=== PATIENT | female | born 1940 | race Caucasian/White ===

== ENCOUNTER 2024-08-26 18:58 | Inpatient (IN) | payer OTHER, SELFPAY ==
[2024-08-26 18:19] VITALS: BP 163/88
--- NOTE | 2024-08-26 18:44 | CONSULT.CT ---
Consultation
-
Date/Time Consultation Requested: 08/27 1843
Date/Time Consultation Performed: 08/27 1843
Performing Provider: Noemi Pena MD
Reason for Consultation: Endocarditis
Patient History
Physicians
Family Physician: Marianne Escalera
Outpatient Air Crew Officer: Juan Jose
Inpatient Air Crew Officer: GRABIEL
History of Present Illness
84-year-old female with past medical history significant for hypertension, hypothyroidism, rheumatoid arthritis on chronic methotrexate, hyperlipidemia, Sjogren's disease initially presented to [facility] after the neighbor felt that she was
more confused. Patient at that time endorsed feeling confused and having complaints of generalized weakness. Patient in the ER was found to be afebrile with a white count greater than 20,000, and elevated procalcitonin and a chest x-ray showed
left lower lobe infiltrates. She also endorsed right toe swelling and bruising. At that time blood cultures were drawn and she was treated with Rocephin and azithromycin. Blood cultures eventually grew gram-positive cocci in clusters and was
started on vancomycin. Eventually she was found to have Staph aureus bacteremia and Rocephin and azithromycin was discontinued.
On 08/24 patient received a transthoracic echocardiogram which showed a large echogenic mass on the posterior mitral valve leaflet. The lesion measured 1.6X 1.3 cm. Ejection fraction was noted to be 55% and she had mild to moderate MR with trace to
mild AR. Patient was transferred to [facility] for further management of her endocarditis and possible surgical intervention.
Past Medical History
Past Medical History: Other
hypertension, hypothyroidism, rheumatoid arthritis on chronic methotrexate, hyperlipidemia, Sjogren's disease
Dental History
unknown
Family History
Family Medical History: CAD
Social History
Alcohol: Occasional
Drug: None
Tobacco: Non-Smoker
Home Medications
�Medication �Instructions �Recorded �Confirmed �Type
Methotrexate (Anti-Rheumatic) 08/26/24 History
amlodipine 5 mg-benazepril 20 mg 1 cap PO DAILY 08/26/24 08/26/24 History
capsule
celecoxib 100 mg capsule (Celebrex) 100 mg PO DAILY 08/26/24 08/26/24 History
hydrochlorothiazide 25 mg tablet 25 mg PO DAILY 08/26/24 08/26/24 History
Review of Systems
-
History Source: Patient
General: Reports Fever, Fatigue and Sleep Disturbance
HEENT: Reports Hoarseness
Respiratory: Reports SOB and CASTILLO
Cardiac: Reports Edema
Abdomen/GI: Reports No Symptoms
: Reports No Symptoms
Musculoskeletal: Reports Myalgias and Arthralgias
Skin: Reports No Symptoms
Neurological: Reports Other (confused at times)
Vascular: Reports No Symptoms
Physical Exam
Exam
General: Poor Appetite
HEENT: Normocephalic
Respiratory: Clear and Crackles
Cardiac: S1/S2 and Murmur
GI: Other (obese)
Rectal: Deferred by Provider
Skin: Warm and Dry
Neuro: AO x 3 and Other (weak)
Extremities: Lower Level Edema
Lymph: Lymphadenopathy
Psych: Calm
Assessment / Plan
-
84-year-old female with past medical history listed above was found to have possible mitral valve endocarditis after presenting to [facility] with confusion. She was transferred to [facility] on 08/26 for continued endocarditis care
and surgical evaluation.
#MV Endocarditis
- Patient's case will be discussed with attending physician. Further details regarding surgical timing intervention will be determined after attending physicians full evaluation
- Routine preoperative cardiothoracic surgery orders will need be initiated.
- STS risk stratification score will be calculated after preoperative testing is complete
- patient will need ADITI
- Consulted cardiology and infectious disease
--- NOTE | 2024-08-26 19:09 | HPS.HSE ---
Family Physician
-
Family Physician: SHARLA GUO MD
Chief Complaint
-
confusion
History of Present Illness
84-year-old female past medical history of Sjogren's syndrome, rheumatoid arthritis, hyperlipidemia, hypothyroidism, anxiety, depression, neuropathy, skin cancer, osteopenia presenting as a transfer from [facility] for cardiothoracic surgery
evaluation.
Patient was admitted for confusion. She was found to have MSSA bacteremia secondary to mitral valve endocarditis. Was found to have 1.6 cm vegetation of her mitral valve leaflet on 08/24. She was treated with IV antibiotics narrowed to cefazolin
and had negative blood cultures on August 22. She was not having any evidence of congestive heart failure.
She had CT chest which did not show any evidence of embolic phenomenon. ADITI was being considered but she had brain imaging which showed anterior medial right cerebral hemisphere decreased attenuation concerning for septic emboli to the brain. ADITI
was canceled.
Decision was made to transfer patient to [facility] due to discovery of septic emboli to the brain and consideration of surgery for mitral valve endocarditis.
She also had a right third toe ulcer that was debrided by podiatry. No further management required.
Medical History
Past Medical History
Past Medical History: Reports Other (Sjogren's syndrome, rheumatoid arthritis, hyperlipidemia, hypothyroidism, anxiety, depression, neuropathy, skin cancer, osteopenia)
Past Surgical History: Reports None
Social History
Tobacco: Non-smoker
Alcohol: Occasional
Drug: None
Family History
Family History: Not pertinent
Allergies / Home Medications
Allergies reflects when Allergies were last updated in [facility].
Home Medications with original date entered in [facility]
Allergy/Medication List:
Home Medications
Methotrexate (Anti-Rheumatic) 20 TH 08/26/24
amlodipine 5 mg-benazepril 20 mg capsule 1 cap PO DAILY 08/26/24
celecoxib 100 mg capsule (Celebrex) 100 mg PO DAILY 08/26/24
hydrochlorothiazide 25 mg tablet 25 mg PO DAILY 08/26/24
Review of Systems
-
History Source: Patient
A 12 point ROS was completed and negative except as noted: Yes
Constitutional: Reports No Symptoms
EENT: Reports No Symptoms
Respiratory: Reports No Symptoms
Cardiac: Reports No Symptoms
Abdomen/GI: Reports No Symptoms
: Reports No Symptoms
Musculoskeletal: Reports No Symptoms
Skin: Reports No Symptoms
Neurological: Reports No Symptoms
Endocrine: Reports No Symptoms
Hematologic/Lymphatic: Reports No Symptoms
Psych: Reports No Symptoms
Physical Exam
Physical Exam
General: Well Developed, Well Nourished and No Apparent Distress
HEENT: NormoCephalic, Moist mucous membranes and Atraumatic
Respiratory: Clear
Cardiac: S1/S2 and Regular Rhythm; No Murmur or Rub
GI: Soft, Non Tender, Non Distended and Normal Bowel Sounds; No Organomegaly
Rectal: Deferred by Provider
Musculoskeletal: No Clubbing, No Cyanosis and No Edema
Skin: No Rash
Neuro: Nonfocal/grossly intact
Data Reviewed
-
Lab Data: Labs Reviewed by me
Old Records: Reviewed
Impression/Plan
-
IMPRESSION:
PLAN:
# MSSA bacteremia
# Endocarditis/mitral valve leaflet vegetation
-Echo showed 1.6 x 1.3 cm lesion on the atrial side of the posterior mitral valve leaflet
-Repeat blood cultures on 08/22 negative
-Continue cefazolin, patient would lead 6-week course from date of cultures being negative
-ID consulted
-ADITI was deferred due to septic emboli and brain
-CT chest shows no embolic phenomena
-Cardiology consult
-Cardiothoracic surgery consulted
# Likely septic emboli to brain
-1.2 cm region of decreased attenuation of the anterior medial right cerebellar hemisphere, possible recent infarction
-No neurological symptoms
-Neurology consulted
# Acute metabolic encephalopathy from bacteremia
-Resolved
-Pneumonia was considered previously but deemed to not be pneumonia by pulmonary
Right third toe ulcer
-Underwent debridement by podiatry, no further treatment necessary
Essential hypertension
-Hydrochlorothiazide, amlodipine/benazepril being held
Rheumatoid arthritis
-Continue celecoxib, Tylenol
-Continue methotrexate
Sjogren syndrome
Osteoporosis
Chronic bilateral neuropathy
-Continue pregabalin
Anxiety/depression
-Continue duloxetine
Hyperlipidemia
-Continue statin
Hypothyroidism
History of skin cancer
Full code
DVT prophylaxis�heparin
Regular diet
[2024-08-26 19:22] VITALS: BP 147/90
[2024-08-26] MEDS: TYLENOL 500 MG PO (20:42)
[2024-08-26] MEDS: COLACE 100 MG PO (20:43)
[2024-08-26] MEDS: ANCEF 10 IV (22:03)
[2024-08-26] MEDS: CYMBALTA DELAYED RELEASE 20 MG PO (22:03)
[2024-08-26 22:10] VITALS: BMI 24.4
--- NOTE | 2024-08-26 22:31 | PTCARENOTE ---
Addendum entered by Maria G Sun RN 08/26/24 22:38:
Pt on bed alarm for safety.
Original Note:
Assumed care of pt at 1900. Pt was a transfer from [place] admitted for endocarditis. Pt vitals stable, SR on monitor. Assessment and admission done. Pt oriented but forgetful. Pt with RFA IV site with good blood return from [place]. New name
band placed. [facility] name band removed. Pt instructed to ring for assistance.
[2024-08-26 23:12] VITALS: BP 149/80
[2024-08-27] VITALS (8 sets, daily range): BP systolic 144–162; BP diastolic 79–97; O2SAT 96
--- NOTE | 2024-08-27 01:19 | PTCARENOTE ---
Received patient at 2300. SR on the monitor, HR in the 60s. Oriented x3 but forgetful, bed alarm on. No complaints from pt at this time, call humphrey within reach.
[2024-08-27] MEDS: TYLENOL 500 MG PO ×2 (02:35→18:16)
[2024-08-27 03:06] LABS: % Basophils 0.4 % (0-2); % Eosinophils 4.4 % (0-6); % Immature Granulocytes 0.7 % (0-0.5); % Lymphocytes 19.3 % (20.5-51.1); % Monocytes 6.5 % (1.7-9.3); % Neutrophils 68.7 % (42.2-75.2); Absolute Eosinophils 0.4 10^3/uL (0-0.7); Absolute Immature Granulocytes 0.1 10^3/uL (0-0.05); Absolute Lymphocytes 1.6 10^3/uL (1.2-3.4); Absolute Monocytes 0.5 10^3/uL (0.1-0.6); Absolute Neutrophils 5.6 10^3/uL (1.4-6.5); Hematocrit 33.6 % (37.0-47.0); Hemoglobin 11.2 g/dL (12.0-16.0); Mean Corp Hgb Conc. 33.3 g/dL (33.0-37.0); Mean Corpuscular Hgb 29.7 pg (27.0-31.0); Mean Corpuscular Volume 89.1 fL (81.0-99.0); Mean Platelet Volume 9.5 fL (7.4-10.4); Nucleated Red Blood Cells % 0 %; Platelet Count 184 10^3/uL (130-400); Red Blood Cell Count 3.77 10^6/uL (4.20-5.40); Red Cell Dist. Width 17.6 % (11.5-14.5); White Blood Cell Count 8.1 10^3/uL (4.8-10.8)
[2024-08-27 03:22] LABS: ALT (SGPT) 12 U/L (0-35); AST (SGOT) 34 U/L (14-36); Alkaline Phosphatase 93 U/L (38-126); Blood Urea Nitrogen 23 mg/dl (7-17); Calcium 9.4 mg/dl (8.4-10.2); Carbon Dioxide 29 mmol/L (22-30); Chloride 107 mmol/L (98-107); Estimated Creatinine Clearance 58 ml/min; Glucose 107 mg/dl (70-99); Sodium 142 mmol/L (135-145); Total Bilirubin 0.8 mg/dl (0.2-1.3); Total Protein 5.6 g/dl (6.3-8.2); eGFR > 60.00
[2024-08-27] MEDS: ANCEF 10 IV ×3 (05:08→22:42)
--- NOTE | 2024-08-27 07:21 | CON.NEURO ---
Consultation
Order
Date of Consultation: 08/27/24
Requesting Provider: Cris Gupta MD
Reason for Consult: Evidence of septic emboli in the brain
Neurology Consultation Note.
HPI: This is an 84-year-old left-handed immunocompromised woman who transferred to [facility] on 08/26/2024 for management of infectious endocarditis and consideration of surgery for mitral valve MSSA endocarditis. Neurology
consultation was requested given abnormal CT head findings.
The patient reports neck discomfort and stiffness, which is a new symptom. This is associated with a recent fall. Prior to hospitalization for infectious endocarditis, the patient was independent, living alone but with family support, able to
perform activities of daily living without assistance, and did not require ambulatory aids.
The patient describes the fall as occurring when she was half-asleep and tried to get out of bed. She denies any loss of consciousness, weakness, preceding the fall.
EKG:NSR, QTc Int : 453 ms
PDMP: Pregabalin 50 Mg 90 capsules filled in on 06/17/2024, 03/31/2022 4.
Labs: Hemoglobin�11.2, glucose�107, normal sodium, creatinine.
CT head wo contrast (08/27/2024) mild age-related parenchymal atrophy. No intra- or extra-axial mass, hemorrhage, or fluid collection. No areas of abnormal mass effect or attenuation are noted. Hyperostosis frontalis interna. Mild mucosal thickening
of the left sphenoid sinus. The mastoid air cells are clear.
Based on EMR the patient had anterior medial right cerebral hemisphere decreased attenuation concerning for septic emboli to the brain.
PMH: RA,Sjogren's syndrome, DLP, hypothyroidism, polyneuropathy, osteopenia, HANH, MDD
PSH: Bilateral cataract surgery, bilateral median nerve decompression at the wrist
SH: Lives alone, independent in ADLs
FH: Not contributory to current presentation
All:NKDA
ROS: Constitutional: Negative. Negative for chills, fever and unexpected weight change.
HENT: Negative for ear pain, hearing loss, tinnitus and trouble swallowing.
Eyes: Negative. Negative for photophobia, pain and visual disturbance.
Respiratory: Negative for cough, choking and shortness of breath.
Cardiovascular: Negative for chest pain, palpitations and leg swelling.
Gastrointestinal: Negative for abdominal pain and vomiting.
Endocrine: Negative. Negative for cold intolerance.
Genitourinary: Negative for dysuria, flank pain and urgency.
Musculoskeletal: Positive for generalized arthralgias, neck stiffness, right shoulder pain
Skin: Negative for rash.
Allergic/Immunologic: Negative. Negative for immunocompromised state.
Neurological: Positive for chronic hand tremor
Psychiatric/Behavioral: Negative for behavioral problems, confusion and hallucinations.
General: Well developed. In no acute distress.
Cardio: Regular rate and rhythm without murmur. Extremities are without cyanosis or edema.
Neuro:
Mental Status: Alert, oriented to person, place, and date. Normal attention and recall. Good fund of knowledge. Follows complex requests across the midline. Comprehension, naming, and repetition intact. Immediate and delayed recall 3/3.
Cranial Nerves: Pupils are equally round and reactive to light. EOMs full. Visual upton full to confrontation. No ptosis. No nystagmus. V1-V3 intact to light touch and pinprick bilaterally, symmetric. Face symmetric. Mildly impaired hearing
AU. The palate elevated well. SCMs and traps 5/5. Tongue midline. No dysarthria. Mild dysphonia
Motor: Normal bulk and tone. No pronator or arm drift. Strength 5/5 throughout. No clonus.
Reflexes: 2+ throughout the upper extremities and knees. 2/2 in AJs. Plantar responses flexor bilaterally.
Sensory: Normal vibration at the ankles
Coordination: Mild action right more than left hand tremor. No dysmetria
Gait: deferred
Assessment and Plan:
I. History of right cerebral signal abnormality.
II. MSSA endocarditis. Patients with IE are at high risk for embolic events, including embolic stroke. �Patients with IE are at risk for bleeding complications from hemorrhagic transformation of an embolic stroke, rupture of a mycotic aneurysm, or
septic arteritis with hemorrhage from vessel wall erosions. It is a common practice to hold antiplatelet therapy during treatment of IE. However, in the absence of bleeding complications, it is reasonable to continue antiplatelet therapy in acute IE
for patients deemed to be at particularly high risk of recurrent noncardioembolic ischemic stroke because of factors such as recent TIA or high-grade stenosis of an extracranial or intracranial large artery.
III. Mild action chronic hand tremor
-Telemetry monitoring
-Please obtain neurology notes and copy of brain MRI
-Obtain brain MRI with and without hanh if not done at [facility]
-Check TFTs
-C spine MRI w/wo hanh
-DVT prophylaxis
I personally reviewed all radiology and labs along with past medical records pertinent to current medical problems. Total time spent in patient care is 60 minutes.
Thank you for allowing us to participate in the care of this patient. We will continue to follow. Please do not hesitate to contact us with any questions or concerns.
Subjective/Objective
Subjective Data
Date of Service: August 27, 2024
Objective Data
Vital Signs
Temp Pulse Resp BP Pulse Ox
37.0 C 64 18 153/87 100
08/27/24 02:25 08/27/24 03:00 08/27/24 02:25 08/27/24 02:26 08/27/24 02:25
Lab Results
08/27/24 02:31
08/27/24 02:31
Sodium 142 mmol/L (135-145) 08/27/24 02:31
Potassium 4.0 mmol/L (3.5-5.1) 08/27/24 02:31
BUN 23 mg/dl (7-17) H 08/27/24 02:31
Glucose 107 mg/dl (70-99) H 08/27/24 02:31
Calcium 9.4 mg/dl (8.4-10.2) 08/27/24 02:31
Patient Allergies
latex Allergy (Verified 08/26/24 19:47)
Unknown
Medications
-
Active Medications
Generic Name Dose Route Start Last Admin
Trade Name Freq PRN Reason Stop Dose Admin
Acetaminophen 500 mg 08/26/24 19:36 08/27/24 02:35
Acetaminophen 500 Mg Tablet PO 09/23/24 19:35 500 mg
Q6HPRN PRN Administration
mild pain/fever
Atorvastatin Calcium 20 mg 08/27/24 08:00
Atorvastatin (Lipitor) 20 Mg Tablet PO 09/24/24 07:59
DAILY EDITH
Carbamide Peroxide 5 drop 08/26/24 19:36
Carbamide Peroxide 6.5% (Otic Solution) 15 Ml Bottle BOTH EARS 09/23/24 19:35
DAILYPRN PRN
ear wac
Celecoxib 200 mg 08/27/24 08:00
Celecoxib 200 Mg Capsule PO 09/24/24 07:59
DAILY EDITH
Docusate Sodium 100 mg 08/26/24 20:00 08/26/24 20:43
Docusate Sodium 100 Mg Capsule PO 09/23/24 19:59 100 mg
BID EDITH Administration
Duloxetine HCl 20 mg 08/26/24 20:00 08/26/24 22:03
Duloxetine Delayed Release 20 Mg Capsule PO 09/23/24 19:59 20 mg
BID EDITH Administration
Folic Acid 1 mg 08/27/24 08:00
Folic Acid 1 Mg Tablet PO 09/24/24 07:59
DAILY EDITH
Cefazolin Sodium 2 grams in 10 mls @ 120 mls/hr 08/26/24 22:00 08/27/24 05:08
Ancef IV 10 mls
Q8H EDITH Administration
Multivitamins Therapeutic 1 tablet 08/27/24 08:00
Multivitamin Tablet PO 09/24/24 07:59
DAILY EDITH
Non-Form (Cevimeline 1 cap 08/26/24 22:00
30 Mg Capsule) PO 09/23/24 21:59
TID EDITH
Non-Form (Povidone- 1 applic 08/27/24 08:00
Iodine 10 % Swab) TOPICAL 09/24/24 07:59
MoTh@0800 EDITH
Ondansetron HCl 4 mg 08/26/24 19:36
Ondansetron 4 Mg Tablet PO 09/23/24 19:35
DAILYPRN PRN
nausea
Pregabalin 50 mg 08/27/24 08:00
Pregabalin 50 Mg Capsule PO 09/24/24 07:59
DAILY EDITH
Sodium Chloride 0 flush 08/26/24 20:00
Sodium Chloride 0.9% (Flush) Syringe IV 09/23/24 19:59
PER PROTOCOL EDITH
Home Medications
�Medication �Instructions �Recorded
acetaminophen 500 mg tablet 500 mg PO Q6HPRN PRN mild 08/26/24
(Tylenol Extra Strength) pain/fever
atorvastatin 20 mg tablet 20 mg PO DAILY 08/26/24
carbamide peroxide 6.5 % ear drops 5 drp EACH EAR DAILYPRN PRN ear wac 08/26/24
(Debrox)
cefazolin 1 gram solution for 2 g IV Q8H 08/26/24
injection
celecoxib 200 mg capsule (Celebrex) 200 mg PO DAILY 08/26/24
cevimeline 30 mg capsule 1 cap PO TID 08/26/24
docusate sodium 100 mg capsule 100 mg PO BID 08/26/24
duloxetine 20 mg capsule,delayed 20 mg PO BID 08/26/24
release
folic acid 1 mg tablet 1 mg PO DAILY 08/26/24
methotrexate sodium 2.5 mg tablet 20 mg PO TH 08/26/24
[id number] 8 mg-folic 400 1 tab PO DAILY 08/26/24
mcg-K 50 mcg-lutein 300 mcg tablet
(Centrum Silver Women)
ondansetron HCl 4 mg tablet 4 mg PO DAILYPRN PRN nausea 08/26/24
povidone-iodine 10 % topical swab 1 applic topical MOTH 08/26/24
pregabalin 50 mg capsule 50 mg PO DAILY 08/26/24
Vital Signs and Labs
-
Vital Signs and Labs:
Vital Signs
Temp Pulse Resp BP Pulse Ox
37.0 C 64 18 153/87 100
08/27/24 02:25 08/27/24 03:00 08/27/24 02:25 08/27/24 02:26 08/27/24 02:25
Lab Results
08/27/24 02:31
08/27/24 02:31
Sodium 142 mmol/L (135-145) 08/27/24 02:31
Potassium 4.0 mmol/L (3.5-5.1) 08/27/24 02:31
BUN 23 mg/dl (7-17) H 08/27/24 02:31
Glucose 107 mg/dl (70-99) H 08/27/24 02:31
Calcium 9.4 mg/dl (8.4-10.2) 08/27/24 02:31
Medications
-
Medications:
Generic Name Dose Route Start Last Admin
Trade Name Freq PRN Reason Stop Dose Admin
Acetaminophen 500 mg 08/26/24 19:36 08/27/24 02:35
Acetaminophen 500 Mg Tablet PO 09/23/24 19:35 500 mg
Q6HPRN PRN Administration
mild pain/fever
Atorvastatin Calcium 20 mg 08/27/24 08:00
Atorvastatin (Lipitor) 20 Mg Tablet PO 09/24/24 07:59
DAILY EDITH
Carbamide Peroxide 5 drop 08/26/24 19:36
Carbamide Peroxide 6.5% (Otic Solution) 15 Ml Bottle BOTH EARS 09/23/24 19:35
DAILYPRN PRN
ear wac
Celecoxib 200 mg 08/27/24 08:00
Celecoxib 200 Mg Capsule PO 09/24/24 07:59
DAILY EDITH
Docusate Sodium 100 mg 08/26/24 20:00 08/26/24 20:43
Docusate Sodium 100 Mg Capsule PO 09/23/24 19:59 100 mg
BID EDITH Administration
Duloxetine HCl 20 mg 08/26/24 20:00 08/26/24 22:03
Duloxetine Delayed Release 20 Mg Capsule PO 09/23/24 19:59 20 mg
BID EDITH Administration
Folic Acid 1 mg 08/27/24 08:00
Folic Acid 1 Mg Tablet PO 09/24/24 07:59
DAILY EDITH
Cefazolin Sodium 2 grams in 10 mls @ 120 mls/hr 08/26/24 22:00 08/27/24 05:08
Ancef IV 10 mls
Q8H EDITH Administration
Multivitamins Therapeutic 1 tablet 08/27/24 08:00
Multivitamin Tablet PO 09/24/24 07:59
DAILY EDITH
Non-Form (Cevimeline 1 cap 08/26/24 22:00
30 Mg Capsule) PO 09/23/24 21:59
TID EDITH
Non-Form (Povidone- 1 applic 08/27/24 08:00
Iodine 10 % Swab) TOPICAL 09/24/24 07:59
MoTh@0800 EDITH
Ondansetron HCl 4 mg 08/26/24 19:36
Ondansetron 4 Mg Tablet PO 09/23/24 19:35
DAILYPRN PRN
nausea
Pregabalin 50 mg 08/27/24 08:00
Pregabalin 50 Mg Capsule PO 09/24/24 07:59
DAILY EDITH
Sodium Chloride 0 flush 08/26/24 20:00
Sodium Chloride 0.9% (Flush) Syringe IV 09/23/24 19:59
PER PROTOCOL EDITH
Home Medications
-
Home Medications
acetaminophen 500 mg tablet (Tylenol Extra Strength) 500 mg PO Q6HPRN PRN mild pain/fever 08/26/24
atorvastatin 20 mg tablet 20 mg PO DAILY 08/26/24
carbamide peroxide 6.5 % ear drops (Debrox) 5 drp EACH EAR DAILYPRN PRN ear wac 08/26/24
cefazolin 1 gram solution for injection 2 g IV Q8H 08/26/24
celecoxib 200 mg capsule (Celebrex) 200 mg PO DAILY 08/26/24
cevimeline 30 mg capsule 1 cap PO TID 08/26/24
docusate sodium 100 mg capsule 100 mg PO BID 08/26/24
duloxetine 20 mg capsule,delayed release 20 mg PO BID 08/26/24
folic acid 1 mg tablet 1 mg PO DAILY 08/26/24
methotrexate sodium 2.5 mg tablet 20 mg PO TH 08/26/24
revycmnf-jqxy-sjxb 8 mg-folic 400 mcg-K 50 mcg-lutein 300 mcg tablet (Centrum Silver Women) 1 tab PO DAILY 08/26/24
ondansetron HCl 4 mg tablet 4 mg PO DAILYPRN PRN nausea 08/26/24
povidone-iodine 10 % topical swab 1 applic topical MOTH 08/26/24
pregabalin 50 mg capsule 50 mg PO DAILY 08/26/24
--- NOTE | 2024-08-27 07:38 | W.PN.HOSP.TC ---
Addendum entered and electronically signed by Megha Gonzalez MD 08/27/24 14:30:
I saw and evaluated the patient independently. I reviewed the resident�s note and agree with findings and plan as documented by Dr. Liu.
GENERAL: well developed, well nourished, female in no apparent distress
HEENT: NC/AT
HEART: regular rate and rhythm, +S1, +S2, JOSE DAVID
LUNGS : clear to auscultation bilaterally
ABDOM: soft, nontender, nondistended, + bowel sounds
EXT: no cyanosis, clubbing, or edema
NEUROLOGIC: grossly intact
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
emboli)-- Chest CT negative for septic emboli--apprec CT surgery/cardiology--apprec ID--w/u in process for likely valve replacement--cont ancef 2 gm IV Q8 hours IV for 6 weeks
Likely septic emboli to brain secondary to endocarditis mitral valve vegetation-- CT report from [place] shows 1.2 cm region of decreased attenuation of the anterior medial right cerebellar hemisphere, possible recent infarction. Unable to view
original images-- Neurology already consulted--head CT without acute abnormality
Acute metabolic encephalopathy from bacteremia-- Resolved-- Pneumonia was considered previously but deemed to not be pneumonia by pulmonary at [place]-- No respiratory complaints here-- chest xray without infiltrates
Right third toe ulcer s/p debridement by podiatry at [place]-- Wound care consulted--? source of bacteremia?
Essential hypertension-- Hydrochlorothiazide, amlodipine/benazepril has been held. Defer to card team-- BPs hypertensive here.
Rheumatoid arthritis-- Home regimen includes daily celecoxib (hold), weekly methotrexate, prn tylenol-- Concern for risk of immunosuppression associated with methotrexate, await ID recs.
Muscular neck pain-- Try heating pad. If not improving, can try lidocaine patch
Possible aspiration?-- Speech therapy evaluation.
Sjogren syndrome-- Continue home cevimeline (nonformulary)
Chronic bilateral neuropathy-- Continue home pregabalin
Anxiety/depression-- continue home duloxetine. Upset by new medical issues. 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
Osteoporosis-- not on medication
Hyperlipidemia-- continue home statin
Hypothyroidism-- Check TSH
History of skin cancer
DVT proph
Code status--full code
Original Note:
Today's Communication/Plan
-
Continue plan as below. Will check head ct, chest xray here. Await recommendations from consults.
Assessment / Plan
Assessment / Plan
84-year-old female with PMH Sjogren's, RA, HLD, hypoT, anxiety/depression, neuropathy who was transferred from [place] to 08/26/24 for cardiothoracic surgical evaluation of mitral valve endocarditis complicated by septic emboli to brain. She
initially presented to [place] for confusion. She was found to have MSSA bacteremia secondary to mitral valve endocarditis. Was found to have 1.6 cm vegetation of her mitral valve leaflet on 08/24. She was treated with IV antibiotics narrowed to
cefazolin. Repeat blood cultures on August 22 showed no growth to date. She was not having any evidence of congestive heart failure. ADITI was being considered but she had brain imaging which showed anterior medial right cerebral hemisphere decreased
attenuation concerning for septic emboli to the brain. She had CT chest which did not show any evidence of embolic phenomenon. Also reportedly had a concern for pneumonia. Right third toe ulcer was debrided by podiatry.
Endocarditis with mitral valve leaflet vegetation, complicated by septic emboli to brain (see below)-- TTE echo from [place] showed 1.6 x 1.3 cm lesion on the atrial side of the posterior mitral valve leaflet (ADITI deferred due to septic emboli)--
Chest CT negative for septic emboli-- CT surgery, cardiology consulted
MSSA bacteremia (cultures performed at [place])-- Treated with IV antibiotics narrowed to cefazolin at [place], plan was for eventual picc to continue IV abx for 6 weeks from negative culture. Cefazolin continued on admission, defer changes
to ID, already consulted-- Blood cultures 08/22 NGTD, final result pending. Will follow up with [facility] for final culture data.
Likely septic emboli to brain secondary to endocarditis mitral valve vegetation-- CT report from [place] shows 1.2 cm region of decreased attenuation of the anterior medial right cerebellar hemisphere, possible recent infarction. Unable to view
original images-- Neurology already consulted-- Check noncontrast head CT, discussed with Dr. Lindo
Acute metabolic encephalopathy from bacteremia-- Resolved-- Pneumonia was considered previously but deemed to not be pneumonia by pulmonary at [place]-- No respiratory complaints here. Will check chest xray.
Right third toe ulcer s/p debridement by podiatry at [place]-- Wound care consulted.
Essential hypertension-- Hydrochlorothiazide, amlodipine/benazepril has been held. Defer to card team-- BPs hypertensive here.
Rheumatoid arthritis-- Home regimen includes daily celecoxib, weekly methotrexate, prn tylenol-- Hold celecoxib to reduce risk of gastritis, will reassess prn if additional analgesia is required. Concern for risk of immunosuppression associated
with methotrexate, await ID recs.
Muscular neck pain-- Try heating pad. If not improving, can try lidocaine patch
Possible aspiration?-- Speech therapy evaluation.
Sjogren syndrome-- Continue home cevimeline (nonformulary)
Chronic bilateral neuropathy-- Continue home pregabalin
Anxiety/depression-- continue home duloxetine. Upset by new medical issues. 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
Osteoporosis-- not on medication
Hyperlipidemia-- continue home statin
Hypothyroidism-- Check tsh
History of skin cancer
Code status: full (confirmed 08/27).
She has advanced directive at home-- instructed to have family bring it in. She has 3 children.
DVT ppx: Heparin sc
Diet: Regular, follow up speech eval
Dispo planning: anticipate she will need some rehab; plan TBD pending clinical course and PT recs closer to discharge
Anticipated Discharge: > 48 hours
Subjective/Interval History
-
Date of Service: August 27, 2024
Overnight, she was transferred from [place] to . This morning, she complains of tiredness, neck pain, and feeling upset by new medical issues. Otherwise review of systems negative-- denies fevers, chills, dizziness, chest pain, palpitations,
shortness of breath, coughing or wheezing, abdominal pain, nausea, vomiting, diarrhea, constipation. She reports 1 episode of coughing while taking pills yesterday; otherwise tolerating oral diet and denies any pain/difficulty/choking with
swallowing. While hospitalized, has only been out of bed to bedside commode.
Objective Data
-
Labs:
Laboratory Results
08/27/24
02:31
WBC 8.1
Hgb 11.2 L
Hct 33.6 L
Plt Count 184
Sodium 142
Potassium 4.0
Chloride 107
Carbon Dioxide 29
BUN 23 H
Creatinine 0.7
Glucose 107 H
Calcium 9.4
Total Bilirubin 0.8
AST 34
ALT 12
Alkaline Phosphatase 93
Vital Signs:
Vital Signs
Temp Pulse Resp BP Pulse Ox
98.6 F 64 18 153/87 100
08/27/24 02:25 08/27/24 03:00 08/27/24 02:25 08/27/24 02:26 08/27/24 02:25
I&O
08/26/24 08/27/24 08/28/24
06:59 06:59 06:59
Output Total 250 / 250
Balance -250 / -250
Review of Systems
-
History Source: Patient
All other systems: Reviewed and negative
Physical Exam
-
General: No Apparent Distress, Comfortable, Conversant and Other (Nontoxic, elderly female appears stated age); Negative Fever, Chills or Sweats
HEENT: Normocephalic, Atraumatic and Other (Neck supple, active range of motion limited secondary to pain, no palpable deformity, no midline tenderness, +tenderness to palpation of paraspinal muscles bilaterally)
Respiratory: Crackles (Bilateral bases) and Non Labored Respirations; Negative Wheezes or Rhonchi
Cardiac: Regular Rhythm, S1/S2 and Other (Did not appreciate murmur)
GI: Soft, Nontender, Nondistended and Normal Bowel Sounds
Musculoskeletal: No Clubbing, No Cyanosis and No Edema
Skin: Warm, Dry and Ulcers (Right third toe--no drainage)
Neuro: Awake, Alert, AO x 3 and Nonfocal/Grossly Intact; Negative Slurred Speech or Facial Droop
Psych: Calm and Anxious
Data Reviewed
-
Diagnostic Radiology: Report Reviewed by me
CT Scan: Report Reviewed by me
Medical Tests (Nuc Med, Echo etc): Report Reviewed by me
Labs: Labs Reviewed by me and Discussed with Physician
Old Records: Reviewed
--- NOTE | 2024-08-27 08:08 | CON.CAR ---
Addendum entered and electronically signed by Herb Chapman DO 08/27/24 18:02:
I saw and examined the patient.
The Sampler Pickup's note was reviewed and I agree with the note.
Comment:
Plan:
HPI:-Patient presented to [facility] with confusion and found to have MSSA bacteremia. repeat BCx 08/22 resulted negative. By TTE at [place] 08/24 was noted to have evidence of large echogenic mass on posterior mitral valve leaflet
concerning for endocarditis. Also with suspected septic emboli to brain by imaging completed at [place]. She was transferred to [facility] 08/26/[address] surgical evaluation.
Neurologic evaluation and ID evaluation ongoing
Head CT ordered
Cont broad spectrum abx.
Possible ADITI tomorrow to eval endocarditis.
Pt would need cardiac cath to eval coronary anatomy prior to eval for MVR
Remains in sinus
Discussed with nursing and CT surgery
Original Note:
Consultation
Consultation Request
Date/Time Consultation Performed: 08/27/24
Requesting Provider: Dr. Pena
Performing Provider: Lora Casillas PA-C for Dr. Chapman
Reason for Consultation: endocarditis
Medical History
-
Chief Complaint: confusion
History of Present Illness:
Patient is an 84-year-old female with past medical history of hypertension, rheumatoid arthritis on chronic methotrexate therapy, hypothyroidism, hyperlipidemia who presented to [facility] as her neighbor was concerned that she was acting
more confused. Patient also reported weakness. She was noted to have leukocytosis, elevated Pro-Zach, and chest x-ray with concern for possible pneumonia with left lower lobe infiltrate. Blood cultures were drawn which grew MSSA. Echocardiogram
was completed 08/24/2024 which showed EF 55%, large echogenic mass on posterior mitral valve leaflet with mild to moderate MR, concern for endocarditis. She was transferred to [facility] for further evaluation and possible surgical
intervention. She had brain imaging which showed area of anterior medial right cerebral hemisphere decreased attenuation with concern for septic emboli. She denies chest discomfort, shortness of breath, palpitations. Denies history of significant
cardiac issues. She does endorse neck pain at present. While at [place] she also had debridement of a right third toe ulcer by podiatry.
PMH:
RA on chronic methotrexate
HTN
HLD
Hypothyroidism
Anxiety/depression
Past Medical History
Past Medical History: Other (in HPI)
Social History
Tobacco: Non-Smoker
Alcohol: Other (rare)
Living: Alone
Family History
Family History: Reviewed & Not Pertinent
Allergies / Home Medications
Allergy/AdvReac Type Severity Reaction Status Date / Time
latex Allergy Unknown Verified 08/26/24 19:47
�Medication �Instructions �Recorded �Confirmed �Type
acetaminophen 500 mg tablet 500 mg PO Q6HPRN PRN mild 08/26/24 08/26/24 History
(Tylenol Extra Strength) pain/fever
atorvastatin 20 mg tablet 20 mg PO DAILY 08/26/24 08/26/24 History
carbamide peroxide 6.5 % ear drops 5 drp EACH EAR DAILYPRN PRN ear wac 08/26/24 08/26/24 History
(Debrox)
cefazolin 1 gram solution for 2 g IV Q8H 08/26/24 08/26/24 History
injection
celecoxib 200 mg capsule (Celebrex) 200 mg PO DAILY 08/26/24 08/26/24 History
cevimeline 30 mg capsule 1 cap PO TID 08/26/24 08/26/24 History
docusate sodium 100 mg capsule 100 mg PO BID 08/26/24 08/26/24 History
duloxetine 20 mg capsule,delayed 20 mg PO BID 08/26/24 08/26/24 History
release
folic acid 1 mg tablet 1 mg PO DAILY 08/26/24 08/26/24 History
methotrexate sodium 2.5 mg tablet 20 mg PO TH 08/26/24 08/26/24 History
wkybxssj-wnck-pizl 8 mg-folic 400 1 tab PO DAILY 08/26/24 08/26/24 History
mcg-K 50 mcg-lutein 300 mcg tablet
(Centrum Silver Women)
ondansetron HCl 4 mg tablet 4 mg PO DAILYPRN PRN nausea 08/26/24 08/26/24 History
povidone-iodine 10 % topical swab 1 applic topical MOTH 08/26/24 08/26/24 History
pregabalin 50 mg capsule 50 mg PO DAILY 08/26/24 08/26/24 History
Review of Systems
-
History Source: Patient
All other systems: Negative unless noted
Physical Exam
Vital Signs
Temp Pulse Resp BP Pulse Ox
98.6 F 64 18 153/87 100
08/27/24 02:25 08/27/24 03:00 08/27/24 02:25 08/27/24 02:26 08/27/24 02:25
Lab Results
08/27/24 02:31
08/27/24 02:31
Physical Exam
General: No Apparent Distress and Comfortable
HEENT: Normocephalic, Anicteric and Moist Mucous Membranes
Respiratory: Clear and Non Labored Respirations
Cardiac: S1/S2, Regular Rhythm and Murmur
GI: Soft, Non Tender, Non Distended and Normal Bowel Sounds
Musculoskeletal: No Clubbing, No Cyanosis and No Edema
Skin: Warm and Dry
Neuro: Awake, Alert and Oriented (to self, place)
Impression / Plan
-
Primary Continuous Improvement Coach: Dr. Ingram of [facility]
Assessment:
Presentation to [facility] with confusion
TME
LLL infiltrate, not felt to be PNA per pulm at [facility]
MSSA bacteremia
Suspected septic emboli to brain by imaging at [facility]
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
R 3rd toe ulder s/p debridement per podiatry at [facility]
RA on chronic methotrexate
HTN
HLD
Hypothyroidism
Anxiety/depression
Anemia
Hypoalbuminemia
TTE at [facility] 08/24/24: EF 55%, large echogenic mass on posterior mitral valve leaflet 1.6 x 1.3 cm with mild to moderate MR, concern for endocarditis
Plan:
-Patient presented to [facility] with confusion and found to have MSSA bacteremia. repeat BCx 08/22 resulted negative. By TTE at [place] 08/24 was noted to have evidence of large echogenic mass on posterior mitral valve leaflet concerning
for endocarditis. Also with suspected septic emboli to brain by imaging completed at [place]. She was transferred to [facility] 08/26/[address] surgical evaluation.
-follow mental status
-Continue antibiotics per ID
-Neurology has been consulted. Head CT ordered
-For chest x-ray
-Normal sinus rhythm by EKG and review of telemetry
-Will need cardiac catheterization and ADITI once okay from neurologic standpoint
-d/w CT surgery
Data Reviewed
-
EKG: Tracing Personally Visualized and interpreted
Medical Tests (Nuc Med, Echo etc): Report Reviewed by me
Labs: Labs Reviewed by me
Old Records: Reviewed
[2024-08-27] MEDS: LIPITOR 20 MG PO (08:32)
[2024-08-27] MEDS: CELEBREX 200 MG PO (08:32)
[2024-08-27] MEDS: LYRICA 50 MG PO (08:32)
[2024-08-27] MEDS: CYMBALTA DELAYED RELEASE 20 MG PO ×2 (08:32→19:31)
[2024-08-27] MEDS: COLACE 100 MG PO ×2 (08:32→19:31)
[2024-08-27] MEDS: THERAGRAN 1 TABLET PO (08:32)
[2024-08-27] MEDS: FOLVITE 1 MG PO (08:32)
[2024-08-27] MEDS: PROTONIX 40 MG PO (10:43)
--- NOTE | 2024-08-27 11:15 | PTCARENOTE ---
Assumed care at 0700. Patient AO x3. Right upper arm discomfort, k-pad ordered for pain. Poor appetite, general fatigue. NSR HR in 60's, murmur. bed alarm is audible and patient using call humphrey for assistance
--- NOTE | 2024-08-27 12:04 | WOUNDNOTE ---
COCCYX (BLANCHABLE RED)/R BUTTOCKS
--- NOTE | 2024-08-27 12:05 | WOUNDNOTE ---
R 3RD TOE (PLANTAR TIP)
--- NOTE | 2024-08-27 12:06 | WOUNDNOTE ---
R 3RD TOE (PLANTAR TIP)
--- NOTE | 2024-08-27 12:17 | WOUNDNOTE ---
[facility] RN note: Patient transferred from [facility] for CT surgeon evaluation. Patient admitted with infectious endocarditis MSSA bacteremia.
See H&P for complete history.
PMH: Sjogren's syndrome, RA, anxiety, depression, neuropathy, skin cancer.
Wound Location and type/assessment: Patient admitted with: R 3rd toe plantar tip few very small scabbed dermal ulcers s/p callus debridement by a [place] food stand manager Dr. Girma Wheeler on 08/24/24. No erythema, no drainage. Local care on medical
chart from food stand manager is cover R 3rd toe with Band-aide. +Hammer toe. +R Pedal pulse via portable Doppler. L pedal pulse palpated. Toes warm. No LE edema. Mild yeast appearing groin rash bilateral and L breast fold. Coccyx blanchable red. R
coccyx/buttocks small scabbed abrasion/scratch hans.
Appetite: fair-poor.
Pressure redistribution devices in place: [employer] Accumax. Patient can turn self in bed.
Plan: Dressing changed on R 3rd toe for protection. Instructed patient to have someone bring in her sneakers for when she ambulates. Instructed patient to follow up with a food stand manager for foot wear evaluation and callus care.
Will confirm orders with Dr. Camila Liu and discussed with MAITE Garcia.
Care plan to be updated, will sign off, call if needed.
--- NOTE | 2024-08-27 13:21 | PTOTSP ---
[employer] Evaluations
Oral/pharyngeal swallowing suspected to be grossly WFL.
Mild-moderate dysphonia noted (hoarse vocal quality, low volume).
Quick Aphasia Battery Form 1 QAB overall score = 8.61 concerning for a mild aphasia with mild expressive language changes (i.e., minimal semantic paraphasias) and receptive language changes (i.e., break down with complex auditory comprehension.)
Communication intact at the conversation level.
Recommend:
1. Regular, Thin Liquids
2. General aspiration and reflux precautions
3. Further speech/language/cognitive evaluation as able/appropriate.
--- NOTE | 2024-08-27 13:27 | CON.ID ---
Consultation
-
Date/Time Consultation Requested: 08/26/2024 1826
Date/Time Consultation Performed: 08/27/2024 1130
Requesting Provider: JULIO CESAR Fajardo
Performing Provider: Dr. Marr
Reason for Consultation: Mitral valve endocarditis
Chief Complaint / Past History
History of Present Illness
Fanny Srivastava is an 84-year-old female being evaluated at the request of Maria G Hawley regarding mitral valve endocarditis. History is obtained from chart review, along with patient interview.
Patient was admitted to [facility] on 08/20/2024. According to reviewed records she was brought to the ER after her neighbor felt that she was confused. In the ER she also admitted to feeling confused. No focal weakness or paresthesias
were admitted to. No history of headache. She admitted to mild nausea. The patient lives alone.
Blood cultures were obtained, which ultimately revealed the presence of MSSA. Initial white count revealed a leukocytosis of 20.3, and a left lower lobe infiltrate on chest x-ray. Hospital course was significant for an echo being performed which
revealed a mitral valve vegetation. The patient has been sent on to [facility] for further evaluation of possible valve replacement.
The patient does not recall any antecedent infections, including influenza. She does not recall having prior fevers or chills.
Past History
Additional Past Medical History:
Sjogren syndrome
Rheumatoid arthritis
Dyslipidemia
Hypothyroidism
Anxiety/depression
Neuropathy
Hx of skin cancer
Osteopenia
Past Surgical History: None
Allergy History:
latex Allergy (Verified 08/26/24 19:47)
Unknown
Medications Reviewed: Yes
Current Antibiotics:
Cefazolin 2 g IV every 8 hours
Social History
Tobacco: Non-Smoker
Alcohol: Occasional
Drug: None
Living: Alone
Employment: Retired
Family History
Family History: Not Pertinent
Review of Systems
Vital Signs
Temp Pulse Resp BP Pulse Ox
98.1 F 74 18 151/85 96
08/27/24 11:56 08/27/24 13:00 08/27/24 11:56 08/27/24 11:48 08/27/24 11:56
Physical Exam
Physical Exam
Constitutional: No Acute Distress, Well Developed, Comfortable and Chronically Ill
Head: Normocephalic
Eyes: Pupils Equal, Pupils Round, No Conjunctival Hemorrhage and Sclera Anicteric
Oral: No Thrush and No Ulcers
Cardiovascular: Regular Rate and S1/S2; Negative S3/S4
Pulmonary: Clear; Negative Wheezes, Rales or Rhonchi
Gastrointestinal: Soft, Non Tender, Non Distended, Normal Bowel Sounds, No Rebound and No Guarding
Genito-Urinary: Negative López
Extremities: Negative Edema, Cyanosis, Erythema, Splinter Hemorrhage, Venous Insufficiency or Janeway Lesions
Musculoskeletal: Negative Joint Swelling
Skin: Warm and Dry; Negative Rash or Jaundice
Neurological: Awake and Alert
Psychological: Calm
.
Lab / Diagnostic Study Results
08/27/24 02:31
08/27/24 02:31
Abs Immat Gran (auto) 0.1 10^3/uL (0-0.05) H 08/27/24 02:31
Absolute Neuts (auto) 5.6 10^3/uL (1.4-6.5) 08/27/24 02:31
Absolute Lymphs (auto) 1.6 10^3/uL (1.2-3.4) 08/27/24 02:31
Absolute Monos (auto) 0.5 10^3/uL (0.1-0.6) 08/27/24 02:31
Absolute Basos (auto) 0.0 10^3/uL (0-0.2) 08/27/24 02:31
Immature Gran % 0.7 % (0-0.5) H 08/27/24 02:31
Neutrophils % 68.7 % (42.2-75.2) 08/27/24 02:31
Lymphocytes % 19.3 % (20.5-51.1) L 08/27/24 02:31
Monocytes % 6.5 % (1.7-9.3) 08/27/24 02:31
Eosinophils % 4.4 % (0-6) 08/27/24 02:31
Basophils % 0.4 % (0-2) 08/27/24 02:31
Microbiology Results
08/20/2024 Blood culture: MSSA ([facility])
08/22/2024 Blood culture: No growth ([facility])
Imaging:
08/25/2024 CT head: 1.2 cm region of decreased attenuation at the anterior medial right cerebellar hemisphere which is developed since a prior CT scan dated 08/20/2024. This was possibly a recent infarction. Also noted is mild age-related volume
loss. Please see full dictation for additional detail. (Film performed at [facility])
08/21/2024 CT chest: No evidence of pneumonia. Small bilateral pleural effusions noted. Mild subsegmental atelectasis at the posterior inferior aspect of the right and left lower lobes. Ossification of the mitral annulus, with atherosclerotic
coronary artery calcifications noted. Please see full dictation for additional detail. (Film performed at [facility])
08/20/2024 CT head: No evidence of intracranial hemorrhage, acute infarct, mass or midline shift. Chronic small vessel ischemia and volume loss noted. Please see full dictation for additional detail. (Film performed at [facility])
TTE at [facility] 08/24/24: EF 55%, large echogenic mass on posterior mitral valve leaflet 1.6 x 1.3 cm with mild to moderate MR, concern for endocarditis
Assessment / Plan
Mitral valve endocarditis
Staph aureus (MSSA bacteremia)
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
Sjogren syndrome
Rheumatoid arthritis
Dyslipidemia
Hypothyroidism
Anxiety/depression
Neuropathy
Hx of skin cancer
Osteopenia
Recommendations:
Continue with cefazolin 2 g IV every 8 hours for now.
Will recheck blood cultures here to assure clearance of bacteremia.
MRI of the brain has been ordered.
Check ESR and CRP.
Patient for eventual ADITI, cardiac cath and likely valve replacement.
Will continue to follow along with you.
Care Review
Plan reviewed with: Other Provider (Cardiology)
--- NOTE | 2024-08-27 14:53 | CM ---
Reviewed chart. Met with Mrs. Srivastava to review discharge plans. She states prior to admission she resides alone in a two story home with ine step to enter. She states she has a full flight of steps to get to bedroom/full bathroom. She states prior
to admission she was independent with ambulation and adls. She states she does not have any DME in the home. She states she has a prescription plan. She states she has a daughter in [place], one daughter in [place] and a son in [facility]. Will
need to check if she will have coverage for home Infusion. Will need to see her current functional level to see if she will have any skilled care needs. Medical work-up in progress. The discharge plan is to return home when medically stable.
--- NOTE | 2024-08-27 16:30 | PTCARENOTE ---
Patient sent to MRI on a stretcher. Telemetry removed
[2024-08-27] MEDS: NON-FORMULARY ITEM 1 CAP PO ×2 (18:10→22:42)
[2024-08-27] MEDS: DESENEX/MITRAZOL/ZEASORB 1 APPLIC TOPICAL (19:31)
[2024-08-27] MEDS: LIDOCAINE 4% PATCH 1 PATCH TOPICAL (19:31)
--- NOTE | 2024-08-27 23:25 | PTCARENOTE ---
Received patient at change of shift. SR on the monitor, HR in the 70s. Lidocaine patch applied to upper back/neck due to neck pain. Call humphrey within reach.
[2024-08-28] VITALS (19 sets, daily range): BP systolic 107–156; BP diastolic 44–121; BMI 23.8
[2024-08-28] MEDS: TYLENOL 500 MG PO ×2 (03:54→12:20)
[2024-08-28 04:40] LABS: Erythrocyte Sed Rate 48 mm/hour (0-20)
[2024-08-28 04:44] LABS: Hematocrit 33.5 % (37.0-47.0); Mean Corp Hgb Conc. 32.8 g/dL (33.0-37.0); Mean Corpuscular Hgb 29.2 pg (27.0-31.0); Mean Corpuscular Volume 88.9 fL (81.0-99.0); Mean Platelet Volume 9.2 fL (7.4-10.4); Platelet Count 169 10^3/uL (130-400); Red Blood Cell Count 3.77 10^6/uL (4.20-5.40); Red Cell Dist. Width 17.3 % (11.5-14.5); White Blood Cell Count 11.6 10^3/uL (4.8-10.8)
[2024-08-28 05:06] LABS: Blood Urea Nitrogen 21 mg/dl (7-17); Calcium 9.5 mg/dl (8.4-10.2); Carbon Dioxide 27 mmol/L (22-30); Chloride 106 mmol/L (98-107); Estimated Creatinine Clearance 68 ml/min; Glucose 106 mg/dl (70-99); Magnesium 2.2 mg/dl (1.6-2.3); Potassium 3.7 mmol/L (3.5-5.1); Sodium 141 mmol/L (135-145); eGFR > 60.00
[2024-08-28 05:38] LABS: TSH Reflex To Free T4 1.22 uIU/ml (0.47-4.68)
[2024-08-28] MEDS: ANCEF 10 IV (05:53)
[2024-08-28] MEDS: LYRICA 50 MG PO (08:08)
[2024-08-28] MEDS: NON-FORMULARY ITEM 1 CAP PO (08:08)
[2024-08-28] MEDS: CYMBALTA DELAYED RELEASE 20 MG PO ×2 (08:08→19:39)
[2024-08-28] MEDS: PROTONIX 40 MG PO (08:08)
--- NOTE | 2024-08-28 08:33 | W.PN.HOSP.TC ---
Addendum entered and electronically signed by Megha Gonzalez MD 08/28/24 14:34:
I saw and evaluated the patient independently. I reviewed the resident�s note and agree with findings and plan as documented by Dr. Liu.
GENERAL: well developed, well nourished, female in no apparent distress
HEENT: NC/AT
HEART: regular rate and rhythm, +S1, +S2, JOSE DAVID
LUNGS : clear to auscultation bilaterally
ABDOM: soft, nontender, nondistended, + bowel sounds
EXT: no cyanosis, clubbing, or edema
NEUROLOGIC: grossly intact
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
emboli)-- Chest CT negative for septic emboli--apprec CT surgery/cardiology--apprec ID--w/u in process for likely valve replacement--cont ancef 2 gm IV Q8 hours IV for 6 weeks---ADITI today
Likely septic emboli to brain secondary to endocarditis mitral valve vegetation-- CT report from [place] shows 1.2 cm region of decreased attenuation of the anterior medial right cerebellar hemisphere, possible recent infarction. Unable to view
original images-- Neurology already consulted--head CT without acute abnormality--MRI done here shows ACUTE and SUBACUTE EMBOLIC DISEASE with MULTIPLE SMALL ACUTE and SUBACUTE ISCHEMIC INFARCTS in the brain diffusely distributed throughout both the
anterior and posterior circulation
Acute metabolic encephalopathy from bacteremia-- Resolved-- Pneumonia was considered previously but deemed to not be pneumonia by pulmonary at [place]-- No respiratory complaints here-- chest xray without infiltrates
Right third toe ulcer s/p debridement by podiatry at [place]-- Wound care consulted--? source of bacteremia?
Essential hypertension-- Hydrochlorothiazide, amlodipine/benazepril has been held. Defer to card team-- BPs hypertensive here.
Rheumatoid arthritis-- Home regimen includes daily celecoxib (hold), weekly methotrexate, prn tylenol-- Concern for risk of immunosuppression associated with methotrexate, await ID recs.
Muscular neck pain-- Try heating pad. If not improving, can try lidocaine patch
Possible aspiration?-- Speech therapy evaluation.
Sjogren syndrome-- Continue home cevimeline (nonformulary)
Chronic bilateral neuropathy-- Continue home pregabalin
Anxiety/depression-- continue home duloxetine. Upset by new medical issues. Requested supervisor plastering/pastoral care visit.
Osteoporosis-- not on medication
Hyperlipidemia-- continue home statin
Hypothyroidism-- Check TSH
History of skin cancer
DVT proph
Code status--full code
Original Note:
Today's Communication/Plan
-
ADITI today, continue antibiotics
Assessment / Plan
Assessment / Plan
84-year-old female with PMH Sjogren's, RA, HLD, hypoT, anxiety/depression, neuropathy who was transferred from [place] to 08/26/24 for cardiothoracic surgical evaluation of mitral valve endocarditis complicated by septic emboli to brain. She
initially presented to [place] for confusion. She was found to have MSSA bacteremia secondary to mitral valve endocarditis. Was found to have 1.6 cm vegetation of her mitral valve leaflet on 08/24. She was treated with IV antibiotics narrowed to
cefazolin. Repeat blood cultures on August 22 showed no growth to date. She was not having any evidence of congestive heart failure. ADITI was being considered but she had brain imaging which showed anterior medial right cerebral hemisphere decreased
attenuation concerning for septic emboli to the brain. She had CT chest which did not show any evidence of embolic phenomenon. Also reportedly had a concern for pneumonia. Right third toe ulcer was debrided by podiatry.
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
septic emboli)-- Chest CT at negative for septic emboli-- Apprec CT surgery, cardiology, ID--08/22 blood cultures x2 No Growth (confirmed finalized results today); 08/27 blood cultures at pending--workup ongoing for valve replacement, will be
for ADITI today-- continue IV cefazolin per ID
Likely septic emboli to brain secondary to endocarditis mitral valve vegetation-- CT reported 1.2 cm region of decreased attenuation of the anterior medial right cerebellar hemisphere, possible recent infarction. Unable to view original images--
Apprec neurology-- head CT with no acute intracranial abnormality; brain MRI showed acute and subacute embolic disease with multiple ischemic infarcts
Acute metabolic encephalopathy from bacteremia-- Resolved-- Pneumonia was previoulsy considered, pulm at though unlikely to be source-- No respiratory complaints here, and chest xray without infiltrates
Right third toe ulcer s/p debridement by podiatry at [place]-- Apprec wound care
Essential hypertension-- Hydrochlorothiazide, amlodipine/benazepril has been held. Defer to card team-- BPs hypertensive here.
Rheumatoid arthritis-- Home regimen includes daily celecoxib, weekly methotrexate, prn tylenol-- Hold celecoxib to reduce risk of gastritis, hold methotrexate for risk of immunosuppression-- will reassess prn if additional analgesia is required
Neck pain-- chronic multilevel findings on MRI: severe DDD, severe arthrosis and anterolisteses, mild cord compression and canal stenosis-- may also have muscular component-- continue heating pad and lidocaine patch, prn tylenol
Possible aspiration?-- apprec speech therapy eval, cleared for regular texture diet
Sjogren syndrome-- Continue home cevimeline (nonformulary)
Chronic bilateral neuropathy-- Continue home pregabalin
Anxiety/depression-- continue home duloxetine. Upset by new medical issues. Apprec pastoral care
Osteoporosis-- not on medication
Hyperlipidemia-- continue home statin
?Hypothyroidism-- TSH wnl-- MRI showed 2.7 cm thyroid mass and several nodules consistent with goiter
History of skin cancer
Code status: full (confirmed 08/27).
She has advanced directive at home-- instructed to have family bring it in. She has 3 children.
DVT ppx: Heparin sc
Diet: NPO for procedure (regular texture)
Dispo planning: anticipate she will need some rehab; plan TBD pending clinical course and PT/OT recs closer to discharge
Imaging at :
Head CT 08/27/24
FINDINGS:
Mild age-related parenchymal atrophy. No intra- or extra-axial mass, hemorrhage, or fluid collection. No areas of abnormal mass effect or attenuation are noted. Hyperostosis frontalis interna. Mild mucosal thickening of the left sphenoid sinus. The
mastoid air cells are clear.
IMPRESSION:
No acute intracranial abnormality.
Chest xray 08/27/24
FINDINGS:
No focal consolidation or pneumothorax. Trace bilateral pleural effusions. The cardiomediastinal silhouette is normal. Retrocardiac lucency consistent with a moderate hiatal hernia. Chronic degenerative changes of the spine.
IMPRESSION:
Trace bilateral pleural effusions. Moderate hiatal hernia.
Cervical spine MRI 08/27/24
IMPRESSION:
1. SEVERE DISCOGENIC DEGENERATIVE DISEASE at C5/C6 and C6/C7. Moderate amount of enhancing acute endplate bone marrow edema adjacent to the C5/C6 intervertebral disc. Degenerative disease or an inflammatory arthropathy are considered most likely.
Acute infectious discitis is considered less likely given the absence of fluid signal intensity in the disc space.
2. SEVERE MULTILEVEL FACET JOINT ARTHROSIS throughout the cervical and upper thoracic spine with associated multilevel anterolistheses.
3. Mild multilevel spinal cord compression and central canal stenosis secondary to disc-osteophyte complexes and facet joint arthrosis.
4. SEVERE NEURAL FORAMINAL NARROWING at C4/C5, C5/C6, and C6/C7.
5. 2.7 cm mass in the right lobe of the thyroid gland and other smaller nodules in the thyroid isthmus and left lobe of the thyroid gland suggesting a thyroid goiter.
Brain MRI 08/27/24
IMPRESSION:
1. ACUTE and SUBACUTE EMBOLIC DISEASE with MULTIPLE SMALL ACUTE and SUBACUTE ISCHEMIC INFARCTS in the brain diffusely distributed throughout both the anterior and posterior circulation..
2. Mild white matter leukoaraiosis.
3. Mild diffuse cerebral and cerebellar volume loss.
4. Mild acute left sphenoid sinusitis.
5. Mild cervical spinal cord compression and central canal stenosis secondary to multilevel discogenic degenerative disease and facet joint arthrosis.
Anticipated Discharge: > 48 hours
Subjective/Interval History
-
Date of Service: August 28, 2024
No acute events overnight. She feels a little bit better than yesterday, not as fatigued. Review of systems negative-- denies dizziness, chest pain, shortness of breath, abdominal pain, nausea, vomiting, diarrhea, constipation. Last BM yesterday.
Tolerating oral diet, OOB to BR.
Objective Data
-
Labs:
Laboratory Results
08/28/24
04:22
WBC 11.6 H
Hgb 11.0 L
Hct 33.5 L
Plt Count 169
Sodium 141
Potassium 3.7
Chloride 106
Carbon Dioxide 27
BUN 21 H
Creatinine 0.6
Glucose 106 H
Calcium 9.5
Discussed with nursing scanning supervisor at [place] [phone] -- 08/22/24 blood cultures x2 showed NO GROWTH (results finalized this morning)
08/27/2024 blood cultures x 2 pending
Vital Signs:
Vital Signs
Temp Pulse Resp BP Pulse Ox
98.7 F 67 18 156/96 98
08/28/24 07:03 08/28/24 04:45 08/28/24 07:03 08/28/24 03:52 08/28/24 07:03
I&O
08/27/24 08/28/24 08/29/24
06:59 06:59 06:59
Intake Total 160 / 160
Output Total 250 / 250
Balance -250 / -250 160 / 160
Review of Systems
-
History Source: Patient
All other systems: Reviewed and negative
Physical Exam
-
General: No Apparent Distress, Comfortable, Conversant and Other (Nontoxic, elderly female appears stated age); Negative Fever, Chills or Sweats
HEENT: Normocephalic, Atraumatic and Other (Neck supple, active range of motion limited secondary to pain, no palpable deformity, no midline tenderness, +tenderness to palpation of paraspinal muscles bilaterally)
Respiratory: Crackles (Bilateral bases) and Non Labored Respirations; Negative Wheezes or Rhonchi
Cardiac: Regular Rhythm, S1/S2 and Other (Did not appreciate murmur)
GI: Soft, Nontender, Nondistended and Normal Bowel Sounds
Musculoskeletal: No Clubbing, No Cyanosis and No Edema
Skin: Warm, Dry and Ulcers (R 3rd toe)
Neuro: Awake, Alert, AO x 3 and Nonfocal/Grossly Intact; Negative Slurred Speech or Facial Droop
Psych: Calm
Data Reviewed
-
Diagnostic Radiology: Image personally visualized and interpreted and Report Reviewed by me
CT Scan: Image personally visualized and interpreted and Report Reviewed by me
MRI: Image personally visualized and interpreted and Report Reviewed by me
Medical Tests (Nuc Med, Echo etc): Report Reviewed by me
Labs: Labs Reviewed by me and Discussed with Physician
Old Records: Reviewed
--- NOTE | 2024-08-28 08:43 | W.PN.CARDCBS ---
Addendum entered and electronically signed by Klever Delgado MD 08/28/24 15:57:
I saw and examined the patient.
The Fish Net Maker's note was reviewed and I agree with the note.
Comment:
GEN: No distress, awake, Ox3
HEENT: supple, anicteric, mmm
LUNGS: CTA, no wheezes/rales
CV: Reg, S1/S2, 1/6 syst LSB, no gallop
ABD: soft, BS+, NT/ND
EXT: No edema
NEURO: Gross non-focal
SKIN: No rash
Plan:
Continue IV antibiotics per ID. Will review ADITI with CT surgery.
Tentative plan is for mitral valve surgery mid next week on Saturday.
Mitral regurgitation was only in the mild to moderate range per preliminary report.
Cont ASA/Atorvastatin.
Original Note:
Today's Communication / Plan
-
ADITI today
abx per ID
Impression / Plan
-
Primary Stacker: Dr. Ingram of [facility]
Assessment:
Presentation to [facility] with confusion
TME
LLL infiltrate, not felt to be PNA per pulm at [facility]
MSSA bacteremia
Suspected septic emboli to brain by imaging at [facility]
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
R 3rd toe ulder s/p debridement per podiatry at [facility]
RA on chronic methotrexate
HTN
HLD
Hypothyroidism
Anxiety/depression
Anemia
Hypoalbuminemia
Moderate hiatal hernia
DDD of neck
Thyroid goiter
TTE at [facility] 08/24/24: EF 55%, large echogenic mass on posterior mitral valve leaflet 1.6 x 1.3 cm with mild to moderate MR, concern for endocarditis
Plan:
-Patient presented to [facility] with confusion and found to have MSSA bacteremia. repeat BCx 3/22 resulted negative. By TTE at [place] 08/24 was noted to have evidence of large echogenic mass on posterior mitral valve leaflet concerning
for endocarditis. Also with suspected septic emboli to brain by imaging completed at [place]. She was transferred to [facility] 08/26/[address] surgical evaluation.
-head CT without acute abnormalities. Brain MRI with acute and subacute embolic disease with multiple small acute and subacute ischemic infarcts noted, suspected septic emboli. neuro following
-NPO for ADITI today. again reviewed procedure with patient and she is agreeable to proceed
-pending results of ADITI, would tentatively plan for cardiac cath on Wednesday 08/30
-CT surgical eval ongoing
-continue abx per ID. repeat BCx pending
-CXR with moderate hiatal hernia
-remains in SR with occ PVCs on review of tele
-no CP, SOB
Progress Note - Stacker
Subjective
Date of Service: August 28, 2024
Denies chest pain, shortness of breath. For ADITI today
Objective
Labs:
08/28/24 04:22
08/28/24 04:22
Labs
Hgb 11.0 g/dL (12.0-16.0) L 08/28/24 04:22
Hct 33.5 % (37.0-47.0) L 08/28/24 04:22
Plt Count 169 10^3/uL (130-400) 08/28/24 04:22
Sodium 141 mmol/L (135-145) 08/28/24 04:22
Potassium 3.7 mmol/L (3.5-5.1) 08/28/24 04:22
BUN 21 mg/dl (7-17) H 08/28/24 04:22
Creatinine 0.6 mg/dL (0.6-1.0) 08/28/24 04:22
Glucose 106 mg/dl (70-99) H 08/28/24 04:22
Vital Signs and I&O:
Vital Signs
Temp Pulse Resp BP Pulse Ox
98.7 F 67 18 156/96 98
08/28/24 07:03 08/28/24 04:45 08/28/24 07:03 08/28/24 03:52 08/28/24 07:03
Vital Signs
Temp Pulse Resp BP Pulse Ox
98.7 F 67 18 156/96 98
08/28/24 07:03 08/28/24 04:45 08/28/24 07:03 08/28/24 03:52 08/28/24 07:03
Intake & Output
08/26/24 08/27/24 08/28/24 08/29/24
07:59 07:59 07:59 07:59
Intake Total 160 / 160
Output Total 250 / 250
Balance -250 / -250 160 / 160
Physical Exam
Physical Exam
GEN: No distress, awake, alert, oriented x3. sitting in chair
HEENT: supple, anicteric, mmm, eomi
LUNGS: CTA B/L, no wheezes/rales
CV: Reg, S1/S2, no murmur
ABD: soft, BS+, NT/ND
EXT: No cyanosis, clubbing, edema
NEURO: Gross non-focal
SKIN: Warm, pink, dry. No rash
[2024-08-28] MEDS: DESENEX/MITRAZOL/ZEASORB TOPICAL (10:04)
[2024-08-28] MEDS: LOW STRENGTH ASPIRIN 81 MG PO (10:08)
--- NOTE | 2024-08-28 10:26 | PTCARENOTE ---
Discussed ADITI w/ pt. PT verbalized understanding. PT to laborer cutting tool at 1010.
[2024-08-28] MEDS: NAFCIL 108 MG IV ×3 (12:14→20:38)
--- NOTE | 2024-08-28 12:43 | PTCARENOTE ---
Patient received from the greens laborer in a wheelchair, assisted to bed. AOx3, soft spoken. NSR occasional PVC's BP 137/70. POX 98% on room air. Tylenol given for 7 out 10 neck pain. Pre-hospital IV removed, leaking, placed #22 right hand. IV
antibiotics infusing, call humphrey in reach
--- NOTE | 2024-08-28 13:49 | W.PN.ID1 ---
Date of Service
Date of Service: August 28, 2024
Today's Communication
Replace cefazolin with nafcillin.
Assessment / Plan
Mitral valve endocarditis with embolic CVA
Staph aureus (MSSA bacteremia)
Sjogren syndrome
Rheumatoid arthritis
Dyslipidemia
Hypothyroidism
Anxiety/depression
Neuropathy
Hx of skin cancer
Osteopenia
Recommendations:
Replace cefazolin with nafcillin 2g IV q4h which penetrates the DRIVER SERVICE TECHNICIAN.
Follow renal function closely while on nafcillin.
Follow repeat blood cultures here to assure clearance of bacteremia.
ESR and CRP elevated
Patient for eventual ADITI, cardiac cath and likely valve replacement.
Will continue to follow along with you.
Chief Complaint
-: Bacteremia
Subjective / Review of Systems
Has neck pain
Vital Signs / Physical Exam
Vital Signs
Vital Signs
Temp Pulse Resp BP Pulse Ox
97.6 F 76 16 124/44 98
08/28/24 12:45 08/28/24 10:30 08/28/24 12:45 08/28/24 07:05 08/28/24 12:45
Physical Exam
Constitutional: Non-toxic
Eyes: No Conjunctival Hemorrhage and Sclera Anicteric
Cardiovascular: Regular Rate and S1/S2
Pulmonary: Clear
Gastrointestinal: Soft, Non Tender, Non Distended and Normal Bowel Sounds
Extremities: Negative Edema
Neurological: AO x 3; Negative Meningeal Signs
Objective Data
Lab Data
Lab Results
08/28/24 04:22
08/28/24 04:22
ESR 48 mm/hour (0-20) H 08/28/24 04:22
Estimated Creat Clear 68 ml/min 08/28/24 04:22
Total Bilirubin 0.8 mg/dl (0.2-1.3) 08/27/24 02:31
AST 34 U/L (14-36) 08/27/24 02:31
ALT 12 U/L (0-35) 08/27/24 02:31
Alkaline Phosphatase 93 U/L (38-126) 08/27/24 02:31
C-Reactive Protein 45.50 mg/L (0.0-10.00) H 08/28/24 04:22
Most recent labs reviewed.
Micro Results:
08/27/24 13:48 Blood Culture - Pending
Blood/Venous
08/27/24 13:48 Blood Culture - Pending
Blood/Venous
08/20/2024 Blood culture: MSSA ([facility])
08/22/2024 Blood culture: No growth ([facility])
Imaging:
08/27/24 MRI brain: ACUTE and SUBACUTE EMBOLIC DISEASE with MULTIPLE SMALL ACUTE and SUBACUTE ISCHEMIC INFARCTS in the brain diffusely distributed throughout both the anterior and posterior circulation..
08/25/2024 CT head: 1.2 cm region of decreased attenuation at the anterior medial right cerebellar hemisphere which is developed since a prior CT scan dated 08/20/2024. This was possibly a recent infarction. Also noted is mild age-related volume
loss. Please see full dictation for additional detail. (Film performed at [facility])
08/21/2024 CT chest: No evidence of pneumonia. Small bilateral pleural effusions noted. Mild subsegmental atelectasis at the posterior inferior aspect of the right and left lower lobes. Ossification of the mitral annulus, with atherosclerotic
coronary artery calcifications noted. Please see full dictation for additional detail. (Film performed at [facility])
08/20/2024 CT head: No evidence of intracranial hemorrhage, acute infarct, mass or midline shift. Chronic small vessel ischemia and volume loss noted. Please see full dictation for additional detail. (Film performed at [facility])
TTE at [facility] 08/24/24: EF 55%, large echogenic mass on posterior mitral valve leaflet 1.6 x 1.3 cm with mild to moderate MR, concern for endocarditis
[2024-08-28 13:51] LABS: Urine Albumin 1+ (Neg - Trace); Urine Bilirubin Negative (Negative); Urine Character Clear (Clear); Urine Color Yellow; Urine Glucose Negative (Negative); Urine Ketone Negative (Negative); Urine Leukocyte 1+ (Negative); Urine Nitrite Negative (Negative); Urine Occult Blood 1+ (Negative); Urine Urobilinogen Negative (Neg - 1+); Urine pH 6.5 (5.0-9.0)
[2024-08-28] MEDS: FOLVITE 1 MG PO (14:07)
[2024-08-28] MEDS: LIPITOR 20 MG PO (14:07)
[2024-08-28] MEDS: THERAGRAN 1 TABLET PO (14:08)
[2024-08-28] MEDS: COLACE 100 MG PO ×2 (14:08→20:38)
[2024-08-28 14:14] LABS: Urine Amorphous Seen
[2024-08-28 14:17] LABS: Urine Hyaline Cast 0-2 /LPF (0-2)
--- NOTE | 2024-08-28 14:35 | PTCARENOTE ---
Patient eating lunch, belching wasn't able to swallow, spitting out chewed up food and complaints of something feeling stuck in her throat. Pills given with that same response (pills given one at a time) and spitting water up afterwards. Speech
notified and she will evaluate at bedside today
--- NOTE | 2024-08-28 15:43 | PTOTSP ---
Dysphagia Therapy
Patient with regurgitation of solids/liquids concerning for an esophageal dysphagia though cannot completely rule out pharyngeal dysphagia at the bedside. Consider temporary NPO and non-oral means of nutrition/hydration as patient unable to
tolerate even liquids without regurgitation this afternoon.
Recommendation:
1. Consider NPO with temporary non-oral means of medications
2. Ice chips for comfort
3. Oral care 3x daily
4. Dysphagia f/u at the acute care level and video swallow if/when appropriate
5. Consider GI consult to r/o esophageal dysphagia
6. Speech/language/cognitive f/u at the acute care level
--- NOTE | 2024-08-28 16:02 | CM ---
spoke to pt in room, she is awaiting a cardiac cath saturday and then will be sched for AVR. she understands she will need iv antibx at home and she may need to go to rehab after AVR.
[2024-08-28] MEDS: NON-FORMULARY ITEM PO (17:25)
[2024-08-28] MEDS: LIDOCAINE 4% PATCH 1 PATCH TOPICAL (19:38)
[2024-08-28] MEDS: KCL 20 MEQ PO (20:00)
[2024-08-28] MEDS: DESENEX/MITRAZOL/ZEASORB 1 APPLIC TOPICAL (20:38)
[2024-08-28] MEDS: ULTRAM 50 MG PO (20:38)
--- NOTE | 2024-08-28 23:13 | PTCARENOTE ---
Pt rec'd at change of shift awake,alert assist of 1 to bathroom with walker. gait slow but steady. Pt with c/o significant neck pain despite heating pad. medicated with Ultram with pt noted to be resting most of evening shift following pain med. K
replaced po. Pt was able to swallow medication with out choking. Sinus on telemetry with episodes of ST with pac's 80-120
[2024-08-29] VITALS (7 sets, daily range): BP systolic 98–156; BP diastolic 77–98; PULSE 90
[2024-08-29] MEDS: NON-FORMULARY ITEM 1 CAP PO ×3 (00:22→16:03)
[2024-08-29] MEDS: NAFCIL 108 MG IV ×7 (00:23→23:29)
[2024-08-29] MEDS: ULTRAM 50 MG PO ×2 (03:36→10:48)
[2024-08-29 03:48] LABS: Hematocrit 34.7 % (37.0-47.0); Mean Corp Hgb Conc. 31.7 g/dL (33.0-37.0); Mean Corpuscular Hgb 29.1 pg (27.0-31.0); Mean Corpuscular Volume 91.8 fL (81.0-99.0); Mean Platelet Volume 9.9 fL (7.4-10.4); Platelet Count 195 10^3/uL (130-400); Red Blood Cell Count 3.78 10^6/uL (4.20-5.40); Red Cell Dist. Width 17.6 % (11.5-14.5); White Blood Cell Count 12.3 10^3/uL (4.8-10.8)
[2024-08-29 04:02] LABS: PT 14.5 Sec (11.4-14.6)
[2024-08-29 04:03] LABS: APTT 27.6 Sec (23.4-35.0)
[2024-08-29 04:12] LABS: ALT (SGPT) 10 U/L (0-35); AST (SGOT) 26 U/L (14-36); Albumin 3.1 g/dl (3.5-5.0); Alkaline Phosphatase 111 U/L (38-126); Blood Urea Nitrogen 19 mg/dl (7-17); Calcium 9.7 mg/dl (8.4-10.2); Carbon Dioxide 28 mmol/L (22-30); Chloride 109 mmol/L (98-107); Direct Bilirubin 0.4 mg/dl (0.0-0.4); Estimated Creatinine Clearance 51 ml/min; Glucose 119 mg/dl (70-99); Magnesium 2.3 mg/dl (1.6-2.3); Sodium 144 mmol/L (135-145); Total Protein 5.8 g/dl (6.3-8.2); eGFR > 60.00
--- NOTE | 2024-08-29 08:10 | W.PN.CARDCBS ---
Addendum entered and electronically signed by Herb Chapman DO 08/29/24 10:20:
I saw and examined the patient.
The Conference Interpreter's note was reviewed and I agree with the note.
Comment:
Plan:
Cont IV Abx as per ID for MSSA bacteremia and MV endocarditis
ADITI reviewed with pt
CT surgery following
Cath saturday and would attempt to expedite surgery given suspected septic emboli to brain at [facility]
CT surgery evaluating.
Original Note:
Today's Communication / Plan
-
continue abx
cath Thursday 08/31
based on ADITI, would attempt to expedite surgery as CT surgery schedule allows
Impression / Plan
-
Primary Special Education Preschool Teacher: Dr. Ingram of [facility]
Assessment:
Presentation to [facility] with confusion
TME
LLL infiltrate, not felt to be PNA per pulm at [facility]
MSSA bacteremia
Suspected septic emboli to brain by imaging at [facility]
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
R 3rd toe ulder s/p debridement per podiatry at [facility]
RA on chronic methotrexate
HTN
HLD
Hypothyroidism
Anxiety/depression
Anemia
Hypoalbuminemia
Moderate hiatal hernia
DDD of neck
Thyroid goiter
TTE at [facility] 08/24/24: EF 55%, large echogenic mass on posterior mitral valve leaflet 1.6 x 1.3 cm with mild to moderate MR, concern for endocarditis
Plan:
-Patient presented to [facility] with confusion and found to have MSSA bacteremia. repeat BCx 08/22 resulted negative. By TTE at [place] 08/24 was noted to have evidence of large echogenic mass on posterior mitral valve leaflet concerning
for endocarditis. Also with suspected septic emboli to brain by imaging completed at [place]. She was transferred to [facility] 08/26/[address] surgical evaluation.
-head CT without acute abnormalities. Brain MRI with acute and subacute embolic disease with multiple small acute and subacute ischemic infarcts noted, suspected septic emboli. neuro following
-s/p ADITI 08/28 with preserved EF, large partially mobile vegetation measuring 2.0 cm in length on primarily the posterior leaflet of mitral valve, also with smaller, highly mobile echodense structure/vegetation on posterior leaflet of mitral valve
that transverses the mitral valve with each cardiac cycle with high risk of embolization, mild to moderate MR
-plan for cardiac cath on Thursday 08/31
-CT surgery following. based on ADITI, would attempt to expedite surgery as CT surgery schedule allows
-continue abx per ID. repeat BCx without growth thus far
-remains in SR with occ PVCs on review of tele
-no CP, SOB
-d/w CT surgery TEST ADMINISTRATOR
Progress Note - Special Education Preschool Teacher
Subjective
Date of Service: August 29, 2024
Denies CP, SOB
Objective
Labs:
08/29/24 03:25
08/29/24 03:24
Labs
Hgb 11.0 g/dL (12.0-16.0) L 08/29/24 03:25
Hct 34.7 % (37.0-47.0) L 08/29/24 03:25
Plt Count 195 10^3/uL (130-400) 08/29/24 03:25
PT 14.5 Sec (11.4-14.6) 08/29/24 03:24
INR 1.10 08/29/24 03:24
APTT 27.6 Sec (23.4-35.0) 08/29/24 03:24
Sodium 144 mmol/L (135-145) 08/29/24 03:24
Potassium 4.0 mmol/L (3.5-5.1) 08/29/24 03:24
BUN 19 mg/dl (7-17) H 08/29/24 03:24
Creatinine 0.8 mg/dL (0.6-1.0) 08/29/24 03:24
Glucose 119 mg/dl (70-99) H 08/29/24 03:24
Vital Signs and I&O:
Vital Signs
Temp Pulse Resp BP Pulse Ox
97.8 F 78 20 156/88 96
08/29/24 03:12 08/29/24 06:45 08/29/24 03:12 08/29/24 03:17 08/29/24 03:12
Vital Signs
Temp Pulse Resp BP Pulse Ox
97.8 F 78 20 156/88 96
08/29/24 03:12 08/29/24 06:45 08/29/24 03:12 08/29/24 03:17 08/29/24 03:12
Intake & Output
08/27/24 08/28/24 08/29/24 08/30/24
07:59 07:59 07:59 07:59
Intake Total 260 / 260 980 / 980
Output Total 250 / 250 1300 / 1300
Balance -250 / -250 260 / 260 -320 / -320
Physical Exam
Physical Exam
GEN: No distress, awake, alert, oriented x3.
HEENT: supple, anicteric, mmm, eomi
LUNGS: CTA B/L, no wheezes/rales
CV: Reg, S1/S2, no murmur
ABD: soft, BS+, NT/ND
EXT: No cyanosis, clubbing, edema
NEURO: Gross non-focal
SKIN: Warm, pink, dry. No rash
--- NOTE | 2024-08-29 08:54 | W.PN.HOSP.TC ---
Addendum entered and electronically signed by Megha Gonzalez MD 08/29/24 12:57:
I saw and evaluated the patient independently. I reviewed the resident�s note and agree with findings and plan as documented by Dr. Liu.
GENERAL: well developed, well nourished, female in no apparent distress
HEENT: NC/AT
HEART: regular rate and rhythm, +S1, +S2, JOSE DAVID
LUNGS : clear to auscultation bilaterally
ABDOM: soft, nontender, nondistended, + bowel sounds
EXT: no cyanosis, clubbing, or edema
NEUROLOGIC: grossly intact
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
emboli)-- Chest CT negative for septic emboli--apprec CT surgery/cardiology--apprec ID--w/u in process for likely valve replacement--cont ancef 2 gm IV Q8 hours IV for 6 weeks---s/p ADITI here shows 2 vegetations, 1 with high potential for
embolization--CT surg expediting workup, CT chest today, cardiac cath Saturday--valve surgery Saturday
Likely septic emboli to brain secondary to endocarditis mitral valve vegetation-- CT report from [place] shows 1.2 cm region of decreased attenuation of the anterior medial right cerebellar hemisphere, possible recent infarction. Unable to view
original images---head CT without acute abnormality--MRI done here shows ACUTE and SUBACUTE EMBOLIC DISEASE with MULTIPLE SMALL ACUTE and SUBACUTE ISCHEMIC INFARCTS in the brain diffusely distributed throughout both the anterior and posterior
circulation--apprec neuro
Acute metabolic encephalopathy from bacteremia-- Resolved-- Pneumonia was considered previously but deemed to not be pneumonia by pulmonary at [place]-- No respiratory complaints here-- chest xray without infiltrates
Right third toe ulcer s/p debridement by podiatry at [place]-- Wound care consulted--? source of bacteremia?
Essential hypertension-- Hydrochlorothiazide, amlodipine/benazepril has been held. Defer to card team-- BPs hypertensive here.
Rheumatoid arthritis-- Home regimen includes daily celecoxib (hold), weekly methotrexate, prn tylenol-- Concern for risk of immunosuppression associated with methotrexate, await ID recs.
Muscular neck pain-- Try heating pad. If not improving, can try lidocaine patch
Possible aspiration?-- apprec Speech therapy--significant meds only, otherwise NPO--may need GI eval....
Sjogren syndrome-- Continue home cevimeline (nonformulary)
Chronic bilateral neuropathy-- Continue home pregabalin
Anxiety/depression-- continue home duloxetine
Osteoporosis-- not on medication
Hyperlipidemia-- continue home statin
Hypothyroidism-- TSH WNL
History of skin cancer
DVT proph
Code status--full code
Original Note:
Today's Communication/Plan
-
Cardiac cath Saturday. Continue antibiotics per ID. NPO due to dysphagia, will need VFSS eventually (after cath)
Assessment / Plan
Assessment / Plan
84-year-old female with PMH Sjogren's, RA, HLD, hypoT, anxiety/depression, neuropathy who was transferred from [place] to 08/26/24 for cardiothoracic surgical evaluation of mitral valve endocarditis complicated by septic emboli to brain. She
initially presented to [place] for confusion. She was found to have MSSA bacteremia secondary to mitral valve endocarditis. Was found to have 1.6 cm vegetation on the atrial side of the posterior mitral valve leaflet by TTE on 08/24. She was
treated with IV antibiotics narrowed to cefazolin. Repeat blood cultures x2 on August 22 showed no growth (final result). She was not having any evidence of congestive heart failure. ADITI was being considered but she had brain imaging which showed
1.2cm anterior medial right cerebral hemisphere decreased attenuation concerning for septic emboli to the brain. She had CT chest which did not show any evidence of embolic phenomenon. Also reportedly had a concern for pneumonia. Right third toe
ulcer was debrided by podiatry.
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
final results pending--ADITI 08/28 showed preserved EF; vegetations of posterior mitral valve leaflet (2.0cm partially mobile; 1.0cm highly mobile vegetation that traverses MV with each beat, high risk of embolization) and mild-mod MR-- preop eval for
MVR ongoing, expedited out of concern for septic emboli to brain-- will be for cardiac cath, anticipate Saturday--continue IV nafcillin per ID, monitor renal func and LFTs
Likely septic emboli to brain secondary to endocarditis mitral valve vegetation-- [facility] neurology--08/[address] with no acute intracranial abnormality; brain MRI showed acute and subacute embolic disease with multiple ischemic infarcts; antibiotics
changed from cefazolin to nafcillin for manager games penetration
Acute metabolic encephalopathy from bacteremia-- Resolved
Right third toe ulcer s/p debridement by podiatry at [place]-- Apprec wound care
Essential hypertension-- Hydrochlorothiazide, amlodipine/benazepril has been held. Defer to card team-- BPs hypertensive here.
Rheumatoid arthritis-- Home regimen includes daily celecoxib, weekly methotrexate, prn tylenol-- Hold celecoxib to reduce risk of gastritis, hold methotrexate for risk of immunosuppression-- will reassess prn if additional analgesia is required
Neck pain-- chronic multilevel findings on MRI: severe DDD, severe arthrosis and anterolistheses, mild cord compression and canal stenosis-- may also have muscular component-- continue heating pad and lidocaine patch, prn analgesia (tylenol if
tolerating po, IV if npo)
Dysphagia/regurgitation-- [facility] speech therapy eval--NPO except critical meds with sips of water and ice chips--IV hydration-- VFSS eventually (after heart cath)
Sjogren syndrome-- Continue home cevimeline (nonformulary)
Chronic bilateral neuropathy-- Continue home pregabalin
Anxiety/depression-- continue home duloxetine. Upset by new medical issues. Apprec pastoral care
Osteoporosis-- not on medication
Hyperlipidemia-- continue home statin
?Hypothyroidism-- TSH wnl-- MRI showed 2.7 cm thyroid mass and several nodules consistent with goiter
History of skin cancer
Code status: full (confirmed 08/27).
She has advanced directive at home-- instructed to have family bring it in. She has 3 children.
DVT ppx: Heparin sc
Diet: NPO
Dispo planning: anticipate she will need some rehab; plan TBD pending clinical course and PT/OT recs closer to discharge
Imaging at :
Head CT 08/27/24
FINDINGS:
Mild age-related parenchymal atrophy. No intra- or extra-axial mass, hemorrhage, or fluid collection. No areas of abnormal mass effect or attenuation are noted. Hyperostosis frontalis interna. Mild mucosal thickening of the left sphenoid sinus. The
mastoid air cells are clear.
IMPRESSION:
No acute intracranial abnormality.
Chest xray 08/27/24
FINDINGS:
No focal consolidation or pneumothorax. Trace bilateral pleural effusions. The cardiomediastinal silhouette is normal. Retrocardiac lucency consistent with a moderate hiatal hernia. Chronic degenerative changes of the spine.
IMPRESSION:
Trace bilateral pleural effusions. Moderate hiatal hernia.
Cervical spine MRI 08/27/24
IMPRESSION:
1. SEVERE DISCOGENIC DEGENERATIVE DISEASE at C5/C6 and C6/C7. Moderate amount of enhancing acute endplate bone marrow edema adjacent to the C5/C6 intervertebral disc. Degenerative disease or an inflammatory arthropathy are considered most likely.
Acute infectious discitis is considered less likely given the absence of fluid signal intensity in the disc space.
2. SEVERE MULTILEVEL FACET JOINT ARTHROSIS throughout the cervical and upper thoracic spine with associated multilevel anterolistheses.
3. Mild multilevel spinal cord compression and central canal stenosis secondary to disc-osteophyte complexes and facet joint arthrosis.
4. SEVERE NEURAL FORAMINAL NARROWING at C4/C5, C5/C6, and C6/C7.
5. 2.7 cm mass in the right lobe of the thyroid gland and other smaller nodules in the thyroid isthmus and left lobe of the thyroid gland suggesting a thyroid goiter.
Brain MRI 08/27/24
IMPRESSION:
1. ACUTE and SUBACUTE EMBOLIC DISEASE with MULTIPLE SMALL ACUTE and SUBACUTE ISCHEMIC INFARCTS in the brain diffusely distributed throughout both the anterior and posterior circulation..
2. Mild white matter leukoaraiosis.
3. Mild diffuse cerebral and cerebellar volume loss.
4. Mild acute left sphenoid sinusitis.
5. Mild cervical spinal cord compression and central canal stenosis secondary to multilevel discogenic degenerative disease and facet joint arthrosis.
Transesophageal echo 08/28/24
CONCLUSIONS
-Left ventricular ejection fraction is 60-65%.
-Thickened mitral valve leaflets with mitral annular calcification.
-A large, partially mobile vegetation (approximately 2.0 cm in length) is noted
primarily on the posterior leaflet of the mitral valve (P2).
-There was also a smaller, highly mobile echodense structure/vegetation
(approximately 1.0 cm in length) on the posterior leaflet of the mitral valve
(P2) that traverses the mitral valve with each cardiac cycle with high risk of
emobolization.
-Mild to moderate mitral regurgitation.
Anticipated Discharge: > 48 hours
Subjective/Interval History
-
Date of Service: August 29, 2024
No acute events overnight. There was concern yesterday for regurgitation of food and oral meds, and she was made strict NPO. This AM she would like try taking medication again. She continues to report some neck pain, and says the lidocaine patch
helps. Review of systems negative-- denies dizziness, chest pain, shortness of breath, abdominal pain, nausea, vomiting, diarrhea, constipation.
Objective Data
-
Labs:
Laboratory Results
08/29/24 08/29/24
03:24 03:25
WBC 12.3 H
Hgb 11.0 L
Hct 34.7 L
Plt Count 195
PT 14.5
INR 1.10
APTT 27.6
Sodium 144
Potassium 4.0
Chloride 109 H
Carbon Dioxide 28
BUN 19 H
Creatinine 0.8
Glucose 119 H
Calcium 9.7
Total Bilirubin 1.0
AST 26
ALT 10
Alkaline Phosphatase 111
08/27/24 13:48 Blood/Venous Blood Culture - Preliminary
No Growth in 24 hours- Final report to follow
08/27/24 13:48 Blood/Venous Blood Culture - Preliminary
No Growth in 24 hours- Final report to follow
Vital Signs:
Vital Signs
Temp Pulse Resp BP Pulse Ox
97.9 F 78 20 156/88 97
08/29/24 08:24 08/29/24 06:45 08/29/24 08:24 08/29/24 03:17 08/29/24 08:24
I&O
08/28/24 08/29/24 08/30/24
06:59 06:59 06:59
Intake Total 160 / 160 1080 / 1080
Output Total 1300 / 1300
Balance 160 / 160 -220 / -220
Review of Systems
-
History Source: Patient
All other systems: Reviewed and negative
Physical Exam
-
General: No Apparent Distress, Comfortable, Conversant and Other (Nontoxic, elderly female appears stated age); Negative Fever, Chills or Sweats
HEENT: Normocephalic, Atraumatic and Other (Neck supple, active range of motion limited secondary to pain, no palpable deformity, no midline tenderness, +tenderness to palpation of paraspinal muscles bilaterally)
Respiratory: Clear to Auscultation and Non Labored Respirations; Negative Wheezes or Rhonchi
Cardiac: Regular Rhythm, S1/S2 and Other (Did not appreciate murmur)
GI: Soft, Nontender, Nondistended and Normal Bowel Sounds
Musculoskeletal: No Clubbing, No Cyanosis and No Edema
Skin: Warm, Dry and Ulcers (R 3rd toe, covered)
Neuro: Awake, Alert, Oriented and Nonfocal/Grossly Intact; Negative Slurred Speech or Facial Droop
Psych: Calm
Data Reviewed
-
Diagnostic Radiology: Image personally visualized and interpreted and Report Reviewed by me
CT Scan: Image personally visualized and interpreted and Report Reviewed by me
MRI: Image personally visualized and interpreted and Report Reviewed by me
Medical Tests (Nuc Med, Echo etc): Report Reviewed by me
Labs: Labs Reviewed by me and Discussed with Physician
Old Records: Reviewed
--- NOTE | 2024-08-29 09:24 | W.PN.UPDATE ---
Update Note
Progress Note Update
CARDIAC SURGERY ATTENDING:
84F w/ MV MSSA endocarditis. ADITI reviewed.
Expedite preoperative working.
Cath scheduled for Saturday
CT today
Continue ABX
[2024-08-29 09:48] LABS: Glycohemoglobin (HgbA1c) 5.4 % (4.0-5.6)
--- NOTE | 2024-08-29 10:48 | W.PN.NEURO.1 ---
Today's Communication / Plan
-
.
Subjective/Objective
Subjective Data
Date of Service: August 29, 2024
Neurology follow-up note.
Ms. Srivastava has had intermittent dysphagia. She has been normotensive and afebrile.
No reports of headaches, change in vision or strength.
Brain MRI without joyce (08/27/2024)�showed multiple acute to subacute bihemispheric embolic infarcts.
C spine MRI without joyce�severe DJD worse at C3/C4 with mild mass effect on spinal cord
ADITI(08/28/2024) A large, partially mobile vegetation (approximately 2.0 cm in length) is noted primarily on the posterior leaflet of the mitral valve (P2). There was also a smaller, highly mobile echodense structure/vegetation
(approximately 1.0 cm in length) on the posterior leaflet of the mitral valve (P2) that traverses the mitral valve with each cardiac cycle.
TSH-WNR
PMH: RA, Sjogren's syndrome, DLP, hypothyroidism, polyneuropathy, osteopenia, JOYCE, MDD
PSH: Bilateral cataract surgery, bilateral median nerve decompression at the wrist
SH: Lives alone, independent in ADLs
FH: Not contributory to current presentation
All:NKDA
ROS: Constitutional: Negative. Negative for chills, fever and unexpected weight change.
HENT: Negative for ear pain, hearing loss, tinnitus and trouble swallowing.
Eyes: Negative. Negative for photophobia, pain and visual disturbance.
Respiratory: Negative for cough, choking and shortness of breath.
Cardiovascular: Negative for chest pain, palpitations and leg swelling.
Gastrointestinal: Negative for abdominal pain and vomiting.
Endocrine: Negative. Negative for cold intolerance.
Genitourinary: Negative for dysuria, flank pain and urgency.
Musculoskeletal: Positive for generalized arthralgias, neck stiffness, right shoulder pain
Skin: Negative for rash.
Allergic/Immunologic: Negative. Negative for immunocompromised state.
Neurological: Positive for chronic hand tremor
Psychiatric/Behavioral: Negative for behavioral problems, confusion and hallucinations.
General: Well developed. In no acute distress.
Cardio: Regular rate and rhythm without murmur. Extremities are without cyanosis or edema.
Neuro:
Mental Status: Alert, oriented to person, place, and date. Normal attention and recall. Good fund of knowledge. Follows complex requests across the midline. Comprehension, naming, and repetition intact. Immediate and delayed recall 3/3.
Cranial Nerves: Pupils are equally round and reactive to light. EOMs full. Visual upton full to confrontation. No ptosis. No nystagmus. V1-V3 intact to light touch and pinprick bilaterally, symmetric. Face symmetric. Mildly impaired hearing
AU. The palate elevated well. SCMs and traps 5/5. Tongue midline. No dysarthria. Mild-mod dysphonia
Motor: Normal bulk and tone. No pronator or arm drift. Strength 5/5 throughout. No clonus.
Coordination: Mild action right more than left hand tremor. No dysmetria
Gait: deferred
Assessment and Plan:
I. Acute/subacute bihemispheric embolic strokes. Likely etiology�IE.
II. MSSA endocarditis.
III. Mild action chronic hand tremor
-Telemetry monitoring
-Aspiration precautions
-Continue aspirin 81 mg once a day
-Stat CT head if any change in neuroexam
-DVT prophylaxis
-Please recall neurology services any questions or concerns
I personally reviewed all radiology and labs along with past medical records pertinent to current medical problems. Total time spent in patient care is 38 minutes.
Thank you for allowing us to participate in the care of this patient. Please do not hesitate to contact us with any questions or concerns.
Objective Data
Vital Signs
Temp Pulse Resp BP Pulse Ox
36.6 C 101 20 134/77 97
08/29/24 08:24 08/29/24 09:45 08/29/24 08:24 08/29/24 07:25 08/29/24 08:24
Lab Results
08/29/24 03:25
08/29/24 03:24
PT 14.5 Sec (11.4-14.6) 08/29/24 03:24
INR 1.10 08/29/24 03:24
APTT 27.6 Sec (23.4-35.0) 08/29/24 03:24
Sodium 144 mmol/L (135-145) 08/29/24 03:24
Potassium 4.0 mmol/L (3.5-5.1) 08/29/24 03:24
BUN 19 mg/dl (7-17) H 08/29/24 03:24
Glucose 119 mg/dl (70-99) H 08/29/24 03:24
Calcium 9.7 mg/dl (8.4-10.2) 08/29/24 03:24
Patient Allergies
latex Allergy (Verified 08/26/24 19:47)
Unknown
Vital Signs and Labs
-
Vital Signs and Labs:
Vital Signs
Temp Pulse Resp BP Pulse Ox
36.6 C 101 20 134/77 97
08/29/24 08:24 08/29/24 09:45 08/29/24 08:24 08/29/24 07:25 08/29/24 08:24
Lab Results
08/29/24 03:25
08/29/24 03:24
PT 14.5 Sec (11.4-14.6) 08/29/24 03:24
INR 1.10 08/29/24 03:24
APTT 27.6 Sec (23.4-35.0) 08/29/24 03:24
Sodium 144 mmol/L (135-145) 08/29/24 03:24
Potassium 4.0 mmol/L (3.5-5.1) 08/29/24 03:24
BUN 19 mg/dl (7-17) H 08/29/24 03:24
Glucose 119 mg/dl (70-99) H 08/29/24 03:24
Calcium 9.7 mg/dl (8.4-10.2) 08/29/24 03:24
Medications
-
Medications:
Generic Name Dose Route Start Last Admin
Trade Name Freq PRN Reason Stop Dose Admin
Acetaminophen 500 mg 08/26/24 19:36 08/28/24 12:20
Acetaminophen 500 Mg Tablet PO 09/23/24 19:35 500 mg
Q6HPRN PRN Administration
mild pain/fever
Aspirin 81 mg 08/28/24 10:00 08/28/24 10:08
Aspirin 81 Mg Chewable Tablet PO 09/25/24 09:59 81 mg
DAILY EDITH Administration
Atorvastatin Calcium 20 mg 08/27/24 08:00 08/28/24 14:07
Atorvastatin (Lipitor) 20 Mg Tablet PO 09/24/24 07:59 20 mg
DAILY EDITH Administration
Carbamide Peroxide 5 drop 08/26/24 19:36
Carbamide Peroxide 6.5% (Otic Solution) 15 Ml Bottle BOTH EARS 09/23/24 19:35
DAILYPRN PRN
ear wac
Docusate Sodium 100 mg 08/26/24 20:00 08/28/24 20:38
Docusate Sodium 100 Mg Capsule PO 09/23/24 19:59 100 mg
BID EDITH Administration
Duloxetine HCl 20 mg 08/26/24 20:00 08/28/24 19:39
Duloxetine Delayed Release 20 Mg Capsule PO 09/23/24 19:59 20 mg
BID EDITH Administration
Folic Acid 1 mg 08/27/24 08:00 08/28/24 14:07
Folic Acid 1 Mg Tablet PO 09/24/24 07:59 1 mg
DAILY EDITH Administration
Nafcillin Sodium 2,000 mg/ 108 mls @ 108 mls/hr 08/28/24 12:00 08/29/24 08:06
Sodium Chloride IV 108 mls
Q4H EDITH Administration
Lidocaine 1 patch 08/28/24 20:00 08/28/24 19:38
Lidocaine 4% Topical Patch TOPICAL 09/25/24 19:59 1 patch
DAILY@2000 EDITH Administration
Protocol
Melatonin 5 mg 08/28/24 22:00
Melatonin 5 Mg Tablet PO 09/25/24 21:59
HSPRN PRN
insomnia
Miconazole Nitrate 0 applic 08/27/24 20:00 08/28/24 20:38
Miconazole Powder Bottle TOPICAL 09/24/24 19:59 1 applic
BID EDITH Administration
Multivitamins Therapeutic 1 tablet 08/27/24 08:00 08/28/24 14:08
Multivitamin Tablet PO 09/24/24 07:59 1 tablet
DAILY EDITH Administration
Cevimeline 30 Mg- 1 0 cap 08/27/24 16:00 08/29/24 09:48
Capsule 3 Times A PO 09/24/24 15:59 1 cap
Day TID EDITH Administration
Ondansetron HCl 4 mg 08/26/24 19:36
Ondansetron 4 Mg Tablet PO 09/23/24 19:35
DAILYPRN PRN
nausea
Pantoprazole Sodium 40 mg 08/27/24 10:00 08/28/24 08:08
Pantoprazole 40 Mg Delayed Release Tablet PO 09/24/24 09:59 40 mg
DAILY EDITH Administration
Patch Removal 0 patch 08/28/24 08:00 08/29/24 08:30
Remove Lidocaine Patch REMOVE 09/25/24 07:59 1 patch
DAILY@0800 EDITH Administration
Pregabalin 50 mg 08/27/24 08:00 08/28/24 08:08
Pregabalin 50 Mg Capsule PO 09/24/24 07:59 50 mg
DAILY EDITH Administration
Sodium Chloride 0 flush 08/26/24 20:00
Sodium Chloride 0.9% (Flush) Syringe IV 09/23/24 19:59
PER PROTOCOL EDITH
Tramadol HCl 50 mg 08/28/24 20:10 08/29/24 10:48
Tramadol Hcl 50 Mg Tablet PO 09/25/24 20:09 50 mg
Q6HPRN PRN Administration
moderate pain
Home Medications
-
Home Medications
acetaminophen 500 mg tablet (Tylenol Extra Strength) 500 mg PO Q6HPRN PRN mild pain/fever 08/26/24
atorvastatin 20 mg tablet 20 mg PO DAILY High Cholesterol 08/26/24
carbamide peroxide 6.5 % ear drops (Debrox) 5 drp EACH EAR DAILYPRN PRN ear wac 08/26/24
cefazolin 1 gram solution for injection 2 g IV Q8H Infection 08/26/24
celecoxib 200 mg capsule (Celebrex) 200 mg PO DAILY Pain 08/26/24
cevimeline 30 mg capsule 1 cap PO TID DRY MOUTH 08/26/24
docusate sodium 100 mg capsule 100 mg PO BID Gastrointestinal Issue 08/26/24
duloxetine 20 mg capsule,delayed release 20 mg PO BID Mental Health/Anxiety 08/26/24
folic acid 1 mg tablet 1 mg PO DAILY Supplement 08/26/24
methotrexate sodium 2.5 mg tablet 20 mg PO TH Anti-Inflammatory 08/26/24
[id number] 8 mg-folic 400 mcg-K 50 mcg-lutein 300 mcg tablet (Centrum Silver Women) 1 tab PO DAILY Supplement 08/26/24
ondansetron HCl 4 mg tablet 4 mg PO DAILYPRN PRN nausea 08/26/24
povidone-iodine 10 % topical swab 1 applic topical MOTH Infection 08/26/24
pregabalin 50 mg capsule 50 mg PO DAILY Neurological Condition 08/26/24
melatonin 10 mg tablet 10 mg PO HS PRN sleep 08/28/24
--- NOTE | 2024-08-29 10:50 | PTOTSP ---
ST Follow-Up
Pt currently presents with clinical signs of suspected pharyngeal dysphagia as evidenced by dysphonia as well as coughing and throat clearing s/p ingestion of both small and large quantities of thin liquids as well as thick consistencies.
Recommendations:
- Keep pt NPO x critical meds (especially sjorgens meds) whole with thin liquids.
- ARHP - ice chips (small cup q2 hours)
- Aspiration precautions: HOB upright as often as possible; oral care q4 hours; encourage pt to cough hard when needed.
- Video fluoroscopic swallow study (VFSS) on Saturday to gather more information regarding swallowing status - will need to coordinate/schedule around ADITI.
- DEWAXER to f/u and provide additional recommendations following results of VFSS.
--- NOTE | 2024-08-29 10:59 | W.PN.ID1 ---
Date of Service
Date of Service: August 29, 2024
Today's Communication
Continue nafcillin.
Assessment / Plan
Mitral valve endocarditis with embolic CVA
Staph aureus (MSSA bacteremia)
Sjogren syndrome
Rheumatoid arthritis
Dyslipidemia
Hypothyroidism
Anxiety/depression
Neuropathy
Hx of skin cancer
Osteopenia
Recommendations:
Continue nafcillin 2g IV q4h which penetrates the QUALITY INTERN.
Follow renal function, LFT's closely while on nafcillin.
Follow repeat blood cultures here negative to date
ESR and CRP elevated
ADITI large mobile vegetation MV - high risk embolization
For cath Saturday.
Will continue to follow along with you.
Chief Complaint
-: Bacteremia and Other (IE)
Subjective / Review of Systems
no new complaints.
Vital Signs / Physical Exam
Vital Signs
Vital Signs
Temp Pulse Resp BP Pulse Ox
97.9 F 101 20 134/77 97
08/29/24 08:24 08/29/24 09:45 08/29/24 08:24 08/29/24 07:25 08/29/24 08:24
Physical Exam
Constitutional: Non-toxic
Eyes: No Conjunctival Hemorrhage and Sclera Anicteric
Cardiovascular: Regular Rate and S1/S2
Pulmonary: Clear
Gastrointestinal: Soft, Non Tender, Non Distended and Normal Bowel Sounds
Extremities: Negative Edema
Neurological: AO x 3; Negative Meningeal Signs
Objective Data
Lab Data
Lab Results
08/29/24 03:25
08/29/24 03:24
ESR 48 mm/hour (0-20) H 08/28/24 04:22
PT 14.5 Sec (11.4-14.6) 08/29/24 03:24
INR 1.10 08/29/24 03:24
APTT 27.6 Sec (23.4-35.0) 08/29/24 03:24
Estimated Creat Clear 51 ml/min 08/29/24 03:24
Total Bilirubin 1.0 mg/dl (0.2-1.3) 08/29/24 03:24
AST 26 U/L (14-36) 08/29/24 03:24
ALT 10 U/L (0-35) 08/29/24 03:24
Alkaline Phosphatase 111 U/L (38-126) 08/29/24 03:24
C-Reactive Protein 45.50 mg/L (0.0-10.00) H 08/28/24 04:22
Most recent labs reviewed.
Micro Results:
08/27/24 13:48 Blood Culture - Preliminary
Blood/Venous No Growth in 24 hours- Final report to follow
08/27/24 13:48 Blood Culture - Preliminary
Blood/Venous No Growth in 24 hours- Final report to follow
08/20/2024 Blood culture: MSSA ([facility])
08/22/2024 Blood culture: No growth ([facility])
Imaging:
08/27/24 MRI brain: ACUTE and SUBACUTE EMBOLIC DISEASE with MULTIPLE SMALL ACUTE and SUBACUTE ISCHEMIC INFARCTS in the brain diffusely distributed throughout both the anterior and posterior circulation..
08/25/2024 CT head: 1.2 cm region of decreased attenuation at the anterior medial right cerebellar hemisphere which is developed since a prior CT scan dated 08/20/2024. This was possibly a recent infarction. Also noted is mild age-related volume
loss. Please see full dictation for additional detail. (Film performed at [facility])
08/21/2024 CT chest: No evidence of pneumonia. Small bilateral pleural effusions noted. Mild subsegmental atelectasis at the posterior inferior aspect of the right and left lower lobes. Ossification of the mitral annulus, with atherosclerotic
coronary artery calcifications noted. Please see full dictation for additional detail. (Film performed at [facility])
08/20/2024 CT head: No evidence of intracranial hemorrhage, acute infarct, mass or midline shift. Chronic small vessel ischemia and volume loss noted. Please see full dictation for additional detail. (Film performed at [facility])
TTE at [facility] 08/24/24: EF 55%, large echogenic mass on posterior mitral valve leaflet 1.6 x 1.3 cm with mild to moderate MR, concern for endocarditis
[2024-08-29 11:42] LABS: HDL Cholesterol 24 mg/dl; LDL Cholesterol, Calculated 68 mg/dl; Total Cholesterol 123 mg/dl (50-199); Triglyceride 159 mg/dl (10-149); Very Low Density Lipoprotein 31 mg/dl (0-30)
[2024-08-29] MEDS: D5/0.9% SODIUM CHLORIDE 1000 IV (13:02)
[2024-08-29] MEDS: LOW STRENGTH ASPIRIN 81 MG PO (14:05)
[2024-08-29] MEDS: PROTONIX 40 MG PO (14:05)
[2024-08-29] MEDS: COLACE PO (14:24)
[2024-08-29] MEDS: FOLVITE PO (14:25)
[2024-08-29] MEDS: THERAGRAN PO (14:25)
[2024-08-29] MEDS: LIPITOR PO (14:25)
[2024-08-29] MEDS: DESENEX/MITRAZOL/ZEASORB TOPICAL ×2 (14:25→20:00)
[2024-08-29] MEDS: LYRICA 50 MG PO (16:02)
[2024-08-29] MEDS: CYMBALTA DELAYED RELEASE PO (16:03)
[2024-08-29] MEDS: CYMBALTA DELAYED RELEASE 20 MG PO (19:38)
[2024-08-29] MEDS: LIDOCAINE 4% PATCH 1 PATCH TOPICAL (19:38)
--- NOTE | 2024-08-29 21:01 | PTCARENOTE ---
Pt rec'd oob in recliner chair with legs elevated. IVF infusing via RA. Sinus with occ pvc's noted. npo except for ice chips. No coughing noted.
Heating pad to neck and Lidoderm patch. call humphrey within reach.
[2024-08-29] MEDS: NON-FORMULARY ITEM PO (23:29)
[2024-08-29] MEDS: DILAUDID 0.25 MG IV (23:30)
[2024-08-30 03:50] VITALS: BMI 23.6
[2024-08-30 03:52] VITALS: BP 147/81
[2024-08-30] MEDS: NAFCIL 108 MG IV ×5 (03:59→20:14)
[2024-08-30 05:00] LABS: Hematocrit 32.7 % (37.0-47.0); Hemoglobin 10.4 g/dL (12.0-16.0); Mean Corp Hgb Conc. 31.8 g/dL (33.0-37.0); Mean Corpuscular Hgb 29.5 pg (27.0-31.0); Mean Corpuscular Volume 92.9 fL (81.0-99.0); Mean Platelet Volume 9.9 fL (7.4-10.4); Platelet Count 204 10^3/uL (130-400); Red Blood Cell Count 3.52 10^6/uL (4.20-5.40); Red Cell Dist. Width 17.4 % (11.5-14.5); White Blood Cell Count 10.3 10^3/uL (4.8-10.8)
[2024-08-30 05:24] LABS: Blood Urea Nitrogen 19 mg/dl (7-17); Calcium 9.5 mg/dl (8.4-10.2); Carbon Dioxide 30 mmol/L (22-30); Chloride 110 mmol/L (98-107); Estimated Creatinine Clearance 51 ml/min; Glucose 123 mg/dl (70-99); Magnesium 2.3 mg/dl (1.6-2.3); Potassium 3.2 mmol/L (3.5-5.1); Sodium 147 mmol/L (135-145); eGFR > 60.00
[2024-08-30] MEDS: KCL 40 MEQ PO (06:05)
--- NOTE | 2024-08-30 07:41 | W.PN.CARDCBS ---
Today's Communication / Plan
-
Cont IV Abx as per ID for MSSA bacteremia and MV endocarditis
Repeat BC no growth
ADITI has been reviewed with pt
Cath August 31, and would attempt to expedite surgery given suspected septic emboli to brain at [facility]
CT surgery evaluation ongoing
Impression / Plan
-
.
Primary Nozzle And Sleeve Worker: Dr. Ingram of [facility]
Assessment:
Presentation to [facility] with confusion
TME
LLL infiltrate, not felt to be PNA per pulm at [facility]
MSSA bacteremia
Suspected septic emboli to brain by imaging at [facility]
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
R 3rd toe ulder s/p debridement per podiatry at [facility]
RA on chronic methotrexate
HTN
HLD
Hypothyroidism
Anxiety/depression
Anemia
Hypoalbuminemia
Moderate hiatal hernia
DDD of neck
Thyroid goiter
TTE at [facility] 08/24/24: EF 55%, large echogenic mass on posterior mitral valve leaflet 1.6 x 1.3 cm with mild to moderate MR, concern for endocarditis
ADITI 08/28 with preserved EF, large partially mobile vegetation measuring 2.0 cm in length on primarily the posterior leaflet of mitral valve, also with smaller, highly mobile echodense structure/vegetation on posterior leaflet of mitral valve that
transverses the mitral valve with each cardiac cycle with high risk of embolization, mild to moderate MR
Plan:
Cont IV Abx as per ID for MSSA bacteremia and MV endocarditis
Repeat BC no growth
ADITI has been reviewed with pt
Cath August 31, and would attempt to expedite surgery given suspected septic emboli to brain at [facility]
CT surgery evaluation ongoing
HPI: Patient presented to [facility] with confusion and found to have MSSA bacteremia. repeat BCx 08/22 resulted negative. By TTE at [place] 08/24 was noted to have evidence of large echogenic mass on posterior mitral valve leaflet
concerning for endocarditis. Also with suspected septic emboli to brain by imaging completed at [place]. She was transferred to [facility] 08/26/[address] surgical evaluation.
-head CT without acute abnormalities. Brain MRI with acute and subacute embolic disease with multiple small acute and subacute ischemic infarcts noted, suspected septic emboli. neuro following
Progress Note - Nozzle And Sleeve Worker
Subjective
Date of Service: August 30, 2024
Pt seen and examined. No cp or dyspnea
Objective
Labs:
08/30/24 04:06
08/30/24 04:06
Labs
Hgb 10.4 g/dL (12.0-16.0) L 08/30/24 04:06
Hct 32.7 % (37.0-47.0) L 08/30/24 04:06
Plt Count 204 10^3/uL (130-400) 08/30/24 04:06
PT 14.5 Sec (11.4-14.6) 08/29/24 03:24
INR 1.10 08/29/24 03:24
APTT 27.6 Sec (23.4-35.0) 08/29/24 03:24
Sodium 147 mmol/L (135-145) H 08/30/24 04:06
Potassium 3.2 mmol/L (3.5-5.1) L 08/30/24 04:06
BUN 19 mg/dl (7-17) H 08/30/24 04:06
Creatinine 0.8 mg/dL (0.6-1.0) 08/30/24 04:06
Glucose 123 mg/dl (70-99) H 08/30/24 04:06
Vital Signs and I&O:
Vital Signs
Temp Pulse Resp BP Pulse Ox
98.0 F 124 20 137/94 97
08/30/24 03:52 08/30/24 03:45 08/30/24 03:52 08/29/24 23:04 08/30/24 03:52
Vital Signs
Temp Pulse Resp BP Pulse Ox
98.0 F 124 20 137/94 97
08/30/24 03:52 08/30/24 03:45 08/30/24 03:52 08/29/24 23:04 08/30/24 03:52
Intake & Output
08/28/24 08/29/24 08/30/24 08/31/24
06:59 06:59 06:59 06:59
Intake Total 160 / 160 1080 / 1080 2160 / 2160
Output Total 1300 / 1300
Balance 160 / 160 -220 / -220 2160 / 2160
Physical Exam
Physical Exam
General: No acute distress, AAOX3
Neck: Negative JVD
Heart: Regular, Negative S3 positive S1/S2, Negative S4, No murmur
Lungs: CTA b/l, negative wheezes/rales/rhonchi
Abd: Positive BS, NT/ND, neg rebound/rigidity/guarding
Ext: Negative cyanosis/clubbing/edema
Neuro: nonfocal
[2024-08-30 08:09] VITALS: BP 147/71
[2024-08-30] MEDS: NON-FORMULARY ITEM 1 CAP PO ×3 (08:14→22:24)
[2024-08-30] MEDS: NSS (PRESERVATIVE FREE) 10 ML IV (08:15)
[2024-08-30] MEDS: LOW STRENGTH ASPIRIN 81 MG PO (08:16)
[2024-08-30] MEDS: CYMBALTA DELAYED RELEASE 20 MG PO ×2 (08:16→20:13)
[2024-08-30] MEDS: LYRICA 50 MG PO (08:16)
--- NOTE | 2024-08-30 08:33 | W.PN.HOSP.TC ---
Addendum entered and electronically signed by Camila Liu MD, Resident 08/30/24 17:34:
Updates provided to daughters Serina and Carmen at bedside this evening. Reviewed plan for cardiac cath tomorrow, and eventual VFSS. Asked to bring copy of advance directive to hospital.
Regarding dry mouth, the past 2 days worse than her baseline dryness with Sjogrens. Possible medication side effect? Hold protonix as this was for prevention of NSAID-induced ulcers, and her celebrex was discontinued. NPO very likely contributing.
Regarding the thyroid nodules, pt and family say she has been told she had 'an enlarged thyroid' for a while. Hypothyroidism resolved, synthroid discontinued > several months ago.
Addendum entered and electronically signed by Megha Gonzalez MD 08/30/24 14:43:
I saw and evaluated the patient independently. I reviewed the resident�s note and agree with findings and plan as documented by Dr. Liu.
GENERAL: well developed, well nourished, female in no apparent distress
HEENT: NC/AT
HEART: regular rate and rhythm, +S1, +S2, no murmur heard today
LUNGS : clear to auscultation bilaterally
ABDOM: soft, nontender, nondistended, + bowel sounds
EXT: no cyanosis, clubbing, or edema
NEUROLOGIC: grossly intact
MSSA bacteremia with endocarditis with mitral valve leaflet vegetation, complicated by septic emboli to brain-- TTE echo from [place] showed 1.6 x 1.3 cm lesion on the atrial side of the posterior mitral valve leaflet (ADITI deferred due to septic
emboli)-- Chest CT negative for septic emboli--apprec CT surgery/cardiology--apprec ID--w/u in process for likely valve replacement--cont ancef 2 gm IV Q8 hours IV for 6 weeks---s/p ADITI here shows 2 vegetations, 1 with high potential for
embolization--CT surg expediting workup, cardiac cath Saturday--valve surgery Saturday
Likely septic emboli to brain secondary to endocarditis mitral valve vegetation-- CT report from [place] shows 1.2 cm region of decreased attenuation of the anterior medial right cerebellar hemisphere, possible recent infarction. Unable to view
original images---head CT without acute abnormality--MRI done here shows ACUTE and SUBACUTE EMBOLIC DISEASE with MULTIPLE SMALL ACUTE and SUBACUTE ISCHEMIC INFARCTS in the brain diffusely distributed throughout both the anterior and posterior
circulation--apprec neuro
Acute metabolic encephalopathy from bacteremia-- Resolved-- Pneumonia was considered previously but deemed to not be pneumonia by pulmonary at [place]-- No respiratory complaints here-- chest xray without infiltrates
Right third toe ulcer s/p debridement by podiatry at [place]-- Wound care consulted--? source of bacteremia?
Essential hypertension-- Hydrochlorothiazide, amlodipine/benazepril has been held--Defer to cards
Rheumatoid arthritis-- Home regimen includes daily celecoxib (hold), weekly methotrexate, prn tylenol-- Concern for risk of immunosuppression associated with methotrexate, await ID recs.
Muscular neck pain-- Try heating pad. If not improving, can try lidocaine patch
Possible aspiration?-- apprec Speech therapy--significant meds only, otherwise NPO--may need GI eval....
Sjogren syndrome-- Continue home cevimeline (nonformulary)
Chronic bilateral neuropathy-- Continue home pregabalin
Anxiety/depression-- continue home duloxetine
Osteoporosis-- not on medication
Hyperlipidemia-- continue home statin
Hypothyroidism-- TSH WNL
History of skin cancer
DVT proph
Code status--full code
Original Note:
Today's Communication/Plan
-
Cardiac cath tomorrow. Continue antibiotics per ID. NPO due to dysphagia, will need VFSS eventually (after cath)
Assessment / Plan
Assessment / Plan
84-year-old female with PMH Sjogren's, RA, HLD, hypoT, anxiety/depression, neuropathy who was transferred from [place] to 08/26/24 for cardiothoracic surgical evaluation of mitral valve endocarditis complicated by septic emboli to brain. She
initially presented to [place] for confusion. She was found to have MSSA bacteremia secondary to mitral valve endocarditis. Was found to have 1.6 cm vegetation on the atrial side of the posterior mitral valve leaflet by TTE on 08/24. She was
treated with IV antibiotics narrowed to cefazolin. Repeat blood cultures x2 on August 22 showed no growth (final result). She was not having any evidence of congestive heart failure. ADITI was being considered but she had brain imaging which showed
1.2cm anterior medial right cerebral hemisphere decreased attenuation concerning for septic emboli to the brain. She had CT chest which did not show any evidence of embolic phenomenon. Also reportedly had a concern for pneumonia. Right third toe
ulcer was debrided by podiatry.
MSSA bacteremia with endocarditis with mitral valve leaflet vegetation, complicated by septic emboli to brain (see below)-- Apprec CT surgery, cardiology, ID--08/22 [facility] blood cultures x2 No Growth (final); 08/27 blood cultures at no growth @ 48h,
final results pending--ADITI 08/28 showed preserved EF, 2cm partially mobile MV vegetation, 1cm highly mobile MV vegetation at high risk of embolizing-- preop eval for MVR ongoing, expedited out of concern for septic emboli to brain-- will be for
cardiac cath, anticipate tomorrow--continue IV nafcillin per ID, monitor renal func and LFTs
Likely septic emboli to brain secondary to endocarditis mitral valve vegetation-- Apprec neurology--08/[address] with no acute intracranial abnormality; brain MRI showed acute and subacute embolic disease with multiple ischemic infarcts; antibiotics
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
Acute metabolic encephalopathy from bacteremia-- Resolved
Right third toe ulcer s/p debridement by podiatry at [place]-- Apprec wound care
Essential hypertension-- Hydrochlorothiazide, amlodipine/benazepril has been held. Defer to card team-- BPs normal to hypertensive here.
MSK pain, RA, DDD--Home regimen includes daily celecoxib, weekly methotrexate, prn tylenol-- Hold celecoxib to reduce risk of gastritis, hold methotrexate for risk of immunosuppression-- continue heating pad, lidocaine patch, prn tylenol-- 0.25mg IV
dilaudid prn while npo-- will reassess prn if additional analgesia is required
Dysphagia/regurgitation-- apprec speech therapy eval--NPO except critical meds with sips of water and ice chips--IV hydration-- VFSS eventually (after heart cath)
Hypokalemia-- monitor, supplement prn
Sjogren syndrome-- Continue home cevimeline (nonformulary)
Chronic bilateral neuropathy-- Continue home pregabalin
Anxiety/depression-- continue home duloxetine. Upset by new medical issues. Apprec pastoral care
Osteoporosis-- not on medication
Hyperlipidemia-- continue home statin
?Hypothyroidism-- TSH wnl-- MRI showed 2.7 cm thyroid mass and several nodules consistent with goiter
History of skin cancer
Code status: full (confirmed 08/27).
She has advanced directive at home-- instructed to have family bring it in. She has 3 children.
DVT ppx: Heparin sc
Diet: NPO
Dispo planning: anticipate she will need some rehab; plan TBD pending clinical course and PT/OT recs closer to discharge
Imaging at :
Head CT 08/27/24
FINDINGS:
Mild age-related parenchymal atrophy. No intra- or extra-axial mass, hemorrhage, or fluid collection. No areas of abnormal mass effect or attenuation are noted. Hyperostosis frontalis interna. Mild mucosal thickening of the left sphenoid sinus. The
mastoid air cells are clear.
IMPRESSION:
No acute intracranial abnormality.
Chest xray 08/27/24
FINDINGS:
No focal consolidation or pneumothorax. Trace bilateral pleural effusions. The cardiomediastinal silhouette is normal. Retrocardiac lucency consistent with a moderate hiatal hernia. Chronic degenerative changes of the spine.
IMPRESSION:
Trace bilateral pleural effusions. Moderate hiatal hernia.
Cervical spine MRI 08/27/24
IMPRESSION:
1. SEVERE DISCOGENIC DEGENERATIVE DISEASE at C5/C6 and C6/C7. Moderate amount of enhancing acute endplate bone marrow edema adjacent to the C5/C6 intervertebral disc. Degenerative disease or an inflammatory arthropathy are considered most likely.
Acute infectious discitis is considered less likely given the absence of fluid signal intensity in the disc space.
2. SEVERE MULTILEVEL FACET JOINT ARTHROSIS throughout the cervical and upper thoracic spine with associated multilevel anterolistheses.
3. Mild multilevel spinal cord compression and central canal stenosis secondary to disc-osteophyte complexes and facet joint arthrosis.
4. SEVERE NEURAL FORAMINAL NARROWING at C4/C5, C5/C6, and C6/C7.
5. 2.7 cm mass in the right lobe of the thyroid gland and other smaller nodules in the thyroid isthmus and left lobe of the thyroid gland suggesting a thyroid goiter.
Brain MRI 08/27/24
IMPRESSION:
1. ACUTE and SUBACUTE EMBOLIC DISEASE with MULTIPLE SMALL ACUTE and SUBACUTE ISCHEMIC INFARCTS in the brain diffusely distributed throughout both the anterior and posterior circulation..
2. Mild white matter leukoaraiosis.
3. Mild diffuse cerebral and cerebellar volume loss.
4. Mild acute left sphenoid sinusitis.
5. Mild cervical spinal cord compression and central canal stenosis secondary to multilevel discogenic degenerative disease and facet joint arthrosis.
Transesophageal echo 08/28/24
CONCLUSIONS
-Left ventricular ejection fraction is 60-65%.
-Thickened mitral valve leaflets with mitral annular calcification.
-A large, partially mobile vegetation (approximately 2.0 cm in length) is noted
primarily on the posterior leaflet of the mitral valve (P2).
-There was also a smaller, highly mobile echodense structure/vegetation
(approximately 1.0 cm in length) on the posterior leaflet of the mitral valve
(P2) that traverses the mitral valve with each cardiac cycle with high risk of
emobolization.
-Mild to moderate mitral regurgitation.
Carotid ultrasound 08/28/24
IMPRESSION:
Foci of calcified plaque within BOTH proximal internal carotid arteries. Any stenosis is less than 50% based upon velocity criteria.
Antegrade flow within both vertebral arteries.
Orthopantogram Panelipse 08/28/24
FINDINGS: No fracture or destructive lesion involving the mandible. No plain film evidence for periapical abscess about the mandibular teeth.
IMPRESSION: Normal Panelipse radiograph
CT chest angio 08/28/24
IMPRESSION: No acute pathology of the chest identified.
Moderate atherosclerotic vascular disease. Findings about the left mitral valve likely corresponding to the known mitral valve leaflet vegetation.
Tiny left pleural effusion. Stable
Mild bibasilar atelectasis, left greater than right. New
Bilateral thyroid nodules. Dedicated thyroid ultrasound recommended if not previously evaluated.
Moderate hiatal hernia. Stable
Small simple left renal cyst. Incompletely imaged.
Anticipated Discharge: > 48 hours
Subjective/Interval History
-
Date of Service: August 30, 2024
No acute events overnight. Still NPO for concerns about regurgitation/esoph dysphagia; taking limited pills PO, complains of dry mouth. Neck pain unchanged, lidocaine patch helps; now has upper back pain too. Otherwise review of systems negative--
denies fevers/chills, dizziness, chest pain, palpitations, shortness of breath, abdominal pain, nausea, vomiting, diarrhea, constipation. OOB to BR without issue.
Objective Data
-
Labs:
Laboratory Results
08/30/24
04:06
WBC 10.3
Hgb 10.4 L
Hct 32.7 L
Plt Count 204
Sodium 147 H
Potassium 3.2 L
Chloride 110 H
Carbon Dioxide 30
BUN 19 H
Creatinine 0.8
Glucose 123 H
Calcium 9.5
08/27/24 13:48 Blood/Venous Blood Culture - Preliminary
No Growth in 48 hours- Final report to follow
08/27/24 13:48 Blood/Venous Blood Culture - Preliminary
No Growth in 48 hours- Final report to follow
Vital Signs:
Vital Signs
Temp Pulse Resp BP Pulse Ox
98.3 F 124 20 137/94 96
08/30/24 08:10 08/30/24 03:45 08/30/24 08:10 08/29/24 23:04 08/30/24 08:10
I&O
08/29/24 08/30/24 08/31/24
06:59 06:59 06:59
Intake Total 1080 / 1080 2159
Output Total 1300 / 1300
Balance -220 / -220 2159
Review of Systems
-
History Source: Patient
All other systems: Reviewed and negative
Physical Exam
-
General: No Apparent Distress, Comfortable, Conversant and Other (Nontoxic, elderly female appears stated age); Negative Fever, Chills or Sweats
HEENT: Normocephalic, Atraumatic and Other (Neck supple, active range of motion limited secondary to pain, no palpable deformity, no midline tenderness, +tenderness to palpation of paraspinal muscles bilaterally)
Respiratory: Clear to Auscultation, Rhonchi, Non Labored Respirations and Other (IS at bedside, reviewed use with patient); Negative Wheezes
Cardiac: Regular Rhythm, S1/S2 and Other (Did not appreciate murmur)
GI: Soft, Nontender, Nondistended and Normal Bowel Sounds
Musculoskeletal: No Clubbing, No Cyanosis, No Edema and Other (thoracic spine with no midline tenderness, +TTP paraspinal left)
Skin: Warm, Dry and Ulcers (R 3rd toe, covered)
Neuro: Awake, Alert, Oriented and Nonfocal/Grossly Intact; Negative Slurred Speech or Facial Droop
Psych: Calm
Data Reviewed
-
Diagnostic Radiology: Image personally visualized and interpreted and Report Reviewed by me
CT Scan: Image personally visualized and interpreted and Report Reviewed by me
MRI: Image personally visualized and interpreted, Report Reviewed by me and Discussed with Patient
Medical Tests (Nuc Med, Echo etc): Report Reviewed by me, Discussed with Physician and Discussed with Patient
Labs: Labs Reviewed by me and Discussed with Physician
Old Records: Reviewed
[2024-08-30] MEDS: DESENEX/MITRAZOL/ZEASORB 1 APPLIC TOPICAL ×2 (09:25→22:25)
[2024-08-30] MEDS: PROTONIX IV 40 MG IV (09:27)
[2024-08-30] MEDS: D5/0.9% SODIUM CHLORIDE 1000 IV (11:41)
--- NOTE | 2024-08-30 11:42 | W.PN.ID1 ---
Date of Service
Date of Service: August 30, 2024
Today's Communication
Continue nafcillin.
Assessment / Plan
Mitral valve endocarditis with embolic CVA
Staph aureus (MSSA bacteremia)
Sjogren syndrome
Rheumatoid arthritis
Dyslipidemia
Hypothyroidism
Anxiety/depression
Neuropathy
Hx of skin cancer
Osteopenia
Recommendations:
Continue nafcillin 2g IV q4h which penetrates the [employer]PER[employer]OR.
Follow renal function, LFT's closely while on nafcillin.
Follow repeat blood cultures here negative to date
ESR and CRP elevated
ADITI large mobile vegetation MV - high risk embolization
For cath Saturday.
Hold methotrexate for now.
Will continue to follow along with you.
Chief Complaint
-: Bacteremia and Other (IE)
Subjective / Review of Systems
Tolerating abx.
Vital Signs / Physical Exam
Vital Signs
Vital Signs
Temp Pulse Resp BP Pulse Ox
98.3 F 81 20 147/71 96
08/30/24 08:10 08/30/24 11:00 08/30/24 08:10 08/30/24 08:09 08/30/24 08:10
Physical Exam
Constitutional: Non-toxic
Eyes: No Conjunctival Hemorrhage and Sclera Anicteric
Cardiovascular: Regular Rate and S1/S2
Pulmonary: Clear
Gastrointestinal: Soft, Non Tender, Non Distended and Normal Bowel Sounds
Extremities: Negative Edema
Neurological: AO x 3; Negative Meningeal Signs
Objective Data
Lab Data
Lab Results
08/30/24 04:06
08/30/24 04:06
ESR 48 mm/hour (0-20) H 08/28/24 04:22
PT 14.5 Sec (11.4-14.6) 08/29/24 03:24
INR 1.10 08/29/24 03:24
APTT 27.6 Sec (23.4-35.0) 08/29/24 03:24
Estimated Creat Clear 51 ml/min 08/30/24 04:06
Total Bilirubin 1.0 mg/dl (0.2-1.3) 08/29/24 03:24
AST 26 U/L (14-36) 08/29/24 03:24
ALT 10 U/L (0-35) 08/29/24 03:24
Alkaline Phosphatase 111 U/L (38-126) 08/29/24 03:24
C-Reactive Protein 45.50 mg/L (0.0-10.00) H 08/28/24 04:22
Most recent labs reviewed.
Micro Results:
08/27/24 13:48 Blood Culture - Preliminary
Blood/Venous No Growth in 48 hours- Final report to follow
08/27/24 13:48 Blood Culture - Preliminary
Blood/Venous No Growth in 48 hours- Final report to follow
08/20/2024 Blood culture: MSSA ([facility])
08/22/2024 Blood culture: No growth ([facility])
Imaging:
08/27/24 MRI brain: ACUTE and SUBACUTE EMBOLIC DISEASE with MULTIPLE SMALL ACUTE and SUBACUTE ISCHEMIC INFARCTS in the brain diffusely distributed throughout both the anterior and posterior circulation..
08/25/2024 CT head: 1.2 cm region of decreased attenuation at the anterior medial right cerebellar hemisphere which is developed since a prior CT scan dated 08/20/2024. This was possibly a recent infarction. Also noted is mild age-related volume
loss. Please see full dictation for additional detail. (Film performed at [facility])
08/21/2024 CT chest: No evidence of pneumonia. Small bilateral pleural effusions noted. Mild subsegmental atelectasis at the posterior inferior aspect of the right and left lower lobes. Ossification of the mitral annulus, with atherosclerotic
coronary artery calcifications noted. Please see full dictation for additional detail. (Film performed at [facility])
08/20/2024 CT head: No evidence of intracranial hemorrhage, acute infarct, mass or midline shift. Chronic small vessel ischemia and volume loss noted. Please see full dictation for additional detail. (Film performed at [facility])
TTE at [facility] 08/24/24: EF 55%, large echogenic mass on posterior mitral valve leaflet 1.6 x 1.3 cm with mild to moderate MR, concern for endocarditis
[2024-08-30 12:27] VITALS: BP 151/81
[2024-08-30 16:14] VITALS: BP 158/78
[2024-08-30] MEDS: KCL ELIXIR 20 MEQ PO (17:39)
--- NOTE | 2024-08-30 17:52 | PTCARENOTE ---
Pt AAOx3. VSS. Pt denies any discomfort. Pt sat in chair for most of the day w/ frequent trips to the bathroom. Assisted pt in brushing her teeth and oral mouthwash TID. Discussed plan for cardiac cath w/ pt and pt's daughters. Will monitor.
[2024-08-30 19:50] VITALS: BP 142/111
[2024-08-30] MEDS: LIDOCAINE 4% PATCH 1 PATCH TOPICAL (20:13)
[2024-08-30 22:37] VITALS: BP 141/85
[2024-08-31] VITALS (13 sets, daily range): BP systolic 142–166; BP diastolic 69–116; O2SAT 96; BMI 23.9
[2024-08-31] MEDS: NAFCIL 108 MG IV ×7 (00:47→23:13)
[2024-08-31] MEDS: TYLENOL 650 MG PO (01:22)
[2024-08-31] MEDS: D5/0.9% SODIUM CHLORIDE 1000 IV (04:00)
--- NOTE | 2024-08-31 04:15 | PTCARENOTE ---
Received pt at change of shift, sitting in chair. OOB to bathroom with rw. AAOx3, NSR with occasional PVCs on the monitor. Denies chest pain or SOB. Chronic neck pain noted. rates it a 5-12/10. Lidocaine patch applied and kpad in use. Pt requested PO
Tylenol for pain. PO Tylenol ordered after talking with DANIE Camarillo. Pt verbalized a reduction in pain.
[2024-08-31 04:19] LABS: Hematocrit 30.4 % (37.0-47.0); Hemoglobin 9.9 g/dL (12.0-16.0); Mean Corp Hgb Conc. 32.6 g/dL (33.0-37.0); Mean Corpuscular Volume 89.1 fL (81.0-99.0); Mean Platelet Volume 9.9 fL (7.4-10.4); Platelet Count 171 10^3/uL (130-400); Red Blood Cell Count 3.41 10^6/uL (4.20-5.40); Red Cell Dist. Width 17.2 % (11.5-14.5); White Blood Cell Count 11.2 10^3/uL (4.8-10.8)
[2024-08-31 04:42] LABS: Blood Urea Nitrogen 16 mg/dl (7-17); Calcium 9.4 mg/dl (8.4-10.2); Carbon Dioxide 24 mmol/L (22-30); Chloride 114 mmol/L (98-107); Estimated Creatinine Clearance 58 ml/min; Glucose 133 mg/dl (70-99); Magnesium 2.1 mg/dl (1.6-2.3); Sodium 147 mmol/L (135-145); eGFR > 60.00
[2024-08-31] MEDS: KCL ELIXIR 40 MEQ PO ×2 (05:32→08:30)
--- NOTE | 2024-08-31 06:46 | W.PN.CT ---
Today's Communication / Plan
-
Plan:
-Cont. current medical management per primary team
-Cont. Abx per per ID, f/u blood cultures, currently on Nafcillin
-Cont. current meds (ASA, Lipitor, Nafcillin, Cymbalta, Lyrica)
-Avoid BURT-I, ARBs, CCB while awaiting CT Surgery
-Ongoing preop workup/evaluation (for [facility] today)
-Replete K, 3.0
-Tentatively on schedule for MVR +/- CABG on Monday 10/[address] Pena
-Will cont. to closely monitor
Assessment / Plan
-
Assessment:
-Presentation to [facility] with confusion, transferred to on 08/26/24
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
-Staph aureus (MSSA bacteremia), repeat cultures @ are without growth
-Mild-moderate MR
-MAC
-LVEF 60-65%
-TME
-LLL infiltrate, not felt to be PNA per pulm at [facility]
-R 3rd toe ulder s/p debridement per podiatry at [facility]
-RA on chronic methotrexate
-Sjogren's syndrome
-Dysphagia
-HTN
-HLD
-Hypothyroidism
-GERD/Hiatal hernia
-Anxiety/depression
-Former tobacco use
-Anemia
-Hypoalbuminemia
-Hypokalemia
-Hypernatremia
-DDD of neck
-Osteoarthritis
-Thyroid goiter
Discussed patient care with: Cardiology, Nursing, Respiratory Therapy, Pharmacy and Care Team
Subjective
-
Date of Service: August 31, 2024
No issues overnight. Denies CP/SOB
Objective Data
-
Lab Results
08/31/24 04:06
08/31/24 04:06
PT 14.5 Sec (11.4-14.6) 08/29/24 03:24
INR 1.10 08/29/24 03:24
APTT 27.6 Sec (23.4-35.0) 08/29/24 03:24
Vital Signs
Vital Signs
Temp Pulse Resp BP Pulse Ox
97.8 F 78 18 148/81 97
08/30/24 22:41 08/31/24 06:30 08/30/24 22:41 08/31/24 03:54 08/30/24 22:41
CT Intake/Output/Weight
08/30/24 08/30/24 08/31/24
06:59 18:59 06:59
Intake Total 1020 / 2160 1270 / 2714 1444 / 2714
Output Total 300 / 700 400 / 700
Balance 1020 / 2160 97 / 2013 104 / 2013
SaO2: 97 (RA)
Physical Exam
-
General: Awake, Oriented and AOx3
Cardiovascular: Regular rate & rhythm and No Murmurs
Respiratory: Clear
Extremities: Other (+trace edema)
Data Reviewed
-
Lab Results: Results Reviewed
Medications: Active Meds Reviewed
Chest X-Ray: Report Reviewed and Image Reviewed
ECG: Report Reviewed and Image Reviewed
--- NOTE | 2024-08-31 08:00 | PTCARENOTE ---
received report from previous RN at change of shift. Pt arouses to voice, orientedx3 but forgetful at times. SR on telemetry heart rate in 80s. pulses palpable trace lower extremity edema. pt on room air sat 98%, lung sounds diminished in bases.
active bowel sounds, pt ambulated to bathroom with rolling walker, and had an episode of diarrhea. voiding in bathroom without difficulty. pt NPO pending video swallow and npo for cardiac cath today. pt updated on plan of care. see worklist for full
nursing assessment and interventions.
[2024-08-31] MEDS: LYRICA 50 MG PO (08:30)
[2024-08-31] MEDS: DESENEX/MITRAZOL/ZEASORB 1 APPLIC TOPICAL ×2 (08:30→20:22)
[2024-08-31] MEDS: CYMBALTA DELAYED RELEASE 20 MG PO ×2 (08:30→20:22)
[2024-08-31] MEDS: LOW STRENGTH ASPIRIN 81 MG PO (08:30)
[2024-08-31] MEDS: NON-FORMULARY ITEM 1 CAP PO ×3 (08:31→21:52)
--- NOTE | 2024-08-31 09:15 | W.PN.HOSP.TC ---
Addendum entered and electronically signed by Tong Diaz MD 08/31/24 14:48:
Seen and examined by me independently in collaboration with the medical diagnostic radiographer.
Lab data and imaging data reviewed.
Addendum as below :
Patient without clinical symptoms of heart failure. Currently on IV antibiotics for mitral valve endocarditis. Await CT surgery which is planned for Saturday.
Original Note:
Today's Communication/Plan
-
Monitor BMP closely, cardiac cath today, VSE to follow
Assessment / Plan
Assessment / Plan
84-year-old female with PMH Sjogren's, RA, HLD, hypoT, anxiety/depression, neuropathy who was transferred from [place] to 08/26/24 for cardiothoracic surgical evaluation of mitral valve endocarditis complicated by septic emboli to brain. She
initially presented to [place] for confusion. She was found to have MSSA bacteremia secondary to mitral valve endocarditis. Was found to have 1.6 cm vegetation on the atrial side of the posterior mitral valve leaflet by TTE on 08/24. She was
treated with IV antibiotics narrowed to cefazolin. Repeat blood cultures x2 on August 22 showed no growth (final result). She was not having any evidence of congestive heart failure. ADITI was being considered but she had brain imaging which showed
1.2cm anterior medial right cerebral hemisphere decreased attenuation concerning for septic emboli to the brain. She had CT chest which did not show any evidence of embolic phenomenon. Also reportedly had a concern for pneumonia. Right third toe
ulcer was debrided by podiatry.
MSSA bacteremia with endocarditis with mitral valve leaflet vegetation, complicated by septic emboli to brain (see below)-- Apprec CT surgery, cardiology, ID--08/22 blood cultures x2 No Growth (final); 08/27 blood cultures at no growth @ 72h,
final results pending--ADITI 08/28 showed preserved EF, 2cm partially mobile MV vegetation, 1cm highly mobile MV vegetation at high risk of embolizing-- preop eval for MVR ongoing, expedited out of concern for septic emboli to brain-- will be for
cardiac cath today--continue IV nafcillin per ID, monitor renal func and LFTs
Likely septic emboli to brain secondary to endocarditis mitral valve vegetation-- [facility] neurology--08/[address] with no acute intracranial abnormality; brain MRI showed acute and subacute embolic disease with multiple ischemic infarcts; antibiotics
changed from cefazolin to nafcillin for doctor of nursing practice penetration-- stat head ct for change in neuro status
Acute metabolic encephalopathy from bacteremia-- Resolved
Right third toe ulcer s/p debridement by podiatry at [place]-- Apprec wound care
Essential hypertension-- Hydrochlorothiazide, amlodipine/benazepril has been held. Defer to card team-- BPs normal to hypertensive here.
MSK pain, RA, DDD--Home regimen includes daily celecoxib, weekly methotrexate, prn tylenol-- Hold celecoxib to reduce risk of gastritis, hold methotrexate for risk of immunosuppression-- continue heating pad, lidocaine patch, prn tylenol-- 0.25mg IV
dilaudid prn while npo-- will reassess prn if additional analgesia is required
Dysphagia/regurgitation-- apprec speech therapy eval--NPO except critical meds with sips of water and ice chips--IV hydration-- VSE eventually (to be ordered following heart cath)
Hypokalemia-- monitor, supplement prn. K 3.0 this AM despite supplementation yesterday. PO K 40meq x2 already ordered and given this AM. Repeat labs this afternoon, consider IV K.
Hypernatremia-- suspect secondary to NPO, free water deficit. Continue IV hydration, adjust fluids to D5-half-NS and monitor BMP closely
Sjogren syndrome-- Continue home cevimeline (nonformulary)
Chronic bilateral neuropathy-- Continue home pregabalin
Anxiety/depression-- continue home duloxetine. Upset by new medical issues. Apprec pastoral care
Osteoporosis-- not on medication
Hyperlipidemia-- continue home statin
H/o hypothyroidism, resolved, not requiring meds-- TSH wnl-- MRI showed 2.7 cm thyroid mass and several nodules consistent with goiter; patient and family aware
History of skin cancer
Code status: full (confirmed 08/27).
She has advanced directive at home-- instructed to have family bring it in. She has 3 children.
DVT ppx: Heparin sc
Diet: NPO
Dispo planning: anticipate she will need some rehab; plan TBD pending clinical course and PT/OT recs closer to discharge
Imaging at :
Head CT 08/27/24
FINDINGS:
Mild age-related parenchymal atrophy. No intra- or extra-axial mass, hemorrhage, or fluid collection. No areas of abnormal mass effect or attenuation are noted. Hyperostosis frontalis interna. Mild mucosal thickening of the left sphenoid sinus. The
mastoid air cells are clear.
IMPRESSION:
No acute intracranial abnormality.
Chest xray 08/27/24
FINDINGS:
No focal consolidation or pneumothorax. Trace bilateral pleural effusions. The cardiomediastinal silhouette is normal. Retrocardiac lucency consistent with a moderate hiatal hernia. Chronic degenerative changes of the spine.
IMPRESSION:
Trace bilateral pleural effusions. Moderate hiatal hernia.
Cervical spine MRI 08/27/24
IMPRESSION:
1. SEVERE DISCOGENIC DEGENERATIVE DISEASE at C5/C6 and C6/C7. Moderate amount of enhancing acute endplate bone marrow edema adjacent to the C5/C6 intervertebral disc. Degenerative disease or an inflammatory arthropathy are considered most likely.
Acute infectious discitis is considered less likely given the absence of fluid signal intensity in the disc space.
2. SEVERE MULTILEVEL FACET JOINT ARTHROSIS throughout the cervical and upper thoracic spine with associated multilevel anterolistheses.
3. Mild multilevel spinal cord compression and central canal stenosis secondary to disc-osteophyte complexes and facet joint arthrosis.
4. SEVERE NEURAL FORAMINAL NARROWING at C4/C5, C5/C6, and C6/C7.
5. 2.7 cm mass in the right lobe of the thyroid gland and other smaller nodules in the thyroid isthmus and left lobe of the thyroid gland suggesting a thyroid goiter.
Brain MRI 08/27/24
IMPRESSION:
1. ACUTE and SUBACUTE EMBOLIC DISEASE with MULTIPLE SMALL ACUTE and SUBACUTE ISCHEMIC INFARCTS in the brain diffusely distributed throughout both the anterior and posterior circulation..
2. Mild white matter leukoaraiosis.
3. Mild diffuse cerebral and cerebellar volume loss.
4. Mild acute left sphenoid sinusitis.
5. Mild cervical spinal cord compression and central canal stenosis secondary to multilevel discogenic degenerative disease and facet joint arthrosis.
Transesophageal echo 08/28/24
CONCLUSIONS
-Left ventricular ejection fraction is 60-65%.
-Thickened mitral valve leaflets with mitral annular calcification.
-A large, partially mobile vegetation (approximately 2.0 cm in length) is noted
primarily on the posterior leaflet of the mitral valve (P2).
-There was also a smaller, highly mobile echodense structure/vegetation
(approximately 1.0 cm in length) on the posterior leaflet of the mitral valve
(P2) that traverses the mitral valve with each cardiac cycle with high risk of
emobolization.
-Mild to moderate mitral regurgitation.
Carotid ultrasound 08/28/24
IMPRESSION:
Foci of calcified plaque within BOTH proximal internal carotid arteries. Any stenosis is less than 50% based upon velocity criteria.
Antegrade flow within both vertebral arteries.
Orthopantogram Panelipse 08/28/24
FINDINGS: No fracture or destructive lesion involving the mandible. No plain film evidence for periapical abscess about the mandibular teeth.
IMPRESSION: Normal [facility]se radiograph
CT chest angio 08/28/24
IMPRESSION: No acute pathology of the chest identified.
Moderate atherosclerotic vascular disease. Findings about the left mitral valve likely corresponding to the known mitral valve leaflet vegetation.
Tiny left pleural effusion. Stable
Mild bibasilar atelectasis, left greater than right. New
Bilateral thyroid nodules. Dedicated thyroid ultrasound recommended if not previously evaluated.
Moderate hiatal hernia. Stable
Small simple left renal cyst. Incompletely imaged.
Anticipated Discharge: > 48 hours
Subjective/Interval History
-
Date of Service: August 31, 2024
No acute events overnight. She is nervous for her cardiac cath. Still NPO for concerns about regurgitation/esoph dysphagia; taking limited pills PO, complains of dry mouth. Neck pain unchanged improved, lidocaine patch helps. Otherwise review of
systems negative-- denies fevers/chills, dizziness, chest pain, palpitations, shortness of breath, abdominal pain, nausea, vomiting, constipation. Slightly loose BM this AM. OOB to BR without issue.
Objective Data
-
Labs:
Laboratory Results
08/31/24
04:06
WBC 11.2 H
Hgb 9.9 L
Hct 30.4 L
Plt Count 171
Sodium 147 H
Potassium 3.0 L
Chloride 114 H
Carbon Dioxide 24
BUN 16
Creatinine 0.7
Glucose 133 H
Calcium 9.4
08/27/24 13:48 Blood/Venous Blood Culture - Preliminary
No Growth in 72 hours- Final report to follow
08/27/24 13:48 Blood/Venous Blood Culture - Preliminary
No Growth in 72 hours- Final report to follow
Vital Signs:
Vital Signs
Temp Pulse Resp BP Pulse Ox
98.3 F 80 18 148/81 98
08/31/24 09:08 08/31/24 08:45 08/31/24 09:08 08/31/24 03:54 08/31/24 09:08
I&O
08/30/24 08/31/24 09/01/24
06:59 06:59 06:59
Intake Total 2159 2714 / 2714
Output Total 700 / 700
Balance 2159
Review of Systems
-
History Source: Patient
All other systems: Reviewed and negative
Physical Exam
-
General: No Apparent Distress, Comfortable, Conversant and Other (Nontoxic, elderly female appears stated age); Negative Fever, Chills or Sweats
HEENT: Normocephalic, Atraumatic and Other (Neck with no midline tenderness, +TTP paraspinal bilat)
Respiratory: Clear to Auscultation, Crackles, Non Labored Respirations and Other (IS at bedside, reviewed use with patient previously); Negative Wheezes
Cardiac: Regular Rhythm, S1/S2 and Other (Did not appreciate murmur)
GI: Soft, Nontender, Nondistended and Normal Bowel Sounds
Musculoskeletal: No Clubbing, No Cyanosis and No Edema
Skin: Warm, Dry and Ulcers (R 3rd toe, covered)
Neuro: Awake, Alert, Oriented and Nonfocal/Grossly Intact; Negative Slurred Speech or Facial Droop
Psych: Calm and Anxious
Data Reviewed
-
Diagnostic Radiology: Image personally visualized and interpreted and Report Reviewed by me
CT Scan: Image personally visualized and interpreted and Report Reviewed by me
MRI: Image personally visualized and interpreted, Report Reviewed by me and Discussed with Patient
Medical Tests (Nuc Med, Echo etc): Report Reviewed by me, Discussed with Physician and Discussed with Patient
Labs: Labs Reviewed by me and Discussed with Physician
Old Records: Reviewed
--- NOTE | 2024-08-31 10:18 | W.PN.ID1 ---
Date of Service
Date of Service: August 31, 2024
Today's Communication
Continue antibiotics.
Assessment / Plan
Mitral valve endocarditis
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
Staph aureus (MSSA bacteremia)
ESR and CRP elevated
Sjogren syndrome
Rheumatoid arthritis
Dyslipidemia
Hypothyroidism
Anxiety/depression
Neuropathy
Hx of skin cancer
Osteopenia
Recommendations:
Continue nafcillin 2g IV q4h which penetrates the HIGHER LEVEL TEACHING ASSISTANT.
Follow Cr / est CrCl and LFT's closely while on nafcillin.
Follow repeat blood cultures here negative to date
ADITI with large mobile vegetation on MV - high risk for embolization
For cath today and likely valve surgery this week
Continue to hold methotrexate for now.
����������������������������������������������������������
Chief Complaint
-: Bacteremia and Other (IE)
Subjective / Review of Systems
Review of Systems: No Fever and No Chills
Vital Signs / Physical Exam
Vital Signs
Vital Signs
Temp Pulse Resp BP Pulse Ox
98.3 F 80 18 148/81 98
08/31/24 09:08 08/31/24 08:45 08/31/24 09:08 08/31/24 03:54 08/31/24 09:08
Physical Exam
Constitutional: Non-toxic
Eyes: No Conjunctival Hemorrhage and Sclera Anicteric
Cardiovascular: Regular Rate and S1/S2; Negative Murmur
Pulmonary: Clear
Gastrointestinal: Soft, Non Tender, Non Distended and Normal Bowel Sounds
Extremities: Negative Edema
Neurological: AO x 3; Negative Meningeal Signs
Objective Data
Lab Data
Lab Results
08/31/24 04:06
08/31/24 04:06
ESR 48 mm/hour (0-20) H 08/28/24 04:22
PT 14.5 Sec (11.4-14.6) 08/29/24 03:24
INR 1.10 08/29/24 03:24
APTT 27.6 Sec (23.4-35.0) 08/29/24 03:24
Estimated Creat Clear 58 ml/min 08/31/24 04:06
Total Bilirubin 1.0 mg/dl (0.2-1.3) 08/29/24 03:24
AST 26 U/L (14-36) 08/29/24 03:24
ALT 10 U/L (0-35) 08/29/24 03:24
Alkaline Phosphatase 111 U/L (38-126) 08/29/24 03:24
C-Reactive Protein 45.50 mg/L (0.0-10.00) H 08/28/24 04:22
Most recent labs reviewed.
Micro Results:
08/27/24 13:48 Blood Culture - Preliminary
Blood/Venous No Growth in 72 hours- Final report to follow
08/27/24 13:48 Blood Culture - Preliminary
Blood/Venous No Growth in 72 hours- Final report to follow
08/20/2024 Blood culture: MSSA ([facility])
08/22/2024 Blood culture: No growth ([facility])
Imaging:
08/27/24 MRI brain: ACUTE and SUBACUTE EMBOLIC DISEASE with MULTIPLE SMALL ACUTE and SUBACUTE ISCHEMIC INFARCTS in the brain diffusely distributed throughout both the anterior and posterior circulation..
08/25/2024 CT head: 1.2 cm region of decreased attenuation at the anterior medial right cerebellar hemisphere which is developed since a prior CT scan dated 08/20/2024. This was possibly a recent infarction. Also noted is mild age-related volume
loss. Please see full dictation for additional detail. (Film performed at [facility])
08/21/2024 CT chest: No evidence of pneumonia. Small bilateral pleural effusions noted. Mild subsegmental atelectasis at the posterior inferior aspect of the right and left lower lobes. Ossification of the mitral annulus, with atherosclerotic
coronary artery calcifications noted. Please see full dictation for additional detail. (Film performed at [facility])
08/20/2024 CT head: No evidence of intracranial hemorrhage, acute infarct, mass or midline shift. Chronic small vessel ischemia and volume loss noted. Please see full dictation for additional detail. (Film performed at [facility])
TTE at [facility] 08/24/24: EF 55%, large echogenic mass on posterior mitral valve leaflet 1.6 x 1.3 cm with mild to moderate MR, concern for endocarditis
--- NOTE | 2024-08-31 10:45 | W.PN.CARDCBS ---
Today's Communication / Plan
-
Cardiac catheterization with Dr. Jasso today
Impression / Plan
-
Primary Pool Hall Inspector: Dr. Ingram of [facility]
Assessment:
Presentation to [facility] with confusion
TME
LLL infiltrate, not felt to be PNA per pulm at [facility]
MSSA bacteremia
Suspected septic emboli to brain by imaging at [facility]
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
R 3rd toe ulder s/p debridement per podiatry at [facility]
RA on chronic methotrexate
HTN
HLD
Hypothyroidism
Anxiety/depression
Anemia
Hypoalbuminemia
Moderate hiatal hernia
DDD of neck
Thyroid goiter
TTE at [facility] 08/24/24: EF 55%, large echogenic mass on posterior mitral valve leaflet 1.6 x 1.3 cm with mild to moderate MR, concern for endocarditis
ADITI 08/28 with preserved EF, large partially mobile vegetation measuring 2.0 cm in length on primarily the posterior leaflet of mitral valve, also with smaller, highly mobile echodense structure/vegetation on posterior leaflet of mitral valve that
transverses the mitral valve with each cardiac cycle with high risk of embolization, mild to moderate MR
Plan:
MSSA bacteremia with mitral valve endocarditis s/p embolic CVA (suspected septic emboli) high risk for further embolization
-Hemodynamically stable for left heart catheterization today in preparation for mitral valve repair secondary to mitral valve endocarditis with MSSA bacteremia
-Appreciate ID input: Cont IV Abx as per ID for MSSA bacteremia and MV endocarditis
-Appreciate CT surgery input: Anticipate surgery 09/02/2024
Sjogren syndrome/Rheumatoid arthritis on chronic methotrexate
Right third toe ulcer status post debridement at [facility]
Dyslipidemia- Lipid profile 08/29/2024: Triglycerides 159, total cholesterol 123, LDL 68, HDL 124. Continue atorvastatin.
Hypothyroidism history of thyroid goiter-euthyroid. Continue replacement therapy.
Hyperglycemia with normal hemoglobin A1c at 5.4%.
Hypokalemia, replete for potassium greater than 4, mag greater than 2.
Normocytic anemia with hemoglobin 9.9 today. Monitor closely in the perioperative setting.
Progress Note - Pool Hall Inspector
Subjective
Date of Service: August 31, 2024
Patient seen and examined. Chart/telemetry reviewed. N.p.o. for cardiac catheterization with Dr. Jasso today in anticipation of mitral valve replacement later this week.
Objective
Labs:
08/31/24 04:06
08/31/24 04:06
Labs
Hgb 9.9 g/dL (12.0-16.0) L 08/31/24 04:06
Hct 30.4 % (37.0-47.0) L 08/31/24 04:06
Plt Count 171 10^3/uL (130-400) 08/31/24 04:06
PT 14.5 Sec (11.4-14.6) 08/29/24 03:24
INR 1.10 08/29/24 03:24
APTT 27.6 Sec (23.4-35.0) 08/29/24 03:24
Sodium 147 mmol/L (135-145) H 08/31/24 04:06
Potassium 3.0 mmol/L (3.5-5.1) L 08/31/24 04:06
BUN 16 mg/dl (7-17) 08/31/24 04:06
Creatinine 0.7 mg/dL (0.6-1.0) 08/31/24 04:06
Glucose 133 mg/dl (70-99) H 08/31/24 04:06
Vital Signs and I&O:
Vital Signs
Temp Pulse Resp BP Pulse Ox
98.3 F 80 18 148/81 98
08/31/24 09:08 08/31/24 08:45 08/31/24 09:08 08/31/24 03:54 08/31/24 09:08
Vital Signs
Temp Pulse Resp BP Pulse Ox
98.3 F 80 18 148/81 98
08/31/24 09:08 08/31/24 08:45 08/31/24 09:08 08/31/24 03:54 08/31/24 09:08
Intake & Output
08/29/24 08/30/24 08/31/24 09/01/24
06:59 06:59 06:59 06:59
Intake Total 1080 / 1080 2160 / 2160 2714 / 2714
Output Total 1300 / 1300 700 / 700
Balance -220 / -220 2160 / 2160 2013
Physical Exam
Physical Exam
General: No acute distress, AAOX3
Neck: Negative JVD
Heart: Regular, positive S1/S2, no murmur
Lungs: CTA b/l, negative wheezes/rales/rhonchi
Abd: Positive BS, NT/ND, neg rebound/rigidity/guarding
Ext: trace edema
[2024-08-31] MEDS: D5/0.45%NSS with KCL 10 MEQ 1000 IV ×2 (13:18→23:15)
--- NOTE | 2024-08-31 14:01 | PTOTSP ---
Speech Language Pathology
Spoke with resident re: timing of VSE given plan for CT surgery Saturday with increased risk of dysphagia following surgery. MD would still like VSE completed TRISTEN to see if P.O. diet possible until CT surgery. As of now, pt remains NPO for
cardiac cath this date. Plan for VSE, but with cardiac cath not yet completed with likely need to lie flat following procedure, it is unlikely that VSE will happen today. If not, will plan for 4/1 AM.
--- NOTE | 2024-08-31 14:04 | W.PN.UPDATE ---
Update Note
Progress Note Update
I met with Mrs. Srivastava and her daughter at the bedside today. I reviewed her transesophageal echocardiogram and pathology. She has a large vegetation on the mitral valve that appears to be mobile concerning for the source for embolic strokes. In
addition her CTA from the weekend demonstrate significant mitral annular calcification along the 7:00 heading up towards the posterior medial trigone. Due to this, her surgery is high risk for apical disruption. Will plan a left heart cath today
to see whether she has coronary artery disease. Her valve would likely be replaced as once the vegetation removed will be destruction of the leaflets. We reviewed the recent benefits of surgery as well as the conduct for Saturday. The patient
states that she would like to move forward with surgery.
--- NOTE | 2024-08-31 16:05 | ITS.CL.CATH ---
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
Cardiac Catheterization
Procedure Report:
LEFT HEART CATHETERIZATION
Date of Procedure: August 31, 2024
Procedures performed:
1: Coronary angiography
2: Left ventricular hemodynamic assess
Primary Care Physician: Dr. Marianne Escalera
Primary Senior Electronics Engineer: Dr. Eulalio Bautista
INDICATION: The patient is an 84-year-old woman who is referred for coronary angiography in preparation for mitral valve surgery secondary to mitral valve endocarditis.
ACCESS: The patient was prepped and draped in usual sterile fashion. A 5 Mauritian sheath was placed in the right radial artery using the Seldinger over the wire technique.
HEMODYNAMIC FINDINGS (mmHg):
LV(s/d,EDP): 2 150/7, 12
Ao(s/d,m): 150/75, 100
ANGIOGRAPHIC FINDINGS:
Single-plane Left Ventriculography in YAP Projection: Not done
Coronary Angiography:
Dominance: Right
Left Main: Short, vertical takeoff. Widely patent. Engaged with a 5 Mauritian JL 3.5 diagnostic catheter.
Left Anterior Descending: The left anterior descending artery is a large vessel that gives rise to 1 major diagonal branch. The distal vessels are very tortuous but are otherwise angiographically normal with no focal obstructive disease. The
ostial LAD has a somewhat acute takeoff from the left main but appears free of disease. The mid LAD has a portion that appears to have an intramyocardial course with mild bridging and moderate luminal irregularities. Some diffuse calcification is
noted without focal obstructive disease. All vessels have normal distal flow.
Left Circumflex: The left circumflex is a large-caliber nondominant system that gives rise to a very large branching obtuse marginal branch. Again the distal vessels are tortuous but with widely patent with no focal disease and normal flow.
Right Coronary: The right coronary artery is a medium caliber dominant vessel that gives rise to a medium caliber posterior descending artery and small posterior left ventricular branch system. These vessels are widely patent with only mild luminal
irregularities.
Fluoroscopy Time (min): 3.4
Radiation Dose (mGy): 309
DAP (Gy.cm2): 20
Closure device: None. A TR band was applied for hemostasis at the right wrist.
Complications: None.
ASSESSMENT:
1: Mild nonobstructive coronary artery disease.
2: Normal left ventricular filling pressures.
CONCLUSIONS and RECOMMENDATIONS:
1: Medical therapy for nonobstructive coronary artery disease.
2: Continue medical therapy and plan for endocarditis.
Rose Jasso M.D.
--- NOTE | 2024-08-31 16:20 | PTCARENOTE ---
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 drowsy, arouses easily to voice. orientedx3, forgetful. right radial TR band in place. some bruising noted at radial site under TR band. pt educated on restrictions with right arm. pt daughter at bedside, both
updated on plan of care.
[2024-08-31 17:36] LABS: Blood Urea Nitrogen 13 mg/dl (7-17); Calcium 9.6 mg/dl (8.4-10.2); Carbon Dioxide 28 mmol/L (22-30); Chloride 113 mmol/L (98-107); Estimated Creatinine Clearance 58 ml/min; Glucose 136 mg/dl (70-99); Potassium 3.4 mmol/L (3.5-5.1); Sodium 148 mmol/L (135-145); eGFR > 60.00
--- NOTE | 2024-08-31 18:05 | W.PN.UPDATE ---
Update Note
Progress Note Update
PM labs reviewed (below)
Hypernatremia 148-- will increase rate of IVF (D5 half NS with K).
Hypokalemia 3.4-- will give 40meq IV K now. Anticipate she will need further K supplementation-- ordered 40meq IV K scheduled for AM with hold parameters based on AM lab results. Discussed with Dr Diaz and nursing.
Due to concerns regarding possible dysphagia, esophageal dysmotility, regurgitation-- patient to remain NPO except critical med that cannot be given another route.
Will reassess for advancing diet pending results of VSE-- ordered placed, anticipate VSE tomorrow. Apprec speech therapy recs.
Lab Results
08/30/24 08/31/24 08/31/24
04:06 04:06 17:00
WBC 10.3 11.2 H
RBC 3.52 L 3.41 L
Hgb 10.4 L 9.9 L
Hct 32.7 L 30.4 L
MCV 92.9 89.1
MCH 29.5 29.0
MCHC 31.8 L 32.6 L
RDW 17.4 H 17.2 H
Plt Count 204 171
MPV 9.9 9.9
Sodium 147 H 147 H 148 H
Potassium 3.2 L 3.0 L 3.4 L
Chloride 110 H 114 H 113 H
Carbon Dioxide 30 24 28
BUN 19 H 16 13
Creatinine 0.8 0.7 0.7
Estimated Creat Clear 51 58 58
eGFR > 60.00 > 60.00 > 60.00
Glucose 123 H 133 H 136 H
Calcium 9.5 9.4 9.6
Magnesium 2.3 2.1
[2024-08-31] MEDS: KCL 270 MEQ IV (18:13)
[2024-08-31] MEDS: LIDOCAINE 4% PATCH 1 PATCH TOPICAL (20:23)
--- NOTE | 2024-08-31 23:51 | PTCARENOTE ---
Patient received from previous RN resting in the bed. Patient offers no physical complaints, only complaint is the constant noise on the unit. Sinus rhythm with PVCs on telemetry. Oxygen saturation 99-100% on room air. IVF infusing via Right
midline. Right radial cath site C/D/I. Plan of care discussed. Call humphrey within reach. Care ongoing.
[2024-09-01] VITALS (7 sets, daily range): BP systolic 131–152; BP diastolic 67–88; PULSE 94; O2SAT 98; BMI 23.8
[2024-09-01] MEDS: NAFCIL 108 MG IV ×6 (03:11→23:44)
--- NOTE | 2024-09-01 04:19 | W.PN.CT ---
Today's Communication / Plan
-
Plan:
-Cont. current medical management per primary team
-Cont. Abx per per ID, f/u blood cultures (no growth in 4 days), currently on Nafcillin
-Cont. current meds (ASA, Lipitor, Nafcillin, Cymbalta, Lyrica)
-Avoid BURT-I, ARBs, CCB while awaiting CT Surgery
-Ongoing preop workup/evaluation, [facility] on 08/31 was without obstructive CAD, for swallow evaluation today
-Replete K, 3.4
-MVR on Monday 10/[address] Pena
-Will cont. to closely monitor
Assessment / Plan
-
Assessment:
-Presentation to [facility] with confusion, transferred to on 08/26/24
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
-Staph aureus (MSSA bacteremia), repeat cultures @ are without growth
-Mild-moderate MR
-MAC
-LVEF 60-65%
-TME
-LLL infiltrate, not felt to be PNA per pulm at [facility]
-R 3rd toe ulder s/p debridement per podiatry at [facility]
-RA on chronic methotrexate
-Sjogren's syndrome
-Dysphagia
-HTN
-HLD
-Hypothyroidism
-GERD/Hiatal hernia
-Anxiety/depression
-Former tobacco use
-Anemia
-Hypoalbuminemia
-Hypokalemia
-Hypernatremia
-DDD of neck
-Osteoarthritis
-Thyroid goiter
Discussed patient care with: Cardiology, Nursing, Pharmacy and Care Team
Subjective
-
Date of Service: September 01, 2024
No issues overnight. Denies CP/SOB
Objective Data
-
PT 14.5 Sec (11.4-14.6) 08/29/24 03:24
INR 1.10 08/29/24 03:24
APTT 27.6 Sec (23.4-35.0) 08/29/24 03:24
Vital Signs
Vital Signs
Temp Pulse Resp BP Pulse Ox
98.2 F 78 14 136/67 98
09/01/24 03:10 09/01/24 03:10 09/01/24 03:10 09/01/24 03:10 09/01/24 03:10
CT Intake/Output/Weight
08/31/24 08/31/24 09/01/24
06:59 18:59 06:59
Intake Total 1444 / 2714 200 / 1500 1300 / 1500
Output Total 400 / 700
Balance 1043 200 / 1500 1300 / 1500
SaO2: 98 (RA)
Physical Exam
-
General: Awake, Oriented and AOx3
Cardiovascular: Regular rate & rhythm, No Murmurs, No Rub and No Gallop
Respiratory: Clear
Extremities: Other (+trace edema)
[2024-09-01 04:28] LABS: Blood Urea Nitrogen 10 mg/dl (7-17); Calcium 9.7 mg/dl (8.4-10.2); Carbon Dioxide 28 mmol/L (22-30); Chloride 112 mmol/L (98-107); Estimated Creatinine Clearance 58 ml/min; Glucose 123 mg/dl (70-99); Magnesium 2.1 mg/dl (1.6-2.3); Potassium 3.4 mmol/L (3.5-5.1); Sodium 149 mmol/L (135-145); eGFR > 60.00
[2024-09-01 04:54] LABS: Hematocrit 34.2 % (37.0-47.0); Hemoglobin 10.8 g/dL (12.0-16.0); Mean Corp Hgb Conc. 31.6 g/dL (33.0-37.0); Mean Corpuscular Hgb 29.4 pg (27.0-31.0); Mean Corpuscular Volume 93.2 fL (81.0-99.0); Platelet Count 246 10^3/uL (130-400); Red Blood Cell Count 3.67 10^6/uL (4.20-5.40); Red Cell Dist. Width 17.3 % (11.5-14.5)
[2024-09-01] MEDS: KCL 270 MEQ IV (05:08)
[2024-09-01] MEDS: LOW STRENGTH ASPIRIN 81 MG PO (08:39)
[2024-09-01] MEDS: LYRICA 50 MG PO (08:40)
[2024-09-01] MEDS: DESENEX/MITRAZOL/ZEASORB 1 APPLIC TOPICAL (08:40)
[2024-09-01] MEDS: CYMBALTA DELAYED RELEASE 20 MG PO ×2 (08:41→19:32)
[2024-09-01] MEDS: NON-FORMULARY ITEM 1 CAP PO ×3 (08:43→22:57)
--- NOTE | 2024-09-01 08:50 | W.PN.HOSP.TC ---
Addendum entered and electronically signed by Tong Diaz MD 09/01/24 15:22:
Seen and examined by me independently in collaboration with the medical administrator Dr. Liu.
Lab data and imaging data reviewed.
Addendum as below :
Denies shortness of breath or chest pain. Chest with focal crackles in the left base otherwise clear.
Continue with the IV antibiotics.
Passed swallow eval-started on a diet.
For mitral valve replacement tomorrow
Original Note:
Today's Communication/Plan
-
Monitor BMP closely, continue K supplementation and IV hydration, VSE today, anticipate MVR tomorrow
Assessment / Plan
Assessment / Plan
84-year-old female with PMH Sjogren's, RA, HLD, hypoT, anxiety/depression, neuropathy who was transferred from [place] to 08/26/24 for cardiothoracic surgical evaluation of mitral valve endocarditis complicated by septic emboli to brain. She
initially presented to [place] for confusion. She was found to have MSSA bacteremia secondary to mitral valve endocarditis. Was found to have 1.6 cm vegetation on the atrial side of the posterior mitral valve leaflet by TTE on 08/24. She was
treated with IV antibiotics narrowed to cefazolin. Repeat blood cultures x2 on August 22 showed no growth (final result). She was not having any evidence of congestive heart failure. ADITI was being considered but she had brain imaging which showed
1.2cm anterior medial right cerebral hemisphere decreased attenuation concerning for septic emboli to the brain. She had CT chest which did not show any evidence of embolic phenomenon. Also reportedly had a concern for pneumonia. Right third toe
ulcer was debrided by podiatry.
MSSA bacteremia with endocarditis with mitral valve leaflet vegetation, complicated by septic emboli to brain (see below)-- Apprec CT surgery, cardiology, ID--08/22 blood cultures x2 No Growth (final); 08/27 blood cultures at no growth @ 4d,
final results pending--ADITI 08/28 showed preserved EF, 2cm partially mobile MV vegetation, 1cm highly mobile MV vegetation at high risk of embolizing, mild-mod MR-- preop eval for MVR ongoing, expedited out of concern for septic emboli to
brain--anticipate MVR on Saturday 09/[address] Pena--continue IV nafcillin per ID, monitor renal func and LFTs
Likely septic emboli to brain secondary to endocarditis mitral valve vegetation-- Apprec neurology--08/[address] with no acute intracranial abnormality; brain MRI showed acute and subacute embolic disease with multiple ischemic infarcts; antibiotics
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
Acute metabolic encephalopathy from bacteremia-- Resolved
Right third toe ulcer s/p debridement by podiatry at [place]-- Apprec wound care
Essential hypertension-- Hydrochlorothiazide, amlodipine/benazepril has been held. Defer to card team-- BPs normal to hypertensive here.
MSK pain, RA, DDD--Home regimen includes daily celecoxib, weekly methotrexate, prn tylenol-- Hold celecoxib to reduce risk of gastritis, hold methotrexate for risk of immunosuppression-- continue heating pad, lidocaine patch, prn tylenol--IV Tylenol
PRN, IV Dilaudid 0.25mg PRN while npo-- will reassess prn if additional analgesia is required
Dysphagia/regurgitation-- apprec speech therapy eval--NPO except critical meds with sips of water and ice chips--IV hydration-- VSE today
Hypokalemia-- suspect secondary to NPO and now some GI loss--monitor, supplement prn. K 3.4 this AM after PO 80meq and IV 40meq yesterday-- giving additional 40meq IV now. Repeat BMP this afternoon.
Hypernatremia-- suspect secondary to NPO, free water deficit. Continue IV hydration, continue D5-half-NS with K and increase rate. Repeat BMP this afternoon.
Leukocytosis--most likely related to endocarditis as above. Plan as above. Trend CBC, follow temperature curve. Apprec ID.
Mild nonobstructive CAD--medical therapy
Sjogren syndrome-- Continue home cevimeline (nonformulary)
Chronic bilateral neuropathy-- Continue home pregabalin
Anxiety/depression-- continue home duloxetine. Upset by new medical issues. Apprec pastoral care
Osteoporosis-- not on medication
Hyperlipidemia-- continue home statin
H/o hypothyroidism, resolved, not requiring meds-- TSH wnl-- MRI showed 2.7 cm thyroid mass and several nodules consistent with goiter; patient and family aware
History of skin cancer
Code status: full (confirmed 08/27).
She has advanced directive at home-- instructed to have family bring it in. She has 3 children.
DVT ppx: Heparin sc
Diet: NPO pending results of VSE
Dispo planning: anticipate she will need some rehab; plan TBD pending clinical course and PT/OT recs closer to discharge
Imaging at :
Head CT 08/27/24
FINDINGS:
Mild age-related parenchymal atrophy. No intra- or extra-axial mass, hemorrhage, or fluid collection. No areas of abnormal mass effect or attenuation are noted. Hyperostosis frontalis interna. Mild mucosal thickening of the left sphenoid sinus. The
mastoid air cells are clear.
IMPRESSION:
No acute intracranial abnormality.
Chest xray 08/27/24
FINDINGS:
No focal consolidation or pneumothorax. Trace bilateral pleural effusions. The cardiomediastinal silhouette is normal. Retrocardiac lucency consistent with a moderate hiatal hernia. Chronic degenerative changes of the spine.
IMPRESSION:
Trace bilateral pleural effusions. Moderate hiatal hernia.
Cervical spine MRI 08/27/24
IMPRESSION:
1. SEVERE DISCOGENIC DEGENERATIVE DISEASE at C5/C6 and C6/C7. Moderate amount of enhancing acute endplate bone marrow edema adjacent to the C5/C6 intervertebral disc. Degenerative disease or an inflammatory arthropathy are considered most likely.
Acute infectious discitis is considered less likely given the absence of fluid signal intensity in the disc space.
2. SEVERE MULTILEVEL FACET JOINT ARTHROSIS throughout the cervical and upper thoracic spine with associated multilevel anterolistheses.
3. Mild multilevel spinal cord compression and central canal stenosis secondary to disc-osteophyte complexes and facet joint arthrosis.
4. SEVERE NEURAL FORAMINAL NARROWING at C4/C5, C5/C6, and C6/C7.
5. 2.7 cm mass in the right lobe of the thyroid gland and other smaller nodules in the thyroid isthmus and left lobe of the thyroid gland suggesting a thyroid goiter.
Brain MRI 08/27/24
IMPRESSION:
1. ACUTE and SUBACUTE EMBOLIC DISEASE with MULTIPLE SMALL ACUTE and SUBACUTE ISCHEMIC INFARCTS in the brain diffusely distributed throughout both the anterior and posterior circulation..
2. Mild white matter leukoaraiosis.
3. Mild diffuse cerebral and cerebellar volume loss.
4. Mild acute left sphenoid sinusitis.
5. Mild cervical spinal cord compression and central canal stenosis secondary to multilevel discogenic degenerative disease and facet joint arthrosis.
Transesophageal echo 08/28/24
CONCLUSIONS
-Left ventricular ejection fraction is 60-65%.
-Thickened mitral valve leaflets with mitral annular calcification.
-A large, partially mobile vegetation (approximately 2.0 cm in length) is noted
primarily on the posterior leaflet of the mitral valve (P2).
-There was also a smaller, highly mobile echodense structure/vegetation
(approximately 1.0 cm in length) on the posterior leaflet of the mitral valve
(P2) that traverses the mitral valve with each cardiac cycle with high risk of
emobolization.
-Mild to moderate mitral regurgitation.
Carotid ultrasound 08/28/24
IMPRESSION:
Foci of calcified plaque within BOTH proximal internal carotid arteries. Any stenosis is less than 50% based upon velocity criteria.
Antegrade flow within both vertebral arteries.
Orthopantogram Panelipse 08/28/24
FINDINGS: No fracture or destructive lesion involving the mandible. No plain film evidence for periapical abscess about the mandibular teeth.
IMPRESSION: Normal Panelipse radiograph
CT chest angio 08/28/24
IMPRESSION: No acute pathology of the chest identified.
Moderate atherosclerotic vascular disease. Findings about the left mitral valve likely corresponding to the known mitral valve leaflet vegetation.
Tiny left pleural effusion. Stable
Mild bibasilar atelectasis, left greater than right. New
Bilateral thyroid nodules. Dedicated thyroid ultrasound recommended if not previously evaluated.
Moderate hiatal hernia. Stable
Small simple left renal cyst. Incompletely imaged.
Left heart catheterization 08/31/2024
ASSESSMENT:
1: Mild nonobstructive coronary artery disease.
2: Normal left ventricular filling pressures.
Anticipated Discharge: > 48 hours
Subjective/Interval History
-
Date of Service: September 01, 2024
No acute events overnight. Still NPO for concerns about regurgitation/esoph dysphagia; taking limited pills PO, complains of dry mouth. Neck pain improved with lidocaine patch. Otherwise review of systems negative-- denies fevers/chills,
dizziness, chest pain, palpitations, shortness of breath, abdominal pain, nausea, vomiting, constipation. Few loose BM yesterday and this morning. OOB to BR without issue.
Objective Data
-
Labs:
Laboratory Results
09/01/24 09/01/24
16:00
WBC 12.0 H
Hgb 10.8 L
Hct 34.2 L
Plt Count 246 D
Sodium 149 H Pending
Potassium 3.4 L Pending
Chloride 112 H Pending
Carbon Dioxide 28 Pending
BUN 10 Pending
Creatinine 0.7 Pending
Glucose 123 H Pending
Calcium 9.7 Pending
08/27/24 13:48 Blood/Venous Blood Culture - Preliminary
No Growth in 4 days- Final report to follow
08/27/24 13:48 Blood/Venous Blood Culture - Preliminary
No Growth in 4 days- Final report to follow
Vital Signs:
Vital Signs
Temp Pulse Resp BP Pulse Ox
97.9 F 81 18 145/78 97
09/01/24 07:35 09/01/24 07:29 09/01/24 07:35 09/01/24 07:29 09/01/24 07:35
I&O
08/31/24 09/01/24 09/02/24
06:59 06:59 06:59
Intake Total 2714 / 2714 2916 / 2916
Output Total 700 / 700
Balance 2013 2916 / 2916
Review of Systems
-
History Source: Patient
All other systems: Reviewed and negative
Physical Exam
-
General: No Apparent Distress, Comfortable, Conversant and Other (Nontoxic, elderly female appears stated age); Negative Fever, Chills or Sweats
HEENT: Normocephalic, Atraumatic and Other (Neck with no midline tenderness, +TTP paraspinal bilat)
Respiratory: Clear to Auscultation, Rhonchi, Non Labored Respirations and Other (IS at bedside, reviewed use again today improving effort); Negative Wheezes
Cardiac: Regular Rhythm, S1/S2 and Other (Did not appreciate murmur)
GI: Soft, Nontender, Nondistended and Normal Bowel Sounds
Musculoskeletal: No Clubbing, No Cyanosis and No Edema
Skin: Warm, Dry and Ulcers (R 3rd toe, covered)
Neuro: Awake, Alert, Oriented and Nonfocal/Grossly Intact; Negative Slurred Speech or Facial Droop
Psych: Calm
Data Reviewed
-
Diagnostic Radiology: Image personally visualized and interpreted and Report Reviewed by me
CT Scan: Image personally visualized and interpreted and Report Reviewed by me
MRI: Image personally visualized and interpreted, Report Reviewed by me and Discussed with Patient
Medical Tests (Nuc Med, Echo etc): Report Reviewed by me, Discussed with Physician and Discussed with Patient
Labs: Labs Reviewed by me and Discussed with Physician
Old Records: Reviewed
--- NOTE | 2024-09-01 09:15 | PTOTSP ---
Speech Language Pathology
VIDEOFLUOROSCOPIC SWALLOWING EXAMINATION (VSE) completed. Pt with mild pharyngeal dysphagia with trace to moderate amount of pharyngeal residue, partially reduced with a liquid wash. Consecutive straw sips of thin liquids resulted in penetration
to the level of the vocal folds (PAS 5), and consecutive straw sips of mildly thick liquids/thin liquids via cup as liquid wash post regular solids resulted in supraglottic penetration (PAS 3). No other penetration or any aspiration noted during
study. Esophageal sweep demonstrated significant residue without backflow.
Recommend:
(1) Regular solids/thin liquids
(2) Aspiration precautions: sit upright, slow rate, single cup sips only, no straws, frequent sips of liquids during meals, sit upright during meals and for at least 30 minutes post
(3) Meds 1 at a time whole with liquid if able to take wiht single sip of liquid. Otherwise, whole in puree
(4) Consider OP GI
(5) LABOR RELATIONS DIRECTOR to continue to follow
[2024-09-01] MEDS: D5/0.45%NSS with KCL 10 MEQ 1000 IV (10:14)
--- NOTE | 2024-09-01 13:15 | W.PN.CARDCBS ---
Addendum entered and electronically signed by Owen Melgoza MD 09/01/24 16:26:
I saw and examined the patient.
The Rod Hanger's note was reviewed and I agree with the note.
Comment: Briefly, 84-year-old woman who presented to [facility] and was found to have suspected septic emboli in the setting of MSSA bacteremia and was identified to have mitral valve endocarditis for which she was transferred to [place]
hospital.
Patient is resting comfortably in bed this morning in the IVU
No cardiac complaints
Telemetry with sinus rhythm and occasional PVCs but no evidence of AV block
Appears compensated from a volume standpoint and filling pressures were normal by invasive hemodynamics yesterday
Tentative plan for mitral valve repair this week
Will defer antibiotics to infectious disease
We will continue to follow with you
Original Note:
Today's Communication / Plan
-
For mitral valve repair 09/02
Continue antibiotics per ID
Will follow postoperatively
Impression / Plan
-
Primary Forming Operator: Dr. Ingram of [facility]
Assessment:
Presentation to [facility] with confusion
TME
LLL infiltrate, not felt to be PNA per pulm at [facility]
MSSA bacteremia
Suspected septic emboli to brain by imaging at [facility]
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
R 3rd toe ulder s/p debridement per podiatry at [facility]
RA on chronic methotrexate
HTN
HLD
Hypothyroidism
Anxiety/depression
Anemia
Hypoalbuminemia
Moderate hiatal hernia
DDD of neck
Thyroid goiter
TTE at [facility] 08/24/24: EF 55%, large echogenic mass on posterior mitral valve leaflet 1.6 x 1.3 cm with mild to moderate MR, concern for endocarditis
ADITI 08/28 with preserved EF, large partially mobile vegetation measuring 2.0 cm in length on primarily the posterior leaflet of mitral valve, also with smaller, highly mobile echodense structure/vegetation on posterior leaflet of mitral valve that
transverses the mitral valve with each cardiac cycle with high risk of embolization, mild to moderate MR
Plan:
-MSSA bacteremia with mitral valve endocarditis s/p embolic CVA (suspected septic emboli) high risk for further embolization
-Plan for mitral valve repair tomorrow, 09/02
-Continue antibiotics per ID
-In sinus rhythm with PVCs on review of telemetry
-No cardiac issues overnight. Main complaint is diarrhea, likely from antibiotics
-Hemoglobin 10.8. Follow postoperatively. Continue aspirin
-Continue Lipitor
-Discussed with patient and family at bedside. Discussed with nursing
Progress Note - Forming Operator
Subjective
Date of Service: September 01, 2024
Reports diarrhea
Objective
Labs:
09/01/24 03:28
Labs
Hgb 10.8 g/dL (12.0-16.0) L 09/01/24 03:28
Hct 34.2 % (37.0-47.0) L 09/01/24 03:28
Plt Count 246 10^3/uL (130-400) D 09/01/24 03:28
PT 14.5 Sec (11.4-14.6) 08/29/24 03:24
INR 1.10 08/29/24 03:24
APTT 27.6 Sec (23.4-35.0) 08/29/24 03:24
Sodium 149 mmol/L (135-145) H 09/01/24 03:28
Potassium 3.4 mmol/L (3.5-5.1) L 09/01/24 03:28
BUN 10 mg/dl (7-17) 09/01/24 03:28
Creatinine 0.7 mg/dL (0.6-1.0) 09/01/24 03:28
Glucose 123 mg/dl (70-99) H 09/01/24 03:28
Vital Signs and I&O:
Vital Signs
Temp Pulse Resp BP Pulse Ox
97.6 F 81 18 145/78 98
09/01/24 12:12 09/01/24 07:29 09/01/24 12:12 09/01/24 07:29 09/01/24 12:12
Vital Signs
Temp Pulse Resp BP Pulse Ox
97.6 F 81 18 145/78 98
09/01/24 12:12 09/01/24 07:29 09/01/24 12:12 09/01/24 07:29 09/01/24 12:12
Intake & Output
08/30/24 08/31/24 09/01/24 09/02/24
07:59 07:59 07:59 07:59
Intake Total 2160 / 2160 2714 / 2914 2916 / 2916
Output Total 700 / 700
Balance 2160 / 2160 2013 / 221 2916 / 2916
Physical Exam
Physical Exam
GEN: No distress, awake, alert, oriented x3. Sitting in chair
HEENT: supple, anicteric, mmm, EOMI
LUNGS: CTA bilaterally, no wheezes/rales
CV: Reg, S1/S2, 2/6 murmur
ABD: soft, BS+, NT/ND
EXT: No cyanosis, clubbing, edema
NEURO: Gross non-focal
SKIN: Warm, pink, dry. No rash
--- NOTE | 2024-09-01 13:16 | W.PN.UPDATE ---
Update Note
Progress Note Update
Procedure Type:�Isolated MVR
Perioperative Outcome Estimate %
Operative Mortality 4.37%
Morbidity & Mortality 14.5%
Stroke 2.65%
Renal Failure 1.95%
Reoperation 3.48%
Prolonged Ventilation 8.27%
Deep Sternal Wound Infection 0.054%
Long Hospital Stay (>14 days) 13.8%
Short Hospital Stay (<6 days)* 15.1%
Clinical Summary
Planned Surgery: Isolated MVR, Urgent, First cardiovascular surgery
Demographics: 84 year old, female, 68.5kg, 168cm, BMI: 24.3 kg/m�
Lab Values: Creatinine: 0.8 mg/dL, Hematocrit: 32.7%, WBC Count: 10.3 10�/�L, Platelet Count: 959021 cells/�L
Substance Abuse: Current smoker, Alcohol use: <=1 drink/week
Risk Factors / Comorbidities: Treated Endocarditis, Hypertension
Valve Disease: Severe MR
--- NOTE | 2024-09-01 13:17 | W.PN.ID1 ---
Date of Service
Date of Service: September 01, 2024
Today's Communication
Continue antibiotics. Await tentative valve surgery.
Assessment / Plan
Mitral valve endocarditis
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
Staph aureus (MSSA bacteremia)
ESR and CRP elevated
Sjogren syndrome
Rheumatoid arthritis
Dyslipidemia
Hypothyroidism
Anxiety/depression
Neuropathy
Hx of skin cancer
Osteopenia
Recommendations:
Continue nafcillin 2g IV q4h.
Follow Cr / est CrCl and LFT's closely while on nafcillin.
Follow repeat blood cultures; here negative to date
ADITI with large mobile vegetation on MV - high risk for embolization
Pt for valve surgery 09/02/24
Continue to hold methotrexate for now.
����������������������������������������������������������
Chief Complaint
-: Bacteremia and Other (MSSA MV IE)
Subjective / Review of Systems
Patient seen and examined. Offers no complaints today.
Review of Systems: No Fever and No Chills
Vital Signs / Physical Exam
Vital Signs
Vital Signs
Temp Pulse Resp BP Pulse Ox
97.6 F 81 18 145/78 98
09/01/24 12:12 09/01/24 07:29 09/01/24 12:12 09/01/24 07:29 09/01/24 12:12
Physical Exam
Constitutional: Non-toxic
Eyes: No Conjunctival Hemorrhage and Sclera Anicteric
Cardiovascular: Regular Rate and S1/S2; Negative Murmur
Pulmonary: Clear
Gastrointestinal: Soft, Non Tender, Non Distended and Normal Bowel Sounds
Extremities: Negative Edema
Neurological: AO x 3; Negative Meningeal Signs
Objective Data
Lab Data
Lab Results
09/01/24 03:28
ESR 48 mm/hour (0-20) H 08/28/24 04:22
PT 14.5 Sec (11.4-14.6) 08/29/24 03:24
INR 1.10 08/29/24 03:24
APTT 27.6 Sec (23.4-35.0) 08/29/24 03:24
Estimated Creat Clear 58 ml/min 09/01/24 03:28
Total Bilirubin 1.0 mg/dl (0.2-1.3) 08/29/24 03:24
AST 26 U/L (14-36) 08/29/24 03:24
ALT 10 U/L (0-35) 08/29/24 03:24
Alkaline Phosphatase 111 U/L (38-126) 08/29/24 03:24
C-Reactive Protein 45.50 mg/L (0.0-10.00) H 08/28/24 04:22
Most recent labs reviewed.
Micro Results:
08/27/24 13:48 Blood Culture - Preliminary
Blood/Venous No Growth in 4 days- Final report to follow
08/27/24 13:48 Blood Culture - Preliminary
Blood/Venous No Growth in 4 days- Final report to follow
08/20/2024 Blood culture: MSSA ([facility])
08/22/2024 Blood culture: No growth ([facility])
Imaging:
08/27/24 MRI brain: ACUTE and SUBACUTE EMBOLIC DISEASE with MULTIPLE SMALL ACUTE and SUBACUTE ISCHEMIC INFARCTS in the brain diffusely distributed throughout both the anterior and posterior circulation..
08/25/2024 CT head: 1.2 cm region of decreased attenuation at the anterior medial right cerebellar hemisphere which is developed since a prior CT scan dated 08/20/2024. This was possibly a recent infarction. Also noted is mild age-related volume
loss. Please see full dictation for additional detail. (Film performed at [facility])
08/21/2024 CT chest: No evidence of pneumonia. Small bilateral pleural effusions noted. Mild subsegmental atelectasis at the posterior inferior aspect of the right and left lower lobes. Ossification of the mitral annulus, with atherosclerotic
coronary artery calcifications noted. Please see full dictation for additional detail. (Film performed at [facility])
08/20/2024 CT head: No evidence of intracranial hemorrhage, acute infarct, mass or midline shift. Chronic small vessel ischemia and volume loss noted. Please see full dictation for additional detail. (Film performed at [facility])
TTE at [facility] 08/24/24: EF 55%, large echogenic mass on posterior mitral valve leaflet 1.6 x 1.3 cm with mild to moderate MR, concern for endocarditis
--- NOTE | 2024-09-01 14:45 | CM ---
spoke to pt , daughter and DIL in room. we discussed preop AVR teaching including driving and lifting restrictions. she is prev indep, lives alone in a 2 story home. her 3 children live out of the area but are here now and very supportive. we
discussed the possibly of rehab and i explained the difference between acute rehab and skilled rehab. the daughter tells me that Dr Pena mentioned he wanted pt to go to [facility] (acute rehab) here at . i explained to pt/family how the insurance auth
works and that [facility] asks us for PT/OT/PMR notes and they review and approve/deny the level of care needed- acute vs skilled level of care, or home. The daughter stated she still wants her mom at [facility]. cm will send referral and request auth
when approp. plan is for AVR tomorrow, cm following. cm role explained and all questions answered.
[2024-09-01 15:35] LABS: Blood Urea Nitrogen 7 mg/dl (7-17); Calcium 9.7 mg/dl (8.4-10.2); Carbon Dioxide 28 mmol/L (22-30); Chloride 110 mmol/L (98-107); Estimated Creatinine Clearance 68 ml/min; Glucose 138 mg/dl (70-99); Potassium 3.1 mmol/L (3.5-5.1); Sodium 145 mmol/L (135-145); eGFR > 60.00
--- NOTE | 2024-09-01 17:02 | PTCARENOTE ---
Pt sitting OOB in chair for most of the day, kristen well. She has had 4 episodes of loose to liquid brown stools. Camila Liu, resident aware. Stool ordered for C-diff and C+S. Specimen sent. BMP repeated this afternoon. K+ 3.1. Camila Liu
aware. Pt following aspiration precautions as recommended by Speech Therapist. She swallows pills whole with liquid without issue today.
[2024-09-01] MEDS: KCL ELIXIR 40 MEQ PO (18:37)
[2024-09-01] MEDS: TYLENOL 650 MG PO (20:32)
--- NOTE | 2024-09-01 20:44 | PTCARENOTE ---
Received pt @ change of shift. AAOx3. VSS. Right radial site clean, dry, and intact. Little ecchymotic. Discussed prep plan for CVOR in AM. Pt verbalized understanding. Call humphrey within reach.
--- NOTE | 2024-09-01 20:46 | PTCARENOTE ---
Addendum entered by Rhianna Shane RN 09/02/24 04:41:
US completed: thrombic occlusion of basilic vein and distal cephalic vein. Notified LEILANI Camarillo.
Original Note:
Pt called RN to room because arm was burning from antibiotic. Rt midline site had new redness and hardness. IV team called to come evaluate site. Midline was pulled due to probable phlebitis and infiltration. US recommended to rule out blood clot.
LEILANI Camarillo, also came to evaluate. Agreed with US. New peripheral site put in place in left hand. Right arm limb alert placed. Heat applied to right arm.
--- NOTE | 2024-09-01 21:53 | VATNOTE ---
called by MARCUS Moctezuma to assess right upper arm midline as pt. was complaining of 'burning' while Nafcillin was infusing.This VAT RN assessed right arm and an old right AC site /area that was red and very hard. pt. stated it was very tender there
and had pain below AC site; pain level was a 6. Pt. also stated pain was 'shooting'. Recommended US to DANIE Ron to be done this evening since pt. for OR in am. (Right AC IV line had been inserted 08/29 and removed 08/30). Then noted right
midline biopatch soaked with serous fluid. Measured circumference right arm 10cm above ac area & noted 32 cm (only 1 cm larger than when midline placed). Noted right upper arm with large fluid pocket to medial aspect of midline. PA noted as well.
Entire right arm much more swollen than left arm; pt agreed. Approx. +3 - +4 edema of right arm. Decision made to pull midline and limb alert entire right arm. Peripheral IV site established #20p for OR in am. Right arm elevated and warm blanket
applied. JAYSHREEN gave Tylenol to pt for pain of arm. VAT to follow.
[2024-09-01] MEDS: MAALOX 30 ML PO (22:56)
[2024-09-01] MEDS: LIDOCAINE 4% PATCH 1 PATCH TOPICAL (22:57)
[2024-09-01] MEDS: DESENEX/MITRAZOL/ZEASORB TOPICAL (22:58)
--- NOTE | 2024-09-01 23:38 | PTCARENOTE ---
Pt shaved, washed with CHG soap, leads changed, sheets changed, VS taken. Discussed prep plans for AM. NPO @ midnight. Verified second case with LEILANI Camarillo-- CV OR meds will be given by daysmdft nurse. Discussed plan of care with pt.
Patient verbalized understanding.
[2024-09-02] VITALS (8 sets, daily range): BP systolic 82–156; BP diastolic 51–82; BMI 24.1
[2024-09-02 03:45] LABS: Hematocrit 32.3 % (37.0-47.0); Hemoglobin 10.3 g/dL (12.0-16.0); Mean Corp Hgb Conc. 31.9 g/dL (33.0-37.0); Mean Corpuscular Hgb 29.5 pg (27.0-31.0); Mean Corpuscular Volume 92.6 fL (81.0-99.0); Platelet Count 247 10^3/uL (130-400); Red Blood Cell Count 3.49 10^6/uL (4.20-5.40); Red Cell Dist. Width 17.2 % (11.5-14.5); White Blood Cell Count 8.8 10^3/uL (4.8-10.8)
[2024-09-02 04:03] LABS: Blood Urea Nitrogen 6 mg/dl (7-17); Calcium 9.4 mg/dl (8.4-10.2); Carbon Dioxide 28 mmol/L (22-30); Chloride 112 mmol/L (98-107); Estimated Creatinine Clearance 58 ml/min; Glucose 105 mg/dl (70-99); Potassium 3.2 mmol/L (3.5-5.1); Sodium 146 mmol/L (135-145); eGFR > 60.00
--- NOTE | 2024-09-02 04:41 | PTCARENOTE ---
Pt's K came back 3.2-- notified Luis Angel Elias, LEILANI PA
[2024-09-02] MEDS: NAFCIL 108 MG IV ×4 (05:39→20:32)
[2024-09-02] MEDS: KCL 270 MEQ IV (05:40)
--- NOTE | 2024-09-02 05:43 | PTCARENOTE ---
RN flushed IV in left hand and started Nafcil gtt. Within 1 minute, pt c/o burning and hurting. Line blew. RN stopped gtt and ice placed on hand. IV team notified.
--- NOTE | 2024-09-02 07:13 | W.PN.UPDATE ---
Update Note
Progress Note Update
-Pt with c/o right antecubital IV site pain last night
-Wilton cord at the site and IV noted to be infiltrated, d/c'd by IV team
-U/S obtained showed right basilic and cephalic vein occlusive thrombus
-Dr. Pena made aware, will notify anesthesia
-MVR/AMADO clip for Dr. Pena today (2nd case)
--- NOTE | 2024-09-02 08:20 | W.PN.HOSP.TC ---
Addendum entered and electronically signed by Tong Diaz MD 09/02/24 13:09:
Seen and examined by me independently in collaboration with the hospitalist medical director Dr. Liu.
Lab data and imaging data reviewed.
Addendum as below :
For Tranfer to [facility] service today for MVR.
Original Note:
Today's Communication/Plan
-
MVR today
Assessment / Plan
Assessment / Plan
84-year-old female with PMH Sjogren's, RA, HLD, hypoT, anxiety/depression, neuropathy who was transferred from [place] to 08/26/24 for cardiothoracic surgical evaluation of mitral valve endocarditis complicated by septic emboli to brain. She
initially presented to [place] for confusion. She was found to have MSSA bacteremia secondary to mitral valve endocarditis. Was found to have 1.6 cm vegetation on the atrial side of the posterior mitral valve leaflet by TTE on 08/24. She was
treated with IV antibiotics narrowed to cefazolin. Repeat blood cultures x2 on August 22 showed no growth (final result). She was not having any evidence of congestive heart failure. ADITI was being considered but she had brain imaging which showed
1.2cm anterior medial right cerebral hemisphere decreased attenuation concerning for septic emboli to the brain. She had CT chest which did not show any evidence of embolic phenomenon. Also reportedly had a concern for pneumonia. Right third toe
ulcer was debrided by podiatry.
MSSA bacteremia with endocarditis with mitral valve leaflet vegetation, complicated by septic emboli to brain (see below)-- Apprec CT surgery, cardiology, ID--08/22 blood cultures x2 No Growth (final); 08/27 blood cultures at no growth final
result--ADITI 08/28 showed preserved EF, 2cm partially mobile MV vegetation, 1cm highly mobile MV vegetation at high risk of embolizing, mild-mod MR--will be for MVR today with Dr. Pena--continue IV nafcillin per ID, monitor renal func and LFTs
Likely septic emboli to brain secondary to endocarditis mitral valve vegetation-- Apprec neurology--08/[address] with no acute intracranial abnormality; brain MRI showed acute and subacute embolic disease with multiple ischemic infarcts; antibiotics
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
Acute metabolic encephalopathy from bacteremia-- Resolved
Right third toe ulcer s/p debridement by podiatry at [place]-- Apprec wound care
Essential hypertension-- Hydrochlorothiazide, amlodipine/benazepril has been held. Defer to card team-- BPs normal to hypertensive here.
MSK pain, RA, DDD--Home regimen includes daily celecoxib, weekly methotrexate, prn tylenol-- Hold celecoxib to reduce risk of gastritis, hold methotrexate for risk of immunosuppression-- continue heating pad, lidocaine patch, prn tylenol--IV Tylenol
PRN, IV Dilaudid 0.25mg PRN while npo-- will reassess prn if additional analgesia is required
?concern for dysphagia/regurgitation-- [facility] speech therapy eval--cleared for PO diet yesterday after VSE, tolerated well; now n.p.o. for surgery today
Hypokalemia-- suspect secondary to NPO and now some GI loss--monitor, supplement prn.
Hypernatremia-- suspect secondary to NPO, free water deficit. Continue IV hydration while n.p.o.
Leukocytosis--most likely related to endocarditis as above. Plan as above. Trend CBC, follow temperature curve. Apprec ID.
RUE Superficial occlusive thrombus within the basilic vein and distal cephalic veins--supportive measures/limb restriction, warm compress, elevation
Anemia--likely anemia of chronic disease secondary to endocarditis; hgb stable, no signs of bleeding
Mild nonobstructive CAD--medical therapy
Sjogren syndrome-- Continue home cevimeline (nonformulary)
Chronic bilateral neuropathy-- Continue home pregabalin
Anxiety/depression-- continue home duloxetine. Upset by new medical issues. Apprec pastoral care. Feels well supported by family and [facility].
Osteoporosis-- not on medication
Hyperlipidemia-- continue home statin
H/o hypothyroidism, resolved, not requiring meds-- TSH wnl-- MRI showed 2.7 cm thyroid mass and several nodules consistent with goiter; patient and family aware
History of skin cancer
Code status: full (confirmed 08/27).
She has advanced directive at home-- instructed to have family bring it in. She has 3 children.
DVT ppx: Heparin sc
Diet: NPO preop
Dispo planning: anticipate she will need some rehab; plan TBD pending clinical course and PT/OT recs closer to discharge
Imaging at :
Head CT 08/27/24
FINDINGS:
Mild age-related parenchymal atrophy. No intra- or extra-axial mass, hemorrhage, or fluid collection. No areas of abnormal mass effect or attenuation are noted. Hyperostosis frontalis interna. Mild mucosal thickening of the left sphenoid sinus. The
mastoid air cells are clear.
IMPRESSION:
No acute intracranial abnormality.
Chest xray 08/27/24
FINDINGS:
No focal consolidation or pneumothorax. Trace bilateral pleural effusions. The cardiomediastinal silhouette is normal. Retrocardiac lucency consistent with a moderate hiatal hernia. Chronic degenerative changes of the spine.
IMPRESSION:
Trace bilateral pleural effusions. Moderate hiatal hernia.
Cervical spine MRI 08/27/24
IMPRESSION:
1. SEVERE DISCOGENIC DEGENERATIVE DISEASE at C5/C6 and C6/C7. Moderate amount of enhancing acute endplate bone marrow edema adjacent to the C5/C6 intervertebral disc. Degenerative disease or an inflammatory arthropathy are considered most likely.
Acute infectious discitis is considered less likely given the absence of fluid signal intensity in the disc space.
2. SEVERE MULTILEVEL FACET JOINT ARTHROSIS throughout the cervical and upper thoracic spine with associated multilevel anterolistheses.
3. Mild multilevel spinal cord compression and central canal stenosis secondary to disc-osteophyte complexes and facet joint arthrosis.
4. SEVERE NEURAL FORAMINAL NARROWING at C4/C5, C5/C6, and C6/C7.
5. 2.7 cm mass in the right lobe of the thyroid gland and other smaller nodules in the thyroid isthmus and left lobe of the thyroid gland suggesting a thyroid goiter.
Brain MRI 08/27/24
IMPRESSION:
1. ACUTE and SUBACUTE EMBOLIC DISEASE with MULTIPLE SMALL ACUTE and SUBACUTE ISCHEMIC INFARCTS in the brain diffusely distributed throughout both the anterior and posterior circulation..
2. Mild white matter leukoaraiosis.
3. Mild diffuse cerebral and cerebellar volume loss.
4. Mild acute left sphenoid sinusitis.
5. Mild cervical spinal cord compression and central canal stenosis secondary to multilevel discogenic degenerative disease and facet joint arthrosis.
Transesophageal echo 08/28/24
CONCLUSIONS
-Left ventricular ejection fraction is 60-65%.
-Thickened mitral valve leaflets with mitral annular calcification.
-A large, partially mobile vegetation (approximately 2.0 cm in length) is noted
primarily on the posterior leaflet of the mitral valve (P2).
-There was also a smaller, highly mobile echodense structure/vegetation
(approximately 1.0 cm in length) on the posterior leaflet of the mitral valve
(P2) that traverses the mitral valve with each cardiac cycle with high risk of
emobolization.
-Mild to moderate mitral regurgitation.
Carotid ultrasound 08/28/24
IMPRESSION:
Foci of calcified plaque within BOTH proximal internal carotid arteries. Any stenosis is less than 50% based upon velocity criteria.
Antegrade flow within both vertebral arteries.
Orthopantogram Panelipse 08/28/24
FINDINGS: No fracture or destructive lesion involving the mandible. No plain film evidence for periapical abscess about the mandibular teeth.
IMPRESSION: Normal Panelipse radiograph
CT chest angio 08/28/24
IMPRESSION: No acute pathology of the chest identified.
Moderate atherosclerotic vascular disease. Findings about the left mitral valve likely corresponding to the known mitral valve leaflet vegetation.
Tiny left pleural effusion. Stable
Mild bibasilar atelectasis, left greater than right. New
Bilateral thyroid nodules. Dedicated thyroid ultrasound recommended if not previously evaluated.
Moderate hiatal hernia. Stable
Small simple left renal cyst. Incompletely imaged.
Left heart catheterization 08/31/2024
ASSESSMENT:
1: Mild nonobstructive coronary artery disease.
2: Normal left ventricular filling pressures.
Anticipated Discharge: > 48 hours
Subjective/Interval History
-
Date of Service: September 02, 2024
Overnight, complained of pain at IV site; US showed superficial occlusive thrombus of the basilic and distal cephalic veins. This morning, she complains of dry mouth which is similar to her baseline Sjogren's. Also reports loose bowel movement
this morning. She feels nervous for her upcoming surgery, but reassured overall. She appreciated the visit from Father Joe at her [facility] this week, and her daughter is at bedside. Otherwise review of systems negative-- denies fevers/chills,
dizziness, chest pain, palpitations, shortness of breath, abdominal pain, nausea, vomiting, constipation.
Objective Data
-
Labs:
Laboratory Results
09/02/24
03:26
WBC 8.8
Hgb 10.3 L
Hct 32.3 L
Plt Count 247
Sodium 146 H
Potassium 3.2 L
Chloride 112 H
Carbon Dioxide 28
BUN 6 L
Creatinine 0.7
Glucose 105 H
Calcium 9.4
09/01/24 15:50 Feces/Stool C. difficile GDH Antigen & Toxins - Final
Negative for toxigenic C.difficile
08/27/24 13:48 Blood/Venous Blood Culture - Final
No Growth - Final Report
08/27/24 13:48 Blood/Venous Blood Culture - Final
No Growth - Final Report
Vital Signs:
Vital Signs
Temp Pulse Resp BP Pulse Ox
98.6 F 84 16 154/73 98
09/02/24 07:56 09/02/24 06:00 09/02/24 07:56 09/02/24 05:27 09/02/24 07:56
I&O
09/01/24 09/02/24 09/03/24
06:59 06:59 06:59
Intake Total 2915 / 2915 1260 / 1260
Balance 2915 / 2915 126 / 1260
Review of Systems
-
History Source: Patient
All other systems: Reviewed and negative (See subjective)
Physical Exam
-
General: No Apparent Distress, Comfortable, Conversant and Other (Nontoxic, elderly female appears stated age); Negative Fever, Chills or Sweats
HEENT: Normocephalic, Atraumatic and Other (Neck with no midline tenderness, +TTP paraspinal bilat)
Respiratory: Clear to Auscultation (Anterior lung [place]), Non Labored Respirations and Other (IS at bedside); Negative Wheezes
Cardiac: Regular Rhythm, S1/S2 and Other (Did not appreciate murmur)
GI: Soft, Nontender, Nondistended and Normal Bowel Sounds
Musculoskeletal: No Clubbing, No Cyanosis and Other (RUE with TTP swelling antecub; trace edema bilateral lower extremities)
Skin: Warm, Dry, Ulcers (R 3rd toe, covered) and IV Access / Catheter Site (Left arm)
Neuro: Awake, Alert, Oriented and Nonfocal/Grossly Intact; Negative Slurred Speech or Facial Droop
Psych: Anxious
Data Reviewed
-
Diagnostic Radiology: Image personally visualized and interpreted and Report Reviewed by me
CT Scan: Image personally visualized and interpreted and Report Reviewed by me
Ultrasound: Report Reviewed by me
MRI: Image personally visualized and interpreted, Report Reviewed by me and Discussed with Patient
Medical Tests (Nuc Med, Echo etc): Report Reviewed by me, Discussed with Physician and Discussed with Patient
Labs: Labs Reviewed by me and Discussed with Physician
Old Records: Reviewed
[2024-09-02] MEDS: LOW STRENGTH ASPIRIN 81 MG PO (08:43)
[2024-09-02] MEDS: LOPRESSOR 25 MG PO (08:43)
[2024-09-02] MEDS: MAGNESIUM OXIDE 500 MG PO (08:43)
[2024-09-02] MEDS: PROTONIX 40 MG PO (08:43)
[2024-09-02] MEDS: BACTROBAN 2% OINTMENT 1 APPLIC NASAL ×2 (08:44→21:18)
[2024-09-02] MEDS: DESENEX/MITRAZOL/ZEASORB TOPICAL (08:44)
--- NOTE | 2024-09-02 09:03 | W.CVOR.SURPR ---
CVOR Surgeon Immed Pre Op
-
I have examined this patient prior to performance of the scheduled procedure.
The patient's condition is unchanged from the time of the dictated/written History and
Physical and the patient is able to undergo the scheduled procedure.
high risk MVR
--- NOTE | 2024-09-02 09:14 | PTCARENOTE ---
Pt given pre op meds as ordered. Pt's magnesium tablet cut in half. Even though pt was sitting upright in bed, pt started coughing and spit the 1/2 of magnesium tablet out. Pt was able to tolerate all other pre op meds. Magnesium 1/2 tablet was
tolerated. Will monitor.
[2024-09-02] MEDS: LYRICA PO (09:18)
[2024-09-02] MEDS: LIPITOR PO (09:18)
[2024-09-02] MEDS: CYMBALTA DELAYED RELEASE PO ×2 (09:18→21:17)
[2024-09-02] MEDS: NON-FORMULARY ITEM PO ×3 (09:18→22:05)
--- NOTE | 2024-09-02 10:05 | TRANSFER ---
Pt transferred to [facility] at 0945.
[2024-09-02 10:22] LABS: ACT+ - POC 118 Seconds (82-134)
--- NOTE | 2024-09-02 10:31 | CM ---
Reviewed chart. Mrs. Srivastava is in the operating room today. Prior to admission she resides alone in a two story home with one step to enter. She has a full flight of steps to get to bedroom/full bathroom. Prior to admission she was independent in
ambulation and adls. She does not have any DME in the home. She has a prescription plan. Will need to see her functional status after surgery to see if she will have any skilled care needs. She will need prec-cert with her insurance for acute
rehab. Medical work-up in progress. The discharge plan is to go to some level of inpatient rehab if indicated,approved by insurance and bed available when medically stable.
[2024-09-02 10:34] LABS: Urine Albumin Negative (Neg - Trace); Urine Bilirubin Negative (Negative); Urine Character Clear (Clear); Urine Color Yellow; Urine Glucose Negative (Negative); Urine Ketone Negative (Negative); Urine Leukocyte Negative (Negative); Urine Nitrite Negative (Negative); Urine Occult Blood Negative (Negative); Urine Urobilinogen Negative (Neg - 1+)
[2024-09-02 11:08] LABS: ACT+ - POC 508 Seconds (82-134)
[2024-09-02 11:32] LABS: ACT+ - POC 635 Seconds (82-134)
[2024-09-02 12:10] LABS: B.E. - POC 4.3 mmol/L; Glucose - POC 187 mg/dl (70-99); HCO3 - POC 27 mmol/L (21-28); Hematocrit - POC 29 % PCV (37-47); Hemodilution- POC Yes; Hemoglobin Calculated - POC 9.9; Ionized Calcium - POC 1.03 mmol/L (1.15-1.33); PCO2 - POC 33 mmHg (35-48); PO2 - POC 484 mmHg (83-108); POC Comment CPB; Potassium - POC 4.2 mmol/L (3.5-5.1); Sodium - POC 148 mmol/L (136-145); Specimen Type - POC Arterial; pH - POC 7.52 (7.35-7.45)
[2024-09-02 12:19] LABS: ACT+ - POC 512 Seconds (82-134)
[2024-09-02 12:25] LABS: B.E. - POC 6.4 mmol/L; Glucose - POC 180 mg/dl (70-99); HCO3 - POC 34 mmol/L (21-28); Hematocrit - POC 29 % PCV (37-47); Hemodilution- POC Yes; Hemoglobin Calculated - POC 9.8; Ionized Calcium - POC 1.44 mmol/L (1.15-1.33); Lactate - POC 0.51 mmol/L (0.36-0.75); O2 Saturation %Calculated-POC 99.9 % (94-98); PCO2 - POC 66 mmHg (35-48); PO2 - POC 385 mmHg (83-108); POC Comment CPB; Potassium - POC 4.8 mmol/L (3.5-5.1); Sodium - POC 148 mmol/L (136-145); Specimen Type - POC Arterial; pH - POC 7.32 (7.35-7.45)
[2024-09-02 12:40] LABS: ACT+ - POC 617 Seconds (82-134)
[2024-09-02 12:53] LABS: Glucose - POC 174 mg/dl (70-99); HCO3 - POC 26 mmol/L (21-28); Hematocrit - POC 28 % PCV (37-47); Hemodilution- POC Yes; Hemoglobin Calculated - POC 9.6; Ionized Calcium - POC 1.32 mmol/L (1.15-1.33); Lactate - POC 0.42 mmol/L (0.36-0.75); PCO2 - POC 36 mmHg (35-48); PO2 - POC 428 mmHg (83-108); POC Comment CPB; Potassium - POC 4.5 mmol/L (3.5-5.1); Sodium - POC 148 mmol/L (136-145); Specimen Type - POC Arterial; pH - POC 7.46 (7.35-7.45)
[2024-09-02 13:18] LABS: B.E. - POC 2.6 mmol/L; Glucose - POC 127 mg/dl (70-99); HCO3 - POC 25 mmol/L (21-28); Hematocrit - POC 26 % PCV (37-47); Hemodilution- POC Yes; Hemoglobin Calculated - POC 8.9; Ionized Calcium - POC 1.86 mmol/L (1.15-1.33); Lactate - POC 1.96 mmol/L (0.36-0.75); PCO2 - POC 31 mmHg (35-48); PO2 - POC 451 mmHg (83-108); POC Comment CPB; Potassium - POC 4.4 mmol/L (3.5-5.1); Sodium - POC 148 mmol/L (136-145); Specimen Type - POC Arterial; pH - POC 7.52 (7.35-7.45)
[2024-09-02 13:22] LABS: ACT+ - POC 134 Seconds (82-134)
[2024-09-02] MEDS: TYLENOL PO ×2 (13:44→22:05)
--- NOTE | 2024-09-02 13:47 | W.PN.CT.SURG ---
CT Surgery Operative Note
-
CARDIAC SURGERY OPERATIVE REPORT
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
Postoperative Diagnosis: Same
Procedure(s) Performed:
1. Standard sternotomy with aortic and bicaval cannulation
2. Left atrial appendage exclusion [35 mm clip]
3. Chordal sparing mitral valve replacement [27 mm bioprosthesis]
4. Patch repair of mitral annulus along P1, P2 and P3 using bovine pericardium
5. Placement of temporary atrial ventricular pacing wires
6. Transesophageal echocardiography
Date of Surgery: 09/02/2024
Comorbidities:
1. Infective endocarditis of the mitral valve
2. 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
3. Sjogren syndrome
4. Immunocompromised
5. Hypothyroid
6. Hyperlipidemia
7. Anxiety/depression
8. Osteoporosis
9. Frail
Attending Surgeon: Khoa Pena MD, MS
Assistants: Khoa Carmichael PA-C (present and necessary to hospital clinic assistant, retraction, suction, exposure, suture management, and wound closure under my direction)
Anesthesiology: Jerzy Almodovar MD and Chelo Fernandez CRNA
Scrub and Circulating RNs: Micky Blas, MAITE, Ciera De Santiago RN
Tube Fitter: Harman Hilario CCP
Anesthesia: GETA
EBL: per perfusion records
Products: 1 PRBC
CPB Time: 113 minutes
Aortic Cross Clamp Time: 45 minutes + 52 minutes
Indication(s) for Procedures: This is an 84-year-old female who presented to the hospital with altered mental status and was found to have mitral valve endocarditis. Repeat CT scan demonstrated septic emboli to the brain and she was transferred
here for further evaluation and care. Transesophageal echocardiography demonstrated significantly mobile vegetation of approximately 2 cm on 2 areas in the valve. Given the concern for recurrent septic emboli, shared decision making between the
patient, cardiology, cardiac surgery was to pursue mitral valve replacement with the knowledge that she has severe mitral annular calcification.
Mitral Valve Description: Thickened anterior and posterior leaflets, vegetation originated from the MAC at the P2 P3 annular insertion and was quite large and fragile. There is also vegetations spanning along the MAC towards P1 and the commissure.
There was dense mitral annular calcification from the anterolateral commissure all the way down towards the midpoint of P3.
Findings: Her left ventricular ejection fraction preoperatively was normal with an EF of approximately 55 to 60% with no significant regional wall motion abnormalities. Following surgery her EF remained the same with no new regional wall motion
abnormalities. There was a very large 2 cm very mobile vegetation originating from the insertion point of P2 P3 that was flopping in and out of the valve. There is also a vegetation spanning along the MAC towards the anterolateral commissure. I
initially debrided the vegetations off of the valve and came off pump to a flow of approximately 1 L/min just to see how her valve appeared however there was more mitral valve insufficiency at this point emanating from 2 areas in the valve which
corresponds to leaflet destruction and so at this point I opted to recross clamp and give a small dose of cardioplegia and then performed a chordal sparing mitral valve replacement. In order to get sutures through the annulus, I did debride a
significant portion of the MAC along the P1 P2 region and then patch repaired this area with bovine pericardium. Sutures were placed from the ventricular side through annulus through sewing cuff. A total of 14 pledgeted 2 Ethibond sutures were
used to secure the valve in place using core knots. Her left atrial appendage also verified to be free of any thrombus or debris preoperatively and following arrest we sized it to a 35 mm device and clipped and flush the base. There is no residual
flow in the appendage. At the inclusion of the case she had no paravalvular leak, the mean gradient across the new valve at a normal index of 1.9 was 2, she did require 1 blood product as she was anemic while on cardiopulmonary bypass. She was
sinus bradycardia beginning of the case and was also the same postoperatively and so we elected to atrially pacer. Cultures were sent of the vegetation.
Specimen(s): Mitral valve vegetations sent for culture.
Prosthesis:
1. 35mm left atrial appendage clip, serial #[id number]
2. 27 mm Pritchett mitris Resilia mitral valve bioprosthesis, serial #[id number]
3. Bovine pericardium, serial number X BU [id number]
Description of Procedure: The patient was taken to the operating room. Their identity and procedure to be performed were verified and they were positioned supine on the operating table. Induction via general anesthesia with endotracheal intubation
was performed and central venous access and arterial monitoring were inserted. A preoperative transesophageal echocardiogram was performed to assess cardiac function and valvular function. The patient was then prepped and draped from chin to feet in
a sterile fashion. A preoperative time-out was performed with all members of the team present. A midline chest incision was performed along with median sternotomy. The innominate vein was isolated. Full heparinization was given (a total of 45,000
units). We created a pericardial well. The aortic cannulation site was chosen where it was soft, pliable, and free of calcium. Cannulation was performed with an arterial cannula in the ascending aorta, angled metal tip cannular in the superior vena
cava and straight bendable cannula in the inferior vena cava. The arterial cannula line had an appropriate bounce and correlating pressures. Next, a root vent/antegrade cannula was inserted into the ascending aorta. The ACT was confirmed to be over
400 and retrograde autologous priming was performed before commencing cardiopulmonary bypass. The pulmonary artery was away from the aorta to facilitate a clamp site. The aortic cross-clamp was placed after decreasing the flow on the
bypass and mean arterial pressure. A total of 1.2L initial dose of antegrade Del-Nido cardioplegia solution was given and planned for re-dosing every 60 minutes as necessary. There was rapid electro-mechanical arrest of the heart at 300 cc of
cardioplegia. The left ventricle was observed for distention on echocardiogram and manual palpation. Cold slush was placed into a lap on the RV and we systemically cooled to 34 degrees centigrade. Once the heart was already crossclamped the oblique
sinus was developed as was Sondergaard's groove. The heart was then gently rotated medially and the left atrial appendage was easily visible and so clipped with a 35 mm device.
Carbon dioxide was used to flood the field. The mitral valve was access via the left atrium at the interatrial groove followed by valve analysis. The vegetations were debrided and the left atrium was closed in the usual fashion. The head was then
lowered and de-airing maneuver was performed. After lowering the flow on the cardiopulmonary bypass, the cross-clamp was removed and the flows were brought back up. Coming down to approximately 1 L of flow while she was ejecting, the mitral valve
was interrogated on transesophageal echocardiogram and 2 new areas of insufficiency were identified likely from tissue destruction from the vegetations. I elected to recross clamp and gave an additional 600 cc of antegrade cardioplegia with rapid
arrest at approximately 150 cc down the root. The mitral valve was accessed through the same left atrial incision the mitral valve was replaced as described above. The left ventricular vent was repositioned across the mitral valve into the left
ventricular and the left atrium was closed with a 3-0 prolene.
De-airing maneuvers were performed and temporary bipolar ventricular pacing wires were placed on the base of the right ventricle in addition to atrial pacing wires at the SVC right atrial junction. The patient was placed in a Trendelenburg position
and flows on bypass were lowered. The aortic cross clamp was removed and flows were slowly brought back up. The left atrial suture line was hemostatic. Transesophageal echocardiography revealed no evidence of systolic anterior motion and
ventricular function was normal. Once de-airing was satisfactory the left ventricular and root vents were removed. After verifying acceptable parameters, we initiated weaning from cardiopulmonary bypass. Once we were off cardiopulmonary bypass, the
venous cannulas was clamped and removed sequentially. A test dose of protamine was administered and the patient was monitored for any adverse reaction before resuming protamine. Once half of the protamine dose was delivered, pump suckers were turned
off and the systolic blood pressure was lowered for aortic decannulation. The aortic cannula was removed and purse strings were tied down. All cannulation sites were oversewn with a 4-0 prolene. The left atrial suture line was inspected and
hemostasis was confirmed. Mediastinal hemostasis was obtained. Two #24 Shalom drains were placed within the pericardium. The sternum was approximated with 4 #7 single and 3 #8 double stainless steel wires. Fascia was approximated with #1 vicryl
suture. The subcutaneous, dermis and epidermis were closed in layers in a running fashion. The skin wound was cleansed and dressed.
All instrument, sponge, and needle counts were confirmed to be correct x 2 at the end of the operation. The patient was transferred to the cardiac intensive care unit in critical but stable condition.
I, Dr. Khoa Pena, was present, scrubbed for, and performed all critical elements of this procedure.
Khoa Pena MD, MS
Cardiothoracic Surgeon
[facility]
This dictation was created using the [employer] dictation system. Please excuse any grammatical, typographical, or 'sound alike' errors
[2024-09-02 13:48] LABS: B.E. - POC 0.3 mmol/L; Glucose - POC 100 mg/dl (70-99); HCO3 - POC 26 mmol/L (21-28); Hematocrit - POC 27 % PCV (37-47); Hemodilution- POC Yes; Hemoglobin Calculated - POC 9.1; Ionized Calcium - POC 1.63 mmol/L (1.15-1.33); Lactate - POC 1.58 mmol/L (0.36-0.75); PCO2 - POC 45 mmHg (35-48); PO2 - POC 446 mmHg (83-108); POC Comment POST; Potassium - POC 3.5 mmol/L (3.5-5.1); Sodium - POC 150 mmol/L (136-145); Specimen Type - POC Arterial; pH - POC 7.37 (7.35-7.45)
[2024-09-02 14:05] LABS: Glucose - Point of Care 94 mg/dl (70-99)
[2024-09-02 14:14] LABS: B.E. 0.6 mmol/L; HCO3 23.6 mmol/L (21-28); O2 Saturation % 99.8 % (94-98); PCO2 31 mmHg (32-35); PO2 186 mmHg (83-108); Potassium 4.1 mMOL/L (3.5-5.1); Sodium 142 mMOL/L (136-145); pH 7.49 (7.35-7.45)
[2024-09-02 14:24] LABS: INR 1.77; PT 21.1 Sec (11.4-14.6)
[2024-09-02 14:25] LABS: APTT 39.4 Sec (23.4-35.0)
[2024-09-02] MEDS: NAFCIL IV (14:26)
[2024-09-02] MEDS: ANCEF 10 IV ×2 (14:26)
[2024-09-02] MEDS: NSS 500 IV (14:26)
[2024-09-02 14:27] LABS: Ionized Calcium 1.52 mMOL/L (1.15-1.33)
[2024-09-02] MEDS: LR 250 ML IV ×2 (14:28→20:15)
[2024-09-02 14:29] LABS: Blood Urea Nitrogen 6 mg/dl (7-17); Estimated Creatinine Clearance 68 ml/min; Glucose 87 mg/dl (70-99); Magnesium 3.1 mg/dl (1.6-2.3)
--- NOTE | 2024-09-02 14:30 | PTCARENOTE ---
Patient received from CV[facility] s/p MVR/AMADO exclusion. RIJ Cordis/Floris-Austin catheter, L radial arterial lines present - leveled, flushed, and calibrated w/good waveforms returned. Epicardial A+V wires set to pulse generator 80bpm, actively A-pacing.
Mediastinal chest tubes x 2, Y-connected to one pleurevac, placed to -20cm suction w/no air leak noted. López catheter to gravity. Scant ooze noted to sternum, pressure dressing applied per surgeon. Labs drawn, EKG performed, pcxr obtained. Critical
labs conveyed to ORTIZ Noemi. See work list for full assessment, interventions performed, and intravenous infusions and titration rates.
[2024-09-02 14:32] LABS: Hematocrit 26.9 % (37.0-47.0); Hemoglobin 8.9 g/dL (12.0-16.0); Platelet Count 133 10^3/uL (130-400)
--- NOTE | 2024-09-02 14:49 | W.PN.CARDCBS ---
Addendum entered and electronically signed by Francheska Vitale MD 09/02/24 15:30:
I saw and examined the patient.
The Silverlight Developer's note was reviewed and I agree with the note.
Comment: Patient is status post chordal sparing bio MVR with patch repair of mitral annulus and left atrial appendage clip by Dr. Khoa Pena on September 02, 2024, postop day #0
Vital signs and lab work reviewed. Patient is still intubated and sedated, sternotomy wound is dressed, dressing is clean, dry and intact, regular rate, normal S1 and S2, lungs are clear to auscultation anteriorly, abdomen soft, nontender,
nondistended with active bowel sounds, warm extremities
Recommendations
1. Wean ventilator as tolerated. She is currently off pressors with borderline low blood pressures. Continue to monitor closely.
2. ECG with no obvious acute ischemic changes with pacing competing with baseline sinus bradycardia. Will need repeat ECG and close monitoring on telemetry.
3. Closely monitor blood counts and renal function.
4. Antibiotics per infectious disease given MSSA bacteremia.
5. Continue aspirin and atorvastatin.
6. Ongoing postoperative supportive care. Once extubated, incentive spirometry and out of bed to chair.
Francheska Vitale MD, [facility], [facility]
Original Note:
Today's Communication / Plan
-
post op care
Impression / Plan
-
Primary Medicaid Eligibility Specialist: Dr. Ingram of [facility]
Assessment:
Presentation to [facility] with confusion
TME
LLL infiltrate, not felt to be PNA per pulm at [facility]
MSSA bacteremia
Suspected septic emboli to brain by imaging at [facility]
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
R 3rd toe ulcer s/p debridement per podiatry at [facility]
RA on chronic methotrexate
HTN
HLD
Hypothyroidism
Anxiety/depression
Anemia
Hypoalbuminemia
Moderate hiatal hernia
DDD of neck
Thyroid goiter
TTE at [facility] 08/24/24: EF 55%, large echogenic mass on posterior mitral valve leaflet 1.6 x 1.3 cm with mild to moderate MR, concern for endocarditis
ADITI 08/28 with preserved EF, large partially mobile vegetation measuring 2.0 cm in length on primarily the posterior leaflet of mitral valve, also with smaller, highly mobile echodense structure/vegetation on posterior leaflet of mitral valve that
transverses the mitral valve with each cardiac cycle with high risk of embolization, mild to moderate MR
Plan:
-MSSA bacteremia with mitral valve endocarditis s/p embolic CVA (suspected septic emboli)
-s/p chordal sparing bio MVR with patch repair of mitral annulus, AMADO clip 09/02/24
-intubated, sedated
-currently in SR, presently paced, set to rate of 80
-off pressors
-hgb 8.9. s/p 1 Plts, 133K.
-replete K
-continue asa, statin
-Continue antibiotics per ID
-post op care
-d/w nursing, CT [employer]
Progress Note - Medicaid Eligibility Specialist
Subjective
Date of Service: September 02, 2024
intubated, sedated
Objective
Labs:
09/02/24 13:57
Labs
Hgb 8.9 g/dL (12.0-16.0) L 09/02/24 13:57
Hct 26.9 % (37.0-47.0) L 09/02/24 13:57
Plt Count 133 10^3/uL (130-400) D 09/02/24 13:57
PT 21.1 Sec (11.4-14.6) H 09/02/24 13:57
INR 1.77 09/02/24 13:57
APTT 39.4 Sec (23.4-35.0) H 09/02/24 13:57
Sodium 146 mmol/L (135-145) H 09/02/24 03:26
Potassium 3.2 mmol/L (3.5-5.1) L 09/02/24 03:26
BUN 6 mg/dl (7-17) L 09/02/24 13:57
Creatinine 0.6 mg/dL (0.6-1.0) 09/02/24 13:57
Glucose 87 mg/dl (70-99) 09/02/24 13:57
Vital Signs and I&O:
Vital Signs
Temp Pulse Resp BP Pulse Ox
96 F L 80 14 156/82 99
09/02/24 14:20 09/02/24 14:15 09/02/24 14:15 09/02/24 08:43 09/02/24 14:41
Vital Signs
Temp Pulse Resp BP Pulse Ox
96 F L 80 14 156/82 99
09/02/24 14:20 09/02/24 14:15 09/02/24 14:15 09/02/24 08:43 09/02/24 14:41
Intake & Output
08/31/24 09/01/24 09/02/24 09/03/24
07:59 07:59 07:59 07:59
Intake Total 723 / 4 2916 / 2916 1260 / 1260
Output Total 700 / 700
Balance 2013 2916 / 2916 1260 / 1260
Physical Exam
Physical Exam
GEN: No distress, intubated, sedated
HEENT: supple, mmm
LUNGS: CTA B/L, no wheezes
CV: Reg, S1/S2, no murmur
EXT: No cyanosis, clubbing, edema
NEURO: sedated
SKIN: Warm, pink, dry. No rash. Sternotomy incision c/d/i. CTs in place.
[2024-09-02 15:05] LABS: Glucose - Point of Care 128 mg/dl (70-99)
--- NOTE | 2024-09-02 15:25 | CON.INTV ---
Consultation
Consultation Request
Date/Time Consultation Requested: 09/02
Date/Time Consultation Performed: 09/02
Reason for Consultation: Critical care
Medical History
-
History of Present Illness:
History obtained primary from the chart as patient currently intubated and sedated. 84-year-old female with complex medical history, initially admitted 08/26/2024. Patient with history of rheumatoid arthritis on chronic methotrexate, Sjogren's
disease, initially presented to [facility] because of confusion and weakness. Patient noted to have elevated white count, lower lobe pneumonia and lower extremity swelling. She was treated with IV antibiotics, found to have gram-positive bacteremia.
Echocardiogram showed large mitral valve leaflet lesion with normal EF. Patient was transferred to [facility]. Hospital stay was reviewed at length. Patient is seen by cardiology, infectious disease, neurology, CT surgery. Found to have
embolic stroke, suspected septic emboli. Patient treated with nafcillin, methotrexate was held. Patient had cardiac catheterization 08/26/2024 which showed no significant coronary disease with normal filling pressures. Patient was noted to have
right upper extremity, occlusive thrombus basilic/cephalic vein. Patient underwent mitral valve repair with patch repair of mitral annulus and left atrial clip 09/02. We are asked to help from critical care standpoint
Of note during hospital stay, patient was also found to have intermittent dysphagia and right upper extremity basilic/cephalic clot
Imaging showed bilateral multiple acute and subacute bihemispheric embolic strokes per MRI 08/27/2024
Postoperatively, patient has had labile blood pressure requiring pressors, antihypertensive therapy
Received platelets intraoperatively
.
PMH: Hypertension, hyperlipidemia, hypothyroidism, history of anemia, hiatal hernia, rheumatoid arthritis on chronic methotrexate therapy, lower extremity toe ulcer s/p debridement, embolic stroke. History of Sjogren's syndrome
Past Medical History
Past Medical History: None (See above)
Past Surgical History: None (See above)
Social History
Tobacco: Non-smoker
Alcohol: Occasional
Drug: None
Living: Alone
Family History
Family History: Unable to Obtain
Allergies / Home Medications
Allergies
Allergy/AdvReac Type Severity Reaction Status Date / Time
latex Allergy Unknown Verified 08/26/24 19:47
Home Medications
�Medication �Instructions �Recorded �Confirmed �Last Taken �Type
acetaminophen 500 mg tablet 500 mg PO Q6HPRN PRN mild 08/26/24 08/26/24 Unknown History
(Tylenol Extra Strength) pain/fever
atorvastatin 20 mg tablet 20 mg PO DAILY High Cholesterol 08/26/24 08/26/24 Unknown History
carbamide peroxide 6.5 % ear drops 5 drp EACH EAR DAILYPRN PRN ear wac 08/26/24 08/26/24 Unknown History
(Debrox)
cefazolin 1 gram solution for 2 g IV Q8H Infection 08/26/24 08/26/24 Unknown History
injection
celecoxib 200 mg capsule (Celebrex) 200 mg PO DAILY Pain 08/26/24 08/26/24 Unknown History
cevimeline 30 mg capsule 1 cap PO TID DRY MOUTH 08/26/24 08/26/24 Unknown History
docusate sodium 100 mg capsule 100 mg PO BID Gastrointestinal 08/26/24 08/26/24 Unknown History
Issue
duloxetine 20 mg capsule,delayed 20 mg PO BID Mental Health/Anxiety 08/26/24 08/26/24 Unknown History
release
folic acid 1 mg tablet 1 mg PO DAILY Supplement 08/26/24 08/26/24 Unknown History
methotrexate sodium 2.5 mg tablet 20 mg PO TH Anti-Inflammatory 08/26/24 08/26/24 Unknown History
bhixkffx-mihe-mjff 8 mg-folic 400 1 tab PO DAILY Supplement 08/26/24 08/26/24 Unknown History
mcg-K 50 mcg-lutein 300 mcg tablet
(Centrum Silver Women)
ondansetron HCl 4 mg tablet 4 mg PO DAILYPRN PRN nausea 08/26/24 08/26/24 Unknown History
povidone-iodine 10 % topical swab 1 applic topical MOTH Infection 08/26/24 08/26/24 Unknown History
pregabalin 50 mg capsule 50 mg PO DAILY Neurological 08/26/24 08/26/24 Unknown History
Condition
melatonin 10 mg tablet 10 mg PO HS PRN sleep 08/28/24 08/28/24 Unknown History
Review of Systems
-
Unable to Obtain full review of systems at this time due to: Patient Intubation
Vitals / Labs / Diagnostic Testing
Vital Signs
Temp Pulse Resp BP Pulse Ox
96.3 F L 80 14 82/63 100
09/02/24 15:00 09/02/24 15:08 09/02/24 15:00 09/02/24 14:13 09/02/24 15:08
Lab Data
09/02/24 13:57
Laboratory Results
09/02/24
13:57
PT 21.1 H
INR 1.77
APTT 39.4 H
pH 7.49 H
pCO2 31 L
pO2 186 H
HCO3 23.6
O2 Delivery Level
Microbiology
09/02/24 11:48 Valve Fungal Culture - Preliminary
Culture in progress.
Positive cultures are reported as soon as detected.
Final report to follow in four to five weeks.
09/01/24 15:50 Feces/Stool Salmonella/Shigella Culture - Preliminary
Culture in Progress
09/01/24 15:50 Feces/Stool Campylobacter Culture - Preliminary
Culture in Progress
09/01/24 15:50 Feces/Stool C. difficile GDH Antigen & Toxins - Final
Negative for toxigenic C.difficile
08/27/24 13:48 Blood/Venous Blood Culture - Final
No Growth - Final Report
08/27/24 13:48 Blood/Venous Blood Culture - Final
No Growth - Final Report
Diagnostic Testing:
Physical Exam
-
HEENT: Normocephalic, Anicteric and Other (Right IJ, upper extremity A-line, chest tube)
Cardiovascular: S1/S2, Regular Rhythm, Murmur (n), Rub (n) and Peripheral Edema (n)
Respiratory: Wheeze (n), Rales (n), Rhonchi (n), Non-Labored Respirations and Other (Intubated)
GI: Soft and Non Distended
Neurology: Other (Sedated on the ventilator)
Skin: Warm and Other (No clubbing, no cyanosis)
General: Comfortable
Assessment
-
84-year-old female with complex medical history, rheumatoid arthritis on chronic methotrexate therapy, hypertension, hyperlipidemia, presents with general fatigue to [facility], found to have leukocytosis, staph bacteremia, mitral valve vegetation
transferred to [facility] 08/26/2024. Patient empirically treated with nafcillin therapy, found to have embolic stroke. Status post bio MVR with mitral ring repair and left atrial clip 09/02/24
S/p bio mitral valve replacement with mitral ring repair, left atrial /07/28
MSSA bacteremia
Transfer to [facility] 08/26
Presented to [facility] with fatigue, leukocytosis, mitral valve vegetation
Septic embolic bihemispheric stroke
On aspirin therapy
Dysphagia
Right upper extremity cephalic/basilic clot
Likely secondary to IV
Conditions present prior to admission
Rheumatoid arthritis on chronic methotrexate
History of Sjogren's disease
Hypertension/hyperlipidemia
Hiatal hernia
Hypothyroidism, history of thyroid goiter
Plan/recommendations
At this time, patient remains critically ill, but stable
Labile blood pressure noted, received albumin, platelets, norepinephrine, nitroglycerin
Present on volume-cycled ventilation, being weaned
Airway pressures adequate, oxygenation, ventilation adequate
Chest x-ray without acute findings
Atrial paced rhythm noted per EKG
Moving forward
Continue with management per CT surgery
Wean ventilator per protocol
Atrial paced rhythm continues
Chest tube output minimal
Follow hemoglobin
Patient on aspirin therapy, embolic stroke noted
Dysphagia noted
Remains on nafcillin antibiotics for endocarditis with bacteremia
Remains off methotrexate
Follow blood sugars
GI prophylaxis
Reviewed with critical care nursing
We will follow
TCCT 33 min
[2024-09-02] MEDS: ALBUMIN 5% 250 IV (15:28)
[2024-09-02] MEDS: PACERONE PO ×2 (15:32→22:05)
[2024-09-02 16:01] LABS: Glucose - Point of Care 153 mg/dl (70-99)
[2024-09-02 17:04] LABS: Glucose - Point of Care 147 mg/dl (70-99)
[2024-09-02 18:02] LABS: Glucose - Point of Care 128 mg/dl (70-99)
[2024-09-02 18:24] LABS: INR 1.61; PT 19.7 Sec (11.4-14.6)
[2024-09-02 18:30] LABS: Hematocrit 27.5 % (37.0-47.0); Hemoglobin 9.2 g/dL (12.0-16.0); Platelet Count 170 10^3/uL (130-400)
[2024-09-02 19:05] LABS: Glucose - Point of Care 128 mg/dl (70-99)
--- NOTE | 2024-09-02 19:20 | PTCARENOTE ---
Patient recieved from RN @ 1900 intubated. Patient drowsy but arousable. Patient responds and follows verbal commands. Denies pain. NSR w/ PVC's BP labile. HR 70. Heart sounds audible but distant. Radial and pedal pulses present bilaterally.
A/V wires set to AAI 50/3/0.8. Lungs clear anterior bilaterally but diminished in bases. ETT 8.0 cm @ 22. Ventilator set to SIMV 500/40/14/5/5 w/ peak pressure of 27. POX 100%. Thick clear sputum noted w/ suction. 2x mediastinal chest tubes
set to -20 wall suction draining red fluid and oozy ~40mL/40min. No crepitus, tidaling, or air leaks noted. Bowel sounds hypoactive. López draining clear yellow urine WNL. Sternal incision oozy and being monitored. Pressure dressingx2 over
inferior and superior aspect of incision. Petechiae noted on right upper leg. RIJ cordis w/ swan @ 48 CI 1.7 CO 3.0 PAP 31/14 CVP 11 . Left radial A-line. Lines leveled and zeroed. Insulin being titrated per glycemic protocol.
[2024-09-02 20:09] LABS: Glucose - Point of Care 106 mg/dl (70-99)
--- NOTE | 2024-09-02 20:15 | PTCARENOTE ---
Titrating nitro for tight BP control per CT DANIE Mancuso.
[2024-09-02] MEDS: ANCEF 5 IV (20:24)
[2024-09-02 20:30] LABS: Mixed Venous O2 Saturation 58.1 %
[2024-09-02] MEDS: ASPIRIN 300 MG RECTAL (21:01)
[2024-09-02 21:09] LABS: Glucose - Point of Care 98 mg/dl (70-99)
--- NOTE | 2024-09-02 21:10 | PTCARENOTE ---
LR bolus given per CT DANIE Mancuso @ 2014. CPAP trial started @ 2109.
[2024-09-02] MEDS: SENOKOT-S PO (21:17)
[2024-09-02] MEDS: DESENEX/MITRAZOL/ZEASORB 1 APPLIC TOPICAL (21:18)
[2024-09-02 21:53] LABS: B.E. 0.5 mmol/L; HCO3 23.8 mmol/L (21-28); Ionized Calcium 1.32 mMOL/L (1.15-1.33); PCO2 32 mmHg (32-35); PO2 174 mmHg (83-108); Potassium 3.1 mMOL/L (3.5-5.1); pH 7.48 (7.35-7.45)
[2024-09-02] MEDS: DDAVP 55 MCG IV (22:00)
[2024-09-02 22:05] LABS: APTT 35.5 Sec (23.4-35.0); Fibrinogen 282 MG/DL (199-459); INR 1.43
[2024-09-02] MEDS: KCL 50 IV ×2 (22:24→23:22)
--- NOTE | 2024-09-02 22:30 | PTCARENOTE ---
Labs drawn abg stable and CT PA notified. Respiratory at bedside. BP labile titrating Levo and Nitro. BP stabalized and extubated to 6L NC @ [address] PA Brandyillincharley. Patient is alert oriented to person, place, and time. Disoriented to situation
ie 'I had a swallow done today'.
--- NOTE | 2024-09-02 22:30 | PTCARENOTE ---
Desmopressin ordered per CT PA Tsillina due to leaky CT output. KCl given to repleat K+.
[2024-09-02 22:51] LABS: Glucose - Point of Care 124 mg/dl (70-99)
[2024-09-03] VITALS (36 sets, daily range): BP systolic 86–128; BP diastolic 58–76; PULSE 76–83; O2SAT 96–97; BMI 25.1
--- NOTE | 2024-09-03 00:30 | PTCARENOTE ---
Patient lying in bed w/ call humphrey in reach. Patient tolerating moistened mouth swabs. Patient coughing up clear thick mucus. BP labile titrating Nitro per protocol. Ofirmev given for pain control.
[2024-09-03] MEDS: OFIRMEV 100 IV (00:33)
[2024-09-03] MEDS: NAFCIL 108 MG IV ×6 (00:52→20:40)
[2024-09-03 01:05] LABS: Glucose - Point of Care 83 mg/dl (70-99)
[2024-09-03 03:05] LABS: Glucose - Point of Care 109 mg/dl (70-99)
[2024-09-03] MEDS: ROXICODONE 2.5 MG PO (03:05)
[2024-09-03 04:07] LABS: Mixed Venous O2 Saturation 70.4 %
[2024-09-03] MEDS: ANCEF 5 IV ×2 (04:17→12:51)
--- NOTE | 2024-09-03 04:23 | PTCARENOTE ---
A-line out of position. Attempted to redress. CT PA Tsillina notified. A-Line removed per CT PA Jamee. Disregard A-line BP from 0300 and so on.
[2024-09-03 04:30] LABS: Hematocrit 23.8 % (37.0-47.0); Hemoglobin 7.7 g/dL (12.0-16.0); Mean Corp Hgb Conc. 32.4 g/dL (33.0-37.0); Mean Corpuscular Hgb 29.7 pg (27.0-31.0); Mean Corpuscular Volume 91.9 fL (81.0-99.0); Mean Platelet Volume 10.5 fL (7.4-10.4); Platelet Count 207 10^3/uL (130-400); Red Blood Cell Count 2.59 10^6/uL (4.20-5.40); Red Cell Dist. Width 16.7 % (11.5-14.5); White Blood Cell Count 9.5 10^3/uL (4.8-10.8)
[2024-09-03 04:48] LABS: Blood Urea Nitrogen 12 mg/dl (7-17); Calcium 9.1 mg/dl (8.4-10.2); Carbon Dioxide 28 mmol/L (22-30); Chloride 117 mmol/L (98-107); Estimated Creatinine Clearance 45 ml/min; Glucose 112 mg/dl (70-99); Magnesium 2.6 mg/dl (1.6-2.3); Potassium 3.8 mmol/L (3.5-5.1); Sodium 150 mmol/L (135-145); eGFR > 60.00
[2024-09-03 05:04] LABS: Glucose - Point of Care 103 mg/dl (70-99)
--- NOTE | 2024-09-03 05:12 | W.PN.CT ---
Today's Communication / Plan
-
-pod#1
-got total 2 pRBCs, 2 unit platelets, 1 FFP, DDAVP, 750 LR, 250 Albumin
-sbp 90-[address] Pena
-CI 2.69, CO 4.76, Svr__1075, mvO2 70.4. Drips: Nitro 20, Insulin
-CT output: 2 meds 330/770 in 12/24 hrs
-Hg 7.7/hct 23.8 - gave 1 pRBC
-Na 150 - follow
-platelets stable - 207K
-a-line dcd (nonfunctional)
-d/c swan
-maintain Cordis, pw
-monitor for bradycardia
-current meds (ASA, Lipitor, Lopressor, Amio, Protonix, Nafcilin, probiotic for loose stool)
-encourage IS, OOB
Assessment / Plan
-
Assessment:
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
atrial appendage exclusion [35 mm clip] by Dr. Pena on 09/02/24, pod #1
-Intraop ADITI: LVEF preop and postop was approximately 55 to 60% with no significant regional wma. Her left atrial appendage also verified to be free of any thrombus or debris preop and following arrest we sized it to a 35 mm device and clipped it
flush at the base. There is no residual flow in the appendage. At the conclusion of the case she had no paravalvular leak.
-sinus marge preop and post
-Presentation to [facility] with confusion, transferred to on 08/26/24
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
-Staph aureus (MSSA bacteremia), repeat cultures @ are without growth
-Mild-moderate MR
-MAC
-LVEF 60-65%
-TME
-LLL infiltrate, not felt to be PNA per pulm at [facility]
-R 3rd toe ulder s/p debridement per podiatry at [facility]
-RA on chronic methotrexate
-Immumocompromised
-Sjogren's syndrome
-Dysphagia
-HTN
-HLD
-Hypothyroidism
-GERD/Hiatal hernia
-Anxiety/depression
-Former tobacco use
-Anemia
-Hypoalbuminemia
-Hypokalemia
-Hypernatremia
-DDD of neck
-Osteoarthritis
-Thyroid goiter
-Frail
-Acute postop blood loss anemia - s/p 2 pRBCs
-Acute postop thrombocytopenia/coagulopathy - s/p 2 unit platelets, 1 FFP, DDAVP
-Acute postop hypovolemia with subsequent hypervolemia
-Acute postop atelectasis
-Acute postop hypernatremia
Discussed patient care with: Nursing and Care Team
Subjective
-
Date of Service: September 03, 2024
Objective Data
-
PT 18.0 Sec (11.4-14.6) H 09/02/24 21:46
INR 1.43 09/02/24 21:46
APTT Cancelled 09/03/24 06:00
Vital Signs
Vital Signs
Temp Pulse Resp BP Pulse Ox
97.8 F 76 15 84/51 100
09/03/24 01:00 09/03/24 01:02 09/03/24 01:00 09/02/24 22:54 09/03/24 01:02
CT Intake/Output/Weight
09/02/24 09/02/24 09/03/24
06:59 18:59 06:59
Intake Total 1809.5 / 1975.8 167.3 / 1975.8
Output Total 730 / 1440 710 / 1440
Balance 1079.5 / 536.8 -542.7 / 536.8
SaO2: 100
Physical Exam
-
General: Awake and AOx3
Cardiovascular: Regular rate & rhythm, No Murmurs and No Rub
Respiratory: Decreased Breath Sounds
Sternum: Stable
Incision: Clean, Dry and Intact
Extremities: No Edema (DPs 1+ b/l)
Abdomen: soft, nontender, nondistended, + decreased bowel sounds
Data Reviewed
-
Lab Results: Results Reviewed
Medications: Active Meds Reviewed
Chest X-Ray: Report Reviewed and Image Reviewed
ECG: Report Reviewed and Image Reviewed
--- NOTE | 2024-09-03 05:59 | PTCARENOTE ---
Hgb 7.7 CT PA notified. 1 unit PRBC's infused. Addition 20 meq KCl repleted.
[2024-09-03] MEDS: KCL 40 MEQ PO (06:05)
[2024-09-03] MEDS: TYLENOL 1000 MG PO ×3 (06:05→22:15)
[2024-09-03 07:12] LABS: Glucose - Point of Care 86 mg/dl (70-99)
--- NOTE | 2024-09-03 08:04 | W.PN.INTV ---
Addendum entered and electronically signed by Mesha De Guzman MD 09/03/24 13:41:
Patient transferred to telemetry. We will sign off. Please call with questions
Original Note:
Today's Communication / Plan
Recommendations
Weaned off nitroglycerin
Multiple blood products noted, 1 unit of blood this morning
Patient appears comfortable
Continue to follow hemoglobin, chest tube output
Remains on nafcillin
Chest x-ray unremarkable
Follow sodium clinically post diet advancement
Remains on insulin drip
Assessment
-
84-year-old female with complex medical history, rheumatoid arthritis on chronic methotrexate therapy, hypertension, hyperlipidemia, presents with general fatigue to [facility], found to have leukocytosis, staph bacteremia, mitral valve vegetation
transferred to [facility] 08/26/2024. Patient empirically treated with nafcillin therapy, found to have embolic stroke. Status post bio MVR with mitral ring repair and left atrial clip 09/02/24
S/p bio mitral valve replacement with mitral ring repair, left atrial clip/07/28
MSSA bacteremia
Transfer to [facility] 08/26
Presented to [facility] with fatigue, leukocytosis, mitral valve vegetation
Septic embolic bihemispheric stroke
On aspirin therapy
Dysphagia
Right upper extremity cephalic/basilic clot
Likely secondary to IV
Conditions present prior to admission
Rheumatoid arthritis on chronic methotrexate
History of Sjogren's disease
Hypertension/hyperlipidemia
Hiatal hernia
Hypothyroidism, history of thyroid goiter
Plan/recommendations
At this time, patient appears comfortable
Labile blood pressure noted, received multiple blood products including platelets, PRBC, FFP, albumin
On nitroglycerin this morning including insulin drip
Chest tube output noted, hemoglobin this morning 7.7
Additional unit of blood ordered
EKG this morning with normal sinus rhythm, occasional PVC, T wave inversions inferiorly
Patient without complaints
Moving forward
Continue with management per CT surgery
Multiple blood products noted, additional unit ordered this morning for hemoglobin 7.7
3U PRBC, 1 FFP, 2 pack of platelets. Also received DDAVP
Chest tube x 2 output 730/24 hours
Follow hemoglobin transfuse per CT surgery
Patient on aspirin therapy, embolic stroke noted
Dysphagia noted. Aspiration precautions
Remains on nafcillin antibiotics for endocarditis with bacteremia
Remains off methotrexate
Hypernatremia noted, present preoperatively
Reevaluate post diet reinitiation
Follow blood sugars
On insulin drip
GI prophylaxis: Remains on pantoprazole
DVT prophylaxis: Mechanical
Reviewed with critical care nursing
TCCT 33 min
Subjective Dataa
Subjective Data
Date of Service:
Date of Service: September 03, 2024
Subjective:
Patient looks remarkably well. Denies shortness of breath, significant nausea, denies headaches, denies pain. Conversant. Transfusion requirement noted, received PRBC, platelets, FFP, DDAVP and albumin
Objective Data
Data Reviewed
Vital Signs / I&O / Oxygen:
Vital Signs
Temp Pulse Resp BP Pulse Ox
98.2 F 87 16 104/68 99
09/03/24 07:00 09/03/24 07:04 09/03/24 07:00 09/03/24 07:00 09/03/24 07:04
Intake and Output
09/02/24 09/03/24 09/04/24
06:59 06:59 06:59
Intake Total 1260 / 1260 2350.9 / 2375.2 24.3 / 24.3
Output Total 1745 / 1815 70 / 70
Balance 1260 / 1260 605.9 / 560.2 -45.7 / -45.7
SaO2 [CPAP] 100
SaO2 [SIMV] 100
SaO2 99
Nasal Cannula flow liters per 2
minute
Physical Exam
General: Comfortable and Other (IJ, A-line, chest tube)
HEENT: Normocephalic and Anicteric
Cardiovascular: S1-S2, Regular Rhythm, Murmur (n) and Rub (n)
Respiratory: Wheeze (n), Crackles (n), Rhonchi (n), Non-Labored Respirations and Chest Tube
GI: Soft, Non Distended and Non Tender
Neurology: Awake, Alert and No Motor Deficits (Moves all extremities)
Skin: Cyanosis (n), Jaundice (n) and Rash (n)
Labs/Micro/Reports
Lab Data
09/03/24 03:59
09/03/24 03:59
Laboratory Results
09/02/24 09/02/24 09/02/24
13:57 17:59 21:46
PT 21.1 H 19.7 H 18.0 H
INR 1.77 1.61 1.43
APTT 39.4 H 35.5 H
pH 7.49 H 7.48 H
pCO2 31 L 32
pO2 186 H 174 H
HCO3 23.6 23.8
O2 Delivery Level
09/03/24
06:00
PT
INR
APTT Cancelled
pH
pCO2
pO2
HCO3
O2 Delivery Level
Microbiology
09/02/24 11:48 Valve Gram Stain - Preliminary
09/02/24 11:48 Valve Fungal Culture - Preliminary
Culture in progress.
Positive cultures are reported as soon as detected.
Final report to follow in four to five weeks.
09/01/24 15:50 Feces/Stool Salmonella/Shigella Culture - Preliminary
Culture in Progress
09/01/24 15:50 Feces/Stool Campylobacter Culture - Preliminary
Culture in Progress
09/01/24 15:50 Feces/Stool C. difficile GDH Antigen & Toxins - Final
Negative for toxigenic C.difficile
08/27/24 13:48 Blood/Venous Blood Culture - Final
No Growth - Final Report
08/27/24 13:48 Blood/Venous Blood Culture - Final
No Growth - Final Report
[2024-09-03] MEDS: CYMBALTA DELAYED RELEASE 20 MG PO (08:25)
[2024-09-03] MEDS: MAGNESIUM OXIDE 500 MG PO ×2 (08:25→21:58)
[2024-09-03] MEDS: VISBIOME 2 CAP PO (08:25)
[2024-09-03] MEDS: LIPITOR 20 MG PO (08:25)
[2024-09-03] MEDS: LOPRESSOR 12.5 MG PO ×2 (08:25→21:58)
[2024-09-03] MEDS: PROTONIX 40 MG PO (08:25)
[2024-09-03] MEDS: SENOKOT-S 1 TABLET PO (08:26)
[2024-09-03] MEDS: LIDOCAINE 4% PATCH TOPICAL (08:26)
[2024-09-03] MEDS: LOW STRENGTH ASPIRIN 81 MG PO (08:26)
[2024-09-03] MEDS: LYRICA 50 MG PO (08:26)
[2024-09-03] MEDS: PACERONE 200 MG PO ×2 (08:26→16:39)
[2024-09-03] MEDS: LASIX 40 MG IV (08:26)
[2024-09-03] MEDS: DESENEX/MITRAZOL/ZEASORB 1 APPLIC TOPICAL ×2 (08:27→20:44)
[2024-09-03] MEDS: NON-FORMULARY ITEM 1 CAP PO ×3 (08:27→22:15)
[2024-09-03] MEDS: BACTROBAN 2% OINTMENT 1 APPLIC NASAL ×2 (08:27→20:43)
[2024-09-03 09:04] LABS: Glucose - Point of Care 95 mg/dl (70-99)
--- NOTE | 2024-09-03 09:04 | W.PN.CARDCBS ---
Addendum entered and electronically signed by Francheska Vitale MD 09/03/24 10:31:
I saw and examined the patient.
The Fish Hatchery Assistant's note was reviewed and I agree with the note.
Comment: Patient successfully extubated yesterday evening. She was given multiple blood transfusions along with other blood products as noted below. Doing well this morning
Vital signs and lab work reviewed. On exam patient is a older female, frail, thin, awake, alert and oriented x 3, sitting up in bed, sternotomy wound is clean, dry and intact, lungs are clear to auscultation with no obvious wheezing. Abdomen is
soft, nontender, nondistended with active bowel sounds, regular rate, normal S1 and S2, warm extremities without significant edema.
Recommendations:
1. Patient is status post chordal sparing mitral valve replacement with a 27 mm Pritchett Resilia bioprosthesis with patch repair of mitral annulus along P1, P2 and P3 using bovine pericardium, left atrial appendage exclusion with a 35 mm atrial clip
by Dr. Khoa Pena, postop day #1.
2. Overall patient is stable and doing well. Close monitoring of blood counts and blood transfusions as needed.
3. ECG from yesterday with sinus rhythm and nonconducting pacer spikes. Pacemaker turned off today. She is in sinus rhythm this morning with nonspecific ST-T wave changes.
4. She is tolerating low-dose Lopressor and amiodarone so far. Continue aspirin and atorvastatin.
5. Hypernatremia noted. Closely follow.
6. Antibiotics per infectious disease.
7. Continued postoperative care, incentive spirometry is encouraged, out of bed to chair/ambulation as tolerated.
Francheska Vitale MD, [facility], [facility]
Original Note:
Today's Communication / Plan
-
looks well day 1
continue post op care
Impression / Plan
-
Primary Nail Making Machine Tender: Dr. Ingram of [facility]
Assessment:
Presentation to [facility] with confusion
TME
LLL infiltrate, not felt to be PNA per pulm at [facility]
MSSA bacteremia
Suspected septic emboli to brain by imaging at [facility]
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
R 3rd toe ulcer s/p debridement per podiatry at [facility]
RA on chronic methotrexate
HTN
HLD
Hypothyroidism
Anxiety/depression
Anemia
Hypoalbuminemia
Moderate hiatal hernia
DDD of neck
Thyroid goiter
TTE at [facility] 08/24/24: EF 55%, large echogenic mass on posterior mitral valve leaflet 1.6 x 1.3 cm with mild to moderate MR, concern for endocarditis
ADITI 08/28 with preserved EF, large partially mobile vegetation measuring 2.0 cm in length on primarily the posterior leaflet of mitral valve, also with smaller, highly mobile echodense structure/vegetation on posterior leaflet of mitral valve that
transverses the mitral valve with each cardiac cycle with high risk of embolization, mild to moderate MR
Plan:
-MSSA bacteremia with mitral valve endocarditis s/p embolic CVA (suspected septic emboli)
-s/p chordal sparing bio MVR with patch repair of mitral annulus, AMADO clip 09/02/24
-in SR. continue lopressor, amiodarone
-hgb 7.7. s/p 1 U PRBCs this AM. thus far she has had total of 3 U PRBCs, 2 U plts, 1 FFP, DDAVP
-follow Na, 150 this AM
-continue asa, statin
-Continue antibiotics per ID
-post op care, IS/OOB as able
-d/w nursing
Progress Note - Nail Making Machine Tender
Subjective
Date of Service: September 03, 2024
looks great. up in chair. no complaints
Objective
Labs:
09/03/24 03:59
09/03/24 03:59
Labs
Hgb 7.7 g/dL (12.0-16.0) L 09/03/24 03:59
Hct 23.8 % (37.0-47.0) L 09/03/24 03:59
Plt Count 207 10^3/uL (130-400) D 09/03/24 03:59
PT 18.0 Sec (11.4-14.6) H 09/02/24 21:46
INR 1.43 09/02/24 21:46
APTT Cancelled 09/03/24 06:00
Sodium 150 mmol/L (135-145) H 09/03/24 03:59
Potassium 3.8 mmol/L (3.5-5.1) 09/03/24 03:59
BUN 12 mg/dl (7-17) 09/03/24 03:59
Creatinine 0.9 mg/dL (0.6-1.0) 09/03/24 03:59
Glucose 112 mg/dl (70-99) H 09/03/24 03:59
Vital Signs and I&O:
Vital Signs
Temp Pulse Resp BP Pulse Ox
98.2 F 87 16 104/68 99
09/03/24 07:00 09/03/24 07:04 09/03/24 07:00 09/03/24 07:00 09/03/24 07:04
Vital Signs
Temp Pulse Resp BP Pulse Ox
98.2 F 87 16 104/68 99
09/03/24 07:00 09/03/24 07:04 09/03/24 07:00 09/03/24 07:00 09/03/24 07:04
Intake & Output
09/01/24 09/02/24 09/03/24 09/04/24
07:59 07:59 07:59 07:59
Intake Total 2916 / 2916 1260 / 1260 2375.2 / 2375.2
Output Total 1815 / 1815
Balance 2916 / 2916 1260 / 1260 560.2 / 560.2
Physical Exam
Physical Exam
GEN: No distress, awake, alert, oriented x3. sitting in chair
HEENT: supple, anicteric, mmm, eomi
LUNGS: CTA B/L, no wheezes
CV: Reg, S1/S2, no murmur
ABD: soft, BS+, NT/ND
EXT: No cyanosis, clubbing, edema
NEURO: Gross non-focal
SKIN: Warm, pink, dry. No rash. Sternotomy incision c/d/i. CTs in place
[2024-09-03] MEDS: ZOFRAN 4 MG IV ×2 (09:06→20:01)
--- NOTE | 2024-09-03 09:11 | PTCARENOTE ---
assumed care of pt from previous shift RN, sinus rhythm on tele w PVCs, + peripheral pulses, trace edema to bilateral lower extremities. [place] removed as ordered. Epicardial pacing wire insulated. Lungs diminished, pox 100% on 2L NC, 96% on RA,
coughing and deep breathing encouraged. +bs, medicated for nausea, tolerating PO intake. López removed, pt remains DTV. Sternal incision w surgical glue intact, ecchymosis noted. Mediastinal CTs w minimal amount of drainage. Right IJ cordis w KVO
infusing, PIV flushes easily. Pt denies pain. Plan of care reviewed w the pt and questions encouraged.
[2024-09-03 10:23] LABS: Glucose - Point of Care 103 mg/dl (70-99)
--- NOTE | 2024-09-03 10:41 | W.PN.ID1 ---
Date of Service
Date of Service: September 03, 2024
Today's Communication
Continue antibiotics.
Assessment / Plan
Mitral valve endocarditis
- s/p bovine MV replacement (09/02/24)
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
Staph aureus (MSSA) bacteremia
ESR and CRP elevated
Sjogren syndrome
Rheumatoid arthritis
Dyslipidemia
Hypothyroidism
Anxiety/depression
Neuropathy
Hx of skin cancer
Osteopenia
Recommendations:
Continue nafcillin 2g IV q4h.
Follow Cr / est CrCl and LFT's closely while on nafcillin. Will order LFTs, ESR and CRP for tomorrow
Follow valve tissue culture
����������������������������������������������������������
Chief Complaint
-: Bacteremia and Other (MSSA MV IE)
Subjective / Review of Systems
Patient seen and examined. Reports feeling well today. Patient underwent valve replacement yesterday.
Review of Systems: No Fever and No Chills
Vital Signs / Physical Exam
Vital Signs
Vital Signs
Temp Pulse Resp BP Pulse Ox
98.2 F 76 16 118/66 96
09/03/24 08:00 09/03/24 10:00 09/03/24 10:00 09/03/24 10:00 09/03/24 10:02
Physical Exam
Constitutional: No Acute Distress, Comfortable, Chronically Ill and Non-toxic
Eyes: No Conjunctival Hemorrhage and Sclera Anicteric
Cardiovascular: S1/S2; Negative S3/S4
Pulmonary: Non Labored and Other (Pericardial drain in place.)
Gastrointestinal: Soft and Non Distended
Skin: Warm and Dry; Negative Rash or Jaundice
Neurological: Awake and Alert
Psychological: Calm
Lines: CVP (Right IJ cordis)
Objective Data
Lab Data
Lab Results
09/03/24 03:59
09/03/24 03:59
ESR 48 mm/hour (0-20) H 08/28/24 04:22
PT 18.0 Sec (11.4-14.6) H 09/02/24 21:46
INR 1.43 09/02/24 21:46
APTT Cancelled 09/03/24 06:00
Estimated Creat Clear 45 ml/min 09/03/24 03:59
Total Bilirubin 1.0 mg/dl (0.2-1.3) 08/29/24 03:24
AST 26 U/L (14-36) 08/29/24 03:24
ALT 10 U/L (0-35) 08/29/24 03:24
Alkaline Phosphatase 111 U/L (38-126) 08/29/24 03:24
C-Reactive Protein 45.50 mg/L (0.0-10.00) H 08/28/24 04:22
Most recent labs reviewed.
Micro Results:
09/01/24 15:50 Salmonella/Shigella Culture - Preliminary
Feces/Stool Culture in Progress
Campylobacter Culture - Preliminary
Culture in Progress
Shiga Toxin Test - Final
No E. coli Shiga Toxin 1 or 2 detected.
09/02/24 11:48 Tissue Culture - Pending
Valve Gram Stain - Preliminary
09/02/24 11:48 Fungal Smear - Pending
Valve Fungal Culture - Preliminary
Culture in progress.
Positive cultures are reported as soon as detected.
Final report to follow in four to five weeks.
09/02/24 11:48 Acid Fast Bacilli Smear - Pending
Valve Acid Fast Bacilli Culture - Pending
09/02/24 11:48 Anaerobic Culture - Pending
Valve
09/01/24 15:50 C. difficile GDH Antigen & Toxins - Final
Feces/Stool Negative for toxigenic C.difficile
08/27/24 13:48 Blood Culture - Final
Blood/Venous No Growth - Final Report
08/27/24 13:48 Blood Culture - Final
Blood/Venous No Growth - Final Report
08/20/2024 Blood culture: MSSA ([facility])
08/22/2024 Blood culture: No growth ([facility])
Imaging:
08/27/24 MRI brain: ACUTE and SUBACUTE EMBOLIC DISEASE with MULTIPLE SMALL ACUTE and SUBACUTE ISCHEMIC INFARCTS in the brain diffusely distributed throughout both the anterior and posterior circulation..
08/25/2024 CT head: 1.2 cm region of decreased attenuation at the anterior medial right cerebellar hemisphere which is developed since a prior CT scan dated 08/20/2024. This was possibly a recent infarction. Also noted is mild age-related volume
loss. Please see full dictation for additional detail. (Film performed at [facility])
08/21/2024 CT chest: No evidence of pneumonia. Small bilateral pleural effusions noted. Mild subsegmental atelectasis at the posterior inferior aspect of the right and left lower lobes. Ossification of the mitral annulus, with atherosclerotic
coronary artery calcifications noted. Please see full dictation for additional detail. (Film performed at [facility])
08/20/2024 CT head: No evidence of intracranial hemorrhage, acute infarct, mass or midline shift. Chronic small vessel ischemia and volume loss noted. Please see full dictation for additional detail. (Film performed at [facility])
TTE at [facility] 08/24/24: EF 55%, large echogenic mass on posterior mitral valve leaflet 1.6 x 1.3 cm with mild to moderate MR, concern for endocarditis
[2024-09-03 11:20] LABS: Glucose - Point of Care 122 mg/dl (70-99)
--- NOTE | 2024-09-03 11:32 | CM ---
Reviewed chart. Met with Mrs. Srivastava and her two daughters to review discharge plans. She states she is feeling well. Patient and family would like to explore acute Rehab. They have selected [facility]. at [place]. [facility] to make the referral. Will sent referral once therapy evaluations completed. Also telephone call to [facility] to make the home infusion referral to check on home infusion benefits if she does not qualify for rehab. She will need pre-cert
with her insurance. Prior to admission she resides alone in a two story home with one step to enter. She has a full flight of steps to get to bedroom/full bathroom. Prior to admission she was independent with ambulation and adls. She does not
have any DME in the home. She has a prescription plan. Will need to see her current functional level to see if she will have any skilled care needs. Medical work-up in progress. The discharge plan is to go to some level of inpatient
rehab.-[facility] at [place] if approved for admission and insurance approval when medically stable.
[2024-09-03] MEDS: CORDARONE 103 MG IV (12:03)
[2024-09-03] MEDS: CORDARONE 518 MG IV (12:05)
[2024-09-03] MEDS: NSS IV (12:49)
[2024-09-03] MEDS: FERRLECIT 110 MG IV (12:56)
--- NOTE | 2024-09-03 13:04 | PTCARENOTE ---
While working w PT patient had a short self limiting burst of afib, asymptomatic. CT ORTIZ made aware. Amiodarone bolus and gtt initiated as ordered.
[2024-09-03 13:08] LABS: Glucose - Point of Care 115 mg/dl (70-99)
--- NOTE | 2024-09-03 15:14 | PTCARENOTE ---
pt assisted from chair to bed, sinus rhythm maintained on tele, VSS. Pt w c/o minimal pain. Amiodarone infusing maintained per protocol order.
[2024-09-03] MEDS: SENOKOT-S PO (20:42)
[2024-09-03] MEDS: CYMBALTA DELAYED RELEASE PO ×2 (20:43→23:07)
[2024-09-03 21:00] LABS: Blood Urea Nitrogen 15 mg/dl (7-17); Calcium 8.8 mg/dl (8.4-10.2); Carbon Dioxide 27 mmol/L (22-30); Chloride 108 mmol/L (98-107); Estimated Creatinine Clearance 45 ml/min; Glucose 191 mg/dl (70-99); Magnesium 2.4 mg/dl (1.6-2.3); Potassium 3.4 mmol/L (3.5-5.1); Sodium 141 mmol/L (135-145); eGFR > 60.00
--- NOTE | 2024-09-03 21:00 | PTCARENOTE ---
Report received from MAITE Spivey. Walking rounds done. Pt in bed. Awake, alert, oriented x 4. Equal upper and lower extremity strength. Pt generally weak and requires heavy 2 RN assist. Pt on room air. Sat 95%. BBS present. Decreased to B bases and
throughout bilaterally. CDB encouraged. Audible heart tones. Pt in SR, SB 59-60's, occasional PVCs and PACs. Rhythm changes to widened QRS at times. EKG done per order showing RBBB. PA aware. Normotensive. Amiodarone gtt infusing at 0.5 mg/min.
Metoprolol given as scheduled. AV wires insulated. Mediastinal CTs x 2 to - 20 cm suction. For pulse and wound assessments, see flowsheets. C/O nausea. No abdominal pain. Zofran 4 mg IV given. Belly soft, obese, nontender. Normoactive bs x 4. Helped
to BSC and had small, loose stool. Pt voided clear yellow urine. Pt then helped back to bed. Ongoing plan of care.
[2024-09-03] MEDS: KCL 100 IV (21:55)
[2024-09-03] MEDS: PACERONE PO (22:32)
[2024-09-04] VITALS (18 sets, daily range): BP systolic 99–132; BP diastolic 62–89; PULSE 53–54; O2SAT 96–98; BMI 25.5
[2024-09-04] MEDS: NAFCIL 108 MG IV ×6 (00:14→19:54)
[2024-09-04] MEDS: ROXICODONE 2.5 MG PO ×2 (00:15→08:25)
--- NOTE | 2024-09-04 01:00 | PTCARENOTE ---
Pt c/o 7-01/10 mid upper back pain, sternal pain. Roxicodone 2.5 mg po given. Back rub given with lotion to all areas of back. Pt was given CHG bath at 1999. Pt helped to BSC to have small, loose BM and void 125 mg clear, yellow urine. Pt helped back
to bed with heavy 2 RN assist. Pt going to sleep for evening. 1L/NC applied while pt sleeping. Sats 98%. Pt noted to be in SB, 50's. Remains normotensive. Amiodarone gtt infusing at 0.5 mg/min. Ongoing plan of care.
--- NOTE | 2024-09-04 02:14 | W.PN.CT ---
Today's Communication / Plan
-
-pof #2
-no issues overnight
-sinus marge mid 50s with PVCs overnight, intermittent brief runs of ? AIVR vs junctional with RBBB- asymptomatic, stable BP
-drip: Amio 0.5 for paf
-CT outputs: 2 meds 110/220 in 12/24 hrs
-noted recommendation to follow Cr / est CrCl and LFT's closely while on nafcillin. Ordered LFTs, ESR and CRP 09/04
-noted PT recommendation for acute rehab
-current meds (ASA, Lipitor, Lopressor, Amio, Protonix, Nafcilin, probiotic for loose stool)
-encourage IS, OOB
-appreciate everyone's input
Assessment / Plan
-
Assessment:
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
atrial appendage exclusion [35 mm clip] by Dr. Pena on 09/02/24, pod #2
-Intraop ADITI: LVEF preop and postop was approximately 55 to 60% with no significant regional wma. Her left atrial appendage also verified to be free of any thrombus or debris preop and following arrest we sized it to a 35 mm device and clipped it
flush at the base. There is no residual flow in the appendage. At the conclusion of the case she had no paravalvular leak.
-sinus marge preop and post
-Presentation to [facility] with confusion, transferred to on 08/26/24
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
-Staph aureus (MSSA bacteremia), repeat cultures @ are without growth
-Mild-moderate MR
-MAC
-LVEF 60-65%
-TME
-LLL infiltrate, not felt to be PNA per pulm at [facility]
-R 3rd toe ulder s/p debridement per podiatry at [facility]
-RA on chronic methotrexate
-Immumocompromised
-Sjogren's syndrome
-Dysphagia
-HTN
-HLD
-Hypothyroidism
-GERD/Hiatal hernia
-Anxiety/depression
-Former tobacco use
-Anemia
-Hypoalbuminemia
-Hypokalemia
-Hypernatremia
-DDD of neck
-Osteoarthritis
-Thyroid goiter
-Frail
-Acute postop blood loss anemia - s/p 2 pRBCs
-Acute postop thrombocytopenia/coagulopathy - s/p 2 unit platelets, 1 FFP, DDAVP
-Acute postop hypovolemia with subsequent hypervolemia
-Acute postop atelectasis
-Acute postop hypernatremia
-Acutte postop paroxysmal a-fib on 09/03 - tx with Amio bolus and drip
Discussed patient care with: Nursing and Care Team
Subjective
-
Date of Service: September 04, 2024
Objective Data
-
PT 18.0 Sec (11.4-14.6) H 09/02/24 21:46
INR 1.43 09/02/24 21:46
APTT Cancelled 09/03/24 06:00
Vital Signs
Vital Signs
Temp Pulse Resp BP Pulse Ox
97.5 F 59 15 122/73 96
09/04/24 00:00 09/04/24 01:00 09/04/24 00:00 09/04/24 00:12 09/04/24 01:00
CT Intake/Output/Weight
09/03/24 09/03/24 09/04/24
06:59 18:59 06:59
Intake Total 541.4 / 2375.2 902.7 / 1362.9 460.2 / 1362.9
Output Total 1015 / 1815 170 / 570 400 / 570
Balance -473.6 / 560.2 732.7 / 792.9 60.2 / 792.9
SaO2: 96
Physical Exam
-
General: Awake and AOx3
Cardiovascular: Regular rate & rhythm (+JVD), No Murmurs and No Rub
Respiratory: Decreased Breath Sounds
Sternum: Stable
Incision: Clean, Dry and Intact
Extremities: Edema +1
Abdomen: soft, nontender, nondistended, has liquid stools
Data Reviewed
-
Lab Results: Results Reviewed
Medications: Active Meds Reviewed
Chest X-Ray: Report Reviewed and Image Reviewed
ECG: Report Reviewed and Image Reviewed
--- NOTE | 2024-09-04 04:41 | PTCARENOTE ---
Pt helped to BSC with rolling walker and 2 RN assist. Voided 100 mls clear, yellow urine. Small, brown loose BM. Pt cleansed by RN. Helped to standing scale with walker and 3 RN assist. Pt then helped back to bed. VS done. See flowsheets. Labs drawn
and sent.
[2024-09-04 05:04] LABS: Hemoglobin 9.8 g/dL (12.0-16.0); Mean Corp Hgb Conc. 32.7 g/dL (33.0-37.0); Mean Corpuscular Hgb 29.9 pg (27.0-31.0); Mean Corpuscular Volume 91.5 fL (81.0-99.0); Mean Platelet Volume 10.2 fL (7.4-10.4); Platelet Count 260 10^3/uL (130-400); Red Blood Cell Count 3.28 10^6/uL (4.20-5.40); Red Cell Dist. Width 16.8 % (11.5-14.5); White Blood Cell Count 10.3 10^3/uL (4.8-10.8)
[2024-09-04 05:16] LABS: ALT (SGPT) < 10 U/L (0-35); AST (SGOT) 32 U/L (14-36); Albumin 2.8 g/dl (3.5-5.0); Alkaline Phosphatase 102 U/L (38-126); Blood Urea Nitrogen 17 mg/dl (7-17); Calcium 8.9 mg/dl (8.4-10.2); Carbon Dioxide 27 mmol/L (22-30); Chloride 108 mmol/L (98-107); Direct Bilirubin 0.4 mg/dl (0.0-0.4); Erythrocyte Sed Rate 20 mm/hour (0-20); Estimated Creatinine Clearance 41 ml/min; Glucose 153 mg/dl (70-99); Magnesium 2.4 mg/dl (1.6-2.3); Sodium 141 mmol/L (135-145); Total Bilirubin 0.9 mg/dl (0.2-1.3); Total Protein 5.1 g/dl (6.3-8.2); eGFR 56.25
[2024-09-04] MEDS: TYLENOL 1000 MG PO ×3 (05:17→22:06)
--- NOTE | 2024-09-04 06:30 | PTCARENOTE ---
Pt helped up to chair with 2 RN assist and rolling walker. Sats 100% on room air. Normotensive. Heart rhythm SB, 50's on Amio gtt 0.5 mg/min. PA aware of rhythm and rate.
[2024-09-04] MEDS: CYMBALTA DELAYED RELEASE 20 MG PO ×2 (08:27→19:53)
[2024-09-04] MEDS: MAGNESIUM OXIDE 500 MG PO ×2 (08:27→19:58)
[2024-09-04] MEDS: LIPITOR 20 MG PO (08:27)
[2024-09-04] MEDS: LOPRESSOR 12.5 MG PO ×2 (08:27→19:54)
[2024-09-04] MEDS: PROTONIX 40 MG PO (08:27)
[2024-09-04] MEDS: LOW STRENGTH ASPIRIN 81 MG PO (08:27)
[2024-09-04] MEDS: LYRICA 50 MG PO (08:28)
[2024-09-04] MEDS: PACERONE 200 MG PO ×3 (08:28→22:05)
[2024-09-04] MEDS: VISBIOME 2 CAP PO (08:28)
[2024-09-04] MEDS: NON-FORMULARY ITEM 1 CAP PO ×3 (08:31→22:06)
[2024-09-04] MEDS: LIDOCAINE 4% PATCH 1 PATCH TOPICAL (08:32)
--- NOTE | 2024-09-04 09:46 | W.PN.ID1 ---
Addendum entered and electronically signed by Frantz Marr DO 09/04/24 12:52:
I saw and evaluated the patient. I reviewed the resident�s note and agree with findings and plan as documented in the resident�s note.
Nursing reports some diarrhea today. Patient denies any abdominal discomfort. Overall feels weak, but no fevers.
Continue current course of nafcillin.
Monitor stool output and consistency.
Original Note:
Date of Service
Date of Service: September 04, 2024
Today's Communication
continue antibiotics
Assessment / Plan
Mitral valve endocarditis
- s/p bovine MV replacement (09/02/24)
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
Staph aureus (MSSA) bacteremia
ESR and CRP elevated
Hypernatremia- resolved
Sjogren syndrome
Rheumatoid arthritis
Dyslipidemia
Hypothyroidism
Anxiety/depression
Neuropathy
Hx of skin cancer
Osteopenia
Recommendations:
Continue nafcillin 2g IV q4h.
Follow Cr / est CrCl and LFT's closely while on nafcillin.
Elevated CRP 132 with normal ESR 20.
Will follow ESR, CRP weekly.
Follow valve tissue culture
����������������������������������������������������������
Chief Complaint
-: Bacteremia and Other (MSSA MV IE)
Subjective / Review of Systems
Review of Systems: No Fever, No Chills, No Headache and Other (fatigue )
Vital Signs / Physical Exam
Vital Signs
Vital Signs
Temp Pulse Resp BP Pulse Ox
97.5 F 53 18 127/65 97
09/04/24 08:24 09/04/24 08:28 09/04/24 08:24 09/04/24 08:28 09/04/24 08:24
Physical Exam
Constitutional: Comfortable and Non-toxic
Head: Normocephalic
Eyes: Pupils Equal and Pupils Round
Cardiovascular: Regular Rate and S1/S2
Pulmonary: Non Labored and Other (pericardial drain in place )
Gastrointestinal: Non Distended
Neurological: AO x 3
Psychological: Calm
Lines: Other
Objective Data
Lab Data
Lab Results
09/04/24 04:26
09/04/24 04:26
ESR 20 mm/hour (0-20) 09/04/24 04:26
PT 18.0 Sec (11.4-14.6) H 09/02/24 21:46
INR 1.43 09/02/24 21:46
APTT Cancelled 09/03/24 06:00
Estimated Creat Clear 41 ml/min 09/04/24 04:26
Total Bilirubin 0.9 mg/dl (0.2-1.3) 09/04/24 04:26
AST 32 U/L (14-36) 09/04/24 04:26
ALT < 10 U/L (0-35) 09/04/24 04:26
Alkaline Phosphatase 102 U/L (38-126) 09/04/24 04:26
C-Reactive Protein 132.30 mg/L (0.0-10.00) H 09/04/24 04:26
Most recent labs reviewed.
Micro Results:
09/01/24 15:50 Salmonella/Shigella Culture - Final
Feces/Stool No Salmonella, Shigella, Aeromonas or Plesiomonas species
isolated.
Campylobacter Culture - Final
No Campylobacter species isolated.
Shiga Toxin Test - Final
No E. coli Shiga Toxin 1 or 2 detected.
09/02/24 11:48 Anaerobic Culture - Preliminary
Valve Culture pending. Anaerobic cultures are examined after 3
days incubation. Additional information to follow.
09/02/24 11:48 Tissue Culture - Preliminary
Valve No Growth After 18-24 Hours
Gram Stain - Preliminary
09/02/24 11:48 Fungal Smear - Pending
Valve Fungal Culture - Preliminary
Culture in progress.
Positive cultures are reported as soon as detected.
Final report to follow in four to five weeks.
09/02/24 11:48 Acid Fast Bacilli Smear - Pending
Valve Acid Fast Bacilli Culture - Pending
09/01/24 15:50 C. difficile GDH Antigen & Toxins - Final
Feces/Stool Negative for toxigenic C.difficile
08/27/24 13:48 Blood Culture - Final
Blood/Venous No Growth - Final Report
08/27/24 13:48 Blood Culture - Final
Blood/Venous No Growth - Final Report
08/20/2024 Blood culture: MSSA ([facility])
08/22/2024 Blood culture: No growth ([facility])
Imaging:
08/27/24 MRI brain: ACUTE and SUBACUTE EMBOLIC DISEASE with MULTIPLE SMALL ACUTE and SUBACUTE ISCHEMIC INFARCTS in the brain diffusely distributed throughout both the anterior and posterior circulation..
08/25/2024 CT head: 1.2 cm region of decreased attenuation at the anterior medial right cerebellar hemisphere which is developed since a prior CT scan dated 08/20/2024. This was possibly a recent infarction. Also noted is mild age-related volume
loss. Please see full dictation for additional detail. (Film performed at [facility])
08/21/2024 CT chest: No evidence of pneumonia. Small bilateral pleural effusions noted. Mild subsegmental atelectasis at the posterior inferior aspect of the right and left lower lobes. Ossification of the mitral annulus, with atherosclerotic
coronary artery calcifications noted. Please see full dictation for additional detail. (Film performed at [facility])
08/20/2024 CT head: No evidence of intracranial hemorrhage, acute infarct, mass or midline shift. Chronic small vessel ischemia and volume loss noted. Please see full dictation for additional detail. (Film performed at [facility])
TTE at [facility] 08/24/24: EF 55%, large echogenic mass on posterior mitral valve leaflet 1.6 x 1.3 cm with mild to moderate MR, concern for endocarditis
[2024-09-04] MEDS: SENOKOT-S PO ×2 (09:54→19:55)
[2024-09-04] MEDS: FIBERCON 625 MG PO (10:25)
[2024-09-04] MEDS: DESENEX/MITRAZOL/ZEASORB 1 APPLIC TOPICAL ×2 (10:25→19:53)
[2024-09-04] MEDS: BACTROBAN 2% OINTMENT 1 APPLIC NASAL ×2 (10:26→19:53)
--- NOTE | 2024-09-04 10:30 | PTCARENOTE ---
Rec'd pt this shift awake and alert, tearful and anxious. Pt with Rt IJ cordis on amiodarone at 0.5mcg/min. AM meds given. Pt SB on monitor. PT/OT into see patient. Pt incontinent of large amount diarrhea when working with PT/OT. Pt sitting on
commode at this time. See worklist for VS/I and O and assessments.
[2024-09-04] MEDS: LASIX 40 MG IV (12:31)
[2024-09-04] MEDS: FERRLECIT 110 MG IV (14:36)
[2024-09-04] MEDS: NSS 500 IV (14:36)
--- NOTE | 2024-09-04 14:56 | PTCARENOTE ---
Pt ambulated to bathroom with one person assist and walker, tolerated well. Pt ambulated in hallway with walker with minimal assistance.
--- NOTE | 2024-09-04 15:18 | W.PN.CARDCBS ---
Addendum entered and electronically signed by Dexter Nguyen MD 09/04/24 15:32:
I saw and examined the patient.
The BUSINESS CASE ANALYST or PA's note was reviewed and I agree with the note.
Comment: General: Well developed, well nourished in NAD.
Neck: Supple, no JVD, HJR, carotids +2 B/L, no bruits bilaterally.
Heart: Non displaced PMI, RRR, no murmurs, No S3, S4, no rubs.
Lungs: Scattered rhonchi
Sternal dressings noted
Extremities: No clubbing, cyanosis or edema bilaterally.
Neuro: Grossly nonfocal, awake, alert and oriented x3.
Stable cardiology status. Coumadin restarted. Echo prior to discharge. Continue antibiotics per ID
Original Note:
Today's Communication / Plan
-
continue post op care
starting coumadin
echo prior to DC
abx per ID
Impression / Plan
-
Primary Termite Treater Helper: Dr. Ingram of [facility]
Assessment:
Presentation to [facility] with confusion
TME
LLL infiltrate, not felt to be PNA per pulm at [facility]
MSSA bacteremia
Suspected septic emboli to brain by imaging at [facility]
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
R 3rd toe ulcer s/p debridement per podiatry at [facility]
RA on chronic methotrexate
HTN
HLD
Hypothyroidism
Anxiety/depression
Anemia
Hypoalbuminemia
Moderate hiatal hernia
DDD of neck
Thyroid goiter
TTE at [facility] 08/24/24: EF 55%, large echogenic mass on posterior mitral valve leaflet 1.6 x 1.3 cm with mild to moderate MR, concern for endocarditis
ADITI 08/28 with preserved EF, large partially mobile vegetation measuring 2.0 cm in length on primarily the posterior leaflet of mitral valve, also with smaller, highly mobile echodense structure/vegetation on posterior leaflet of mitral valve that
transverses the mitral valve with each cardiac cycle with high risk of embolization, mild to moderate MR
Plan:
-MSSA bacteremia with mitral valve endocarditis s/p embolic CVA (suspected septic emboli)
-s/p chordal sparing bio MVR with patch repair of mitral annulus, AMADO clip 09/02/24
-in SR. continue lopressor, amiodarone
-hgb 9.8. coumadin 2.5mg starting 09/04, follow INR. goal INR 2-3.
-diuresing.
-continue asa, statin
-check echo prior to DC
-Continue antibiotics per ID
-post op care, IS/OOB as able
-d/w nursing, CT surgery BUSINESS CASE ANALYST
Progress Note - Termite Treater Helper
Subjective
Date of Service: September 04, 2024
reports diarrhea. no significant pain
Objective
Labs:
09/04/24 04:26
09/04/24 04:26
Labs
Hgb 9.8 g/dL (12.0-16.0) L D 09/04/24 04:26
Hct 30.0 % (37.0-47.0) L 09/04/24 04:26
Plt Count 260 10^3/uL (130-400) D 09/04/24 04:26
PT 18.0 Sec (11.4-14.6) H 09/02/24 21:46
INR 1.43 09/02/24 21:46
APTT Cancelled 09/03/24 06:00
Sodium 141 mmol/L (135-145) 09/04/24 04:26
Potassium 4.0 mmol/L (3.5-5.1) 09/04/24 04:26
BUN 17 mg/dl (7-17) 09/04/24 04:26
Creatinine 1.0 mg/dL (0.6-1.0) 09/04/24 04:26
Glucose 153 mg/dl (70-99) H 09/04/24 04:26
Vital Signs and I&O:
Vital Signs
Temp Pulse Resp BP Pulse Ox
97.7 F 67 18 132/67 96
09/04/24 12:26 09/04/24 14:00 09/04/24 12:26 09/04/24 12:31 09/04/24 12:26
Vital Signs
Temp Pulse Resp BP Pulse Ox
97.7 F 67 18 132/67 96
09/04/24 12:26 09/04/24 14:00 09/04/24 12:26 09/04/24 12:31 09/04/24 12:26
Intake & Output
09/02/24 09/03/24 09/04/24 09/05/24
07:59 07:59 07:59 07:59
Intake Total 1260 / 1260 2375.2 / 2399.5 1545.4 / 1545.4 566.7 / 566.7
Output Total 1815 / 1815 660 / 660 400 / 400
Balance 1260 / 1260 560.2 / 584.5 885.4 / 885.4 166.7 / 166.7
Physical Exam
Physical Exam
GEN: No distress, awake, alert, oriented x3. sitting in chair
HEENT: supple, anicteric, mmm, eomi
LUNGS: CTA B/L, no wheezes
CV: Reg, S1/S2, no murmur
ABD: soft, BS+, NT/ND
EXT: No cyanosis, clubbing, edema
NEURO: Gross non-focal
SKIN: Warm, pink, dry. No rash. Sternotomy incision c/d/i.
--- NOTE | 2024-09-04 16:36 | CM ---
Reviewed chart. Met with Mrs. Srivastava and her family yo review discharge plans. We reviewed [facility] at [place] may have a bed early next week. She will need pre-cert with her insurance to go to acute rehab. Medical work-up in progress. The
discharge plan is to go to [facility] at [place] if bed available and approved by insurance.
[2024-09-04] MEDS: COUMADIN 2.5 MG PO (17:08)
[2024-09-04] MEDS: DESITIN MAXIMUM STRENGTH PASTE 1 APPLIC TOPICAL (20:09)
[2024-09-05] VITALS (9 sets, daily range): BP systolic 94–144; BP diastolic 46–92; PULSE 74; O2SAT 96; BMI 25.5
[2024-09-05] MEDS: NAFCIL 108 MG IV ×6 (00:44→20:19)
[2024-09-05] MEDS: ROXICODONE 2.5 MG PO (00:58)
--- NOTE | 2024-09-05 01:44 | PTCARENOTE ---
Rec'd pt. at beginning of shift sitting OOB in chair. Vitals stable, NSR 60's-70's on the monitor. Lungs CTA but diminished, RA pulse ox high 90's. Ambulating with assist x 1 & RW to void jaida urine frequently in the bathroom. No BM's thus far.
Sternal incision ELECTRICAL MACHINIST & approximated with no drainage, area ecchymotic. Old CT site dressing with some old SS drainage, dressing changed, pacer wires present- dressing reinforced. Complaining of mild neck discomfort, Tylenol and oxycodone given with
adequate relief obtained. Pt. currently sleeping.
[2024-09-05] MEDS: TYLENOL 1000 MG PO ×3 (04:05→22:17)
[2024-09-05 05:15] LABS: Hematocrit 28.4 % (37.0-47.0); Hemoglobin 9.3 g/dL (12.0-16.0); Mean Corp Hgb Conc. 32.7 g/dL (33.0-37.0); Mean Corpuscular Hgb 29.6 pg (27.0-31.0); Mean Corpuscular Volume 90.4 fL (81.0-99.0); Mean Platelet Volume 9.8 fL (7.4-10.4); Platelet Count 299 10^3/uL (130-400); Red Blood Cell Count 3.14 10^6/uL (4.20-5.40); Red Cell Dist. Width 16.4 % (11.5-14.5); White Blood Cell Count 9.3 10^3/uL (4.8-10.8)
[2024-09-05 05:20] LABS: INR 2.56; PT 27.5 Sec (11.4-14.6)
[2024-09-05 05:40] LABS: Blood Urea Nitrogen 17 mg/dl (7-17); Calcium 8.7 mg/dl (8.4-10.2); Carbon Dioxide 27 mmol/L (22-30); Chloride 104 mmol/L (98-107); Estimated Creatinine Clearance 51 ml/min; Glucose 101 mg/dl (70-99); Magnesium 2.2 mg/dl (1.6-2.3); Potassium 3.3 mmol/L (3.5-5.1); Sodium 139 mmol/L (135-145); eGFR > 60.00
--- NOTE | 2024-09-05 06:04 | W.PN.CT ---
Today's Communication / Plan
-
-pof #3
-no issues overnight, remained in nsr
-Coumadin started 09/04/24 for paf/MVR- got 2.5 mg. INR today 2.56
-diuresed with 40 iv Lasix on 09/04 (UO 550/1350 in 12/24 hrs)
-gave 40 KCL this am for K 3.3
-current meds (ASA, Lipitor, Lopressor, Amio, Protonix, Nafcilin, fiber for loose stool)
-continue PT/OT-noted PT recommendation for acute rehab. Await physiatry eval. Possibly [facility] next week
-encourage IS, OOB
-appreciate everyone's input
Assessment / Plan
-
Assessment:
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
atrial appendage exclusion [35 mm clip] by Dr. Pena on 09/02/24, pod #3
-Intraop ADITI: LVEF preop and postop was approximately 55 to 60% with no significant regional wma. Her left atrial appendage also verified to be free of any thrombus or debris preop and following arrest we sized it to a 35 mm device and clipped it
flush at the base. There is no residual flow in the appendage. At the conclusion of the case she had no paravalvular leak.
-sinus marge preop and post
-Presentation to [facility] with confusion, transferred to on 08/26/24
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
-Staph aureus (MSSA bacteremia), repeat cultures @ are without growth
-Mild-moderate MR
-MAC
-LVEF 60-65%
-TME
-LLL infiltrate, not felt to be PNA per pulm at [facility]
-R 3rd toe ulder s/p debridement per podiatry at [facility]
-RA on chronic methotrexate
-Immumocompromised
-Sjogren's syndrome
-Dysphagia
-HTN
-HLD
-Hypothyroidism
-GERD/Hiatal hernia
-Anxiety/depression
-Former tobacco use
-Anemia
-Hypoalbuminemia
-Hypokalemia
-Hypernatremia
-DDD of neck
-Osteoarthritis
-Thyroid goiter
-Frail
-Acute postop blood loss anemia - s/p 2 pRBCs
-Acute postop thrombocytopenia/coagulopathy - s/p 2 unit platelets, 1 FFP, DDAVP
-Acute postop hypovolemia with subsequent hypervolemia
-Acute postop atelectasis
-Acute postop hypernatremia
-Acute postop paroxysmal a-fib on 09/03 - tx with Amio bolus and drip
-Coumadin anticoagulation for paf/MVR
Discussed patient care with: Nursing and Care Team
Subjective
-
Date of Service: September 05, 2024
Objective Data
-
Lab Results
09/05/24 04:43
09/05/24 04:43
PT 27.5 Sec (11.4-14.6) H 09/05/24 04:43
INR 2.56 09/05/24 04:43
APTT Cancelled 09/03/24 06:00
Vital Signs
Vital Signs
Temp Pulse Resp BP Pulse Ox
97.8 F 71 16 119/67 96
09/05/24 03:43 09/05/24 04:00 09/05/24 03:43 09/05/24 03:42 09/05/24 03:43
CT Intake/Output/Weight
09/04/24 09/04/24 09/05/24
06:59 18:59 06:59
Intake Total 667.0 / 1569.7 713.5 / 953.5 240 / 953.5
Output Total 560 / 730 800 / 1350 550 / 1350
Balance 107.0 / 839.7 -86.5 / -396.5 -310 / -396.5
SaO2: 96
Physical Exam
-
General: Awake and AOx3
Cardiovascular: Regular rate & rhythm (+JVD), No Murmurs and No Rub
Respiratory: Decreased Breath Sounds
Sternum: Stable
Incision: Clean, Dry and Intact
Abdomen: soft, nontender, nondistended, has liquid stools
Extremities: Edema +1
Data Reviewed
-
Lab Results: Results Reviewed
Medications: Active Meds Reviewed
Chest X-Ray: Report Reviewed and Image Reviewed
ECG: Report Reviewed and Image Reviewed
[2024-09-05] MEDS: KLOR-CON 40 MEQ PO (08:00)
[2024-09-05] MEDS: LOW STRENGTH ASPIRIN 81 MG PO (08:38)
[2024-09-05] MEDS: CYMBALTA DELAYED RELEASE 20 MG PO ×2 (08:38→20:17)
[2024-09-05] MEDS: PROTONIX 40 MG PO (08:38)
[2024-09-05] MEDS: LIPITOR 20 MG PO (08:38)
[2024-09-05] MEDS: LYRICA 50 MG PO (08:38)
[2024-09-05] MEDS: FIBERCON 625 MG PO (08:38)
[2024-09-05] MEDS: BACTROBAN 2% OINTMENT 1 APPLIC NASAL ×2 (08:38→20:18)
[2024-09-05] MEDS: MAGNESIUM OXIDE 500 MG PO ×2 (08:38→20:17)
[2024-09-05] MEDS: LOPRESSOR 12.5 MG PO ×2 (08:38→20:17)
[2024-09-05] MEDS: PACERONE 200 MG PO ×3 (08:38→22:18)
[2024-09-05] MEDS: DESENEX/MITRAZOL/ZEASORB 1 APPLIC TOPICAL ×2 (08:39→20:18)
[2024-09-05] MEDS: DESITIN MAXIMUM STRENGTH PASTE 1 APPLIC TOPICAL ×2 (08:41→20:18)
[2024-09-05] MEDS: LIDOCAINE 4% PATCH 1 PATCH TOPICAL (08:41)
--- NOTE | 2024-09-05 09:06 | W.PN.CARDCBS ---
Today's Communication / Plan
-
Stable cardiology status status post bioprosthetic mitral valve replacement
Recheck INR
Impression / Plan
-
Primary Overlock Hemmer: Dr. Ingram of [facility]
Assessment:
Presentation to [facility] with confusion
TME
LLL infiltrate, not felt to be PNA per pulm at [facility]
MSSA bacteremia
Suspected septic emboli to brain by imaging at [facility]
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
R 3rd toe ulcer s/p debridement per podiatry at [facility]
RA on chronic methotrexate
HTN
HLD
Hypothyroidism
Anxiety/depression
Anemia
Hypoalbuminemia
Moderate hiatal hernia
DDD of neck
Thyroid goiter
TTE at [facility] 08/24/24: EF 55%, large echogenic mass on posterior mitral valve leaflet 1.6 x 1.3 cm with mild to moderate MR, concern for endocarditis
ADITI 08/28 with preserved EF, large partially mobile vegetation measuring 2.0 cm in length on primarily the posterior leaflet of mitral valve, also with smaller, highly mobile echodense structure/vegetation on posterior leaflet of mitral valve that
transverses the mitral valve with each cardiac cycle with high risk of embolization, mild to moderate MR
Plan:
She continues to do well status post bioprosthetic mitral valve replacement
INR went to 2.56 after dose of Coumadin and repeat is being checked
check echo prior to DC
Continue antibiotics per ID
Discussed with CT surgery
Progress Note - Overlock Hemmer
Subjective
Date of Service: September 05, 2024
No complaints
Objective
Labs:
09/05/24 04:43
09/05/24 04:43
Labs
Hgb 9.3 g/dL (12.0-16.0) L 09/05/24 04:43
Hct 28.4 % (37.0-47.0) L 09/05/24 04:43
Plt Count 299 10^3/uL (130-400) 09/05/24 04:43
PT 27.5 Sec (11.4-14.6) H 09/05/24 04:43
INR 2.56 09/05/24 04:43
APTT Cancelled 09/03/24 06:00
Sodium 139 mmol/L (135-145) 09/05/24 04:43
Potassium 3.3 mmol/L (3.5-5.1) L 09/05/24 04:43
BUN 17 mg/dl (7-17) 09/05/24 04:43
Creatinine 0.8 mg/dL (0.6-1.0) 09/05/24 04:43
Glucose 101 mg/dl (70-99) H 09/05/24 04:43
Vital Signs and I&O:
Vital Signs
Temp Pulse Resp BP Pulse Ox
97.8 F 71 16 119/67 96
09/05/24 03:43 09/05/24 04:00 09/05/24 03:43 09/05/24 03:42 09/05/24 06:08
Vital Signs
Temp Pulse Resp BP Pulse Ox
97.8 F 71 16 119/67 96
09/05/24 03:43 09/05/24 04:00 09/05/24 03:43 09/05/24 03:42 09/05/24 06:08
Intake & Output
09/03/24 09/04/24 09/05/24 09/06/24
06:59 06:59 06:59 06:59
Intake Total 2350.9 / 2375.2 1569.7 / 1569.7 1193.5 / 1193.5
Output Total 1745 / 1815 730 / 730 1550 / 1550
Balance 605.9 / 560.2 839.7 / 839.7 -356.5 / -356.5
Physical Exam
Physical Exam
General: Well developed, well nourished in NAD.
Neck: Supple, no JVD, HJR, carotids +2 B/L, no bruits bilaterally.
Heart: Non displaced PMI, RRR, no murmurs, No S3, S4, no rubs.
Lungs: Scattered rhonchi
Sternal dressings noted
Extremities: No clubbing, cyanosis or edema bilaterally.
Neuro: Grossly nonfocal, awake, alert and oriented x3.
[2024-09-05] MEDS: LASIX 20 MG IV (09:18)
[2024-09-05] MEDS: KCL 20 MEQ PO (09:18)
[2024-09-05] MEDS: NON-FORMULARY ITEM 1 CAP PO ×3 (09:33→22:18)
--- NOTE | 2024-09-05 10:49 | W.PN.ID1 ---
Date of Service
Date of Service: September 05, 2024
Today's Communication
Continue abx.
Assessment / Plan
Mitral valve endocarditis
- s/p bovine MV replacement (09/02/24)
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
Staph aureus (MSSA) bacteremia
ESR and CRP elevated
Hypernatremia- resolved
Diarrhea (prior C. diff testing negative)
Sjogren syndrome
Rheumatoid arthritis
Dyslipidemia
Hypothyroidism
Anxiety/depression
Neuropathy
Hx of skin cancer
Osteopenia
Recommendations:
Continue nafcillin 2g IV q4h.
Follow Cr / est CrCl and LFT's closely while on nafcillin.
Elevated CRP 132 with normal ESR 20.
Will follow ESR, CRP weekly.
Follow valve tissue culture; NG at 48 hrs.
Ok to use immodium for diarrhea.
����������������������������������������������������������
Chief Complaint
-: Bacteremia and Other (MSSA MV IE)
Subjective / Review of Systems
Review of Systems: No Fever, No Chills, No Abdominal Pain and Diarrhea
Vital Signs / Physical Exam
Vital Signs
Vital Signs
Temp Pulse Resp BP Pulse Ox
97.8 F 71 16 119/67 96
09/05/24 03:43 09/05/24 04:00 09/05/24 03:43 09/05/24 03:42 09/05/24 06:08
Physical Exam
Constitutional: Comfortable and Non-toxic
Head: Normocephalic
Eyes: Pupils Equal and Pupils Round
Cardiovascular: Regular Rate and S1/S2
Pulmonary: Clear and Non Labored; Negative Wheezes or Rales
Gastrointestinal: Soft, Non Tender, Non Distended, Normal Bowel Sounds, No Rebound and No Guarding
Skin: Warm and Dry
Wound: Other (Sternal wound intact)
Neurological: AO x 3
Psychological: Calm
Lines: Other
Objective Data
Lab Data
Lab Results
09/05/24 04:43
09/05/24 04:43
ESR 20 mm/hour (0-20) 09/04/24 04:26
PT 27.5 Sec (11.4-14.6) H 09/05/24 04:43
INR 2.56 09/05/24 04:43
APTT Cancelled 09/03/24 06:00
Estimated Creat Clear 51 ml/min 09/05/24 04:43
Total Bilirubin 0.9 mg/dl (0.2-1.3) 09/04/24 04:26
AST 32 U/L (14-36) 09/04/24 04:26
ALT < 10 U/L (0-35) 09/04/24 04:26
Alkaline Phosphatase 102 U/L (38-126) 09/04/24 04:26
C-Reactive Protein 132.30 mg/L (0.0-10.00) H 09/04/24 04:26
Most recent labs reviewed.
Micro Results:
09/02/24 11:48 Tissue Culture - Preliminary
Valve No Growth After 48 Hours
Gram Stain - Preliminary
09/01/24 15:50 Salmonella/Shigella Culture - Final
Feces/Stool No Salmonella, Shigella, Aeromonas or Plesiomonas species
isolated.
Campylobacter Culture - Final
No Campylobacter species isolated.
Shiga Toxin Test - Final
No E. coli Shiga Toxin 1 or 2 detected.
09/02/24 11:48 Anaerobic Culture - Preliminary
Valve Culture pending. Anaerobic cultures are examined after 3
days incubation. Additional information to follow.
09/02/24 11:48 Fungal Smear - Pending
Valve Fungal Culture - Preliminary
Culture in progress.
Positive cultures are reported as soon as detected.
Final report to follow in four to five weeks.
09/02/24 11:48 Acid Fast Bacilli Smear - Pending
Valve Acid Fast Bacilli Culture - Pending
09/01/24 15:50 C. difficile GDH Antigen & Toxins - Final
Feces/Stool Negative for toxigenic C.difficile
08/27/24 13:48 Blood Culture - Final
Blood/Venous No Growth - Final Report
08/27/24 13:48 Blood Culture - Final
Blood/Venous No Growth - Final Report
08/20/2024 Blood culture: MSSA ([facility])
08/22/2024 Blood culture: No growth ([facility])
Imaging:
08/27/24 MRI brain: ACUTE and SUBACUTE EMBOLIC DISEASE with MULTIPLE SMALL ACUTE and SUBACUTE ISCHEMIC INFARCTS in the brain diffusely distributed throughout both the anterior and posterior circulation..
08/25/2024 CT head: 1.2 cm region of decreased attenuation at the anterior medial right cerebellar hemisphere which is developed since a prior CT scan dated 08/20/2024. This was possibly a recent infarction. Also noted is mild age-related volume
loss. Please see full dictation for additional detail. (Film performed at [facility])
08/21/2024 CT chest: No evidence of pneumonia. Small bilateral pleural effusions noted. Mild subsegmental atelectasis at the posterior inferior aspect of the right and left lower lobes. Ossification of the mitral annulus, with atherosclerotic
coronary artery calcifications noted. Please see full dictation for additional detail. (Film performed at [facility])
08/20/2024 CT head: No evidence of intracranial hemorrhage, acute infarct, mass or midline shift. Chronic small vessel ischemia and volume loss noted. Please see full dictation for additional detail. (Film performed at [facility])
TTE at [facility] 08/24/24: EF 55%, large echogenic mass on posterior mitral valve leaflet 1.6 x 1.3 cm with mild to moderate MR, concern for endocarditis
Care Review
Plan reviewed with: Other Provider (CTS Impersonator Character)
[2024-09-05] MEDS: IMODIUM LIQUID 4 MG PO (12:14)
[2024-09-05] MEDS: NSS 500 IV (14:10)
[2024-09-05] MEDS: FERRLECIT 110 MG IV (14:10)
[2024-09-05] MEDS: TYLENOL PO (14:24)
[2024-09-05 19:27] LABS: INR 4.53; PT 42.4 Sec (11.4-14.6)
[2024-09-05] MEDS: MEPHYTON 2.5 MG PO (20:17)
[2024-09-05 20:29] LABS: ALT (SGPT) < 10 U/L (0-35); AST (SGOT) 26 U/L (14-36); Albumin 2.6 g/dl (3.5-5.0); Alkaline Phosphatase 108 U/L (38-126); Direct Bilirubin 0.5 mg/dl (0.0-0.4); Total Bilirubin 1.1 mg/dl (0.2-1.3); Total Protein 5.1 g/dl (6.3-8.2)
[2024-09-05 20:33] LABS: ALT (SGPT) < 10 U/L (0-35); AST (SGOT) 28 U/L (14-36); Albumin 2.6 g/dl (3.5-5.0); Alkaline Phosphatase 101 U/L (38-126); Direct Bilirubin 0.4 mg/dl (0.0-0.4); Total Bilirubin 0.8 mg/dl (0.2-1.3); Total Protein 4.9 g/dl (6.3-8.2)
--- NOTE | 2024-09-05 22:35 | PTCARENOTE ---
Pt received awake alert and oriented. Assessment as charted. Vit K given as ordered for INR 4.53. Room air sat 98 %.
--- NOTE | 2024-09-06 00:28 | W.PN.CT ---
Today's Communication / Plan
-
-pod #4
-no issues overnight
-Coumadin started 09/04/24 for paf/MVR- got 2.5 mg. INR up to 4.53 yesterday, given 2.5 mg vit K, holding dose today, INR this AM 2.02
-diuresed, multiple episodes of incontinence, 71.7 kg yesterday 70.9 kg today
-current meds (ASA, Lipitor, Lopressor, Amio, Protonix, Nafcillin, fiber for loose stool)
-PT recommendation for acute rehab. Await physiatry eval. Possibly [facility] next week
-encourage IS, OOB
-appreciate everyone's input
Assessment / Plan
-
Assessment:
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
atrial appendage exclusion [35 mm clip] by Dr. Pena on 09/02/24, pod #4
-Intraop ADITI: LVEF preop and postop was approximately 55 to 60% with no significant regional wma. Her left atrial appendage also verified to be free of any thrombus or debris preop and following arrest we sized it to a 35 mm device and clipped it
flush at the base. There is no residual flow in the appendage. At the conclusion of the case she had no paravalvular leak.
-sinus marge preop and post
-Presentation to [facility] with confusion, transferred to on 08/26/24
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
-Staph aureus (MSSA bacteremia), repeat cultures @ are without growth
-Mild-moderate MR
-MAC
-LVEF 60-65%
-TME
-LLL infiltrate, not felt to be PNA per pulm at [facility]
-R 3rd toe ulder s/p debridement per podiatry at [facility]
-RA on chronic methotrexate
-Immumocompromised
-Sjogren's syndrome
-Dysphagia
-HTN
-HLD
-Hypothyroidism
-GERD/Hiatal hernia
-Anxiety/depression
-Former tobacco use
-Anemia
-Hypoalbuminemia
-Hypokalemia
-Hypernatremia
-DDD of neck
-Osteoarthritis
-Thyroid goiter
-Frail
-Acute postop blood loss anemia - s/p 2 pRBCs
-Acute postop thrombocytopenia/coagulopathy - s/p 2 unit platelets, 1 FFP, DDAVP
-Acute postop hypovolemia with subsequent hypervolemia
-Acute postop atelectasis
-Acute postop hypernatremia
-Acute postop paroxysmal a-fib on 09/03 - tx with Amio bolus and drip
-Coumadin anticoagulation for paf/MVR
Subjective
-
Date of Service: September 06, 2024
Objective Data
-
PT 42.4 Sec (11.4-14.6) H 09/05/24 19:08
INR 4.53 09/05/24 19:08
APTT Cancelled 09/03/24 06:00
Vital Signs
Vital Signs
Temp Pulse Resp BP Pulse Ox
97.9 F 61 18 134/76 98
09/05/24 22:32 09/05/24 22:18 09/05/24 22:32 09/05/24 22:18 09/05/24 20:15
CT Intake/Output/Weight
09/05/24 09/05/24 09/06/24
06:59 18:59 06:59
Intake Total 480 / 1193.5
Output Total 750 / 1550 1200 / 1200
Balance -270 / -356.5 -1200 / -1200
SaO2: 98
Physical Exam
-
General: Awake, Oriented and AOx3
Cardiovascular: Regular rate & rhythm, No Murmurs and No Rub
Respiratory: Clear, Equal and Decreased Breath Sounds
Sternum: Stable
Incision: Clean, Dry and Intact
Extremities: Edema +1
Data Reviewed
-
Lab Results: Results Reviewed
Medications: Active Meds Reviewed
Chest X-Ray: Report Reviewed
ECG: Report Reviewed
[2024-09-06] MEDS: NAFCIL 108 MG IV ×7 (01:52→23:52)
[2024-09-06 04:08] VITALS: BP 137/65
[2024-09-06 04:23] VITALS: BMI 25.2
[2024-09-06 04:34] LABS: Hematocrit 28.5 % (37.0-47.0); Hemoglobin 9.2 g/dL (12.0-16.0); Mean Corp Hgb Conc. 32.3 g/dL (33.0-37.0); Mean Corpuscular Hgb 29.9 pg (27.0-31.0); Mean Corpuscular Volume 92.5 fL (81.0-99.0); Mean Platelet Volume 9.7 fL (7.4-10.4); Platelet Count 322 10^3/uL (130-400); Red Blood Cell Count 3.08 10^6/uL (4.20-5.40); Red Cell Dist. Width 16.2 % (11.5-14.5); White Blood Cell Count 8.4 10^3/uL (4.8-10.8)
[2024-09-06 04:41] LABS: INR 2.02
[2024-09-06 04:55] LABS: Blood Urea Nitrogen 14 mg/dl (7-17); Calcium 8.8 mg/dl (8.4-10.2); Carbon Dioxide 31 mmol/L (22-30); Chloride 103 mmol/L (98-107); Estimated Creatinine Clearance 51 ml/min; Glucose 94 mg/dl (70-99); Magnesium 2.2 mg/dl (1.6-2.3); Potassium 3.2 mmol/L (3.5-5.1); Sodium 139 mmol/L (135-145); eGFR > 60.00
[2024-09-06] MEDS: TYLENOL 1000 MG PO ×3 (04:57→22:49)
[2024-09-06 09:09] VITALS: BP 139/78
[2024-09-06] MEDS: BACTROBAN 2% OINTMENT 1 APPLIC NASAL (09:18)
[2024-09-06] MEDS: CYMBALTA DELAYED RELEASE 20 MG PO ×2 (09:19→20:22)
[2024-09-06] MEDS: PROTONIX 40 MG PO (09:19)
[2024-09-06] MEDS: KCL 40 MEQ PO ×2 (09:19→12:59)
[2024-09-06] MEDS: FIBERCON 625 MG PO (09:19)
[2024-09-06] MEDS: MAGNESIUM OXIDE 500 MG PO ×2 (09:19→20:24)
[2024-09-06] MEDS: LOPRESSOR 12.5 MG PO ×2 (09:19→20:24)
[2024-09-06] MEDS: PACERONE 200 MG PO ×3 (09:20→22:49)
[2024-09-06] MEDS: LOW STRENGTH ASPIRIN 81 MG PO (09:20)
[2024-09-06] MEDS: LIPITOR 20 MG PO (09:20)
[2024-09-06] MEDS: LYRICA 50 MG PO (09:20)
[2024-09-06] MEDS: DESENEX/MITRAZOL/ZEASORB 1 APPLIC TOPICAL ×2 (09:21→20:22)
[2024-09-06] MEDS: NON-FORMULARY ITEM 1 CAP PO ×3 (09:21→22:49)
[2024-09-06] MEDS: DESITIN MAXIMUM STRENGTH PASTE 1 APPLIC TOPICAL ×2 (09:22→20:23)
[2024-09-06] MEDS: LIDOCAINE 4% PATCH 1 PATCH TOPICAL (09:22)
--- NOTE | 2024-09-06 09:45 | PTCARENOTE ---
Received patient for 7a-7p shift. Pt AAOx3, without complaints. NSR on mortgage funder, VSS. Medications administered as ordered. Patient ambulated to bathroom and in wang with assistance and rolling walker. + bm x2. RIJ cordis infusing with kvo
without issues. Patient denies pain at this time. Will continue to monitor.
--- NOTE | 2024-09-06 11:56 | W.PN.ID1 ---
Date of Service
Date of Service: September 06, 2024
Today's Communication
Continue antibiotics per
Assessment / Plan
Mitral valve endocarditis
- s/p bovine MV replacement (09/02/24)
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
Staph aureus (MSSA) bacteremia
ESR and CRP elevated
Hypernatremia- resolved
Diarrhea (prior C. diff testing negative)
- improved/resolved. 'mushy' per nursing.
Sjogren syndrome
Rheumatoid arthritis
Dyslipidemia
Hypothyroidism
Anxiety/depression
Neuropathy
Hx of skin cancer
Osteopenia
Recommendations:
Continue nafcillin 2g IV q4h.
Follow Cr / est CrCl and LFT's closely while on nafcillin.
Elevated CRP 132 with normal ESR 20.
Will follow ESR, CRP weekly.
Follow valve tissue culture; NGTD
Ok to use immodium for diarrhea.
����������������������������������������������������������
Chief Complaint
-: Bacteremia and Other (MSSA MV IE)
Subjective / Review of Systems
Review of Systems: No Fever and No Chills
Vital Signs / Physical Exam
Vital Signs
Vital Signs
Temp Pulse Resp BP Pulse Ox
97.4 F 73 18 139/78 96
09/06/24 09:09 09/06/24 10:00 09/06/24 09:09 09/06/24 09:20 09/06/24 10:56
Physical Exam
Constitutional: No Acute Distress and Comfortable
Cardiovascular: Regular Rate and S1/S2
Pulmonary: Clear and Non Labored
Gastrointestinal: Soft, Non Tender and Non Distended
Skin: Warm and Dry
Wound: Other (Sternal wound intact)
Neurological: AO x 3
Psychological: Calm
Objective Data
Lab Data
Lab Results
09/06/24 04:05
09/06/24 04:05
ESR 20 mm/hour (0-20) 09/04/24 04:26
PT 23.0 Sec (11.4-14.6) H 09/06/24 04:05
INR 2.02 D 09/06/24 04:05
APTT Cancelled 09/03/24 06:00
Estimated Creat Clear 51 ml/min 09/06/24 04:05
Total Bilirubin 1.1 mg/dl (0.2-1.3) 09/05/24 19:53
AST 26 U/L (14-36) 09/05/24 19:53
ALT < 10 U/L (0-35) 09/05/24 19:53
Alkaline Phosphatase 108 U/L (38-126) 09/05/24 19:53
C-Reactive Protein 132.30 mg/L (0.0-10.00) H 09/04/24 04:26
Most recent labs reviewed.
Micro Results:
09/02/24 11:48 Anaerobic Culture - Preliminary
Valve Culture pending. Anaerobic cultures are examined after 3
days incubation. Additional information to follow.
09/02/24 11:48 Acid Fast Bacilli Smear - Preliminary
Valve Acid Fast Bacilli Culture - Preliminary
09/02/24 11:48 Tissue Culture - Preliminary
Valve No Growth After 72 Hours
Gram Stain - Preliminary
09/01/24 15:50 Salmonella/Shigella Culture - Final
Feces/Stool No Salmonella, Shigella, Aeromonas or Plesiomonas species
isolated.
Campylobacter Culture - Final
No Campylobacter species isolated.
Shiga Toxin Test - Final
No E. coli Shiga Toxin 1 or 2 detected.
09/02/24 11:48 Fungal Smear - Pending
Valve Fungal Culture - Preliminary
Culture in progress.
Positive cultures are reported as soon as detected.
Final report to follow in four to five weeks.
04/01/25 15:50 C. difficile GDH Antigen & Toxins - Final
Feces/Stool Negative for toxigenic C.difficile
08/27/24 13:48 Blood Culture - Final
Blood/Venous No Growth - Final Report
08/27/24 13:48 Blood Culture - Final
Blood/Venous No Growth - Final Report
08/20/2024 Blood culture: MSSA ([facility])
08/22/2024 Blood culture: No growth ([facility])
Imaging:
08/27/24 MRI brain: ACUTE and SUBACUTE EMBOLIC DISEASE with MULTIPLE SMALL ACUTE and SUBACUTE ISCHEMIC INFARCTS in the brain diffusely distributed throughout both the anterior and posterior circulation..
08/25/2024 CT head: 1.2 cm region of decreased attenuation at the anterior medial right cerebellar hemisphere which is developed since a prior CT scan dated 08/20/2024. This was possibly a recent infarction. Also noted is mild age-related volume
loss. Please see full dictation for additional detail. (Film performed at [facility])
08/21/2024 CT chest: No evidence of pneumonia. Small bilateral pleural effusions noted. Mild subsegmental atelectasis at the posterior inferior aspect of the right and left lower lobes. Ossification of the mitral annulus, with atherosclerotic
coronary artery calcifications noted. Please see full dictation for additional detail. (Film performed at [facility])
08/20/2024 CT head: No evidence of intracranial hemorrhage, acute infarct, mass or midline shift. Chronic small vessel ischemia and volume loss noted. Please see full dictation for additional detail. (Film performed at [facility])
TTE at [facility] 08/24/24: EF 55%, large echogenic mass on posterior mitral valve leaflet 1.6 x 1.3 cm with mild to moderate MR, concern for endocarditis
[2024-09-06 12:56] VITALS: BP 134/64
--- NOTE | 2024-09-06 12:56 | PTCARENOTE ---
Patient NSR, VSS, denies pain at this time. Ambulated in wang with PT/OT. Pt ambulatory in room with rolling walker and 1 person assist. Pt had 3 loose stools, tolerating po intake, denies nausea. Medications administered as ordered. RIJ cordis
infusing without issues. Patient demonstrates use of call humphrey system. Will continue to monitor.
[2024-09-06] MEDS: MAALOX 30 ML PO ×3 (14:44→23:41)
[2024-09-06 15:59] VITALS: BP 107/61
[2024-09-06] MEDS: NSS 500 IV (15:59)
--- NOTE | 2024-09-06 17:17 | PTCARENOTE ---
Pt reassessed, assessment unchanged from previous. VSS, NSR on director of cardiac rehabilitation. Patient denies pain at this time. Medications administered as ordered. INR 2.02, Warfarin 0.5mg ordered. Will continue to monitor.
[2024-09-06] MEDS: COUMADIN 0.5 MG PO (18:33)
[2024-09-06 19:35] VITALS: BP 115/72
--- NOTE | 2024-09-06 21:00 | PTCARENOTE ---
Report received from MAITE Rogers. Walking rounds done. Pt sitting in chair. Awake, alert, oriented x 4. Speech clear, soft at times. Equal extremity strength x 4. Generalized weakness. Uses rolling walker to ambulate. Pt on room air. Sats 95-97%. BBS
present Decreased B bases. Audible heart tones. Pt in SR. Normotensive. AV wires insulated. Pulses palpable to B radials and B DPs. +1 pitting edema BLE. For wound assessments, see flowsheets. Belly soft, nontender. Normoactive bs x 4. Urine clear,
yellow. Scheduled meds given. Ongoing plan of care.
[2024-09-06 22:46] VITALS: BP 126/67
--- NOTE | 2024-09-06 23:30 | PTCARENOTE ---
Pt helped to BR to void clear, yellow urine and have soft stool. Pt helped back to bed. CHG bath given. Dressing to old CT sites and pacing wire sites changed/cleansed with CHG swab. Small distal area of sternal incision without scab. Granulation
tissue present. SSG drainage. Shown to DEEPTI Christiansen. Pt afebrile. VS done. Ongoing plan of care. Pt prefers to sleep in chair for now. Reclined.
[2024-09-07] VITALS (12 sets, daily range): BP systolic 77–152; BP diastolic 68–124; PULSE 75; BMI 25.4
--- NOTE | 2024-09-07 00:37 | W.PN.CT ---
Today's Communication / Plan
-
-pod #5
-no issues overnight
-Coumadin started 09/04/24 for paf/MVR- got 2.5 mg. INR up to 4.53 on 09/05, given 2.5 mg vit K, 0.5 mg yesterday and INR today is 1.23
-diuresed, multiple episodes of incontinence, weight downtrending
-current meds (ASA, Lipitor, Lopressor, Amio, Protonix, Nafcillin, fiber for loose stool)
-PT recommendation for acute rehab. Await physiatry eval. Possibly [facility] next week
-encourage IS, OOB
-appreciate everyone's input
Assessment / Plan
-
Assessment:
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
atrial appendage exclusion [35 mm clip] by Dr. Pena on 09/02/24, pod #5
-Intraop ADITI: LVEF preop and postop was approximately 55 to 60% with no significant regional wma. Her left atrial appendage also verified to be free of any thrombus or debris preop and following arrest we sized it to a 35 mm device and clipped it
flush at the base. There is no residual flow in the appendage. At the conclusion of the case she had no paravalvular leak.
-sinus marge preop and post
-Presentation to [facility] with confusion, transferred to on 08/26/24
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
-Staph aureus (MSSA bacteremia), repeat cultures @ are without growth
-Mild-moderate MR
-MAC
-LVEF 60-65%
-TME
-LLL infiltrate, not felt to be PNA per pulm at [facility]
-R 3rd toe ulder s/p debridement per podiatry at [facility]
-RA on chronic methotrexate
-Immumocompromised
-Sjogren's syndrome
-Dysphagia
-HTN
-HLD
-Hypothyroidism
-GERD/Hiatal hernia
-Anxiety/depression
-Former tobacco use
-Anemia
-Hypoalbuminemia
-Hypokalemia
-Hypernatremia
-DDD of neck
-Osteoarthritis
-Thyroid goiter
-Frail
-Acute postop blood loss anemia - s/p 2 pRBCs
-Acute postop thrombocytopenia/coagulopathy - s/p 2 unit platelets, 1 FFP, DDAVP
-Acute postop hypovolemia with subsequent hypervolemia
-Acute postop atelectasis
-Acute postop hypernatremia
-Acute postop paroxysmal a-fib on 09/03 - tx with Amio bolus and drip
-Coumadin anticoagulation for paf/MVR
Subjective
-
Date of Service: September 07, 2024
Objective Data
-
PT 23.0 Sec (11.4-14.6) H 09/06/24 04:05
INR 2.02 D 09/06/24 04:05
APTT Cancelled 09/03/24 06:00
Vital Signs
Vital Signs
Temp Pulse Resp BP Pulse Ox
98.3 F 68 15 126/67 97
09/06/24 22:46 09/06/24 22:49 09/06/24 22:46 09/06/24 22:49 09/06/24 22:46
CT Intake/Output/Weight
09/06/24 09/06/24 09/07/24
06:59 18:59 06:59
Intake Total 400 / 400 640 / 770 130 / 770
Balance 400 / -800 640 / 770 130 / 770
SaO2: 97
Physical Exam
-
General: Awake, Oriented and AOx3
Cardiovascular: Regular rate & rhythm, No Murmurs and No Rub
Respiratory: Clear, Equal and Decreased Breath Sounds
Sternum: Stable
Incision: Clean and Intact
Extremities: Edema +1
Data Reviewed
-
Lab Results: Results Reviewed
Medications: Active Meds Reviewed
Chest X-Ray: Report Reviewed
ECG: Report Reviewed
--- NOTE | 2024-09-07 03:30 | PTCARENOTE ---
Pt helped to BR to void and have soft, moderate BM. Helped back to bed. Remains in SR.
[2024-09-07] MEDS: NAFCIL 108 MG IV ×5 (04:43→21:22)
[2024-09-07 05:27] LABS: INR 1.23; PT 15.8 Sec (11.4-14.6)
[2024-09-07 05:32] LABS: Hematocrit 28.8 % (37.0-47.0); Hemoglobin 9.3 g/dL (12.0-16.0); Mean Corp Hgb Conc. 32.3 g/dL (33.0-37.0); Mean Corpuscular Hgb 30.3 pg (27.0-31.0); Mean Corpuscular Volume 93.8 fL (81.0-99.0); Mean Platelet Volume 9.6 fL (7.4-10.4); Platelet Count 371 10^3/uL (130-400); Red Blood Cell Count 3.07 10^6/uL (4.20-5.40); Red Cell Dist. Width 16.5 % (11.5-14.5); White Blood Cell Count 7.8 10^3/uL (4.8-10.8)
[2024-09-07 06:08] LABS: Blood Urea Nitrogen 12 mg/dl (7-17); Calcium 8.8 mg/dl (8.4-10.2); Carbon Dioxide 32 mmol/L (22-30); Chloride 107 mmol/L (98-107); Estimated Creatinine Clearance 51 ml/min; Glucose 106 mg/dl (70-99); Potassium 3.8 mmol/L (3.5-5.1); Sodium 139 mmol/L (135-145); eGFR > 60.00
[2024-09-07] MEDS: TYLENOL 1000 MG PO ×3 (06:51→23:28)
--- NOTE | 2024-09-07 07:20 | PTCARENOTE ---
Pt helped to BR, had a BM (moderate, soft, brown), voided. Desitin applied. Pt helped to standing scale, weighed. Helped to recliner chair. Report to MAITE Barriga.
[2024-09-07] MEDS: LOW STRENGTH ASPIRIN 81 MG PO (08:38)
[2024-09-07] MEDS: LIPITOR 20 MG PO (08:39)
[2024-09-07] MEDS: PROTONIX 40 MG PO (08:39)
[2024-09-07] MEDS: LYRICA 50 MG PO (08:39)
[2024-09-07] MEDS: KCL 40 MEQ PO (08:39)
[2024-09-07] MEDS: PACERONE 200 MG PO ×3 (08:39→23:27)
[2024-09-07] MEDS: DESENEX/MITRAZOL/ZEASORB 1 APPLIC TOPICAL ×2 (08:39→20:58)
[2024-09-07] MEDS: CYMBALTA DELAYED RELEASE 20 MG PO ×2 (08:39→20:58)
[2024-09-07] MEDS: MAGNESIUM OXIDE 500 MG PO ×2 (08:39→20:59)
[2024-09-07] MEDS: FIBERCON 625 MG PO (08:39)
[2024-09-07] MEDS: LOPRESSOR 12.5 MG PO ×2 (08:39→21:00)
[2024-09-07] MEDS: NON-FORMULARY ITEM 1 CAP PO ×3 (08:40→23:26)
[2024-09-07] MEDS: LIDOCAINE 4% PATCH TOPICAL (08:41)
[2024-09-07] MEDS: DESITIN MAXIMUM STRENGTH PASTE 1 APPLIC TOPICAL ×2 (08:41→20:59)
--- NOTE | 2024-09-07 10:29 | PN.CDI ---
CDI
- -
CDI:
Physician Documentation Request
Admit Date: 08/26/24 18:58
Dear Doctor/CVPA,
Please review the following and provide your response in the progress notes.
Clinical Indicators:
Pt admitted with Mitral valve endocarditis with multiple diffuse embolic CVA/ S/p surgical repair on 09/02
Progress note 09/05, ' Diuresis weight is up 5 kg. ..-diuresed with 40 iv Lasix on 09/04 (UO 550/1350 in 12/24 hrs)....-LVEF 60-65%....Regular rate & rhythm (+JVD)..Respiratory: Decreased Breath Sounds...Extremities: Edema +1...'
Per MAR did get IV Lasix 40 mg ( 09/03 & 09/04)/ 20 mg IV Lasix on 09/05
Please provide a diagnosis for the above IV Lasix use :
Acute Diastolic CHF
Hypervolemia only
Other ( please specify)
Use of terms such as suspected, likely, concern for, or probable (associated with a specific diagnosis that is being evaluated, monitored, or treated as if it exists) are acceptable and can be coded in the inpatient setting, when documented at the
time of discharge.
Thank you,
Neha Badillo RN
CDI Specialist
Erin Text
Please use your independent medical judgment in providing your response.
[2024-09-07] MEDS: NSS 500 IV (12:04)
--- NOTE | 2024-09-07 13:10 | CM ---
Reviewed chart. Met with Mrs. Srivastava to review discharge plans. Telephone call to [facility] Liaison to check on bed availability. [facility] at [place] does not have a bed available today but may have one tomorrow if they have a discharge.
Will need to pre-cert with her insurance. Prior ti admission she resides alone in a two story home with two steps to enter. She has a full flight of steps to get to bedroom/full bathroom. She has a powder room on the first floor. Prior to
admission she was independent with ambulation and adls. She does not have any DME in the home Medical work-up in progress. The discharge plan is to go to [facility] at [place] when bed available and approved by insurance when medically
stable.
--- NOTE | 2024-09-07 13:41 | W.PN.CARDCBS ---
Today's Communication / Plan
-
Continue PT efforts
Diurese
Impression / Plan
-
Primary Leaf Blender: Dr. Ingram of [facility]
Assessment:
Presentation to [facility] with confusion
TME
LLL infiltrate, not felt to be PNA per pulm at [facility]
MSSA bacteremia
Suspected septic emboli to brain by imaging at [facility]
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
R 3rd toe ulcer s/p debridement per podiatry at [facility]
RA on chronic methotrexate
HTN
HLD
Hypothyroidism
Anxiety/depression
Anemia
Hypoalbuminemia
Moderate hiatal hernia
DDD of neck
Thyroid goiter
TTE at [facility] 08/24/24: EF 55%, large echogenic mass on posterior mitral valve leaflet 1.6 x 1.3 cm with mild to moderate MR, concern for endocarditis
ADITI 08/28 with preserved EF, large partially mobile vegetation measuring 2.0 cm in length on primarily the posterior leaflet of mitral valve, also with smaller, highly mobile echodense structure/vegetation on posterior leaflet of mitral valve that
transverses the mitral valve with each cardiac cycle with high risk of embolization, mild to moderate MR
Plan:
She continues to do well status post bioprosthetic mitral valve replacement
Hemodynamically stable
Significantly deconditioned working with PT suspect will need acute rehab following discharge
Postop Coumadin initiated by CT surgery with supratherapeutic INR on low-dose requiring vitamin K�will defer further attempts of short-term anticoagulation postop to CT surgery. Today INR 1.23 with no active bleeding
Appears volume overloaded on IV Lasix. Discussed with CT surgery ORTIZ additional dose of Lasix
check echo prior to DC
Continue antibiotics per ID
Discussed with CT surgery ORTIZ
Progress Note - Leaf Blender
Subjective
Date of Service: September 07, 2024
Seen and examined. Sitting out of bed to chair. No chest pain or shortness of breath. Profound weakness with attempts of PT earlier today per her report. Positive BM/positive voids
Objective
Labs:
09/07/24 04:54
09/07/24 04:54
Labs
Hgb 9.3 g/dL (12.0-16.0) L 09/07/24 04:54
Hct 28.8 % (37.0-47.0) L 09/07/24 04:54
Plt Count 371 10^3/uL (130-400) 09/07/24 04:54
PT 15.8 Sec (11.4-14.6) H 09/07/24 04:54
INR 1.23 09/07/24 04:54
APTT Cancelled 09/03/24 06:00
Sodium 139 mmol/L (135-145) 09/07/24 04:54
Potassium 3.8 mmol/L (3.5-5.1) 09/07/24 04:54
BUN 12 mg/dl (7-17) 09/07/24 04:54
Creatinine 0.8 mg/dL (0.6-1.0) 09/07/24 04:54
Glucose 106 mg/dl (70-99) H 09/07/24 04:54
Vital Signs and I&O:
Vital Signs
Temp Pulse Resp BP Pulse Ox
98.6 F 66 18 133/99 93
09/07/24 08:00 09/07/24 12:00 09/07/24 08:00 09/07/24 10:49 09/07/24 10:19
Vital Signs
Temp Pulse Resp BP Pulse Ox
98.6 F 66 18 133/99 93
09/07/24 08:00 09/07/24 12:00 09/07/24 08:00 09/07/24 10:49 09/07/24 10:19
Intake & Output
09/05/24 09/06/24 09/07/24 09/08/24
06:59 06:59 06:59 06:59
Intake Total 1193.5 / 1193.5 400 / 400 950 / 950
Output Total 1550 / 1550 1200 / 1200 400 / 400
Balance -356.5 / -356.5 -800 / -800 950 / 950 -400 / -400
Physical Exam
Physical Exam
General: Well developed, well nourished in NAD.
Heart: Regular. Positive S1-S2. Sternal wound intact with ecchymosis. Distant heart sounds. No murmurs or rubs.
Lungs: Bronchovesicular breath sounds decreased but clear
Sternal dressings noted
Extremities:++ edema
[2024-09-07] MEDS: LASIX 40 MG IV (13:55)
--- NOTE | 2024-09-07 14:55 | W.PN.ID1 ---
Date of Service
Date of Service: September 07, 2024
Today's Communication
Continue nafcillin.
Assessment / Plan
Mitral valve endocarditis
- s/p bovine MV replacement (09/02/24)
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
Staph aureus (MSSA) bacteremia
ESR and CRP elevated
Hypernatremia- resolved
Diarrhea (prior C. diff testing negative)
- improved/resolved. 'mushy' per nursing.
Sjogren syndrome
Rheumatoid arthritis
Dyslipidemia
Hypothyroidism
Anxiety/depression
Neuropathy
Hx of skin cancer
Osteopenia
Recommendations:
Continue nafcillin 2g IV q4h to complete a 6-week course of therapy (through 10/14/2024)
Follow Cr / est CrCl and LFT's closely while on nafcillin.
Will follow ESR, CRP weekly.
Follow valve tissue culture; NGTD
Ok to use immodium for diarrhea.
����������������������������������������������������������
Chief Complaint
-: Bacteremia and Other (MSSA MV IE)
Subjective / Review of Systems
Review of Systems: No Fever, No Chills and No Diarrhea (Mushy stool reported.)
Vital Signs / Physical Exam
Vital Signs
Vital Signs
Temp Pulse Resp BP Pulse Ox
98.6 F 76 18 133/99 93
09/07/24 08:00 09/07/24 14:00 09/07/24 08:00 09/07/24 10:49 09/07/24 10:19
Physical Exam
Constitutional: No Acute Distress and Comfortable
Cardiovascular: Regular Rate and S1/S2
Pulmonary: Clear and Non Labored
Gastrointestinal: Soft, Non Tender and Non Distended
Skin: Warm and Dry
Wound: Other (Sternal wound intact)
Neurological: AO x 3
Psychological: Calm
Objective Data
Lab Data
Lab Results
09/07/24 04:54
09/07/24 04:54
ESR 20 mm/hour (0-20) 09/04/24 04:26
PT 15.8 Sec (11.4-14.6) H 09/07/24 04:54
INR 1.23 09/07/24 04:54
APTT Cancelled 09/03/24 06:00
Estimated Creat Clear 51 ml/min 09/07/24 04:54
Total Bilirubin 1.1 mg/dl (0.2-1.3) 09/05/24 19:53
AST 26 U/L (14-36) 09/05/24 19:53
ALT < 10 U/L (0-35) 09/05/24 19:53
Alkaline Phosphatase 108 U/L (38-126) 09/05/24 19:53
C-Reactive Protein 132.30 mg/L (0.0-10.00) H 09/04/24 04:26
Most recent labs reviewed.
Micro Results:
09/02/24 11:48 Tissue Culture - Final
Valve No Growth After 72 Hours
Gram Stain - Final
09/02/24 11:48 Anaerobic Culture - Final
Valve NO ANAEROBES ISOLATED
09/02/24 11:48 Acid Fast Bacilli Smear - Preliminary
Valve Acid Fast Bacilli Culture - Preliminary
09/01/24 15:50 Salmonella/Shigella Culture - Final
Feces/Stool No Salmonella, Shigella, Aeromonas or Plesiomonas species
isolated.
Campylobacter Culture - Final
No Campylobacter species isolated.
Shiga Toxin Test - Final
No E. coli Shiga Toxin 1 or 2 detected.
09/02/24 11:48 Fungal Smear - Pending
Valve Fungal Culture - Preliminary
Culture in progress.
Positive cultures are reported as soon as detected.
Final report to follow in four to five weeks.
09/01/24 15:50 C. difficile GDH Antigen & Toxins - Final
Feces/Stool Negative for toxigenic C.difficile
08/27/24 13:48 Blood Culture - Final
Blood/Venous No Growth - Final Report
08/27/24 13:48 Blood Culture - Final
Blood/Venous No Growth - Final Report
08/20/2024 Blood culture: MSSA ([facility])
08/22/2024 Blood culture: No growth ([facility])
Imaging:
08/27/24 MRI brain: ACUTE and SUBACUTE EMBOLIC DISEASE with MULTIPLE SMALL ACUTE and SUBACUTE ISCHEMIC INFARCTS in the brain diffusely distributed throughout both the anterior and posterior circulation..
08/25/2024 CT head: 1.2 cm region of decreased attenuation at the anterior medial right cerebellar hemisphere which is developed since a prior CT scan dated 08/20/2024. This was possibly a recent infarction. Also noted is mild age-related volume
loss. Please see full dictation for additional detail. (Film performed at [facility])
08/21/2024 CT chest: No evidence of pneumonia. Small bilateral pleural effusions noted. Mild subsegmental atelectasis at the posterior inferior aspect of the right and left lower lobes. Ossification of the mitral annulus, with atherosclerotic
coronary artery calcifications noted. Please see full dictation for additional detail. (Film performed at [facility])
08/20/2024 CT head: No evidence of intracranial hemorrhage, acute infarct, mass or midline shift. Chronic small vessel ischemia and volume loss noted. Please see full dictation for additional detail. (Film performed at [facility])
TTE at [facility] 08/24/24: EF 55%, large echogenic mass on posterior mitral valve leaflet 1.6 x 1.3 cm with mild to moderate MR, concern for endocarditis
Care Review
Plan reviewed with: Nurse
--- NOTE | 2024-09-07 15:44 | VATNOTE ---
PICC order noted. Limited to left arm due to known clot in right arm. During procedure, multiple veins able to be accessed, but unable to pass the wire an appropriate amount. On fourth attempt, able to pass wire completely in brachial vein, however
not able to fully insert PICC. Multiple attempts made prior to terminating procedure. PCN Linus made aware who notified PA and requested IRAD consult for PICC placement. Patient and family updated.
--- NOTE | 2024-09-07 18:18 | W.PN.UPDATE ---
Update Note
Progress Note Update
Attempted left arm PICC unsuccessfully. Venogram showed occlusion of the left brachial vein. Right arm cannot be used for PICC due to thrombus.
Right IJ currently has cordis.
Tunneled PICC may be a terminal gauger supervisor option. Right IJ would be preferable, as the catheter is very flimsy and difficult to direct from the left IJ. May attempt right IJ tunneled PICC once cordis is no longer needed. No PICC placed today.
[2024-09-07 20:51] LABS: Hematocrit 29.6 % (37.0-47.0); Hemoglobin 9.5 g/dL (12.0-16.0); Mean Corp Hgb Conc. 32.1 g/dL (33.0-37.0); Mean Corpuscular Hgb 30.3 pg (27.0-31.0); Mean Corpuscular Volume 94.3 fL (81.0-99.0); Mean Platelet Volume 9.1 fL (7.4-10.4); Platelet Count 420 10^3/uL (130-400); Red Blood Cell Count 3.14 10^6/uL (4.20-5.40); Red Cell Dist. Width 16.8 % (11.5-14.5); White Blood Cell Count 9.8 10^3/uL (4.8-10.8)
[2024-09-07] MEDS: COUMADIN 1 MG PO (20:51)
[2024-09-07] MEDS: HEPARIN 25000 UNITS/250 ML IV (20:51)
[2024-09-07 21:01] LABS: APTT 34.7 Sec (23.4-35.0)
[2024-09-07] MEDS: IMODIUM LIQUID 4 MG PO (21:11)
--- NOTE | 2024-09-07 21:15 | PTCARENOTE ---
Report received from MAITE Barriga. Pt assessed. VS done. Pt had returned from IR on day shift. Currently sitting in chair. Discussed plan of care with PA. Keeping RIJ cordis overnight. Heparin gtt started per order at 1000 units/hr. CBC and PTT drawn
prior to starting Heparin gtt, per order. Limb alert bracelet applied to L arm. Limb alert remains to R arm. BP taken on L calf.
Pt helped to BR to void clear, yellow urine and has loose/soft stool. Ann care done. Desitin applied buttocks, perineum. Pt helped back to bed. Immodium given as ordered.
Pt awake, alert, oriented x 4. Generalized weakness, especially to BLE. Pt using rolling walker. Speech clear. [employer]ing [employer] strength and strength to BLE equal.
Pt on room air. Sats 96-97%. BBS present. Decreased B bases. + CASTILLO. Pt in SR. Audible heart tones. AV wires present. Insulated. See flowsheets for wound and pulse assessments. Belly soft, nontender. Normoactive bs x 4. Daughter at bedside. Scheduled
meds given. See AUG. To check PTT at 0300. Ongoing plan of care.
[2024-09-08] VITALS (15 sets, daily range): BP systolic 73–201; BP diastolic 58–137; PULSE 72; O2SAT 97; BMI 25.4
--- NOTE | 2024-09-08 | PTCARENOTE ---
Pt helped to BSC to void 200 mls clear, yellow urine. POt given CHG bath. Helped back to bed. Old CT sites and pacing wire sites cleansed, dressed per CVICU protocol. Distal sternal incision without scab, granulation tissue present. No purulent
drainage. measured 1 cm x 0.5 cm . PA notified. Remains in SR. Room air sat 96-97%. Ongoing plan of care. Pt attempting to go to sleep.
[2024-09-08] MEDS: NAFCIL 108 MG IV ×6 (00:19→20:33)
--- NOTE | 2024-09-08 03:43 | W.PN.CT ---
Addendum entered and electronically signed by Luis Angel Elias PA-C 09/08/24 07:41:
Repeat echo was done on 09/07, not 08/07
Original Note:
Today's Communication / Plan
-
Plan:
-No major issues overnight. Hemodynamically and neurologically intact
-On Heparin to Coumadin bridge
-INR 1.26 after 1mg of Coumadin last night for INR 1.23. F/U PTT likely erroneous, lab drawn from same IV site as heparin
-Abx per ID, currently on Nafcillin
-For PICC line placement today via RIJ by IR, as pt noted to have cephalic and basilic vein occlusive thrombus on RUE and occlusive thrombus of brachial vein on LUE
-Repeat echo yesterday, 08/07 showed a well seated MV with MG 8 mmHg, no MR, EF 55-60%
-Cont. current meds (ASA, Lipitor, Lopressor, Amio, Protonix, Nafcillin, Imodium for loose stool)
-Multiple episodes of incontinence, weight downtrending with diuresis
-Encourage use of IS
-OOB into chair/Ambulate
-PT recommendation for acute rehab
-[facility] placement today vs tomorrow
Assessment / Plan
-
Assessment:
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
atrial appendage exclusion [35 mm clip] by Dr. Pena on 09/02/24, pod #6
-Intraop ADITI: LVEF preop and postop was approximately 55 to 60% with no significant regional wma. Her left atrial appendage also verified to be free of any thrombus or debris preop and following arrest we sized it to a 35 mm device and clipped it
flush at the base. There is no residual flow in the appendage. At the conclusion of the case she had no paravalvular leak.
-sinus marge preop and post
-Presentation to [facility] with confusion, transferred to on 08/26/24
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
-Staph aureus (MSSA bacteremia), repeat cultures @ are without growth
-Mild-moderate MR
-MAC
-LVEF 60-65%
-TME
-LLL infiltrate, not felt to be PNA per pulm at [facility]
-R 3rd toe ulder s/p debridement per podiatry at [facility]
-RA on chronic methotrexate
-Immunocompromised
-Sjogren's syndrome
-Dysphagia
-HTN
-HLD
-Hypothyroidism
-GERD/Hiatal hernia
-Anxiety/depression
-Former tobacco use
-Anemia
-Hypoalbuminemia
-Hypokalemia
-Hypernatremia
-DDD of neck
-Osteoarthritis
-Thyroid goiter
-Frail
-cephalic and basilic vein occlusive thrombus on RUE and occlusive thrombus of brachial vein on LUE
-Acute postop blood loss anemia - s/p 2 pRBCs
-Acute postop thrombocytopenia/coagulopathy - s/p 2 unit platelets, 1 FFP, DDAVP
-Acute postop hypovolemia with subsequent hypervolemia
-Acute postop atelectasis
-Acute postop hypernatremia
-Acute postop paroxysmal a-fib on 09/03 - tx with Amio bolus and drip
-Coumadin anticoagulation for paf/MVR
Discussed patient care with: Cardiology, Nursing, Respiratory Therapy, Pharmacy and Care Team
Subjective
-
Date of Service: September 08, 2024
Pt c/o diarrhea, otherwise feels well
Objective Data
-
PT 15.8 Sec (11.4-14.6) H 09/07/24 04:54
INR 1.23 09/07/24 04:54
APTT 34.7 Sec (23.4-35.0) 09/07/24 20:45
Vital Signs
Vital Signs
Temp Pulse Resp BP Pulse Ox
97.7 F 68 15 151/79 96
09/07/24 23:22 09/08/24 00:00 09/07/24 23:22 09/07/24 23:27 09/08/24 01:45
CT Intake/Output/Weight
09/07/24 09/07/24 09/08/24
06:59 18:59 06:59
Intake Total 310 / 950 240 / 240
Output Total 400 / 600 200 / 600
Balance 310 / 950 -400 / -360 40 / -360
SaO2: 96 (RA)
Physical Exam
-
General: Awake, Oriented and AOx3
Cardiovascular: Regular rate & rhythm, No Murmurs, No Rub and No Gallop
Respiratory: Decreased Breath Sounds (at bases, otherwise clear)
Sternum: Stable
Incision: Clean, Dry, Intact and Dressing Intact
Extremities: Edema +1
Data Reviewed
-
Lab Results: Results Reviewed
Medications: Active Meds Reviewed
Chest X-Ray: Report Reviewed and Image Reviewed
ECG: Report Reviewed and Image Reviewed
[2024-09-08 04:16] LABS: Hematocrit 27.9 % (37.0-47.0); Hemoglobin 9.1 g/dL (12.0-16.0); Mean Corp Hgb Conc. 32.6 g/dL (33.0-37.0); Mean Corpuscular Hgb 30.6 pg (27.0-31.0); Mean Corpuscular Volume 93.9 fL (81.0-99.0); Mean Platelet Volume 9.4 fL (7.4-10.4); Platelet Count 397 10^3/uL (130-400); Red Blood Cell Count 2.97 10^6/uL (4.20-5.40); Red Cell Dist. Width 16.7 % (11.5-14.5); White Blood Cell Count 9.8 10^3/uL (4.8-10.8)
[2024-09-08 04:19] LABS: INR 1.26; PT 16.1 Sec (11.4-14.6)
[2024-09-08] MEDS: MAALOX 30 ML PO (04:29)
--- NOTE | 2024-09-08 04:30 | PTCARENOTE ---
EKG done. Labs drawn and sent. Pt helped to BSC to void 225 mls urine. Pt weighed on standing scale. Helped back to bed. Maalox given prn for indigestion. No other c/o pain.
[2024-09-08 04:46] LABS: APTT > 200 Sec (23.4-35.0)
[2024-09-08 05:11] LABS: Blood Urea Nitrogen 13 mg/dl (7-17); Calcium 8.7 mg/dl (8.4-10.2); Chloride 108 mmol/L (98-107); Estimated Creatinine Clearance 45 ml/min; Glucose 98 mg/dl (70-99); Magnesium 2.2 mg/dl (1.6-2.3); Potassium 3.9 mmol/L (3.5-5.1); Sodium 139 mmol/L (135-145); eGFR > 60.00
[2024-09-08 05:25] LABS: Carbon Dioxide 28 mmol/L (22-30)
[2024-09-08] MEDS: TYLENOL 1000 MG PO ×2 (06:28→22:10)
--- NOTE | 2024-09-08 06:30 | PTCARENOTE ---
Pt helped to recliner chair. Remains in SR. Room air. No c/o pain. Heparin gtt increased to 1100 units/hr per provider order. (Repeat PTT 49-peripheral L hand stick)
--- NOTE | 2024-09-08 08:00 | PTCARENOTE ---
Assumed care of patient from branch sales and service representative RN. AAO x 3 sitting up in chair. SR on monitor. Room air. AV wires insulated. Abdomen soft and non tender. Pulses palpable. Plus one lower extremity edema. Plan for day discussed.
[2024-09-08] MEDS: KCL 20 MEQ PO (08:41)
[2024-09-08] MEDS: LYRICA 50 MG PO (08:41)
[2024-09-08] MEDS: PACERONE 200 MG PO ×3 (08:41→22:10)
[2024-09-08] MEDS: FIBERCON 625 MG PO (08:41)
[2024-09-08] MEDS: CYMBALTA DELAYED RELEASE 20 MG PO ×2 (08:41→20:20)
[2024-09-08] MEDS: LOPRESSOR 12.5 MG PO ×2 (08:41→20:20)
[2024-09-08] MEDS: PROTONIX 40 MG PO (08:41)
[2024-09-08] MEDS: NON-FORMULARY ITEM 1 CAP PO ×3 (08:42→22:11)
[2024-09-08] MEDS: LIPITOR 20 MG PO (08:42)
[2024-09-08] MEDS: DESENEX/MITRAZOL/ZEASORB 1 APPLIC TOPICAL ×2 (08:42→20:22)
[2024-09-08] MEDS: LOW STRENGTH ASPIRIN 81 MG PO (08:42)
[2024-09-08] MEDS: LIDOCAINE 4% PATCH TOPICAL (08:43)
[2024-09-08] MEDS: DESITIN MAXIMUM STRENGTH PASTE 1 APPLIC TOPICAL ×2 (08:43→20:21)
[2024-09-08] MEDS: MAGNESIUM OXIDE PO (08:44)
--- NOTE | 2024-09-08 10:00 | CON.MD ---
Consultation - Medical
-
Referring Provider:�Dr. Khoa Pena
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
�
History of Present Illness:�84-year-old left-handed female with PMH (as below) presented to [facility] on 08/26/2024 as a transfer from [facility] where she was admitted for confusion and found to have MSSA bacteremia from a mitral
valve endocarditis. She was started on antibiotics. She was noted to have a right third toe ulcer that was debrided by podiatry. Cardiac cath on 08/26/2024 without significant coronary disease.
MRI of the brain with gadolinium 08/27/2024 noting multiple acute to subacute bihemispheric embolic infarcts. C-spine MRI without gadolinium noting severe DJD worse at C3/C4 with mild mass effect on the spinal cord. Acute metabolic encephalopathy
from bacteremia resolved she was sent to [facility] for possible mitral valve replacement. Continued on cefazolin. ADITI 08/28/2024 with EF 60-65% and a large partially mobile vegetation 2 cm in length of the posterior leaflet of the mitral
valve P2 and a smaller highly mobile echodense structure/vegetation 1 cm in length on the posterior leaflet of the mitral valve with high risk of embolization. Noted with a right basilic and cephalic vein occlusive thrombus on ultrasound.
On 09/02/24 she had a sternotomy with aortic and bicaval cannulation with left atrial appendage exclusion and chordal sparing mitral valve replacement with a bioprosthesis by Dr. Khoa Pena. She required 2 units of PRBCs and 2 units of platelets.
Changed to nafcillin 2 g IV every 4 hours. Repeat echocardiogram 09/07 with EF 55-60%, mild tricuspid regurgitation. Attempt for PICC left arm not successful with occlusion of the left brachial vein in the right IJ currently with attending Statement:
I saw and examined the patient today. Reviewed care plan with patient, therapy, nursing, and physician assistant professor of mathematics. I agree with the above subjective and physical exam, and plan as documented by DANIE Osorio with adjustments made as necessary.
Cordis.
�
Past Medical History:�Sjogren's syndrome, rheumatoid arthritis, hyperlipidemia, hypothyroidism, anxiety, depression, neuropathy, skin cancer, osteopenia
Procedure History:�Bilateral cataract surgery, bilateral median nerve decompression at the wrist
Family History:�None pertinent
�
Social History:�
Functional Level Premorbidly:�Independent with all activities�
Functional Level Currently:�Min to mod assist transfers, ambulating 40 feet min assist with rolling walker
-Speech: Mild pharyngeal dysphagia and concern for esophageal dysphagia, at least mild cognitive linguistic impairment, mild to moderate dysphonia impacting communication. Able to be on a regular and thin liquid diet with aspiration precautions
meds 1 at a time holding with single sip of liquid.
�
Tobacco:�Denies�
Alcohol:�Occasional
Drug use:�Denies�
�
Lives with:�Alone
24-hour assistance available:�Can have a daughter stay for 2 weeks
Number of floors:�2
# steps to enter:�1
# steps to second floor: Full flight
Potential First floor set up:�No
Driving:�Yes
Occupation:�Retired
�
�
Allergies:�
Allergy/AdvReac Type Severity Reaction Status Date / Time
latex Allergy Unknown Verified 08/26/24 19:47
�
Review of Systems:�
Constitutional: (x) abNormal _fatgiue
Eye: (x) Normal _
Ear/Nose/Throat: (x) Normal _
Respiratory: (x) Normal _
Cardiovascular: (x) abNormal _aortic valve replacement for infection
Gastrointestinal: (x) Normal _
Genitourinary: (x) Normal _
Musculoskeletal: (x) Normal _
Integumentary: (x) Normal _
Neurologic: (x) Normal _
Psychiatric: (x) abNormal _stroke
Endocrine: (x) Normal _
Hematologic/Lymphatic: (x) Normal _
Allergic/Immunologic: (x) Normal _
�
Medications:�
Active Current Visit Medication List
Category Date Time Status
0.9% Sodium Chloride 500 ml [Nss] 500 ml Med 09/02/24 13:31 Active
IV CORDIS
Acetaminophen [Tylenol] Med 09/02/24 14:00 Active
1,000 mg PO TID@0600,1400,2200
Acetaminophen [Tylenol] Med 09/02/24 13:31 Active
650 mg PO Q4HPRN PRN
Amiodarone [Pacerone] Med 09/02/24 16:00 Active
200 mg PO TID
Aspirin Chewable [Low Strength Aspirin] Med 09/03/24 08:00 Active
81 mg PO DAILY
Atorvastatin [Lipitor] Med 08/27/24 08:00 Active
20 mg PO DAILY
Calcium Polycarbophil [Fibercon] Med 09/04/24 09:00 Active
625 mg PO DAILY
Carbamide Peroxide [Debrox Ear Drops] Med 08/26/24 19:36 Active
5 drop BOTH EARS DAILYPRN PRN
Cyclobenzaprine HCl [Flexeril] Med 09/02/24 13:31 Active
5 mg PO Q8HPRN PRN
Dextrose 50%-Water [Dextrose 50% Syringe] Med 09/02/24 13:31 Active
12.5 grams IV [id number] PRN
Duloxetine Delayed Release [Cymbalta Delayed Release] Med 08/26/24 20:00 Active
20 mg PO BID
Flush (0.9% Sodium Chloride) [Flush (Nss)] Med 09/02/24 14:00 Active
See Dose Instructions IV PER PROTOCOL
HYDROmorphone [Dilaudid] Med 09/02/24 13:31 Active
0.25 mg IV Q3HPRN PRN
Heparin 32104 Units/250 ml Med 09/07/24 19:15 Active
25,000 units in 250 ml IV PER PROTOCOL
Lidocaine [Lidocaine 4% Patch] Med 09/03/24 08:00 Active
1 patch TOPICAL DAILY
Loperamide [Imodium Liquid] Med 09/05/24 10:48 Active
4 mg PO Q3HPRN PRN
Mag Hydrox/Al Hydrox/Simeth [Maalox] Med 09/06/24 14:24 Active
30 ml PO QIDPRN PRN
Magnesium Hydroxide [Milk of Magnesia] Med 09/02/24 13:31 Active
30 ml PO BIDPRN PRN
Magnesium Oxide Med 09/03/24 08:00 Active
500 mg PO BID
Melatonin Med 09/02/24 13:44 Active
10 mg PO HSPRN PRN
Metoprolol [Lopressor] Med 09/03/24 08:00 Active
12.5 mg PO Q12
Miconazole Nitrate [Desenex/Mitrazol/Zeasorb] Med 08/27/24 20:00 Active
See Dose Instructions TOPICAL BID
Nafcillin [Nafcil] 2,000 mg Med 08/28/24 12:00 Active
0.9% Sodium Chloride 100 ml [Nss] 100 ml
IV Q4H
Ondansetron Injectable [Zofran] Med 09/02/24 13:31 Active
4 mg IV Q8HPRN PRN
Oxycodone [Roxicodone] Med 09/02/24 13:31 Active
2.5 mg PO Q4HPRN PRN
Oxycodone [Roxicodone] Med 09/02/24 13:31 Active
5 mg PO Q4HPRN PRN
Pantoprazole [Protonix] Med 09/03/24 08:00 Active
40 mg PO DAILY
Pregabalin [Lyrica] Med 08/27/24 08:00 Active
50 mg PO DAILY
Remove Patch [Remove Lidocaine Patch] Med 09/03/24 20:00 Active
1 patch REMOVE DAILY@1999
Warfarin [Coumadin] Med 09/08/24 18:00 Once
2 mg PO ONCE@1800 ONE
Zinc Oxide 40% [Desitin Maximum Strength Paste] Med 09/04/24 20:00 Active
See Dose Instructions TOPICAL BID
cevimeline Med 08/27/24 16:00 Active
See Dose Instructions PO TID
�
Vitals:�
Temp Pulse Resp BP Pulse Ox
98.7 F 76 15 154/78 96
09/08/24 08:00 09/08/24 08:19 09/08/24 03:46 09/08/24 08:19 09/08/24 10:40
Height 5 ft 6 in
Actual Weight 71.4 kg
Body Mass Index (BMI) 25.4
�
Physical Exam:�
General Appearance/Observation: Well-developed, well-nourished female in no apparent distress.�
Pain/Comfort Assessment: Slight chest pain�
Mood/Affect: Appropriate�
�
Integumentary/Operative Site:�
�� Pressure Ulcer Evaluation: sternal incision C/D/I with drain sites healing.
Eyes: Conjunctiva/Lids: normal���� Pupils: pupils equal round and reactive to light and Accommodation�
Ears/Nose/Throat: oral mucosa moist,� throat clear.������������ Lips/Teeth/Gums: normal�
Neck: No muscle spasm or tenderness�
Cardiovascular: Heart: regular, no murmur�
Pulses: dorsalis pedis 2+ bilaterally�
Respiratory: Respiratory Effort/Chest Expansion: normal������� Auscultation: Clear to auscultation bilaterally�
Gastrointestinal: abdomen not tender, no distension, normal abdominal bowel sounds
Genitourinary: No López�
Rectal Exam: Deferred�
Extremities:�Edema: Slight B/L pedal�Cyanosis: None�Trophic�changes: None
�
Neurology Exam:
Orientation: Alert, Oriented to self, Time, Place�
Memory: Intact for recent medical concerns
Comprehension: Intact
Two step command: Intact
Cranial Nerves:
�� CNII:�Pupillary light reflex: Intact����Visual Field: Intact
�� CN III, IV, : Extraocular muscles: Intact�
�� CN V:�Facial Sensation�at�Forehead: Intact,�Maxilla: Intact,�Mandible: Intact
�� CN VII:�Facial movement: mild left facial asymmetry
�� CN VIII:�Hearing: Normal
�� CN IX/X:�Speech & swallow: mild dysphonia�Position of Uvula: Midline
�� CN XI:�Shoulder shrug: Symmetric
�� CN XII:�Tongue protrusion: Midline
Sensory:
�� Light touch: Intact in bilateral upper and lower extremities
�
Reflexes:
�� Biceps: 2+ bilaterally
�� Brachioradialis: 2+ bilaterally
�� Triceps: 2+ bilaterally
�� Patellar: 0 bilaterally
�� Achilles: 0 bilaterally
�� Babinski: Down going bilaterally
�� Clonus: None
�� [place]: Negative bilaterally�
Cerebellar: Dysmetria/Ataxia: None�
Musculoskeletal: Motor: (Manual muscle scale 0-5)�
Muscle SA EF WE EE FF FA HF KE DF EHL PF
Right� >4 >4 4+ >4 4+ 3+ 4 5 5 5
Left >4 >4 4 >4 4 3+ 4 5 5 5
�
Tone: Normal in all extremities�
Range of Motion: Passively within functional limits in all extremities�
�
Lab Results
Laboratory Data
09/08/24 03:57
09/08/24 03:57
PT 16.1 Sec (11.4-14.6) H 09/08/24 03:57
PT Cancelled 09/08/24 03:57
INR 1.26 09/08/24 03:57
INR Cancelled 09/08/24 03:57
APTT 49.0 Sec (23.4-35.0) H 09/08/24 05:30
Total Bilirubin 1.1 mg/dl (0.2-1.3) 09/05/24 19:53
Direct Bilirubin 0.5 mg/dl (0.0-0.4) H 09/05/24 19:53
AST 26 U/L (14-36) 09/05/24 19:53
ALT < 10 U/L (0-35) 09/05/24 19:53
Alkaline Phosphatase 108 U/L (38-126) 09/05/24 19:53
Total Protein 5.1 g/dl (6.3-8.2) L 09/05/24 19:53
Albumin 2.6 g/dl (3.5-5.0) L 09/05/24 19:53
�
Diagnostic Results:�as per HPI�
�
Assessment
84 y/o L-handed F PMH (Sjogren's syndrome, rheumatoid arthritis, hyperlipidemia, hypothyroidism, anxiety, depression, neuropathy, skin cancer, osteopenia) with 08/26/2024 transfer from [facility] with MSSA bacteremia from a mitral valve
endocarditis with septic embolic stroke in bilateral hemispheres, right toe ulcer debridement, cervical stenosis worse at C3/C4 with mild mass effect on the spinal cord, metabolic encephalopathy, bilateral basilic and right cephalic vein occlusions
s/p/07/28 sternotomy and bioprosthetic mitral valve replacement resulting in ADL, ambulatory, speech, and swallow dysfunction.
Plan�
PM&R�PT/OT to increase independence with ADLs, improve balance, coordination, endurance, strength, mobility, community reintegration, decreased burden of care on others and family education.�
Mitral valve endocarditis: On amiodarone
- Nafcillin 2 g IV every 4 hours per ID through 10/14/2024.
- Needs PICC line access or tunneled catheter.
- S/p 09/02/2024 bioprosthetic valve replacement, on warfarin. Sternal precautions.
Paroxysmal atrial fibrillation: Amiodarone for rate control and Coumadin for anticoagulation with INR goal 2�3
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
diastolic less than 100 to participate with therapy for ischemic stroke). Continue to monitor neurologic status.�
Left dominant hemiparesis: High risk for falls and sliding out of chair/bed. Safety reinforced.�
- Avoid using affected arm to help lift or pull patient as this will cause trauma to the shoulder.
Dysphagia: speech, oral care protocol, aspiration precautions.� On regular diet, can take pills whole with single sip of liquid or pur�e
Dysarthria: speech �
Dysphonia: speech �
Sjogren's disease: Cevimeline for saliva substitute
Rheumatoid arthritis: Noted
Cervical stenosis worse at C2-C3: Outpatient follow-up
Neuropathy: Duloxetine 20 mg twice daily and Lyrica 50 mg daily. Flexeril as needed. Feels left foot has less feeling but on light touch feels equal.
�
HLD: Statin�
Normocytic anemia: Likely multifactorial including postoperative.� Continue to monitor.�
Depression: Cymbalta
Skin: monitor for pressure sores/rashes/lesions.�
Pain: acetaminophen or oxycodone as needed.� Suggest stopping Dilaudid IV
Bowel: Has diarrhea, can be side effect of saliva secretagogue, Imodium as needed.
Bladder: Time void, PVRs, PRN straight cath.�
GI Prophylaxis: Pantoprazole�
DVT Prophylaxis: Mechanical and heparin bridge to warfarin
Pulmonary: Incentive spirometry�
Safety: Continue to reinforce assistance with all transfers.�
Code Status:� Full code
Dispo�(date/plan/equipment needs): Home with family care.� Social history reviewed.�
Functional and Medical Goals:�Modified Independent with ADL�s, ambulation, transfers�
Discharge Destination:�Acute inpatient rehabilitation�
A total of 60 minutes were spent with the patient preparing for the evaluation, obtaining history, performing examination and evaluation, counseling, data review, case management, care coordination, production recorder, and EMR documentation.
Summary of recommendations:
-�Discharge Destination:�Acute inpatient rehabilitation
Mitral valve endocarditis:
- Nafcillin 2 g IV every 4 hours per ID through 10/14/2024.
- Needs PICC line access or tunneled catheter.
Bowel: Has diarrhea, can be side effect of saliva secretagogue, Imodium as needed.
Pain: acetaminophen or oxycodone as needed.� Suggest stopping Dilaudid IV
Thank you for allowing me to care for your patient. Please contact me with any questions or concerns.
--- NOTE | 2024-09-08 12:30 | PTCARENOTE ---
Ambulating in hallway with PT. VSS, emotional at times and support provided. Assessment otherwise unchanged from prior
[2024-09-08 12:42] LABS: APTT 47.7 Sec (23.4-35.0)
--- NOTE | 2024-09-08 12:42 | W.PN.CARDCBS ---
Addendum entered and electronically signed by Dexter Nguyen MD 09/08/24 13:00:
I saw and examined the patient.
The PARKING RAMP ATTENDANT or PA's note was reviewed and I agree with the note.
Comment: General: Well developed, well nourished in NAD.
Neck: Supple, no JVD, HJR, carotids +2 B/L, no bruits bilaterally.
Heart: Non displaced PMI, RRR, no murmurs, No S3, S4, no rubs.
Lungs: Scattered rhonchi
Sternal dressings noted
Extremities: No clubbing, cyanosis or edema bilaterally.
Neuro: Grossly nonfocal, awake, alert and oriented x3.
Continue IV heparin to Coumadin. Has cephalic and basal vein thrombosis. INR has been difficult to control.
Original Note:
Today's Communication / Plan
-
continue post op care
IV heparin to coumadin
DC planning
Impression / Plan
-
Primary Document Management Specialist: Dr. Ingram of [facility]
Assessment:
Presentation to [facility] with confusion
TME
LLL infiltrate, not felt to be PNA per pulm at [facility]
MSSA bacteremia
Suspected septic emboli to brain by imaging at [facility]
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
R 3rd toe ulcer s/p debridement per podiatry at [facility]
RA on chronic methotrexate
HTN
HLD
Hypothyroidism
Anxiety/depression
Anemia
Hypoalbuminemia
Moderate hiatal hernia
DDD of neck
Thyroid goiter
TTE at [facility] 08/24/24: EF 55%, large echogenic mass on posterior mitral valve leaflet 1.6 x 1.3 cm with mild to moderate MR, concern for endocarditis
ADITI 08/28 with preserved EF, large partially mobile vegetation measuring 2.0 cm in length on primarily the posterior leaflet of mitral valve, also with smaller, highly mobile echodense structure/vegetation on posterior leaflet of mitral valve that
transverses the mitral valve with each cardiac cycle with high risk of embolization, mild to moderate MR
ECHO 09/07/24: Limited study status post mitral valve replacement, paradoxical septal motion consistent with postop status, EF 55 to 60% with number 27 mm Pritchett Resilia bioprosthetic mitral valve well-seated with mean gradient 8 mmHg, no MR, mild
TR, PAP 32 mmHg, no significant pericardial effusion
Plan:
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
-was started on coumadin post op with supratherapeutic INR requiring Vitamin K. now INR low at 1.23. continue IV heparin to coumadin per CT surgery.
-echo 09/07 with results as above, well seated bio MVR
-would continue diuresis.
-awaiting PICC line placement with IR as continues on IV abx per ID. she is noted to have cephalic and basilic vein occlusive thrombus on RUE and occlusive thrombus of brachial vein on LUE
-continue PT. plan for acute rehab upon DC. DC planning
-Discussed with CT surgery ORTIZ
Progress Note - Document Management Specialist
Subjective
Date of Service: September 08, 2024
c/o generalized weakness
Objective
Labs:
09/08/24 03:57
09/08/24 03:57
Labs
Hgb 9.1 g/dL (12.0-16.0) L 09/08/24 03:57
Hct 27.9 % (37.0-47.0) L 09/08/24 03:57
Plt Count 397 10^3/uL (130-400) 09/08/24 03:57
PT 16.1 Sec (11.4-14.6) H 09/08/24 03:57
PT Cancelled 09/08/24 03:57
INR 1.26 04/08/25 03:57
INR Cancelled 09/08/24 03:57
APTT 49.0 Sec (23.4-35.0) H 09/08/24 05:30
Sodium 139 mmol/L (135-145) 09/08/24 03:57
Potassium 3.9 mmol/L (3.5-5.1) 09/08/24 03:57
BUN 13 mg/dl (7-17) 09/08/24 03:57
Creatinine 0.9 mg/dL (0.6-1.0) 09/08/24 03:57
Glucose 98 mg/dl (70-99) 09/08/24 03:57
Vital Signs and I&O:
Vital Signs
Temp Pulse Resp BP Pulse Ox
98.7 F 65 15 154/78 96
09/08/24 08:00 09/08/24 10:00 09/08/24 03:46 09/08/24 08:19 09/08/24 10:40
Vital Signs
Temp Pulse Resp BP Pulse Ox
98.7 F 65 15 154/78 96
09/08/24 08:00 09/08/24 10:00 09/08/24 03:46 09/08/24 08:19 09/08/24 10:40
Intake & Output
09/06/24 09/07/24 09/08/24 09/09/24
07:59 07:59 07:59 07:59
Intake Total 400 / 400 950 / 950 380 / 641 261 / 261
Output Total 1200 / 1200 825 / 825
Balance -800 / -800 950 / 550 -445 / -184 261 / 261
Physical Exam
Physical Exam
GEN: No distress, awake, alert, oriented x3
HEENT: supple, anicteric, mmm
CV: Reg on tele
EXT: No cyanosis, clubbing. Trace edema of B/L LE
NEURO: Gross non-focal
[2024-09-08] MEDS: NSS IV (12:44)
--- NOTE | 2024-09-08 14:20 | PTCARENOTE ---
Transported to IR on stretcher with heparin infusing
[2024-09-08] MEDS: TYLENOL PO (15:05)
--- NOTE | 2024-09-08 15:36 | CM ---
Reviewed chart. Met with Mrs. Srivastava daughter to review discharge plans. Mrs. Srivastava was of the floor. Reviewed with her that [facility] would have a bed available tomorrow 09/09/24 if medically stable. Will need to pre-cert with her
insurance. Medical work-up in progress. [facility] if approved by insurance.
--- NOTE | 2024-09-08 17:05 | PTCARENOTE ---
Received back from IR, ambulated back to chair from stretcher. BP elevated. Discussed with CT PAINT GRINDER. Denies pain. Given 1600 meds. Resting in chair.Assessment otherwise unchanged from prior.
[2024-09-08] MEDS: COUMADIN 2 MG PO (17:27)
[2024-09-08] MEDS: APRESOLINE 10 MG PO (17:28)
--- NOTE | 2024-09-08 19:00 | PTCARENOTE ---
VS captured from previous shift.
[2024-09-08] MEDS: MAGNESIUM OXIDE 500 MG PO (20:21)
[2024-09-08 20:42] LABS: APTT 92.9 Sec (23.4-35.0)
--- NOTE | 2024-09-08 20:45 | PTCARENOTE ---
Addendum entered by Amanda Burr RN 09/08/24 22:55:
Left upper chest tunneled left internal jugular central venous catheter intact - not a PICC. Pt left upper arm slightly tender and red from unsuccessful placement of a left upper extremity PICC due to venous occlusion.
Original Note:
Assumed care of pt from dayswaft RN. Walking rounds completed. Pt oriented to person, place, and time. SR on the tele monitor. HR 60-70s. Temporary epicardial A/V wires insulated. BP elevated. METAL FURNITURE POLISHER aware. Will monitor and possibly give additional dose
of hydralazine. Weak DP pulses. B/L radial pulses palpable. +1 LE edema. Pt 97% on RA. Lung sounds diminished in B/L bases. Occasional cough. Deep breathing and IS encouraged. Abdomen round.
+BS. +BM. No nausea. All surgical sites stable. R/L arm restriction - bracelets in place. Left upper chest PICC intact. Heparin infusing as ordered - PTT drawn and sent. Pt up w/ 1 person assist and rolling walker. Pt assisted from the chair to the
bed. No c/o pain at this time. See worklist for full nursing assessment and interventions. Call humphrey within reach.
[2024-09-08] MEDS: HEPARIN 25000 UNITS/250 ML IV (21:28)
[2024-09-08] MEDS: IMODIUM LIQUID 4 MG PO (22:13)
[2024-09-08] MEDS: APRESOLINE 10 MG IV (22:28)
[2024-09-09] VITALS (13 sets, daily range): BP systolic 133–177; BP diastolic 61–92; PULSE 66–72; O2SAT 98; BMI 26.1
--- NOTE | 2024-09-09 00:11 | W.PN.CT ---
Today's Communication / Plan
-
No major issues overnight.�
HTN overnight requiring, additional dose of hydralazine, consider increasing beta jamshid dose or adding BURT or ARB
On Heparin to Coumadin bridge, ptt range 60 to 90, currently at 1150 units/hr�
Coumadin = AM INR �1.27���
Continue Nafcillin for MSSA MV endocarditis�
PICC line placed �
Cont. current meds (ASA, Lipitor, Lopressor, Amio, Protonix, Nafcillin, Imodium for loose stool)�
Encourage use of IS�
OOB into chair/Ambulate�
PT recommendation for acute rehab ([facility] placement today/)�
Cut wires on DC�
20 meq of K given
Assessment / Plan
-
Assessment:
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
atrial appendage exclusion [35 mm clip] by Dr. Pena on 09/02/24, pod #7
-Intraop ADITI: LVEF preop and postop was approximately 55 to 60% with no significant regional wma. Her left atrial appendage also verified to be free of any thrombus or debris preop and following arrest we sized it to a 35 mm device and clipped it
flush at the base. There is no residual flow in the appendage. At the conclusion of the case she had no paravalvular leak.
-sinus marge preop and post
-Presentation to [facility] with confusion, transferred to on 08/26/24
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
-Staph aureus (MSSA bacteremia), repeat cultures @ are without growth
-Mild-moderate MR
-MAC
-LVEF 60-65%
-TME
-LLL infiltrate, not felt to be PNA per pulm at [facility]
-R 3rd toe ulder s/p debridement per podiatry at [facility]
-RA on chronic methotrexate
-Immunocompromised
-Sjogren's syndrome
-Dysphagia
-HTN
-HLD
-Hypothyroidism
-GERD/Hiatal hernia
-Anxiety/depression
-Former tobacco use
-Anemia
-Hypoalbuminemia
-Hypokalemia
-Hypernatremia
-DDD of neck
-Osteoarthritis
-Thyroid goiter
-Frail
-cephalic and basilic vein occlusive thrombus on RUE and occlusive thrombus of brachial vein on LUE
-Acute postop blood loss anemia - s/p 2 pRBCs
-Acute postop thrombocytopenia/coagulopathy - s/p 2 unit platelets, 1 FFP, DDAVP
-Acute postop hypovolemia with subsequent hypervolemia
-Acute postop atelectasis
-Acute postop hypernatremia
-Acute postop paroxysmal a-fib on 09/03 - tx with Amio bolus and drip
-Coumadin anticoagulation for paf/MVR
Subjective
-
Date of Service: September 09, 2024
Objective Data
-
PT 16.1 Sec (11.4-14.6) H 09/08/24 03:57
PT Cancelled 09/08/24 03:57
INR 1.26 09/08/24 03:57
INR Cancelled 09/08/24 03:57
APTT 92.9 Sec (23.4-35.0) H 09/08/24 20:20
Vital Signs
Vital Signs
Temp Pulse Resp BP Pulse Ox
98 F 67 16 176/82 97
09/08/24 20:12 09/08/24 22:28 09/08/24 20:12 09/08/24 22:28 09/08/24 22:30
CT Intake/Output/Weight
09/08/24 09/08/24 09/09/24
06:59 18:59 06:59
Intake Total 380 / 380 /
Output Total 425 / 825
Balance -45 / -445 /
SaO2: 97
Physical Exam
-
General: Awake
Cardiovascular: Regular rate & rhythm
Respiratory: Clear
Sternum: Stable
Incision: Clean, Dry and Intact
Extremities: No Edema
[2024-09-09] MEDS: NAFCIL 108 MG IV ×6 (00:36→20:10)
--- NOTE | 2024-09-09 00:51 | PTCARENOTE ---
No acute change in assessment. Pt SR on the tele monitor. HR 60-70s. Additional 10 mg hydralazine for BP. Last BP 142/62. Pt is 97% on RA. All surgical sites stable. Pt repositioned in bed. Heparin infusing as ordered. No c/o pain at this time. Call
humphrey within reach.
[2024-09-09 04:18] LABS: Hematocrit 30.7 % (37.0-47.0); Hemoglobin 9.6 g/dL (12.0-16.0); Mean Corp Hgb Conc. 31.3 g/dL (33.0-37.0); Mean Corpuscular Hgb 30.1 pg (27.0-31.0); Mean Corpuscular Volume 96.2 fL (81.0-99.0); Mean Platelet Volume 9.2 fL (7.4-10.4); Platelet Count 421 10^3/uL (130-400); Red Blood Cell Count 3.19 10^6/uL (4.20-5.40); Red Cell Dist. Width 17.1 % (11.5-14.5); White Blood Cell Count 12.5 10^3/uL (4.8-10.8)
[2024-09-09] MEDS: APRESOLINE 10 MG IV (04:20)
[2024-09-09 04:26] LABS: INR 1.27; PT 16.1 Sec (11.4-14.6)
[2024-09-09 04:27] LABS: APTT 75.2 Sec (23.4-35.0)
--- NOTE | 2024-09-09 04:30 | PTCARENOTE ---
Addendum entered by Amanda Burr RN 09/09/24 04:34:
Heparin infusion maintained.
Original Note:
No change in assessment. Pt assisted OOB to the bathroom w/ rolling walker and then repositioned back into the bed. Pt is SR on the tele monitor. HR 70s. BP still elevated - PRN hydralazine given for SBP >160. Pt 99% on RA. All surgical sites
stable. Labs drawn and sent. Call humphrey within reach.
[2024-09-09 04:48] LABS: Blood Urea Nitrogen 12 mg/dl (7-17); Calcium 9.2 mg/dl (8.4-10.2); Carbon Dioxide 30 mmol/L (22-30); Chloride 106 mmol/L (98-107); Estimated Creatinine Clearance 51 ml/min; Glucose 105 mg/dl (70-99); Potassium 3.8 mmol/L (3.5-5.1); Sodium 139 mmol/L (135-145); eGFR > 60.00
[2024-09-09] MEDS: KCL 20 MEQ PO (05:57)
[2024-09-09] MEDS: TYLENOL 1000 MG PO ×3 (05:57→22:22)
--- NOTE | 2024-09-09 07:45 | W.PN.CARDCBS ---
Addendum entered and electronically signed by Herb Chapman DO 09/09/24 09:55:
I saw and examined the patient.
The Interface Developer's note was reviewed and I agree with the note.
Comment:
Plan:
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
Cont post op care
increase Lopressor for better bp control
Continue Coumadin and follow INR's.
s/p PICC line placement 09/08.
hx cephalic and basilic vein occlusive thrombus on RUE and occlusive thrombus of brachial vein on LUE
Echo shows well-seated bio MVR
Patient is being evaluated for [facility].
Discussed with nursing.
Original Note:
Today's Communication / Plan
-
continue coumadin. follow INRs
increase lopressor
DC planning for [facility]
Impression / Plan
-
Primary District Associate Judge: Dr. Ingram of [facility]
Assessment:
Presentation to [facility] with confusion
TME
LLL infiltrate, not felt to be PNA per pulm at [facility]
MSSA bacteremia
Suspected septic emboli to brain by imaging at [facility]
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
R 3rd toe ulcer s/p debridement per podiatry at [facility]
RA on chronic methotrexate
HTN
HLD
Hypothyroidism
Anxiety/depression
Anemia
Hypoalbuminemia
Moderate hiatal hernia
DDD of neck
Thyroid goiter
TTE at [facility] 08/24/24: EF 55%, large echogenic mass on posterior mitral valve leaflet 1.6 x 1.3 cm with mild to moderate MR, concern for endocarditis
ADITI 08/28 with preserved EF, large partially mobile vegetation measuring 2.0 cm in length on primarily the posterior leaflet of mitral valve, also with smaller, highly mobile echodense structure/vegetation on posterior leaflet of mitral valve that
transverses the mitral valve with each cardiac cycle with high risk of embolization, mild to moderate MR
ECHO 09/07/24: Limited study status post mitral valve replacement, paradoxical septal motion consistent with postop status, EF 55 to 60% with number 27 mm [place] Resilia bioprosthetic mitral valve well-seated with mean gradient 8 mmHg, no MR, mild
TR, PAP 32 mmHg, no significant pericardial effusion
Plan:
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
-was started on coumadin post op with supratherapeutic INR requiring Vitamin K. now INR low, 1.27 on 09/09. continue coumadin per CT surgery.
-BPs elevated. would increase lopressor to 25mg Q12H. d/w CT surgery [employer]
-echo 09/07 with results as above, well seated bio MVR
-s/p PICC line placement 09/08. she is noted to have cephalic and basilic vein occlusive thrombus on RUE and occlusive thrombus of brachial vein on LUE
-continue PT. plan for acute rehab upon DC.
-Discussed with nursing
Progress Note - District Associate Judge
Subjective
Date of Service: September 09, 2024
she is tearful at times. reports feeling nauseous, fatigued.
Objective
Labs:
09/09/24 03:54
09/09/24 03:54
Labs
Hgb 9.6 g/dL (12.0-16.0) L 09/09/24 03:54
Hct 30.7 % (37.0-47.0) L 09/09/24 03:54
Plt Count 421 10^3/uL (130-400) H 09/09/24 03:54
PT 16.1 Sec (11.4-14.6) H 09/09/24 03:54
INR 1.27 04/09/25 03:54
APTT 75.2 Sec (23.4-35.0) H 09/09/24 03:54
Sodium 139 mmol/L (135-145) 09/09/24 03:54
Potassium 3.8 mmol/L (3.5-5.1) 09/09/24 03:54
BUN 12 mg/dl (7-17) 09/09/24 03:54
Creatinine 0.8 mg/dL (0.6-1.0) 09/09/24 03:54
Glucose 105 mg/dl (70-99) H 09/09/24 03:54
Vital Signs and I&O:
Vital Signs
Temp Pulse Resp BP Pulse Ox
97.8 F 91 18 160/61 99
09/09/24 03:35 09/09/24 06:00 09/09/24 03:35 09/09/24 05:57 09/09/24 03:35
Vital Signs
Temp Pulse Resp BP Pulse Ox
97.8 F 91 18 160/61 99
09/09/24 03:35 09/09/24 06:00 09/09/24 03:35 09/09/24 05:57 09/09/24 03:35
Intake & Output
09/06/24 09/07/24 09/08/24 09/09/24
07:59 07:59 07:59 07:59
Intake Total 400 / 400 950 / 950 380 / 641 548.0 / 548.0
Output Total 1200 / 1200 825 / 825
Balance -800 / -800 950 / 550 -445 / -184 548.0 / 548.0
Physical Exam
Physical Exam
GEN: No distress, awake, alert, oriented x3. sitting in chair
HEENT: supple, anicteric, mmm, eomi
LUNGS: CTA B/L, no wheezes
CV: Reg, S1/S2, no murmur
ABD: soft, BS+, NT/ND
EXT: No cyanosis, clubbing. 1+ edema of B/L LE
NEURO: Gross non-focal
SKIN: Warm, pink, dry. No rash. Sternotomy incision c/d/i. L chest PICC in place
--- NOTE | 2024-09-09 08:00 | PTCARENOTE ---
Assumed care of patient from power and recovery shift engineer RN. HOLDENO x 3, sitting up in the chair, dozing intermittently. Depressed and tearful this am. Emotional support provided. SR on monitor. Epicardial wires insulated. Room air , decreased bilaterally
throughout. Abdomen benign, voiding in toilet. Surgical sites c,d.i. Pulses palpable. Heparin drip discontinued per order.
[2024-09-09] MEDS: NON-FORMULARY ITEM 1 CAP PO ×3 (08:36→22:24)
[2024-09-09] MEDS: LYRICA 50 MG PO (08:37)
[2024-09-09] MEDS: PACERONE 200 MG PO ×3 (08:37→22:24)
[2024-09-09] MEDS: DESENEX/MITRAZOL/ZEASORB 1 APPLIC TOPICAL ×2 (08:37→20:02)
[2024-09-09] MEDS: LIPITOR 20 MG PO (08:37)
[2024-09-09] MEDS: LOW STRENGTH ASPIRIN 81 MG PO (08:37)
[2024-09-09] MEDS: PROTONIX 40 MG PO (08:37)
[2024-09-09] MEDS: MAGNESIUM OXIDE 500 MG PO ×2 (08:37→20:02)
[2024-09-09] MEDS: FIBERCON 625 MG PO (08:37)
[2024-09-09] MEDS: CYMBALTA DELAYED RELEASE 20 MG PO ×2 (08:37→20:02)
[2024-09-09] MEDS: LIDOCAINE 4% PATCH TOPICAL (08:38)
[2024-09-09] MEDS: DESITIN MAXIMUM STRENGTH PASTE 1 APPLIC TOPICAL ×2 (08:38→21:24)
[2024-09-09] MEDS: LOPRESSOR PO (09:03)
[2024-09-09] MEDS: LOPRESSOR 12.5 MG PO ×2 (09:23)
--- NOTE | 2024-09-09 11:34 | CM ---
Addendum entered by Charu Hui 09/09/24 15:25:
Updated Mrs Srivastava and daughter regarding [facility] Approval and bed available tomorrow if medically stable.
Original Note:
Reviewed chart. Telephone call to [facility] to check on available bed. [facility] [place] will have a bed available on , 09/10/24 if she is medically stable. Telephone call to [facility] Case management to do the precert. Approved acute
Rehab. at [facility] [place]. Approved five days from 09/10/24 to 09/14/14 with next review due on 09/14/24 to ([phone]) The Auth. number is [id number]. Updated [facility] Liaison , R.N. and N.P. Medical work-up in progress. The
discharge plan is to go to [facility] [place] tomorrow if medically stable.
[2024-09-09] MEDS: NSS IV (12:00)
--- NOTE | 2024-09-09 12:03 | PTCARENOTE ---
Happier this afternoon, resting in chair. VSS, Assessment unchanged from prior
[2024-09-09 12:54] LABS: B.E. - POC 6.1 mmol/L; Glucose - POC 116 mg/dl (70-99); HCO3 - POC 30 mmol/L (21-28); Hematocrit - POC 27 % PCV (37-47); Hemodilution- POC No; Hemoglobin Calculated - POC 9.3; Ionized Calcium - POC 1.27 mmol/L (1.15-1.33); Lactate - POC < 0.30 mmol/L (0.36-0.75); O2 Saturation %Calculated-POC 99.9 % (94-98); PCO2 - POC 40 mmHg (35-48); PO2 - POC 305 mmHg (83-108); Potassium - POC 3.5 mmol/L (3.5-5.1); Sodium - POC 152 mmol/L (136-145); Specimen Type - POC Arterial; pH - POC 7.48 (7.35-7.45)
[2024-09-09 12:55] LABS: B.E. - POC 2.9 mmol/L; Glucose - POC 131 mg/dl (70-99); HCO3 - POC 26 mmol/L (21-28); Hematocrit - POC 23 % PCV (37-47); Hemodilution- POC Yes; Hemoglobin Calculated - POC 7.8; Ionized Calcium - POC 1.02 mmol/L (1.15-1.33); Lactate - POC < 0.30 mmol/L (0.36-0.75); PCO2 - POC 34 mmHg (35-48); PO2 - POC 483 mmHg (83-108); POC Comment CPB; Potassium - POC 4.7 mmol/L (3.5-5.1); Sodium - POC 146 mmol/L (136-145); Specimen Type - POC Arterial
[2024-09-09] MEDS: IMODIUM LIQUID 4 MG PO (13:34)
--- NOTE | 2024-09-09 15:54 | W.PN.ID1 ---
Date of Service
Date of Service: September 09, 2024
Today's Communication
Continue antibiotics.
Assessment / Plan
Mitral valve endocarditis
- s/p bovine MV replacement (09/02/24)
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
Staph aureus (MSSA) bacteremia
ESR and CRP elevated
Hypernatremia- resolved
Diarrhea (prior C. diff testing negative)
- improved/resolved. 'mushy' per nursing.
Sjogren syndrome
Rheumatoid arthritis
Dyslipidemia
Hypothyroidism
Anxiety/depression
Neuropathy
Hx of skin cancer
Osteopenia
Recommendations:
Continue nafcillin 2g IV q4h to complete a 6-week course of therapy (through 10/14/2024)
Patient for tentative transfer to Rehab. IV Rx has been given to Case Management.
Follow Cr / est CrCl and LFT's closely while on nafcillin.
Will follow BMP, CBC, LFT's, ESR, CRP weekly.
Valve tissue culture; NGTD
����������������������������������������������������������
Chief Complaint
-: Bacteremia and Other (MSSA MV IE)
Subjective / Review of Systems
Review of Systems: No Fever and No Chills
Vital Signs / Physical Exam
Vital Signs
Vital Signs
Temp Pulse Resp BP Pulse Ox
97.8 F 71 16 168/92 98
09/09/24 11:57 09/09/24 11:27 09/09/24 11:57 09/09/24 11:27 09/09/24 11:57
Physical Exam
Constitutional: No Acute Distress and Comfortable
Cardiovascular: Regular Rate and S1/S2
Pulmonary: Clear and Non Labored
Gastrointestinal: Soft, Non Tender and Non Distended
Skin: Warm and Dry
Wound: Other (Sternal wound clean, dry and intact)
Neurological: AO x 3
Psychological: Calm
Objective Data
Lab Data
Lab Results
09/09/24 03:54
09/09/24 03:54
ESR 20 mm/hour (0-20) 09/04/24 04:26
PT 16.1 Sec (11.4-14.6) H 09/09/24 03:54
INR 1.27 09/09/24 03:54
APTT 75.2 Sec (23.4-35.0) H 09/09/24 03:54
Estimated Creat Clear 51 ml/min 09/09/24 03:54
Total Bilirubin 1.1 mg/dl (0.2-1.3) 09/05/24 19:53
AST 26 U/L (14-36) 09/05/24 19:53
ALT < 10 U/L (0-35) 09/05/24 19:53
Alkaline Phosphatase 108 U/L (38-126) 09/05/24 19:53
C-Reactive Protein 132.30 mg/L (0.0-10.00) H 09/04/24 04:26
Most recent labs reviewed.
Micro Results:
09/02/24 11:48 Fungal Smear - Pending
Valve Fungal Culture - Preliminary
Culture in progress.
Positive cultures are reported as soon as detected.
Final report to follow in four to five weeks.
09/02/24 11:48 Tissue Culture - Final
Valve No Growth After 72 Hours
Gram Stain - Final
09/02/24 11:48 Anaerobic Culture - Final
Valve NO ANAEROBES ISOLATED
09/02/24 11:48 Acid Fast Bacilli Smear - Preliminary
Valve Acid Fast Bacilli Culture - Preliminary
09/01/24 15:50 Salmonella/Shigella Culture - Final
Feces/Stool No Salmonella, Shigella, Aeromonas or Plesiomonas species
isolated.
Campylobacter Culture - Final
No Campylobacter species isolated.
Shiga Toxin Test - Final
No E. coli Shiga Toxin 1 or 2 detected.
09/01/24 15:50 C. difficile GDH Antigen & Toxins - Final
Feces/Stool Negative for toxigenic C.difficile
08/27/24 13:48 Blood Culture - Final
Blood/Venous No Growth - Final Report
08/27/24 13:48 Blood Culture - Final
Blood/Venous No Growth - Final Report
08/20/2024 Blood culture: MSSA ([facility])
08/22/2024 Blood culture: No growth ([facility])
Imaging:
08/27/24 MRI brain: ACUTE and SUBACUTE EMBOLIC DISEASE with MULTIPLE SMALL ACUTE and SUBACUTE ISCHEMIC INFARCTS in the brain diffusely distributed throughout both the anterior and posterior circulation..
08/25/2024 CT head: 1.2 cm region of decreased attenuation at the anterior medial right cerebellar hemisphere which is developed since a prior CT scan dated 08/20/2024. This was possibly a recent infarction. Also noted is mild age-related volume
loss. Please see full dictation for additional detail. (Film performed at [facility])
08/21/2024 CT chest: No evidence of pneumonia. Small bilateral pleural effusions noted. Mild subsegmental atelectasis at the posterior inferior aspect of the right and left lower lobes. Ossification of the mitral annulus, with atherosclerotic
coronary artery calcifications noted. Please see full dictation for additional detail. (Film performed at [facility])
08/20/2024 CT head: No evidence of intracranial hemorrhage, acute infarct, mass or midline shift. Chronic small vessel ischemia and volume loss noted. Please see full dictation for additional detail. (Film performed at [facility])
TTE at [facility] 08/24/24: EF 55%, large echogenic mass on posterior mitral valve leaflet 1.6 x 1.3 cm with mild to moderate MR, concern for endocarditis
Care Review
Plan reviewed with: Physician (CT Surgery)
--- NOTE | 2024-09-09 16:33 | PTCARENOTE ---
Napping in chair. Has walked multiple times today with multiple ict support and test engineers and rolling walker. VSS. Denies pain. Emotional support provided. Family at bedside. Assessment otherwise unchanged from prior.
[2024-09-09] MEDS: COUMADIN 3 MG PO (17:32)
[2024-09-09] MEDS: LOVENOX 40 MG SC (17:32)
--- NOTE | 2024-09-09 20:00 | PTCARENOTE ---
received pt from previous RN. Pt sitting in chair at time of assessment. Pt AAOx4, NSR per tele monitor HR 70s, A/V wires insulated, +1 B/L LE edema, + pulses, pox 98% on RA, lung sounds diminished, + productive cough, voids appropriately, +bs,
surgical sites c/d/i, L PICC line intact, plan of care discussed and questions encouraged.
[2024-09-09] MEDS: LOPRESSOR 25 MG PO (20:04)
[2024-09-09] MEDS: NORVASC 5 MG PO (22:24)
--- NOTE | 2024-09-09 23:54 | PTCARENOTE ---
VSS,NSR per tele monitor, assessment remains unchanged.
[2024-09-10] MEDS: NAFCIL 108 MG IV ×3 (00:11→08:03)
[2024-09-10 02:07] VITALS: BP 143/73
[2024-09-10 02:45] LABS: PT 21.4 Sec (11.4-14.6)
--- NOTE | 2024-09-10 03:07 | PTCARENOTE ---
NSR per tele monitor, routine labs obtained, assessment remains unchanged
[2024-09-10 06:00] VITALS: BMI 26.6
[2024-09-10 08:01] VITALS: BP 150/71
[2024-09-10] MEDS: LIDOCAINE 4% PATCH 1 PATCH TOPICAL (08:06)
[2024-09-10] MEDS: LYRICA 50 MG PO (08:06)
[2024-09-10] MEDS: PROTONIX 40 MG PO (08:06)
[2024-09-10] MEDS: MAGNESIUM OXIDE 500 MG PO (08:06)
[2024-09-10] MEDS: TYLENOL 1000 MG PO (08:07)
[2024-09-10] MEDS: LOW STRENGTH ASPIRIN 81 MG PO (08:07)
[2024-09-10] MEDS: FIBERCON 625 MG PO (08:07)
[2024-09-10] MEDS: DESENEX/MITRAZOL/ZEASORB 1 APPLIC TOPICAL (08:07)
[2024-09-10] MEDS: LIPITOR 20 MG PO (08:07)
[2024-09-10] MEDS: PACERONE 200 MG PO (08:07)
[2024-09-10] MEDS: CYMBALTA DELAYED RELEASE 20 MG PO (08:07)
[2024-09-10] MEDS: NON-FORMULARY ITEM 1 CAP PO (08:08)
[2024-09-10] MEDS: LASIX 40 MG PO (08:21)
[2024-09-10] MEDS: COREG 6.25 MG PO (08:21)
[2024-09-10] MEDS: KCL 40 MEQ PO (08:22)
[2024-09-10] MEDS: DESITIN MAXIMUM STRENGTH PASTE 1 APPLIC TOPICAL (09:19)
--- NOTE | 2024-09-10 09:20 | PTCARENOTE ---
Patient received from night time babysitter RN; AAOx4, responds spontaneously to RN and follows commands; Peripheral neuropathy in B/L feet; [place]; Flat affect; VSS; NSR on monitor; +1 LE edema; +1 DP pulses; Lungs diminished at bases; SpO2 93-97% on RA; IS
1000 ml; Productive, occasional cough with clear sputum; Epicardial AV wires insulated and cut by CVNP Lorraine C. - no complications noted; Incontinent at times of diarrhea - brown, loose stool; Stress incontinence and urinating clear, yellow urine;
Sternal incision open and not approximated at bottom of incision - CVNP Lorraine C. notified and surgical bra applied, Desitin applied to buttocks, Desenex applied to breast and groin folds; Left chest wall double lumen tunneled PICC line with KVO
infusing; PO Lasix, PO Carvedilol, and PO Potassium ordered and given; See nursing documentation for further information.
--- NOTE | 2024-09-10 10:16 | CM ---
Reviewed chart. Telephone call to [facility] [place] Liaison to confirm bed available. Bed available at [facility] at [facility]. Met with Mrs. Srivastava to update her on discharge plan to go to [facility] [place] today. Medical work-up in
progress. The discharge plan is to go to [facility] [place] when medically stable.
--- NOTE | 2024-09-10 10:57 | W.DCSUMMARY ---
Discharge Summary
Discharge Data
Date of Admission: 08/26/24
Date of Discharge: 09/10/24
Total time spent discharging patient (in min): 55
-
Pending Results: No
Hospital Course
Primary care physician:
Dr. Sharla Escalera
Outpatient lithography contact worker:
Dr. Ingram
Inpatient consultants:
DCA, java web developer, infectious disease, IRad, wound, CT surgery
Procedures:
1. Chordal sparing mitral valve replacement [27 mm bioprosthesis] and Patch repair of mitral annulus along P1, P2 and P3 using bovine pericardium
Primary Diagnosis:
1. 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
Secondary Diagnoses:
1. Acute postop paroxysmal a-fib on 09/03 - tx with Amio bolus and drip
2. 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
3. Sjogren syndrome
4. Immunocompromised
5. Hypothyroid
6. Hyperlipidemia
7. Anxiety/depression
8. Osteoporosis
9. Frail
10. Acute postop blood loss anemia - s/p 2 pRBCs
11. Acute postop thrombocytopenia/coagulopathy - s/p 2 unit platelets, 1 FFP, DDAVP
12. Acute postop hypovolemia with subsequent hypervolemia
HPI: 84-year-old female with complex medical history, initially admitted 08/26/2024. Patient with history of rheumatoid arthritis on chronic methotrexate, Sjogren's disease, initially presented to [facility] because of confusion and weakness. Patient
noted to have elevated white count, lower lobe pneumonia and lower extremity swelling. She was treated with IV antibiotics, found to have gram-positive bacteremia. Echocardiogram showed large mitral valve leaflet lesion with normal EF. Patient
was transferred to [facility]. Patient was taken to the CVOR on 09/02/24.
Hospital course: 84-year-old female with complex medical history, initially admitted 08/26/2024. Patient with history of rheumatoid arthritis on chronic methotrexate, Sjogren's disease, initially presented to [facility] because of confusion and
weakness. Patient noted to have elevated white count, lower lobe pneumonia and lower extremity swelling. She was treated with IV antibiotics, found to have gram-positive bacteremia. Echocardiogram showed large mitral valve leaflet lesion with
normal EF. Patient was transferred to [facility]. Hospital stay was reviewed at length. Patient is seen by cardiology, infectious disease, neurology, CT surgery. Found to have embolic stroke, suspected septic emboli. Patient treated
with nafcillin, methotrexate was held. Patient had cardiac catheterization 08/26/2024 which showed no significant coronary disease with normal filling pressures. Patient was noted to have right upper extremity, occlusive thrombus basilic/cephalic
vein. Patient underwent mitral valve repair with patch repair of mitral annulus and left atrial clip 09/02.
Patient was taken to the OR on 09/02 for mitral valve replacement with Dr. Pena. Postoperatively he returned to the CVICU on Levophed, Precedex, and insulin infusions. Patient had a small sternal hematoma and a pressure dressing was applied.
Patient was given 1 FFP, 1 unit of packed red blood cells, and 2 pools of platelets for hypotension and mild bleeding. Patient responded well to fluids and Levophed was able to be weaned. On 09/03 postoperative day 1, patient's Boelus and López was
removed. She was diuresed with 40 mg of IV Lasix and given 1 unit of packed red blood cells. Patient had an episode of atrial fibrillation and was given amiodarone bolus and drip and converted to sinus rhythm. Patient was transitioned off insulin
drip and transferred to telemetry status. On 09/02 postoperative day 2 patient was given 2.5 mg of Coumadin and chest tubes were removed. Fiber was started for diarrhea and patient was again diuresed. On 09/05 postoperative day 3 patient's INR
climbed to 2.6 and Coumadin was held and was given a one-time dose of vitamin K. Patient was continued to be diuresed. On 09/06 postoperative day 4 patient was given 0.5 mg of Coumadin. On 09/07 postoperative day 5 patient's INR was 1.23 she was
diuresed and PICC team was consulted for PICC line placement for long-term antibiotics. However they were unable to due to a thrombus in a left brachial vein and IV heparin was started. On 09/08 postoperative day 6 patient was given 2 mg of Coumadin
for INR 1.26 and patient went to IR for a left IJ tunneled PICC line placement. On 09/09 postoperative day 7 patient was given 3 mg of Coumadin she was also transitioned to Lovenox subcutaneously. Patient was also hypertensive and was resumed on her
home dose of Norvasc. On 09/10 postop day 8, patient was transition from metoprolol to tartrate to Coreg for better blood pressure control which she tolerated well. She was given 40 mg of p.o. Lasix. She was deemed stable for discharge to [facility].
Home medication changes:
see below
Discharge Plan
-
Patient Disposition: Acute Rehab Facility
Discharge Diagnosis/Procedures: MVR
Condition: Fair
Diet: Low Cholesterol and Low Sodium
Activity: No strenuous activity
Driving Restrictions: Not until seen by your Dr
Bathing Restrictions: OK to Shower
Blood Work: ESR, CRP, BMP, LFTs weekly with report to infectious diseases
Other Services: Cardiac Rehab
Specialty Instructions: Weigh Daily- Call MD for wt gain/loss 3 lbs overnight/5 lbs in 1 week
Activity Restrictions/Additional Instructions:
Wound Care Instructions
R 3rd distal toe-clean with saline or soap and water, apply a non stick dressing (i.e. Band-aide or adaptic and gauze dressing, change daily.
Miconazole powder to groin, L breast fold, affected areas twice a day.
Elevate heels off bed with pillow/s.
Pressure redistributing chair cushion (i.e. Air chair cushion).
Follow up with a aviation operations specialist for foot wear evaluation, callus care.
ACTIVITY:
-No strenuous activity: no heavy lifting, pushing, pulling anything over 15 pounds for one month
-continue to use stairs as tolerated
DRIVING RESTRICTIONS:
-No driving for one month or until approved by your surgeon
WOUND CARE:
-Shower daily. Use soap & water.
-No lotions, creams or powders on incision area.
DIET:
-continue a low fat/low cholesterol diet.
-IF you are diabetic, continue carb controlled diet.
CARDIAC REHAB:
-Please make appointment to start in 5-6 weeks with your local hospital program. (See Cardiac Rehabilitation Discharge Booklet).- PLEASE CALL [facility] at [phone] or [facility] at [phone] when cleared
by [facility].
SPECIALTY INSTRUCTIONS:
-Weigh yourself daily. Call your physician for any weight gain/loss of 3 lbs overnight or 5 lbs in one week.
-REPORT any clicking noise or uneven appearance of your sternum to your surgeon immediately.
-If you smoke, you are instructed to quit. The [place] smoking hotline phone number is [phone]
Referrals:
[facility] [place] [Other]
Eulalio Herman MD [Active] - 10/13/24 2:00 pm
SHARLA ESCALERA MD [Family Provider] - in four to six weeks (Please make an appointment in four to six weeks. )
Willa Segura CRNP [Specified Professional Personl] - 09/28/24 1:00 pm
Additional Discharge Medication Instructions: Please take amiodarone 200mg twice a day for 14 days and then 200mg daily.
Goal INR is 2-3
Prescriptions:
New
amiodarone 200 mg Tablet
200 mg PO BID Qty: 30 0RF
amlodipine 5 mg Tablet
5 mg PO HS Qty: 0 0RF
pantoprazole 40 mg Tablet,Delayed Release (Dr/Ec)
40 mg PO DAILY Qty: 0 0RF
calcium polycarbophil [Fiber-Lax] 625 mg Tablet
625 mg PO DAILY Qty: 0 0RF
aspirin 81 mg Tablet,Chewable
81 mg PO DAILY Qty: 0 0RF
oxycodone 5 mg Tablet
2.5 mg PO Q4HPRN PRN (Reason: severe pain) Qty: 10 0RF
enoxaparin 40 mg/0.4 mL Syringe
40 mg SC QPM Qty: 0 0RF
loperamide 1 mg/7.5 mL Liquid
4 mg PO Q3HPRN PRN (Reason: diarrhea) Qty: 0 0RF
Nafcillin [Nafcil] 2000 MG
0.9% Sodium Chloride 100 ml [Nss] 100 ML
108 mls/hr IV Q4H
Reason for use: endocarditis
Ordered By: Maria G Franklin CRNP
Last Taken: 09/10/24 08:03 108 mls
carvedilol 6.25 mg Tablet
6.25 mg PO BID Qty: 0 0RF
warfarin [Jantoven] 2.5 mg Tablet
2.5 mg PO QPM Qty: 0 0RF
Continued
atorvastatin 20 mg Tablet
20 mg PO DAILY
ondansetron HCl 4 mg Tablet
4 mg PO DAILYPRN PRN (Reason: nausea)
acetaminophen [Tylenol Extra Strength] 500 mg Tablet
500 mg PO Q6HPRN PRN (Reason: mild pain/fever)
cevimeline 30 mg Capsule
1 cap PO TID
Debrox 6.5 % Drops
5 drp EACH EAR DAILYPRN PRN (Reason: ear wac)
docusate sodium 100 mg Capsule
100 mg PO BID
folic acid 1 mg Tablet
1 mg PO DAILY
duloxetine 20 mg Capsule,Delayed Release(Dr/Ec)
20 mg PO BID
pregabalin 50 mg Capsule
50 mg PO DAILY
Centrum Silver Women 8 mg iron-400 mcg-50 mcg Tablet
1 tab PO DAILY
melatonin 10 mg Tablet
10 mg PO HS PRN (Reason: sleep)
Held
methotrexate sodium 2.5 mg Tablet
20 mg PO TH
Hold Instructions: Resume on 10/07/24.
celecoxib [Celebrex] 200 mg Capsule
200 mg PO DAILY
Hold Instructions: Resume on 10/07/24.
Discontinued
cefazolin 1 gram Recon Soln
2 g IV Q8H
povidone-iodine 10 % Swab
1 applic TOPICAL MOTH
Discharge Orders:
Discharge Patient (As Directed); Ordered 09/10/24
Ordered By: Maria G Franklin
Care Plan Goals
Care Plan Goals:
Problem: Readiness for enhanced knowledge related to diagnosis and treatment plan
Goal: Understand your diagnosis and treatment plan needs, including medications if applicable.
Instructions: Know your diagnosis, underlying causes and treatment plan options, including medications if applicable. Consult with your health care team to learn about your diagnosis and treatment plan, including medications if applicable.
Discharge Date and Time
Print Language: AMHARIC
--- NOTE | 2024-09-10 11:20 | PTCARENOTE ---
Report given to Devin ARORA at [facility] - states full understanding and has no further questions asked at this time; Patient belongings with patient; IV naficillin sent with patient; Left chest wall PICC line remains in place
== END 2024-09-10 12:23 | DRG 216 ==
LOC: CVICU 18:58
PROVIDERS: Anesthesiology; Clinical Nurse Specialist Acute Care; Internal Medicine Interventional Cardiology; Nurse Practitioner; Physician Assistant; Physician Assistant Medical; Radiology Vascular & Interventional Radiology; Student in an Organized Health Care Education/Training Program; ADMITTING PHYSICIAN Hospitalist; ATTENDING PHYSICIAN Thoracic Surgery (Cardiothoracic Vascular Surgery); CONSULT PHYSICIAN Internal Medicine Critical Care Medicine; CONSULT PHYSICIAN Internal Medicine Infectious Disease; CONSULT PHYSICIAN Physical Medicine & Rehabilitation; CONSULT PHYSICIAN Psychiatry & Neurology Neurology; FAMILY PHYSICIAN Family Medicine; OTHER PHYSICIAN Nuclear Medicine Nuclear Cardiology
PROC: B24BZZ4 Ultrasonography of Heart with Aorta, Transesophageal (ICD-10-PCS; 2024-08-28)
PROC: B2111ZZ Fluoroscopy of Multiple Coronary Arteries using Low Osmolar Contrast (ICD-10-PCS; 2024-08-31)
PROC: 4A023N7 Measurement of Cardiac Sampling and Pressure, Left Heart, Percutaneous Approach (ICD-10-PCS; 2024-08-31)
PROC: 5A1221Z Performance of Cardiac Output, Continuous (ICD-10-PCS; 2024-09-02)
PROC: 30233N1 Transfusion of Nonautologous Red Blood Cells into Peripheral Vein, Percutaneous Approach (ICD-10-PCS; 2024-09-02)
PROC: 02RG08Z Replacement of Mitral Valve with Zooplastic Tissue, Open Approach (ICD-10-PCS; 2024-09-02)
PROC: 02L70CK Occlusion of Left Atrial Appendage with Extraluminal Device, Open Approach (ICD-10-PCS; 2024-09-02)
PROC: 30233K1 Transfusion of Nonautologous Frozen Plasma into Peripheral Vein, Percutaneous Approach (ICD-10-PCS; 2024-09-02)
PROC: 30233R1 Transfusion of Nonautologous Platelets into Peripheral Vein, Percutaneous Approach (ICD-10-PCS; 2024-09-02)
PROC: 05JY3ZZ Inspection of Upper Vein, Percutaneous Approach (ICD-10-PCS; 2024-09-07)
PROC: 02HV33Z Insertion of Infusion Device into Superior Vena Cava, Percutaneous Approach (ICD-10-PCS; 2024-09-08)
PROC: 0JH63XZ Insertion of Tunneled Vascular Access Device into Chest Subcutaneous Tissue and Fascia, Percutaneous Approach (ICD-10-PCS; 2024-09-08)
DX: I33.0 Acute and subacute infective endocarditis (principal); G92.8 Other toxic encephalopathy; I63.40 Cerebral infarction due to embolism of unspecified cerebral artery; I82.C11 Acute embolism and thrombosis of right internal jugular vein; R78.81 Bacteremia; I76 Septic arterial embolism; E87.0 Hyperosmolality and hypernatremia; D84.9 Immunodeficiency, unspecified; G81.91 Hemiplegia, unspecified affecting right dominant side; D62 Acute posthemorrhagic anemia; D68.9 Coagulation defect, unspecified; J98.11 Atelectasis; E78.5 Hyperlipidemia, unspecified; M06.9 Rheumatoid arthritis, unspecified; M35.00 Sjogren syndrome, unspecified; E03.9 Hypothyroidism, unspecified; L97.519 Non-pressure chronic ulcer of other part of right foot with unspecified severity; I10 Essential (primary) hypertension; F41.9 Anxiety disorder, unspecified; F32.9 Major depressive disorder, single episode, unspecified; G62.9 Polyneuropathy, unspecified; I34.0 Nonrheumatic mitral (valve) insufficiency; B95.61 Methicillin susceptible Staphylococcus aureus infection as the cause of diseases classified elsewhere; I34.81 Nonrheumatic mitral (valve) annulus calcification; E87.6 Hypokalemia; I25.10 Atherosclerotic heart disease of native coronary artery without angina pectoris; M81.0 Age-related osteoporosis without current pathological fracture; E88.09 Other disorders of plasma-protein metabolism, not elsewhere classified; R54 Age-related physical debility; R00.1 Bradycardia, unspecified; R13.10 Dysphagia, unspecified; K44.9 Diaphragmatic hernia without obstruction or gangrene; R19.7 Diarrhea, unspecified; M48.02 Spinal stenosis, cervical region; R47.1 Dysarthria and anarthria; I48.0 Paroxysmal atrial fibrillation; E86.1 Hypovolemia; E87.70 Fluid overload, unspecified; D69.59 Other secondary thrombocytopenia; R91.8 Other nonspecific abnormal finding of lung field; Z79.1 Long term (current) use of non-steroidal anti-inflammatories (NSAID); Z79.631 Long term (current) use of antimetabolite agent; Z79.899 Other long term (current) drug therapy; Z82.49 Family history of ischemic heart disease and other diseases of the circulatory system; Z85.828 Personal history of other malignant neoplasm of skin; Z87.891 Personal history of nicotine dependence; Z91.81 History of falling
CPT/HCPCS: 93308; 36558; 36573; 36598; 70355; 70450; 70551; 71045; 71046; 71275; 72156; 74230; 76937; 77001; 80048; 80053; 80061; 80076; 81003; 81015; 82248; 82330; 82565; 82805; 82810; 82947; 82962; 83036; 83735; 84132; 84302; 84443; 84520; 85014; 85018; 85025; 85027; 85049; 85384; 85610; 85652; 85730; 86140; 86850; 86900; 86901; 86920; 87015; 87040; 87045; 87046; 87070; 87075; 87102; 87116; 87176; 87205; 87206; 87324; 87427; 87449; 92507; 92523; 92526; 92610; 92611; 93005; 93312; 93320; 93321; 93325; 93458; 93880; 93971; 94002; 97110; 97116; 97163; 97164; 97167; 97530; 97535; 99152; 99153; A9575; C1750; C1768; C1894; J2597; J2916; J3480; P9016; P9045; P9059; P9073; Q9967

== ENCOUNTER 2024-09-16 15:59 | Inpatient (IN) | payer OTHER, SELFPAY ==
[2024-09-16] VITALS (11 sets, daily range): BP systolic 125–161; BP diastolic 85–107; BMI 27.4; BMI 25.6
--- NOTE | 2024-09-16 10:38 | ED.GENMED ---
History of Present Illness
General
Chief Complaint: Cardiac Symptoms
Source: patient and records
Time Seen by Provider: 09/16/24 10:16
History of Present Illness
History of Present Illness:
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 She did develop A-fib postop but when she was transferred, she was reportedly in a
normal sinus rhythm. She was noted to be in A-fib with RVR today which prompted her visit here. Patient denies any symptoms. She denies chest pain, palpitations, dizziness, abdominal pain, or other new symptoms. Patient is currently maintained
on amiodarone, Eliquis, and Coreg. She was given an extra dose of Coreg prior to presentation here.
Past History
Past History
ED Past Medical History: Other (Rheumatoid arthritis, Sjogren's, hypertension, hypothyroidism, reflux, hypercholesterolemia)
ED Past Surgical History: Cardiac (Mitral valve replacement)
Social History
Tobacco: Non-smoker
Alcohol: None
Drug: None
Phy Exam
Physical Exam
Physical Exam:
GENERAL: Alert , in no apparent distress
EYE: pupils equal and reactive
NECK: Supple, no significant adenopathy.
ENT: o/p clr, mmm.
CARDIAC: Irregularly irregular, tachycardic
LUNGS: Clear breath sounds bilaterally, no acute respiratory distress, no wheezes rales or rhonchi
ABDOMEN: Soft, without focal tenderness, no r/g, no cvat
NEUROLOGICAL: Alert and oriented, no focal neuro deficits
SKIN: Warm and dry, skin intact.
MUSCULOSKELETAL: No edema, well perfused.
PSYCH: Normal and appropriate interaction.
Course
Orders/Labs/Results
Orders:
Orders
09/16/24 09:44
EKG [Electrocardiogram (*1)] Urgent
Reason for Study: Atrial Fibrillation
09/16/24 09:45
EKG- Treatment ONCE
09/16/24 10:25
Cardiac Monitoring- Treatment ONCE
09/16/24 10:40
Complete Blood Count/No Diff Urgent
Comprehensive Metabolic Panel Urgent
NT-proBNP Urgent
Comment: PROBNP ADDED ON BY FLOOR 2PM 09-16-24
PTT Urgent
Prothrombin Time Urgent
09/16/24 11:26
CR Chest Portable - 1 View Urgent
Comment:
Reason For Exam: line placement
Reason Study Needs to be Portable: Other
09/16/24 11:38
Amiodarone [Cordarone] 150 mg Dextrose 5%/Water 100 ml [D5w] 100 ml IV NOW
09/16/24 13:45
Admit Patient As Directed
Co-Sign Provider:
Level of Care: Inpatient admission
Assign to:: Telemetry
Physician / Group: hospitalist
Diagnosis: Afib with RVR
Reason for Telemetry: Medication for Arrhythmia
Date to Stop Telemetry: 09/18/24
Time to Stop Telemetry: 11:00
Reason for Hospitalization: Afib with RVR
Expected length of stay greater than two midnights?: Yes
ELOS- Estimated Length of Stay in days: 3
I certify the patient meets the requirements for IP care: Yes
Code Status As Directed
Resuscitation Status: Full Code
Activity As Directed
Activity Level: As Tolerated
Notify MD As Directed
Notify physician if: Bridge Admission orders placed.
Notify attending physician:
-- upon arrival to unit
OR
-- when patient is identified as an ED hold
Vital Signs As Directed
Frequency: Per unit guidelines
O2 Therapy [RESP] Routine
Titrate/Wean O2 to maintain O2 sat greater than (%): 92
09/16/24 13:46
PRN Pain Medication Management As Directed
May give lesser potent ordered pain med per pt: Yes
preference::
Protocol:: Medication orders for pain may be administered in a
manner that supports deferring to patient preference
when the pt is:
- Requesting an ordered lesser potent pain medication.
Least to most potent pain medications are defined
as: acetaminophen < NSAID < tramadol < opioids
(morphine, oxycodone, hydromorphone).
- Requesting a lesser dose of the same medication IF
ORDERED.
- Requesting a less intrusive route of administration
if both routes are prescribed by the provider (PO <
IV).
09/16/24 13:50
DX Deep Vein Thrombosis Video Routine
09/16/24 13:59
Add On- LAB Routine
Tests Added?: proBNP
09/16/24 14:59
Potassium Chloride [KCl] 40 meq PO NOW STA
09/16/24 Dinner
Regular
At Your Request: Full Participation
09/16/24 15:30
Potassium Chloride Powder [Klor-Con] 40 meq PO NOW STA
09/16/24 15:54
Furosemide [Lasix] 40 mg IV NOW STA
Potassium Chloride [KCl] 40 meq PO NOW STA
09/16/24 15:58
Admit Patient As Directed
Co-Sign Provider:
Level of Care: Inpatient admission
Assign to:: IVU
Physician / Group: hospitalist
Diagnosis: Afib with RVR
Reason for Hospitalization: Irregular heart rate and rhythm
Expected length of stay greater than two midnights?: Yes
ELOS- Estimated Length of Stay in days: 3
I certify the patient meets the requirements for IP care: Yes
O2 Therapy [RESP] Routine
Titrate/Wean O2 to maintain O2 sat greater than (%): 92
09/16/24 15:59
PRN Pain Medication Management As Directed
May give lesser potent ordered pain med per pt: Yes
preference::
Protocol:: Medication orders for pain may be administered in a
manner that supports deferring to patient preference
when the pt is:
- Requesting an ordered lesser potent pain medication.
Least to most potent pain medications are defined
as: acetaminophen < NSAID < tramadol < opioids
(morphine, oxycodone, hydromorphone).
- Requesting a lesser dose of the same medication IF
ORDERED.
- Requesting a less intrusive route of administration
if both routes are prescribed by the provider (PO <
IV).
09/16/24 16:00
Amiodarone [Pacerone] 200 mg PO TID
Flush (0.9% Sodium Chloride) [Flush (Nss)] See Dose Instructions IV PER PROTOCOL
Furosemide [Lasix] 40 mg IV DAILY
09/16/24 16:30
Blood Culture Q30M
DONNA Source: Blood/Venous
Specimen Description:
09/16/24 17:02
Blood Culture Q30M
DONNA Source: Blood/Venous
Specimen Description:
09/16/24 20:00
Apixaban [Eliquis] 5 mg PO BID
09/16/24 22:00
Carvedilol [Coreg] 12.5 mg PO HS
09/17/24 04:05
Complete Blood Count/With Diff IN AM
Comprehensive Metabolic Panel IN AM
Magnesium IN AM
09/17/24 06:00
Echo Follow up Study W Dop Routine
Reason for Study: afib, recent MVR,chf
Cardiology Consult: Herb Chapman
09/17/24 08:00
Carvedilol [Coreg] 25 mg PO DAILY
09/18/24 11:00
DC Protocol for Telemetry ONCE
Abnormal Lab Results
09/16/24
10:40
WBC 19.0 H 10^3/uL
(4.8-10.8)
RBC 3.07 L 10^6/uL
(4.20-5.40)
Hgb 9.3 L g/dL
(12.0-16.0)
Hct 28.4 L %
(37.0-47.0)
MCHC 32.7 L g/dL
(33.0-37.0)
RDW 18.1 H %
(11.5-14.5)
PT 21.1 H Sec
(11.4-14.6)
APTT 37.1 H Sec
(23.4-35.0)
Potassium 3.2 L mmol/L
(3.5-5.1)
Glucose 123 H mg/dl
(70-99)
Total Protein 5.0 L g/dl
(6.3-8.2)
Albumin 2.4 L g/dl
(3.5-5.0)
09/16/24 10:40
09/16/24 10:40
Vital Signs
Initial and Last Documented VS:
Initial Vital Signs
Temp Pulse Resp Pulse Ox
97.9 F 138 16 96
09/16/24 09:53 09/16/24 09:53 09/16/24 09:53 09/16/24 09:53
Last Documented Vital Signs
Temp Pulse Resp BP Pulse Ox
97.5 F 71 16 117/63 95
09/18/24 04:15 09/18/24 04:15 09/18/24 04:15 09/18/24 04:15 09/18/24 04:15
*Critical Care Note
Total Time (30-74mins, 75-104mins- exclusive of procedures): Not Applicable
Update Note
Update Note:
Patient presents to the Emergency Department with reported A-fib
Number and Complexity of Problems Addressed at the Encounter
� Chronic conditions affecting care:
� Acute Exacerbation and/or Progression of Chronic Illness:
� Differential Diagnosis includes: But not limited to atrial fibrillation a flutter, etc. etc.
Amount and/or Complexity of Data to be Reviewed and Analyzed
� I performed an independent evaluation of and my interpretation is:
EKG:
CT:
Xrays:
Laboratory Studies:
Other:
� Review of other/old records reveals: Discharge summary from patient's hospitalization for mitral valve repair reviewed in detail
� Clinical information was obtained by an independent historian: Daughter who is bedside
� Prescriptions/Medications Considered but not given:
� Further testing considered but not performed:
Risk of Complications and/or Morbidity or Mortality of Patient Management
� Social determinants of health affecting care:
� Discussion with other providers (PCP, Hospitalists, Consultants, etc):
� Escalation of care including admission/observation vs risk of discharge considered: Case discussed with cardiology, Dr. Delgado, aware of history, physical, findings here. We mutually agree the patient likely needs admission
given that she is in this A-fib with RVR which is not favorable for her also being at [facility]. I will give her 150 mg of amiodarone IV now, and plan for admission, CV surgery notified via Dr. Hamilton. I will discuss with hospitalist shortly. Patient and
daughter updated.
ED Attending Note
-
Portions of this chart may have been created with voice recognition software.� Occasional wrong word or��sound alike� substitutions may have occurred due to the inherent limitations of voice recognition software.
Discharge Plan
Departure
Patient Disposition: Admit
Date of Disposition: 09/16/24
Time of Disposition: 11:52
Presentation/result/management discussed w/ accepting MD/DO: Hospitalist
Condition: Fair
Discharge Problem:
Atrial fibrillation
Interventions
Interventions:
*Risk Screen - Suicide Last Done: 09/16/24 10:23
*General Assessment Last Done: 09/16/24 10:23
*Neglect/Abuse Screening Last Done: 09/16/24 10:23
*ED- Fall Risk Assessment Last Done: 09/16/24 10:23
*ED COVID-19 Vaccine History Last Done: 09/16/24 10:23
*Nursing Disposition Last Done: 09/16/24 16:22
ED- Pulmonary Assessment Last Done: 09/16/24 11:30
ED- Cardiac Assessment Last Done: 09/16/24 11:30
Discharge Date and Time
Discharge Date/Time: 09/16/24 19:55
[2024-09-16 10:50] LABS: Hematocrit 28.4 % (37.0-47.0); Hemoglobin 9.3 g/dL (12.0-16.0); Mean Corp Hgb Conc. 32.7 g/dL (33.0-37.0); Mean Corpuscular Hgb 30.3 pg (27.0-31.0); Mean Corpuscular Volume 92.5 fL (81.0-99.0); Platelet Count 292 10^3/uL (130-400); Red Blood Cell Count 3.07 10^6/uL (4.20-5.40); Red Cell Dist. Width 18.1 % (11.5-14.5)
[2024-09-16 11:04] LABS: ALT (SGPT) < 10 U/L (0-35); AST (SGOT) 19 U/L (14-36); Albumin 2.4 g/dl (3.5-5.0); Alkaline Phosphatase 126 U/L (38-126); Blood Urea Nitrogen 10 mg/dl (7-17); Calcium 8.9 mg/dl (8.4-10.2); Carbon Dioxide 28 mmol/L (22-30); Chloride 104 mmol/L (98-107); Estimated Creatinine Clearance 65 ml/min; Glucose 123 mg/dl (70-99); Potassium 3.2 mmol/L (3.5-5.1); Sodium 136 mmol/L (135-145); Total Bilirubin 0.8 mg/dl (0.2-1.3); eGFR > 60.00
[2024-09-16 11:10] LABS: INR 1.77; PT 21.1 Sec (11.4-14.6)
[2024-09-16 11:11] LABS: APTT 37.1 Sec (23.4-35.0)
[2024-09-16] MEDS: CORDARONE 103 MG IV (12:05)
--- NOTE | 2024-09-16 12:46 | CON.CAR ---
Addendum entered and electronically signed by James Juarez MD 09/16/24 15:41:
patient seen and examined
agree with MONICA Casillas's notes and assessment
agree with MONICA Casillas's plan
exam:
heent ncat
jvp 6
cor irregularly irregular
lungs ctab
abd soft nt nd
no ext edema
Assessment:
Presentation with tachycardia
Afib with RVR
Acute HFpEF
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
Post op PAF
RLE DVT
R 3rd toe ulcer s/p debridement 08/2024
RA on chronic methotrexate
HTN
HLD
Hypothyroidism
Anxiety/depression
Anemia
Hypoalbuminemia
Moderate hiatal hernia
DDD of neck
Thyroid goiter
TTE at [facility] 08/24/24: EF 55%, large echogenic mass on posterior mitral valve leaflet 1.6 x 1.3 cm with mild to moderate MR, concern for endocarditis
ADITI 08/28 with preserved EF, large partially mobile vegetation measuring 2.0 cm in length on primarily the posterior leaflet of mitral valve, also with smaller, highly mobile echodense structure/vegetation on posterior leaflet of mitral valve that
transverses the mitral valve with each cardiac cycle with high risk of embolization, mild to moderate MR
ECHO 09/07/24: Limited study status post mitral valve replacement, paradoxical septal motion consistent with postop status, EF 55 to 60% with number 27 mm Pritchett Resilia bioprosthetic mitral valve well-seated with mean gradient 8 mmHg, no MR, mild
TR, PAP 32 mmHg, no significant pericardial effusion
Plan:
- Patient presented to ER from [facility] with elevated heart rate
- Noted to be in atrial fibrillation with RVR. Status post IV Amio 150 mg bolus without significant improvement. Will attempt to increase Coreg to 25 mg every morning and 12.5 mg every afternoon as well as increase amiodarone dose to 200 mg 3
times daily. Follow QTc by EKG
- Continue Eliquis for both RLE DVT and afib
- She has left atrial appendage clip and no evidence of clot by IntraOp ADITI or postoperative echo on 09/07. Would consider for cardioversion on Monday 09/18 if remains in A-fib
- Also with evidence on examination of acute CHF with significant lower extremity edema. Had been given p.o. Lasix for 5 days postdischarge, resumed 09/16 at 20 mg daily. Ordered proBNP. Creatinine stable at 0.7
- Replete potassium.
- Consider for repeat follow up echocardiogram, last from 09/07 with results as above
- Continue antibiotics per ID
- continue post op restrictions
- Discussed with patient and daughter at bedside
- CT surgery notified of patient
Original Note:
Consultation
Consultation Request
Date/Time Consultation Performed: 09/16/24
Requesting Provider: Dr. López
Performing Provider: Lora Casillas PA-C for Dr. Juarez
Reason for Consultation: afib
Medical History
-
Chief Complaint: afib with RVR
History of Present Illness:
Patient is an 84-year-old female with recent admission to [facility] as well as [facility] for MSSA bacteremia, septic emboli to brain by imaging at [place] and evidence of mitral valve endocarditis, transferred to [facility] 08/[address]
surgical evaluation and underwent chordal sparing bioprosthetic MVR and left atrial appendage clip 06/04/2024. Postoperatively she had paroxysmal atrial fibrillation. She was discharged to [facility] on amiodarone 200 mg twice daily as well as
Coumadin. While at [facility] was noted to have RLE DVT and therefore was transitioned from coumadin to eliquis 09/11. She was noted to have some LE edema and lasix 20mg po daily was restarted this morning. While working with therapy today patient's HR was
noted to be elevated. EKG showed afib with RVR. was given additional dose of coreg without improvement. was sent to ER for evaluation. Remains in afib with RVR on arrival to ER. was given 150mg amio bolus without significant improvement in HRs.
Cardiology consulted for eval.
PMH:
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
Post op PAF
RLE DVT
R 3rd toe ulcer s/p debridement 08/2024
RA on chronic methotrexate
HTN
HLD
Hypothyroidism
Anxiety/depression
Anemia
Hypoalbuminemia
Moderate hiatal hernia
DDD of neck
Thyroid goiter
Past Medical History
Past Medical History: Other (in HPI)
Social History
Tobacco: Non-Smoker
Living: Other ([place] from )
Family History
Family History: Reviewed & Not Pertinent
Allergies / Home Medications
Allergy/AdvReac Type Severity Reaction Status Date / Time
latex Allergy Unknown Verified 09/16/24 09:56
�Medication �Instructions �Recorded �Confirmed �Type
atorvastatin 20 mg tablet 20 mg PO QPM High Cholesterol 08/26/24 09/16/24 History
cevimeline 30 mg capsule 30 mg PO TID DRY MOUTH 08/26/24 09/16/24 History
ondansetron HCl 4 mg tablet 4 mg PO DAILYPRN PRN nausea 08/26/24 09/16/24 History
melatonin 10 mg tablet 10 mg PO HS 08/28/24 09/16/24 History
Nafcillin [Nafcil] 2,000 mg 108 mls/hr IV Q4H endocarditis 09/09/24 09/16/24 Rx
amiodarone 200 mg tablet 200 mg PO BID Arrhythmia #30 tabs 09/09/24 09/16/24 Rx
amlodipine 5 mg tablet 5 mg PO HS Blood clot 09/09/24 09/16/24 Rx
prevention/tx #0 tabs
aspirin 81 mg chewable tablet 81 mg PO DAILY #0 tabs 09/09/24 09/16/24 Rx
oxycodone 5 mg tablet 2.5 mg (1/2 x 5 mg) PO Q4HPRN PRN 09/09/24 09/16/24 Rx
severe pain #10 tabs
acetaminophen 325 mg tablet 650 mg PO Q6HPRN PRN mild pain 09/16/24 09/16/24 History
(Tylenol)
alprazolam 0.25 mg tablet (Xanax) 0.25 mg PO Q8HPRN PRN anxiety 09/16/24 09/16/24 History
apixaban 5 mg tablet (Eliquis) 5 mg PO BID 09/16/24 09/16/24 History
carvedilol 12.5 mg tablet (Coreg) 12.5 mg PO BID 09/16/24 09/16/24 History
cholecalciferol (vitamin D3) 25 25 mcg PO DAILY 09/16/24 09/16/24 History
mcg (1,000 unit) tablet (Vitamin
D3)
duloxetine 30 mg capsule,delayed 30 mg PO BID 09/16/24 09/16/24 History
release (Cymbalta)
furosemide 20 mg tablet (Lasix) 20 mg PO DAILY 09/16/24 09/16/24 History
lidocaine 4 % topical patch 1 patch topical DAILY 09/16/24 09/16/24 History
loperamide 2 mg tablet 2 mg PO Q4HPRN PRN diarrhea 09/16/24 09/16/24 History
miconazole nitrate 2 % topical 1 applic topical BIDPRN PRN rash 09/16/24 09/16/24 History
cream (Antifungal (miconazole))
potassium chloride 20 mEq 20 meq PO BID 09/16/24 09/16/24 History
tablet,extended release
therapeutic multivitamin 1 tab PO DAILY 09/16/24 09/16/24 History
zinc oxide-cod liver oil 40 % 1 applic topical BID both buttock 09/16/24 09/16/24 History
topical paste (Desitin) region
Review of Systems
-
History Source: Patient and Family
All other systems: Negative unless noted
Physical Exam
Vital Signs
Temp Pulse Resp BP Pulse Ox
98.2 F 126 19 143/92 96
09/16/24 12:45 09/16/24 11:00 09/16/24 11:00 09/16/24 11:00 09/16/24 11:30
Lab Results
09/16/24 10:40
09/16/24 10:40
Physical Exam
General: No Apparent Distress and Comfortable
HEENT: Normocephalic, Anicteric and Moist Mucous Membranes
Respiratory: Crackles and Non Labored Respirations
Cardiac: S1/S2 and Irregular Rhythm
GI: Soft, Non Tender, Non Distended and Normal Bowel Sounds
Musculoskeletal: No Clubbing, No Cyanosis and Edema (2+ edema of B/L LE)
Skin: Warm and Dry
Neuro: AO x 3
Impression / Plan
-
Primary Stacker Attendant: Dr[facility] Ingram of [facility]
Primary CT surgeon: Dr. Pena
Assessment:
Presentation with tachycardia
Afib with RVR
Acute HFpEF
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
Post op PAF
RLE DVT
R 3rd toe ulcer s/p debridement 08/2024
RA on chronic methotrexate
HTN
HLD
Hypothyroidism
Anxiety/depression
Anemia
Hypoalbuminemia
Moderate hiatal hernia
DDD of neck
Thyroid goiter
TTE at [facility] 08/24/24: EF 55%, large echogenic mass on posterior mitral valve leaflet 1.6 x 1.3 cm with mild to moderate MR, concern for endocarditis
[facility] 08/28 with preserved EF, large partially mobile vegetation measuring 2.0 cm in length on primarily the posterior leaflet of mitral valve, also with smaller, highly mobile echodense structure/vegetation on posterior leaflet of mitral valve that
transverses the mitral valve with each cardiac cycle with high risk of embolization, mild to moderate MR
ECHO 09/07/24: Limited study status post mitral valve replacement, paradoxical septal motion consistent with postop status, EF 55 to 60% with number 27 mm Pritchett Resilia bioprosthetic mitral valve well-seated with mean gradient 8 mmHg, no MR, mild
TR, PAP 32 mmHg, no significant pericardial effusion
Plan:
- [facility] heart rate
- Noted to be in atrial fibrillation with RVR. Status post IV Amio 150 mg bolus without significant improvement. Will attempt to increase Coreg to 25 mg every morning and 12.5 mg every afternoon as well as increase amiodarone dose to 200 mg 3
times daily. Follow QTc by EKG
- Continue Eliquis for both RLE DVT and afib
- She has left atrial appendage clip and no evidence of clot by IntraOp ADITI or postoperative echo on 09/07. Would consider for cardioversion on Monday 09/18 if remains in A-fib
- Also with evidence on examination of acute CHF with significant lower extremity edema. Had been given p.o. Lasix for 5 days postdischarge, resumed 09/16 at 20 mg daily. Ordered proBNP. Creatinine stable at 0.7
- Replete potassium.
- Consider for repeat follow up echocardiogram, last from 09/07 with results as above
- Continue antibiotics per ID
- continue post op restrictions
- Discussed with patient and daughter at bedside
- CT surgery notified of patient
Data Reviewed
-
EKG: Tracing Personally Visualized and interpreted
Medical Tests (Nuc Med, Echo etc): Report Reviewed by me
Labs: Labs Reviewed by me
Old Records: Reviewed
--- NOTE | 2024-09-16 13:46 | HPS.HSE ---
Addendum entered and electronically signed by Ricci Zuñiga MD 09/16/24 21:15:
Attending Addendum-
I performed a history and physical exam of the patient and discussed his management with the resident. I reviewed the resident's note and agree with the documented findings and plan of care CC/HPI- Patient sent to ED from [facility] secondary to
rapid a fib and leukocytosis. Has a complicated recent hospital stay for IE of mitral valve s/p MVR. Patient seen with her daughter present. Has been feeling very weak. Denies SOB CP palps syncope diarrhea fevers chills. Full 12 point ROS reviewed
and negative except as documented Exam- vitals reviewed in EMR GEN-NAD heart irreg irreg tachycardic no MRG lungs b/l LL crackles abd soft NT ND pos BS, LE 2+ pitting edema Upper extremities + 1 pitting edema LT>RT pulses palpable JUAN chest tunneled
PICC, sternal incision CDI
Plan
# Afib with RVR
- asymptomatic
- had episode of post op a fib but none since
- Patient was on amiodarone 200mg bid and coreg 6.25mg bid at [facility]
- EKG personally reviewed: Afib with RVR and PVCs
- s/p sternotomy, s/p chordal sparing bio MVR with patch repair of mitral annulus, AMADO clip 09/02/24-- continue sternal precautions
- continue Eliquis and increase coreg
- Cardiology and cardiovascular surgery on board, given IV amiodarone 150mg bolus in ED->PO amio loading dose TID
- If not successful pharm conversion, t/c ADITI/cardioversion on monday 09/18
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
- resulting in septic emboli to BRAIN
- 09/02/24-chordal sparing bio MVR with patch repair of mitral annulus, AMADO clip- Dr. Pena
- Continue nafcillin 2g IV q4h through 10/14/24
- Monitor Cr and LFTs
- ECHO 09/07- Left ventricular ejection fraction estimated Hyatt's biplane method 55 to 60%
# 27 mm Pritchett Mitris Resilia bioprosthesis appears well-seated. Mean transmitral gradient 8 mmHg. No mitral regurgitation
No significant pericardial effusion
- ID on board
# Leukocytosis
- wbc trending up, 19.0 today (steady increase from 09/09->09/16)
- Blood cultures x 2 sent
- check urine
- No murmurs noted on exam
- ID on board
- trend
# History of b/l UE DVT
- On Eliquis 5mg bid
# AE HFpEF
- grossly volume overloaded
- increase to 40mg IV lasix daily
- pro-BNP elevated from previous
- follow volume status closely, strict I and O, FRR, and daily weights
# Hypokalemia
- Replete
- repeat in am
# Hypertension
- Stable
- Continue coreg and amlodipine
# Hyperlipidemia
- Continue atorvastatin
# RA
- Continue to hold methotrexate
# Anemia, chronic
- Hgb stable
- Continue to monitor
# Anxiety/depression
- on duloxetine, xanax
#Sjogrens
Code status: Full code daughter present
DVTp- Eliquis
ACP
Patient consented to discuss, was with daughter (not POA), time spent explanation of advance directives, changes in health status, patient�s health care wishes if the patient becomes unable to make health decisions, goals of care, code status, and
prognosis, initially stated she wanted to be DNR then reverted, per daughter would like to discuss with POA/family- 16 minutes
Time spent coordinating care, review of plan of care with resident, personally reviewed previous records in EMR, med rec, labs, radiology, d/w nursing, family total time documented is exclusive of any additional time listed that was spent in advance
care planning discussion -�80 minutes
Original Note:
Family Physician
-
Family Physician: Marianne Escalera MD
Chief Complaint
-
Afib with RVR
History of Present Illness
84-year-old female with PMH (as below) brought to the ED from [facility] for Afib with RVR. Patient initially presented to [facility] on 08/26/2024 as a transfer from [facility] where she was admitted for confusion and found to have
MSSA bacteremia from a mitral valve endocarditis. She was started on antibiotics. Source of infection is unclear although she was noted to have a right third toe ulcer that was debrided by podiatry. Cardiac cath was performed on 08/26/2024 without
significant coronary disease.
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 Acute metabolic encephalopathy from bacteremia resolved and she was sent to [facility] for possible mitral valve replacement. Continued on
cefazolin. ADITI 08/28/2024 with EF 60-65% and a large partially mobile vegetation 2 cm in length of the posterior leaflet of the mitral valve P2 and a smaller highly mobile echodense structure/vegetation 1 cm in length on the posterior leaflet of the
mitral valve with high risk of embolization. Patient was also noted to have a right basilic and cephalic vein occlusive thrombus on ultrasound.
On 09/02/24 she had a sternotomy with aortic and bicaval cannulation with left atrial appendage exclusion and chordal sparing mitral valve replacement with a bioprosthesis by Dr. Khoa Pena. She required 2 units of PRBCs and 2 units of platelets
postop. Antibiotic was changed to nafcillin 2 g IV every 4 hours. Repeat echocardiogram 09/07 with EF 55-60%, mild tricuspid regurgitation. Attempt for PICC left arm not successful with occlusion of the left brachial vein in the right IJ. Initially
started on coumadin and heparin bridge and then transitioned to Eliquis on discharge to [facility].
Patient has been on aspirin, lipitor, amlodipine, lasix, amiodarone, and coreg at [facility]. No episodes of Afib noted prior to this morning. Denies any chest pain, SOB, fever, chills, nausea, vomiting, cough, urinary symptoms at this time. Has had soft
stools while at rehab but no diarrhea.
Medical History
Past Medical History
Past Medical History: Reports Other
Additional Past Medical History:
Sjogren's syndrome, rheumatoid arthritis, hypertension, hyperlipidemia, hypothyroidism, anxiety, depression, neuropathy, skin cancer, osteopenia
Past Surgical History: Reports Other
Additional Past Surgical History:
Bilateral cataract surgery, MV replacement (bovine) due to endocarditis, bilateral median nerve decompression at the wrist, cholecystectomy
Social History
Tobacco: Non-smoker
Alcohol: Occasional
Family History
Family History: Cancer (Parents (unknown cancer))
Allergies / Home Medications
Allergies reflects when Allergies were last updated in [facility].
Home Medications with original date entered in [facility]
Allergy/Medication List:
Allergies
Allergy/AdvReac Type Severity Reaction Status Date / Time
latex Allergy rash on Verified 09/16/24 16:00
hand
Home Medications
atorvastatin 20 mg tablet 20 mg PO QPM High Cholesterol 08/26/24
cevimeline 30 mg capsule 30 mg PO TID DRY MOUTH 08/26/24
ondansetron HCl 4 mg tablet 4 mg PO DAILYPRN PRN nausea 08/26/24
melatonin 10 mg tablet 10 mg PO HS 08/28/24
Nafcillin [Nafcil] 2,000 mg 108 mls/hr IV Q4H endocarditis 09/09/24
amiodarone 200 mg tablet 200 mg PO BID Arrhythmia #30 tabs 09/09/24
amlodipine 5 mg tablet 5 mg PO HS Blood clot prevention/tx #0 tabs 09/09/24
aspirin 81 mg chewable tablet 81 mg PO DAILY #0 tabs 09/09/24
oxycodone 5 mg tablet 2.5 mg (1/2 x 5 mg) PO Q4HPRN PRN severe pain #10 tabs 09/09/24
acetaminophen 325 mg tablet (Tylenol) 650 mg PO Q6HPRN PRN mild pain 09/16/24
alprazolam 0.25 mg tablet (Xanax) 0.25 mg PO Q8HPRN PRN anxiety 09/16/24
apixaban 5 mg tablet (Eliquis) 5 mg PO BID 09/16/24
carvedilol 12.5 mg tablet (Coreg) 12.5 mg PO BID 09/16/24
cholecalciferol (vitamin D3) 25 mcg (1,000 unit) tablet (Vitamin D3) 25 mcg PO DAILY 09/16/24
duloxetine 30 mg capsule,delayed release (Cymbalta) 30 mg PO BID 09/16/24
furosemide 20 mg tablet (Lasix) 20 mg PO DAILY 09/16/24
lidocaine 4 % topical patch 1 patch topical DAILY 09/16/24
loperamide 2 mg tablet 2 mg PO Q4HPRN PRN diarrhea 09/16/24
miconazole nitrate 2 % topical cream (Antifungal (miconazole)) 1 applic topical BIDPRN PRN rash 09/16/24
potassium chloride 20 mEq tablet,extended release 20 meq PO BID 09/16/24
therapeutic multivitamin 1 tab PO DAILY 09/16/24
zinc oxide-cod liver oil 40 % topical paste (Desitin) 1 applic topical BID both buttock region 09/16/24
Review of Systems
-
History Source: Patient
Constitutional: Reports Fatigue
EENT: Reports No Symptoms
Respiratory: Reports No Symptoms
Cardiac: Reports No Symptoms
Abdomen/GI: Reports No Symptoms
: Reports No Symptoms
Musculoskeletal: Reports No Symptoms
Skin: Reports No Symptoms
Neurological: Reports No Symptoms
Endocrine: Reports No Symptoms
Hematologic/Lymphatic: Reports No Symptoms
Physical Exam
Vital Signs
Vital Signs
Temp Pulse Resp BP Pulse Ox
98.2 F 126 19 143/92 96
09/16/24 12:45 09/16/24 11:00 09/16/24 11:00 09/16/24 11:00 09/16/24 11:30
Physical Exam
General: Well Developed, Well Nourished, No Apparent Distress, Poor Appetite and Other (Appears fatigued )
HEENT: NormoCephalic and [place] Conjunctivae
Respiratory: Clear
Cardiac: S1/S2, Irregular Rhythm, Tachycardia, Peripheral Edema and Other (Sternotomy incision intact, SQ port intact without surrounding erythema, warmth, swelling); No Murmur
GI: Soft
Musculoskeletal: No Clubbing, No Cyanosis, Edema, Left Lower Extremity (2+ pitting) and Edema, Right Lower Extremity (2+ pitting)
Skin: Warm
Neuro: Awake, Alert, Oriented and AO x 3
Psych: Calm
Laboratory Results
-
09/16/24 10:40
09/16/24 10:40
Laboratory Results
PT 21.1 Sec (11.4-14.6) H 09/16/24 10:40
INR 1.77 09/16/24 10:40
APTT 37.1 Sec (23.4-35.0) H 09/16/24 10:40
Total Bilirubin 0.8 mg/dl (0.2-1.3) 09/16/24 10:40
AST 19 U/L (14-36) 09/16/24 10:40
ALT < 10 U/L (0-35) 09/16/24 10:40
Alkaline Phosphatase 126 U/L (38-126) 09/16/24 10:40
Impression/Plan
-
IMPRESSION:
84 y/o female with pmhx of htn, hlp,RA, Sjogren's recently admitted with mitral valve endocarditis and MSSA bacteremia s/p sternotomy, left atrial appendage exclusion, and chordal sparing mitral valve replacement brought to the ED from [facility]
due to Afib with RVR.
# Afib with RVR
- Patient was going to start therapy today when staff noticed Afib, patient denies any symptoms at that time. Has had no other episodes of Afib since discharge rehab
- Patient was on amiodarone 200mg bid and coreg 6.25mg bid at [facility]
- EKG: Afib with RVR and PVCs
- s/p sternotomy, left atrial appendage exclusion, and chordal sparing mitral valve replacement -- continue sternal precautions
- CHADS-Vasc score >3 -- continue Eliquis
- Cardiology and cardiovascular surgery on board, given IV amiodarone 150mg bolus
- Pharmacologic management first. If not successful, consider cardioversion
- Can consider echo
# Mitral valve endocarditis and MSSA bacteremia
- s/p mitral valve replacement (bioprosthetic)
- Continue nafcillin 2g IV q4h through 10/14/24
- Monitor Cr and LFTs
# Leukocytosis
- wbc trending up, 19.0 today
- CXR no signs of pneumonia, small left pleural effusion likely 2/2 sternotomy
- Blood cultures sent
- No murmurs noted on exam
- Can consider echo
# History of DVT
- On Eliquis 5mg bid
# Bilateral lower extremity edema
- Patient appears volume overloaded
- On lasix 20mg po --> increase to 40mg IV lasix
- Check pro-BNP
# Hypokalemia
- Repleted
- Continue po KCl 20 bid
# Hypertension
- Stable
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
# Hyperlipidemia
- Continue statin
# RA
- Continue to hold methotrexate
# Anemia, chronic
- Hgb stable
- Continue to monitor
# Anxiety/depression
- on duloxetine, xanax
Code status: Full code
on Eliquis
[2024-09-16] MEDS: PACERONE 200 MG PO ×2 (15:23→23:02)
[2024-09-16] MEDS: LASIX 40 MG IV (15:49)
[2024-09-16] MEDS: KLOR-CON 40 MEQ PO (15:50)
[2024-09-16 15:53] LABS: NT-proBNP 5680 pg/ml
[2024-09-16] MEDS: LIPITOR 20 MG PO (18:29)
[2024-09-16] MEDS: ELIQUIS 5 MG PO (20:11)
[2024-09-16] MEDS: KCL 20 MEQ PO (20:11)
[2024-09-16] MEDS: CYMBALTA DELAYED RELEASE 30 MG PO (20:11)
[2024-09-16] MEDS: NAFCIL 108 MG IV ×2 (20:17→23:40)
[2024-09-16] MEDS: MELATONIN 10 MG PO (23:02)
[2024-09-16] MEDS: NORVASC 5 MG PO (23:02)
[2024-09-16] MEDS: COREG 12.5 MG PO (23:02)
[2024-09-17] VITALS (10 sets, daily range): BP systolic 100–155; BP diastolic 61–105; PULSE 117–124; O2SAT 96–98; BMI 25.6
--- NOTE | 2024-09-17 00:16 | PTCARENOTE ---
Pt rec'd from ED at approx 8pm. Awake,alert afib on telemetry with rates 112-140's. IV abx via left SQ port Q4 hrs.
Lungs with few crackles noted, no cough. Legs +2 pitting edema B/L. sternal inc rc scabbed.
[2024-09-17] MEDS: NAFCIL 108 MG IV ×2 (04:04→08:00)
[2024-09-17 05:05] LABS: % Basophils 0.3 % (0-2); % Eosinophils 1.2 % (0-6); % Lymphocytes 8.8 % (20.5-51.1); % Monocytes 7.6 % (1.7-9.3); % Neutrophils 81.1 % (42.2-75.2); Absolute Basophils 0.1 10^3/uL (0-0.2); Absolute Eosinophils 0.2 10^3/uL (0-0.7); Absolute Immature Granulocytes 0.2 10^3/uL (0-0.05); Absolute Lymphocytes 1.7 10^3/uL (1.2-3.4); Absolute Monocytes 1.5 10^3/uL (0.1-0.6); Absolute Neutrophils 15.9 10^3/uL (1.4-6.5); Hematocrit 28.3 % (37.0-47.0); Hemoglobin 9.1 g/dL (12.0-16.0); Mean Corp Hgb Conc. 32.2 g/dL (33.0-37.0); Mean Corpuscular Volume 93.4 fL (81.0-99.0); Nucleated Red Blood Cells % 0.1 %; Platelet Count 297 10^3/uL (130-400); Red Blood Cell Count 3.03 10^6/uL (4.20-5.40); Red Cell Dist. Width 18.3 % (11.5-14.5); White Blood Cell Count 19.6 10^3/uL (4.8-10.8)
[2024-09-17 05:33] LABS: ALT (SGPT) < 10 U/L (0-35); AST (SGOT) 18 U/L (14-36); Albumin 2.4 g/dl (3.5-5.0); Alkaline Phosphatase 125 U/L (38-126); Blood Urea Nitrogen 9 mg/dl (7-17); Calcium 8.6 mg/dl (8.4-10.2); Carbon Dioxide 29 mmol/L (22-30); Chloride 101 mmol/L (98-107); Estimated Creatinine Clearance 58 ml/min; Glucose 119 mg/dl (70-99); Magnesium 1.8 mg/dl (1.6-2.3); Potassium 3.4 mmol/L (3.5-5.1); Sodium 137 mmol/L (135-145); Total Bilirubin 0.7 mg/dl (0.2-1.3); eGFR > 60.00
[2024-09-17] MEDS: CYMBALTA DELAYED RELEASE 30 MG PO ×2 (08:00→19:29)
[2024-09-17] MEDS: LASIX 40 MG IV ×2 (08:01→14:37)
[2024-09-17] MEDS: KCL 20 MEQ PO ×2 (08:01→19:29)
[2024-09-17] MEDS: COREG 25 MG PO ×2 (08:01→22:37)
[2024-09-17] MEDS: PACERONE 200 MG PO ×3 (08:02→22:37)
[2024-09-17] MEDS: LOW STRENGTH ASPIRIN 81 MG PO (08:02)
[2024-09-17] MEDS: ELIQUIS 5 MG PO ×2 (08:02→19:29)
--- NOTE | 2024-09-17 08:18 | W.PN.HOSP.TC ---
Addendum entered and electronically signed by Ricci Zuñiga MD 09/17/24 20:58:
Attending Addendum-I saw and evaluated the patient. I reviewed the resident�s note and agree with findings and plan as documented in the resident�s note. Sub: Feels anxious and overwhelmed. Denies SOB CP palps syncope, diarrhea, urinary sxs, fevers,
chills. Still in a fib. Full 12 point ROS reviewed and negative except as documented Exam- vitals reviewed in EMR GEN-NAD heart irreg irreg tachycardic no MRG lungs b/l LL crackles abd soft NT ND pos BS, LE 2+ pitting edema Upper extremities + 1
pitting edema LT>RT pulses palpable JUAN chest tunneled PICC, sternal incision CDI
Plan
# Afib with RVR
- asymptomatic
- repeat echo 09/17- Normal left ventricular size and systolic function. LV ejection fraction is 50-55% by visual assessment.
Normal right ventricular systolic function.
Mitral valve replacement. Peak/mean gradients are 16/7mmHg. No mitral regurgitation is seen.
No valvular vegetations seen
- post op
- s/p sternotomy, s/p chordal sparing bio MVR with patch repair of mitral annulus, AMADO clip 09/02/24-- continue sternal precautions
- continue Eliquis and will increase coreg
- Cardiology and cardiovascular surgery on board, given IV amiodarone 150mg bolus in ED-> cont PO amio loading dose TID
- If not successful pharm conversion, t/c synced cardioversion on monday 09/18
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
- resulting in septic emboli to BRAIN
- 09/02/24-chordal sparing bio MVR with patch repair of mitral annulus, AMADO clip- Dr. Pena
- Continue nafcillin 2g IV q4h through 10/14/24
- Monitor Cr and LFTs
- ECHO 09/07- Left ventricular ejection fraction estimated Hyatt's biplane method 55 to 60%
27 mm Rpitchett Mitris Resilia bioprosthesis appears well-seated. Mean transmitral gradient 8 mmHg. No mitral regurgitation
No significant pericardial effusion
- repeat echo 09/17- no vegetations seen no MR from MVR
- ID consult placed
# Leukocytosis
- wbc trending up
- Blood cultures x 1 sent from tunneled cath
- urine not active
- No new murmurs noted on exam- echo neg for vegetations
- ID consulted
- unclear cause
- trend
# RLE DVT and RUE superficial vein thrombosis
- cont Eliquis
# AE HFpEF
- still grossly volume overloaded
- cont IV lasix
- pro-BNP elevated from previous
- follow volume status closely, strict I and O, FRR, and daily weights
- weight down @ 6kgs!
# Hypokalemia
- Replete
- repeat in am
# Hypertension
- Stable
- Continue coreg and amlodipine
# Hyperlipidemia
- Continue atorvastatin
# RA
- Continue to hold methotrexate
# Anemia, chronic
- Hgb stable
- Continue to monitor
# Anxiety/depression
- on duloxetine, xanax
#Sjogrens
Code status: Full code daughter present
DVTp- Eliquis
Time spent coordinating care, review of plan of care with resident, personally reviewed records in EMR, med rec, consults, notes, labs, radiology, d/w nursing � 55 mins
Original Note:
Today's Communication/Plan
-
ID consult
Echo pending
Can consider increasing rate control meds for Afib, cardiology on board
Assessment / Plan
Assessment / Plan
84 y/o female with pmhx of htn, hlp,RA, Sjogren's recently admitted with mitral valve endocarditis and MSSA bacteremia s/p sternotomy, left atrial appendage exclusion, and chordal sparing mitral valve replacement brought to the ED from [facility]
due to Afib with RVR.
# Afib with RVR
- Patient was going to start therapy today when staff noticed Afib, patient denies any symptoms at that time. Has had no other episodes of Afib since discharge rehab
- Patient was on amiodarone 200mg bid and coreg 6.25mg bid at [facility]
- EKG: Afib with RVR and PVCs
- s/p sternotomy, left atrial appendage exclusion, and chordal sparing mitral valve replacement -- continue sternal precautions
- CHADS-Vasc score >3 -- continue Eliquis
- Cardiology and cardiovascular surgery on board, given IV amiodarone 150mg bolus
- Pharmacologic management first. If not successful, consider cardioversion
- Cardiology on board, increased amio to 200mg tid and coreg to 25 mg every morning and 12.5 mg every afternoon -- Afib this am, can consider increasing rate control meds
- Echo pending
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
- s/p mitral valve replacement (bioprosthetic)
- Continue nafcillin 2g IV q4h through 10/14/24
- Monitor Cr and LFTs - WNL
# Leukocytosis
- wbc trending up, 19.6 today
- CXR no signs of pneumonia, small left pleural effusion likely 2/2 sternotomy
- No murmurs noted on exam
- UA negative
- Blood cultures pending -- notified by nurse unable to draw blood from b/l UE and LE due to clots and swelling, one set sent from port
- Echo pending
- ID input appreciated
# History of DVT
- Continue Eliquis 5mg bid
# Bilateral lower extremity edema
- Patient appears volume overloaded
- pro-BNP elevated at 5680
- Continue 40mg IV lasix
# Hypokalemia
- Continue po KCl 20 bid
# Hypertension
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
# Hyperlipidemia
- Continue statin
# RA
- Continue to hold methotrexate
# Anemia, chronic
- Hgb stable
- Continue to monitor
# Anxiety/depression
- on duloxetine, xanax
Code status: Full code
on Eliquis
Anticipated Discharge: > 48 hours
Subjective/Interval History
-
Date of Service: September 17, 2024
Objective Data
-
Labs:
Laboratory Results
09/17/24
04:05
WBC 19.6 H
Hgb 9.1 L
Hct 28.3 L
Plt Count 297
Sodium 137
Potassium 3.4 L
Chloride 101
Carbon Dioxide 29
BUN 9
Creatinine 0.7
Glucose 119 H
Calcium 8.6
Total Bilirubin 0.7
AST 18
ALT < 10
Alkaline Phosphatase 125
Vital Signs:
Vital Signs
Temp Pulse Resp BP Pulse Ox
97.7 F 111 18 110/61 98
09/17/24 07:45 09/17/24 04:16 09/17/24 07:45 09/17/24 04:16 09/17/24 07:45
I&O
09/16/24 09/17/24 09/18/24
06:59 06:59 06:59
Intake Total 500 / 500
Output Total 550 / 550
Balance -50 / -50
Review of Systems
-
History Source: Patient
Constitutional: Reports Fatigue
EENT: Reports No Symptoms Reported
Respiratory: Reports No Symptoms
Cardiac: Reports No Symptoms
Abdomen/GI: Reports No Symptoms
Breast: Reports No Symptoms
Genitourinary: Reports No Symptoms
Musculoskeletal: Reports No Symptoms
Skin: Reports No Symptoms
Neuro: Reports No Symptoms
Endocrine: Reports No Symptoms
Hematologic / Lymphatic: Reports No Symptoms
Allergy / Immunology: Reports No Symptoms
Physical Exam
-
General: Well Developed, Well Nourished, No Apparent Distress, Comfortable and Other (Pale)
HEENT: Normocephalic
Respiratory: Clear to Auscultation and Chest Tubes (Sternotomy incision intact)
Cardiac: S1/S2, Irregular Rhythm and Tachycardic; Negative Murmur
GI: Soft, Nontender, Nondistended and Normal Bowel Sounds
Genito-urinary: No Costovertebral Tender
Musculoskeletal: No Clubbing, No Cyanosis, Edema, Right Lower Extrem (2+ pitting) and Edema, Left Lower Extrem (2+ pitting)
Skin: Warm
Neuro: Awake, Alert, Oriented and AO x 3
Psych: Calm
[2024-09-17 12:02] LABS: Urine Albumin Negative (Neg - Trace); Urine Bilirubin Negative (Negative); Urine Character Clear (Clear); Urine Color Straw; Urine Glucose Negative (Negative); Urine Ketone Negative (Negative); Urine Leukocyte Negative (Negative); Urine Nitrite Negative (Negative); Urine Occult Blood Negative (Negative); Urine Urobilinogen Negative (Neg - 1+)
--- NOTE | 2024-09-17 12:21 | W.PN.ID1 ---
Date of Service
Date of Service: September 17, 2024
Today's Communication
Continue antibiotics. Change nafcillin to cefazolin. Follow white count.
Assessment / Plan
Mitral valve endocarditis
- s/p bovine MV replacement (09/02/24); POD#15
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
Leukocytosis
- rising; etiology cryptic
Staph aureus (MSSA) bacteremia
- cleared; first negative BCx : 08/22/24
ESR and CRP elevated
Hypernatremia- resolved
Diarrhea (prior C. diff testing negative)
- improved/resolved. 'mushy' per nursing and patient.
Sjogren syndrome
Rheumatoid arthritis
Dyslipidemia
Hypothyroidism
Anxiety/depression
Neuropathy
Hx of skin cancer
Osteopenia
Recommendations:
White count noted to continue to rise, although patient without other localizing symptoms to indicate infection.
Continue abx to complete a 6-week course of therapy (through 10/14/2024)
Will change to cefazolin in case leukosytosis 2* to nafcillin
Follow Cr / est CrCl.
Would place Tubigrip's to bilateral lower extremities.
����������������������������������������������������������
Chief Complaint
-: Leukocytosis
Subjective / Review of Systems
Review of Systems: No Fever, No Chills, No Cough, No Chest Pain, No Abdominal Pain, No Nausea and No Diarrhea
Vital Signs / Physical Exam
Vital Signs
Vital Signs
Temp Pulse Resp BP Pulse Ox
97.9 F 111 16 110/61 98
09/17/24 11:00 09/17/24 04:16 09/17/24 11:00 09/17/24 04:16 09/17/24 11:00
Physical Exam
Constitutional: No Acute Distress, Comfortable, Chronically Ill and Non-toxic
Eyes: No Conjunctival Hemorrhage and Sclera Anicteric
Cardiovascular: Irregular Rate and S1/S2; Negative S3/S4
Pulmonary: Non Labored; Negative Wheezes or Rales
Gastrointestinal: Soft, Non Tender, Non Distended, Normal Bowel Sounds, No Rebound and No Guarding
Wound: Other (Sternal wound incisional area clean, dry and intact. No periwound erythema. No open wounds.)
Neurological: Awake and Alert
Psychological: Calm
Objective Data
Lab Data
Lab Results
09/17/24 04:05
09/17/24 04:05
PT 21.1 Sec (11.4-14.6) H 09/16/24 10:40
INR 1.77 09/16/24 10:40
APTT 37.1 Sec (23.4-35.0) H 09/16/24 10:40
Estimated Creat Clear 58 ml/min 09/17/24 04:05
Total Bilirubin 0.7 mg/dl (0.2-1.3) 09/17/24 04:05
AST 18 U/L (14-36) 09/17/24 04:05
ALT < 10 U/L (0-35) 09/17/24 04:05
Alkaline Phosphatase 125 U/L (38-126) 09/17/24 04:05
Most recent labs reviewed.
Micro Results:
09/16/24 17:02 Blood Culture - Pending
Blood/Venous
[2024-09-17] MEDS: NAFCIL IV (12:54)
--- NOTE | 2024-09-17 13:20 | PTCARENOTE ---
Patient in chair during the day, walked a few steps in the room. A-fib HR 120's, mildly dyspneic with activity, fine crackles at bases, mouth dry, ice chips. Generalized anasarca, dependent +2 edema. Soft semi formed green stools times 2 mixed in
urine, using beside commode. Afebrile, comfortable at rest, call humphrey in reach
--- NOTE | 2024-09-17 13:52 | W.PN.CARDCBS ---
Addendum entered and electronically signed by James Juarez MD 09/17/24 14:04:
patient seen and examined
breathing a little better today
rates still elevated
agree with MONICA Casillas's notes and assessment
agree with MONICA Casillas's plan
exam:
heent ncat
jvp 6
cor irregularly irregular
lungs diminished but clear
abd soft nt nd
no ext edema
aao x3
non focal neurologically
Assessment:
Presentation with tachycardia
Afib with RVR
Acute HFpEF
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
Post op PAF
RLE DVT
R 3rd toe ulcer s/p debridement 08/2024
RA on chronic methotrexate
HTN
HLD
Hypothyroidism
Anxiety/depression
Anemia
Hypoalbuminemia
Moderate hiatal hernia
DDD of neck
Thyroid goiter
TTE at [facility] 08/24/24: EF 55%, large echogenic mass on posterior mitral valve leaflet 1.6 x 1.3 cm with mild to moderate MR, concern for endocarditis
ADITI 08/28 with preserved EF, large partially mobile vegetation measuring 2.0 cm in length on primarily the posterior leaflet of mitral valve, also with smaller, highly mobile echodense structure/vegetation on posterior leaflet of mitral valve that
transverses the mitral valve with each cardiac cycle with high risk of embolization, mild to moderate MR
ECHO 09/07/24: Limited study status post mitral valve replacement, paradoxical septal motion consistent with postop status, EF 55 to 60% with number 27 mm Pritchett Resilia bioprosthetic mitral valve well-seated with mean gradient 8 mmHg, no MR, mild
TR, PAP 32 mmHg, no significant pericardial effusion
Plan:
- Remains in AF with modestly elevated rates.
- Will increase Coreg to 25 mg twice daily. Continue amiodarone 200 mg 3 times daily. QTc measured at 496 ms by EKG 09/17
- Continue Eliquis for both right lower extremity DVT as well as atrial fibrillation
- If remains in A-fib in a.m., will plan for cardioversion. Procedure reviewed with patient and daughter at bedside. She has left atrial appendage clip and no evidence of clot by IntraOp ADITI or postop echo on 09/07 so would not require ADITI. N.p.o.
after midnight
- Remains with significant lower extremity edema, which may be multifactorial as also with DVT, but suspected as also an acute heart failure. Continue IV Lasix. Creatinine stable. Replete potassium
- Repeat echo pending
- Continue antibiotics per ID for endocarditis
- Continue postop restrictions
- Discussed with nursing
Original Note:
Today's Communication / Plan
-
Increase Coreg
Continue Amio 200 mg 3 times daily
Continue Eliquis
N.p.o. for cardioversion tomorrow
Continue diuresis with IV Lasix
Impression / Plan
-
Primary Gasoline Catalyst Operator: Dr. Ingram of [facility]
Primary CT surgeon: Dr. Pena
Assessment:
Presentation with tachycardia
Afib with RVR
Acute HFpEF
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
Post op PAF
RLE DVT
R 3rd toe ulcer s/p debridement 08/2024
RA on chronic methotrexate
HTN
HLD
Hypothyroidism
Anxiety/depression
Anemia
Hypoalbuminemia
Moderate hiatal hernia
DDD of neck
Thyroid goiter
TTE at [facility] 08/24/24: EF 55%, large echogenic mass on posterior mitral valve leaflet 1.6 x 1.3 cm with mild to moderate MR, concern for endocarditis
ADITI 08/28 with preserved EF, large partially mobile vegetation measuring 2.0 cm in length on primarily the posterior leaflet of mitral valve, also with smaller, highly mobile echodense structure/vegetation on posterior leaflet of mitral valve that
transverses the mitral valve with each cardiac cycle with high risk of embolization, mild to moderate MR
ECHO 09/07/24: Limited study status post mitral valve replacement, paradoxical septal motion consistent with postop status, EF 55 to 60% with number 27 mm Pritchett Resilia bioprosthetic mitral valve well-seated with mean gradient 8 mmHg, no MR, mild
TR, PAP 32 mmHg, no significant pericardial effusion
Plan:
- [facility] to elevated heart rate and in A-fib with RVR. Remains in atrial fibrillation with elevated heart rates on review of telemetry overnight
- Will increase Coreg to 25 mg twice daily. Continue amiodarone 200 mg 3 times daily. QTc measured at 496 ms by EKG 09/17
- Continue Eliquis for both right lower extremity DVT as well as atrial fibrillation
- If remains in A-fib in a.m., will plan for cardioversion. Procedure reviewed with patient and daughter at bedside. She has left atrial appendage clip and no evidence of clot by IntraOp ADITI or postop echo on 09/07 so would not require ADITI. N.p.o.
after midnight
- Remains with significant lower extremity edema, which may be multifactorial as also with DVT, but suspected as also an acute heart failure. Continue IV Lasix. Creatinine stable. Replete potassium
- Repeat echo pending
- Continue antibiotics per ID for endocarditis
- Continue postop restrictions
- Discussed with nursing
Progress Note - Gasoline Catalyst Operator
Subjective
Date of Service: September 17, 2024
Reports feeling a little bit better today. States breathing is easier.
Objective
Labs:
09/17/24 04:05
09/17/24 04:05
Labs
Hgb 9.1 g/dL (12.0-16.0) L 09/17/24 04:05
Hct 28.3 % (37.0-47.0) L 09/17/24 04:05
Plt Count 297 10^3/uL (130-400) 09/17/24 04:05
PT 21.1 Sec (11.4-14.6) H 09/16/24 10:40
INR 1.77 09/16/24 10:40
APTT 37.1 Sec (23.4-35.0) H 09/16/24 10:40
Sodium 137 mmol/L (135-145) 09/17/24 04:05
Potassium 3.4 mmol/L (3.5-5.1) L 09/17/24 04:05
BUN 9 mg/dl (7-17) 09/17/24 04:05
Creatinine 0.7 mg/dL (0.6-1.0) 09/17/24 04:05
Glucose 119 mg/dl (70-99) H 09/17/24 04:05
Vital Signs and I&O:
Vital Signs
Temp Pulse Resp BP Pulse Ox
97.9 F 111 16 110/61 98
09/17/24 11:00 09/17/24 04:16 09/17/24 11:00 09/17/24 04:16 09/17/24 11:00
Vital Signs
Temp Pulse Resp BP Pulse Ox
97.9 F 111 16 110/61 98
09/17/24 11:00 09/17/24 04:16 09/17/24 11:00 09/17/24 04:16 09/17/24 11:00
Intake & Output
09/15/24 09/16/24 09/17/24 09/18/24
07:59 07:59 07:59 07:59
Intake Total 500 / 500 580 / 580
Output Total 550 / 550 250 / 250
Balance -50 / -50 330 / 330
Physical Exam
Physical Exam
GEN: No distress, awake, alert, oriented x3
HEENT: supple, anicteric, mmm, EOMI
LUNGS: Crackles bilateral bases, no wheezes/rales
CV: Irregular irregular, S1/S2, no murmur
ABD: soft, BS+, NT/ND
EXT: No cyanosis, clubbing. 2-3+ edema of B/L LE
NEURO: Gross non-focal
SKIN: Warm, pink, dry. No rash. Sternotomy incision c/d/i
--- NOTE | 2024-09-17 14:21 | PTCARENOTE ---
Patient asleep, converted to NSR
--- NOTE | 2024-09-17 14:23 | W.PN.UPDATE ---
Update Note
Progress Note Update
patient converted to SR. d/w patient, daughter at bedside, as well as nursing. will plan to cancel CV in AM. will give additional dose of IV lasix 40mg this afternoon as remains with significant edema.
[2024-09-17] MEDS: KLOR-CON 40 MEQ PO (14:36)
[2024-09-17] MEDS: ANCEF 10 IV ×2 (14:39→22:38)
[2024-09-17] MEDS: NON-FORMULARY ITEM PO ×5 (15:35→16:47)
[2024-09-17] MEDS: LIPITOR 20 MG PO (16:45)
[2024-09-17] MEDS: NON-FORMULARY ITEM 1 MG PO (16:45)
[2024-09-17] MEDS: TYLENOL 650 MG PO (19:43)
[2024-09-17] MEDS: NORVASC 5 MG PO (22:37)
[2024-09-17] MEDS: MELATONIN 10 MG PO (22:37)
[2024-09-17] MEDS: NON-FORMULARY ITEM 30 MG PO (22:38)
[2024-09-18] VITALS (10 sets, daily range): BP systolic 117–156; BP diastolic 63–110; PULSE 76; O2SAT 98; BMI 25.1
--- NOTE | 2024-09-18 04:48 | PTCARENOTE ---
Tele remains SR w/ occasional PACs. HR in the 60-80's at rest. Patient ambulating w/ one assist and uses RW. Denies any dizziness. Sternal precautions maintained. Call humphrey in reach.
[2024-09-18] MEDS: ANCEF 10 IV ×3 (05:36→22:29)
[2024-09-18 05:55] LABS: % Basophils 0.5 % (0-2); % Eosinophils 2.6 % (0-6); % Immature Granulocytes 0.8 % (0-0.5); % Lymphocytes 10.1 % (20.5-51.1); % Monocytes 9.1 % (1.7-9.3); % Neutrophils 76.9 % (42.2-75.2); Absolute Basophils 0.1 10^3/uL (0-0.2); Absolute Eosinophils 0.4 10^3/uL (0-0.7); Absolute Immature Granulocytes 0.1 10^3/uL (0-0.05); Absolute Lymphocytes 1.6 10^3/uL (1.2-3.4); Absolute Monocytes 1.5 10^3/uL (0.1-0.6); Absolute Neutrophils 12.3 10^3/uL (1.4-6.5); Hemoglobin 8.4 g/dL (12.0-16.0); Mean Corp Hgb Conc. 32.3 g/dL (33.0-37.0); Mean Corpuscular Volume 92.9 fL (81.0-99.0); Nucleated Red Blood Cells % 0.1 %; Platelet Count 269 10^3/uL (130-400); Red Cell Dist. Width 18.2 % (11.5-14.5); White Blood Cell Count 15.9 10^3/uL (4.8-10.8)
[2024-09-18 06:16] LABS: ALT (SGPT) < 10 U/L (0-35); AST (SGOT) 18 U/L (14-36); Albumin 2.5 g/dl (3.5-5.0); Alkaline Phosphatase 118 U/L (38-126); Blood Urea Nitrogen 9 mg/dl (7-17); Calcium 8.5 mg/dl (8.4-10.2); Carbon Dioxide 29 mmol/L (22-30); Chloride 102 mmol/L (98-107); Estimated Creatinine Clearance 51 ml/min; Glucose 115 mg/dl (70-99); Potassium 3.3 mmol/L (3.5-5.1); Sodium 137 mmol/L (135-145); Total Bilirubin 0.7 mg/dl (0.2-1.3); eGFR > 60.00
--- NOTE | 2024-09-18 07:17 | W.PN.HOSP.TC ---
Addendum entered and electronically signed by Ricci Zuñiga MD 09/18/24 19:03:
Attending Addendum-I saw and evaluated the patient. I reviewed the resident�s note and agree with findings and plan as documented in the resident�s note. Sub: Feels less SOB today. Complains of feelsing weak. Denies CP palps syncope, diarrhea,
urinary sxs, fevers, chills. converted to sinus. Full 12 point ROS reviewed and negative except as documented Exam- vitals reviewed in EMR GEN-NAD heart RRR no MRG lungs b/l LL crackles abd soft NT ND pos BS, LE + 2 pitting edema LT>RT pulses
palpable JUAN chest tunneled PICC, sternal incision CDI
Plan
# Afib with RVR
- coverted to sinus 09/17
- repeat echo 09/17- Normal left ventricular size and systolic function. LV ejection fraction is 50-55% by visual assessment.
Normal right ventricular systolic function.
Mitral valve replacement. Peak/mean gradients are 16/7mmHg. No mitral regurgitation is seen.
No valvular vegetations seen
- post op
- s/p sternotomy, s/p chordal sparing bio MVR with patch repair of mitral annulus, AMADO clip 09/02/24-- continue sternal precautions
- continue Eliquis andcoreg
- cont PO amio TID->transition to BID on DC to [facility]
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
- resulting in septic emboli to brain
- 09/02/24-chordal sparing bio MVR with patch repair of mitral annulus, AMADO clip- Dr. Pena
- nafcillin switched to ancef on 09/17 continue through 10/14
- Monitor Cr and LFTs
- repeat echo 09/17- no vegetations seen no MR from MVR
- ID on board
# Leukocytosis
- wbc trending down just from switch to ancef from nafcillin interestingly on 09/17
- Blood cultures x 1 sent from tunneled cath-NGTD
- urine not active
- No new murmurs noted on exam- echo neg for vegetations
- ID on board
- trend
# RLE DVT and RUE superficial vein thrombosis
- cont Eliquis
# AE HFpEF
- still grossly volume overloaded
- cont IV lasix
- pro-BNP elevated from previous
- follow volume status closely, strict I and O, FRR, and daily weights
- weight down @ 7 kgs
# Hypokalemia
- Replete
- repeat in am
# Hypertension
- Stable
- Continue coreg and amlodipine
# Hyperlipidemia
- Continue atorvastatin
# RA
- Continue to hold methotrexate
# Anemia, chronic
- Hgb stable
- Continue to monitor
# Anxiety/depression
- on duloxetine, xanax
#Sjogrens
Code status: Full code daughter present
DVTp- Eliquis
Dispo DC back to [facility] in am- auth obtained bed available
Time spent coordinating care, review of plan of care with resident, personally reviewed records in EMR, med rec, consults, notes, labs, radiology, d/w nursing, cards, CM � 53 mins
Original Note:
Today's Communication/Plan
-
Continue cefazolin
Continue IV lasix
Continue amio 200 tid and coreg 25 bid
Stable for discharge to [facility]
Assessment / Plan
Assessment / Plan
84 y/o female with pmhx of htn, hlp,RA, Sjogren's recently admitted with mitral valve endocarditis and MSSA bacteremia s/p sternotomy, left atrial appendage exclusion, and chordal sparing mitral valve replacement brought to the ED from [facility]
due to Afib with RVR. Feeling better today. No new complaints.
# Afib with RVR
- Patient was going to start therapy today when staff noticed Afib, patient denies any symptoms at that time. Has had no other episodes of Afib since discharge rehab
- Patient was on amiodarone 200mg bid and coreg 6.25mg bid at [facility]
- EKG: Afib with RVR and PVCs
- s/p sternotomy, left atrial appendage exclusion, and chordal sparing mitral valve replacement -- continue sternal precautions
- CHADS-Vasc score >3 -- continue Eliquis
- Cardiology and cardiovascular surgery on board, given IV amiodarone 150mg bolus
- Pharmacologic management first. If not successful, consider cardioversion
- Cardiology on board, increased coreg to 25 mg bid
- Converted to sinus yesterday, continue with current regimen (amio 200mg tid and coreg 25 mg bid)
- Echo no valvular vegetation. No significant change from prior echo.
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
- s/p mitral valve replacement (bioprosthetic)
- Nafcillin 2g IV q4h discontinued --> switched to cefazolin
- Monitor Cr and LFTs - WNL
# Leukocytosis
- wbc downtrending, 15.9 today
- CXR no signs of pneumonia, small left pleural effusion likely 2/2 sternotomy
- No murmurs noted on exam
- UA negative
- Blood cultures no growth in 24 hours
- Echo no valvular vegetation.
- ID following - switched antibiotic to cefazolin
# History of DVT
- Continue Eliquis 5mg bid
# Bilateral lower extremity edema
- Patient appears volume overloaded
- pro-BNP elevated at 5680
- Continue 40mg IV lasix
# Hypokalemia
- Continue po KCl 20 bid
- Replete as needed
# Hypertension
- Stable
- Continue meds guard captain
# Hyperlipidemia
- Continue statin
# RA
- Continue to hold methotrexate
# Anemia, chronic
- Hgb stable
- Continue to monitor
# Anxiety/depression
- on duloxetine, xanax
Code status: Full code
on Eliquis
Anticipated Discharge: Within 24 hours
Subjective/Interval History
-
Date of Service: September 18, 2024
Objective Data
-
Labs:
Laboratory Results
09/18/24
05:40
WBC 15.9 H
Hgb 8.4 L
Hct 26.0 L
Plt Count 269
Sodium 137
Potassium 3.3 L
Chloride 102
Carbon Dioxide 29
BUN 9
Creatinine 0.8
Glucose 115 H
Calcium 8.5
Total Bilirubin 0.7
AST 18
ALT < 10
Alkaline Phosphatase 118
Vital Signs:
Vital Signs
Temp Pulse Resp BP Pulse Ox
97.5 F 71 16 117/63 95
09/18/24 04:15 09/18/24 04:15 09/18/24 04:15 09/18/24 04:15 09/18/24 04:15
I&O
09/17/24 09/18/24 09/19/24
06:59 06:59 06:59
Intake Total 500 / 500 580 / 580
Output Total 550 / 550 2450 / 2450
Balance -50 / -50 -1870 / -1870
Review of Systems
-
History Source: Patient
Constitutional: Reports No Symptoms
EENT: Reports No Symptoms Reported
Respiratory: Reports No Symptoms
Cardiac: Reports No Symptoms
Abdomen/GI: Reports No Symptoms
Breast: Reports No Symptoms
Genitourinary: Reports No Symptoms
Musculoskeletal: Reports No Symptoms
Skin: Reports No Symptoms
Neuro: Reports No Symptoms
Endocrine: Reports No Symptoms
Hematologic / Lymphatic: Reports No Symptoms
Allergy / Immunology: Reports No Symptoms
Physical Exam
-
General: Well Developed, Well Nourished, No Apparent Distress and Comfortable; Negative Respiratory Distress
HEENT: Normocephalic
Respiratory: Clear to Auscultation
Cardiac: Regular Rhythm and S1/S2; Negative Murmur
GI: Soft, Nontender, Nondistended and Normal Bowel Sounds
Genito-urinary: No Costovertebral Tender
Musculoskeletal: No Clubbing, No Cyanosis, Edema, Right Lower Extrem and Edema, Left Lower Extrem
Skin: Warm
Neuro: Awake, Alert, Oriented and AO x 3
Psych: Calm
--- NOTE | 2024-09-18 08:10 | W.PN.CARDCBS ---
Addendum entered and electronically signed by Dexter Nguyen MD 09/18/24 16:17:
Amiodarone dose below should say 200 mg p.o. 3 times daily while admitted and change to 200 twice daily when discharged to [facility]
Addendum entered and electronically signed by Lora Casillas PA-C 09/18/24 11:15:
Tentatively planning for discharge to [facility] tomorrow. Discussed with patient's daughter, Serina via telephone who is in agreement. Discussed with hospitalist via [place] text.
Addendum entered and electronically signed by Dexter Nguyen MD 09/18/24 10:52:
I saw and examined the patient.
The RAND MAKER or PA's note was reviewed and I agree with the note.
Comment: General: Well developed, well nourished in NAD.
Neck: Supple, no JVD, HJR, carotids +2 B/L, no bruits bilaterally.
Heart: Non displaced PMI, RRR, no murmurs, No S3, S4, no rubs.
Lungs: Scattered rhonchi
Extremities: No clubbing, cyanosis or edema bilaterally.
Neuro: Grossly nonfocal, awake, alert and oriented x3.
Remains in sinus rhythm. Continue amiodarone 20 mg p.o. 3 times daily while admitted. Volume status is improving. Consider change to oral Lasix on 09/19 and will be stable for discharge back to rehab if that is needed. Replete potassium
Original Note:
Today's Communication / Plan
-
Back in sinus rhythm as of 09/17. Continue Coreg 25 mg twice daily and Amio 200 mg 3 times daily while admitted
Continue Eliquis
Continue IV Lasix
Replete K
Impression / Plan
-
Primary [employer] Salesperson: Dr. Ingram of [facility]
Primary CT surgeon: Dr. Pena
Assessment:
Presentation with tachycardia
Afib with RVR
Acute HFpEF
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
Post op PAF
RLE DVT
R 3rd toe ulcer s/p debridement 08/2024
RA on chronic methotrexate
HTN
HLD
Hypothyroidism
Anxiety/depression
Anemia
Hypoalbuminemia
Moderate hiatal hernia
DDD of neck
Thyroid goiter
TTE at [facility] 08/24/24: EF 55%, large echogenic mass on posterior mitral valve leaflet 1.6 x 1.3 cm with mild to moderate MR, concern for endocarditis
ADITI 08/28 with preserved EF, large partially mobile vegetation measuring 2.0 cm in length on primarily the posterior leaflet of mitral valve, also with smaller, highly mobile echodense structure/vegetation on posterior leaflet of mitral valve that
transverses the mitral valve with each cardiac cycle with high risk of embolization, mild to moderate MR
ECHO 09/07/24: Limited study status post mitral valve replacement, paradoxical septal motion consistent with postop status, EF 55 to 60% with number 27 mm Pritchett Resilia bioprosthetic mitral valve well-seated with mean gradient 8 mmHg, no MR, mild
TR, PAP 32 mmHg, no significant pericardial effusion
Echo 09/17/2024: EF 50 to 55%, mitral valve replacement with peak/mean gradient 16/7 mmHg with no MR seen, trace AR, aortic sclerosis, PAP 20 to 25 mmHg
Plan:
- Presented from [facility] due to elevated heart rate and A-fib with RVR.
- She spontaneously converted to sinus rhythm on review of telemetry yesterday afternoon. QTc acceptable by my review of EKG 09/17.
- Continue increased dose Coreg 25 mg twice daily. Presently on Amio 200 mg 3 times daily, will reduce to 200 mg twice daily upon discharge
- Continue Eliquis for both right lower extremity DVT and A-fib
- Also noted to be in heart failure. Was given additional dose of 40 mg Lasix yesterday afternoon. Weight down 3 pounds overnight and lower extremity edema improving. Will continue IV Lasix, consider for afternoon dose today again. Creatinine
stable. Was not on diuretic prior to admission, would plan to discharge on daily Lasix
- Replete potassium, ordered by me
- Echo with results as above, mitral valve without residual MR
- Continue antibiotics per ID for endocarditis per ID
- Continue postop restrictions
- will arrange cardiac follow up
- likely ok for DC back to [facility] in 24-48 hours
- BMP in 1 week upon DC
Progress Note - [employer] Salesperson
Subjective
Date of Service: September 18, 2024
Feeling improved, just tired.
Objective
Labs:
09/18/24 05:40
09/18/24 05:40
Labs
Hgb 8.4 g/dL (12.0-16.0) L 09/18/24 05:40
Hct 26.0 % (37.0-47.0) L 09/18/24 05:40
Plt Count 269 10^3/uL (130-400) 09/18/24 05:40
PT 21.1 Sec (11.4-14.6) H 09/16/24 10:40
INR 1.77 09/16/24 10:40
APTT 37.1 Sec (23.4-35.0) H 09/16/24 10:40
Sodium 137 mmol/L (135-145) 09/18/24 05:40
Potassium 3.3 mmol/L (3.5-5.1) L 09/18/24 05:40
BUN 9 mg/dl (7-17) 09/18/24 05:40
Creatinine 0.8 mg/dL (0.6-1.0) 09/18/24 05:40
Glucose 115 mg/dl (70-99) H 09/18/24 05:40
Vital Signs and I&O:
Vital Signs
Temp Pulse Resp BP Pulse Ox
98.1 F 71 16 117/63 98
09/18/24 07:23 09/18/24 04:15 09/18/24 07:23 09/18/24 04:15 09/18/24 07:23
Vital Signs
Temp Pulse Resp BP Pulse Ox
98.1 F 71 16 117/63 98
09/18/24 07:23 09/18/24 04:15 09/18/24 07:23 09/18/24 04:15 09/18/24 07:23
Intake & Output
09/16/24 09/17/24 09/18/24 09/19/24
07:59 07:59 07:59 07:59
Intake Total 500 / 500 580 / 580
Output Total 550 / 550 2450 / 2450
Balance -50 / -50 -1870 / -1870
Physical Exam
Physical Exam
GEN: No distress, awake, alert, oriented x3
HEENT: supple, anicteric, mmm, EOMI
LUNGS: CTA B/L
CV: reg, S1/S2, no murmur
ABD: soft, BS+, NT/ND
EXT: No cyanosis, clubbing. 2+ edema of B/L LE
NEURO: Gross non-focal
SKIN: Warm, pink, dry. No rash. Sternotomy incision c/d/i
[2024-09-18] MEDS: LASIX 40 MG IV ×2 (09:23→14:36)
[2024-09-18] MEDS: CYMBALTA DELAYED RELEASE 30 MG PO ×2 (09:23→20:51)
[2024-09-18] MEDS: PACERONE 200 MG PO ×3 (09:23→22:30)
[2024-09-18] MEDS: LOW STRENGTH ASPIRIN 81 MG PO (09:24)
[2024-09-18] MEDS: COREG 25 MG PO ×2 (09:24→22:30)
[2024-09-18] MEDS: ELIQUIS 5 MG PO ×2 (09:24→20:51)
[2024-09-18] MEDS: NON-FORMULARY ITEM 30 MG PO ×3 (09:25→22:29)
[2024-09-18] MEDS: KLOR-CON 40 MEQ PO (09:36)
[2024-09-18] MEDS: KCL 20 MEQ PO ×2 (09:36→20:51)
--- NOTE | 2024-09-18 12:48 | CM ---
spoke to pt in room, she is prev indep, lives alone in a 2 story hosme wioth 1 step to enter. she has 3 kids not near but very supportive. she was in the middle of her acute rehab stay at [facility] when she was transfered to . she would like to go back
to [facility] to finish rehab when medically stable. called liason at [facility], they will have a bed for her tomorrow. hospitalist confirmed that she will be ready tomorrow. cm to get auth.
--- NOTE | 2024-09-18 13:23 | W.PN.ID1 ---
Date of Service
Date of Service: September 18, 2024
Today's Communication
Continue with cefazolin.
Assessment / Plan
Mitral valve endocarditis
- s/p bovine MV replacement (09/02/24); POD#15
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
Leukocytosis
- improved today
Staph aureus (MSSA) bacteremia
- cleared; first negative BCx : 08/22/24
ESR and CRP elevated
Hypernatremia- resolved
Diarrhea (prior C. diff testing negative)
- improved/resolved. 'mushy' per nursing and patient.
Sjogren syndrome
Rheumatoid arthritis
Dyslipidemia
Hypothyroidism
Anxiety/depression
Neuropathy
Hx of skin cancer
Osteopenia
Recommendations:
Antibiotics changed from nafcillin to cefazolin yesterday.
Leukocytosis noted to be improved today.
Continue abx to complete a 6-week course of therapy (through 10/14/2024)
Follow Cr / est CrCl. Continue to monitor CBC.
Would place Tubigrip's to bilateral lower extremities.
����������������������������������������������������������
Chief Complaint
-: Leukocytosis
Subjective / Review of Systems
Review of Systems: No Fever and No Chills
Vital Signs / Physical Exam
Vital Signs
Vital Signs
Temp Pulse Resp BP Pulse Ox
98.1 F 70 16 144/94 98
09/18/24 11:14 09/18/24 11:03 09/18/24 11:14 09/18/24 11:03 09/18/24 11:14
Physical Exam
Constitutional: No Acute Distress, Comfortable, Chronically Ill and Non-toxic
Eyes: No Conjunctival Hemorrhage and Sclera Anicteric
Cardiovascular: Regular Rate and S1/S2; Negative S3/S4
Pulmonary: Non Labored; Negative Wheezes or Rales
Gastrointestinal: Soft, Non Tender, Non Distended, Normal Bowel Sounds, No Rebound and No Guarding
Wound: Other (Sternal wound incisional area clean, dry and intact. No periwound erythema. No open wounds.)
Neurological: Awake and Alert
Psychological: Calm
Objective Data
Lab Data
Lab Results
09/18/24 05:40
09/18/24 05:40
PT 21.1 Sec (11.4-14.6) H 09/16/24 10:40
INR 1.77 09/16/24 10:40
APTT 37.1 Sec (23.4-35.0) H 09/16/24 10:40
Estimated Creat Clear 51 ml/min 09/18/24 05:40
Total Bilirubin 0.7 mg/dl (0.2-1.3) 09/18/24 05:40
AST 18 U/L (14-36) 09/18/24 05:40
ALT < 10 U/L (0-35) 09/18/24 05:40
Alkaline Phosphatase 118 U/L (38-126) 09/18/24 05:40
Most recent labs reviewed.
Micro Results:
09/16/24 17:02 Blood Culture - Preliminary
Blood/Venous No Growth in 24 hours- Final report to follow
[2024-09-18] MEDS: LIPITOR 20 MG PO (17:18)
--- NOTE | 2024-09-18 18:18 | PTCARENOTE ---
pt continues to be sr on the monitor, hr in the 70s, vss. pt has been oob to the chair throughout the day and tolerating well. pt educated on plan of care and pt verbalized understanding. daughter at bedside visiting for most of the day. call humphrey
within reach.
--- NOTE | 2024-09-18 19:12 | W.PN.UPDATE ---
Update Note
Progress Note Update
Discharging Physician :
Disposition : [facility]
Primary care physician : Dr. Marianne Escalera
Principal Discharge diagnosis :
A-fib with RVR
HFpEF
Chronic Discharge diagnosis :
Hospital Course :
84 y/o female with pmhx of htn, hlp, RA, Sjogren's recently admitted with mitral valve endocarditis and MSSA bacteremia s/p sternotomy, left atrial appendage exclusion, and chordal sparing mitral valve replacement brought to the ED from [facility]
due to Afib with RVR and leukocytosis.
# Afib with RVR
- Patient was going to start therapy on 09/16/2024 when staff noticed Afib, patient denied any symptoms at that time. Had no other episodes of Afib since discharge to rehab
- Was on amiodarone 200mg bid and coreg 6.25mg bid at [facility]
- Initial EKG showed Afib with RVR and PVCs
- s/p sternotomy, left atrial appendage exclusion, and chordal sparing mitral valve replacement -- continue sternal precautions
- CHADS-Vasc score >3 -- continue Eliquis
- Cardiology on board, given IV amiodarone 150mg bolus, increased regimen to amiodarone 200 mg 3 times daily and Coreg 25 mg twice daily
- Patient converted to sinus rhythm on 09/17/2024 with pharmacologic management
- Repeat echo 09/17- no valvular vegetation seen. No significant change from prior echo.
- Transitioned to amiodarone 200 mg twice daily on discharge to [facility]
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
- s/p mitral valve replacement (bioprosthetic)
- Nafcillin 2g IV q4h discontinued --> switched to cefazolin
- Monitor Cr and LFTs
- Repeat echo 09/17- no vegetations seen no MR from MVR
# Leukocytosis
- CXR no signs of pneumonia, small left pleural effusion likely 2/2 sternotomy
- No murmurs noted on exam
- UA negative
- Blood cultures no growth
- Repeat echo 09/17- no vegetations seen
- ID on board, white count down trended after switching nafcillin to cefazolin
# History of RLE DVT and RUE superficial vein thrombosis
- Continue Eliquis 5mg bid
# Acute exacerbation of HFpEF
- Patient still appears volume overloaded
- pro-BNP elevated at 5680
- Continue IV lasix
- Follow volume status closely, strict I and O, FRR, and daily weights
# Hypokalemia
- Continue po KCl 20 bid
# Hypertension
- Stable
- Continue Coreg and amlodipine
# Hyperlipidemia
- Continue statin
# RA
- Continue to hold methotrexate
# Anemia, chronic
- Hgb stable
- Continue to monitor
# Anxiety/depression
- on duloxetine, xanax
Important imaging findings :
Chest x-ray (09/16/2024):
Placement of a left central venous catheter with the tip at the cavoatrial junction.
Small left pleural effusion.
No focal consolidation or pneumothorax. Sternotomy wires, left atrial appendage clip, and cardiac valve prosthesis. Stable cardiomediastinal silhouette. Chronic degenerative changes of the spine.
--- NOTE | 2024-09-18 20:00 | PTCARENOTE ---
Assumed care of the patient at 1900. Patient OOB to chair, AOx3, pleasant, MCGRATH. SR on the monitor, rate 70-80's, +1-2 pitting edema of the lower extremities, doppler pedal pulses. Lungs dim at the bases, RA. Patient tolerating PO, reports about 50%
intake of meals, LBM today. Voiding in the commode without difficulty. MS chest incision CDI, scabbed, well approximated. OOB with assist x1 and RW. L subclavian tunneled cath dressing CDI, good blood return. Patient bathed with CHG, helped into
bed, assessment of needs ongoing, see nursing work list for additional interventions. Call [facility] within reach.
[2024-09-18] MEDS: MELATONIN 10 MG PO (22:29)
[2024-09-18] MEDS: NORVASC 5 MG PO (22:30)
[2024-09-19 02:52] VITALS: BP 146/88
[2024-09-19 03:12] LABS: Hematocrit 24.8 % (37.0-47.0); Hemoglobin 8.1 g/dL (12.0-16.0); Mean Corp Hgb Conc. 32.7 g/dL (33.0-37.0); Mean Corpuscular Hgb 30.8 pg (27.0-31.0); Mean Corpuscular Volume 94.3 fL (81.0-99.0); Mean Platelet Volume 9.1 fL (7.4-10.4); Platelet Count 253 10^3/uL (130-400); Red Blood Cell Count 2.63 10^6/uL (4.20-5.40); Red Cell Dist. Width 18.5 % (11.5-14.5); White Blood Cell Count 15.3 10^3/uL (4.8-10.8)
[2024-09-19 03:36] LABS: Blood Urea Nitrogen 11 mg/dl (7-17); Calcium 8.7 mg/dl (8.4-10.2); Carbon Dioxide 34 mmol/L (22-30); Chloride 100 mmol/L (98-107); Estimated Creatinine Clearance 51 ml/min; Glucose 114 mg/dl (70-99); Potassium 3.2 mmol/L (3.5-5.1); Sodium 137 mmol/L (135-145); eGFR > 60.00
--- NOTE | 2024-09-19 04:36 | PTCARENOTE ---
Took over care of pt from previous nurse. Pt sleeping well. SR in the 60s on the monitor. No complaints from pt at this time, call [facility] within reach.
[2024-09-19] MEDS: ANCEF 10 IV ×2 (05:56→13:24)
[2024-09-19 06:00] VITALS: BMI 24.2
[2024-09-19] MEDS: TYLENOL 650 MG PO (06:04)
[2024-09-19 07:24] VITALS: BP 107/59
[2024-09-19] MEDS: NON-FORMULARY ITEM 300 MG PO (08:23)
[2024-09-19] MEDS: LOW STRENGTH ASPIRIN 81 MG PO (08:24)
[2024-09-19] MEDS: COREG 25 MG PO (08:24)
[2024-09-19] MEDS: CYMBALTA DELAYED RELEASE 30 MG PO (08:24)
[2024-09-19] MEDS: KCL 20 MEQ PO (08:25)
[2024-09-19] MEDS: ELIQUIS 5 MG PO (08:25)
[2024-09-19] MEDS: PACERONE 200 MG PO (08:25)
--- NOTE | 2024-09-19 08:29 | W.PN.CARDCBS ---
Addendum entered and electronically signed by James Juarez MD 09/19/24 09:39:
Patient seen and examined
Agree with PA-C note and assessment
Agree with PA-C plan
Converted to sinus rhythm last week on higher dose amiodarone
Her breathing is better although she appears mildly dyspneic still
Converting to oral Lasix
����Physical Exam
���������������������General:��no apparent distress, not acutely ill
���������������������������Neck:��supple. no meningeal signs. normal psoterior pharynx������������������������
���������������������������Heart:��s1/s2 regular rate and rhythm, no murmur. equal radial pulses.
��������������������������Lungs: ��no acute respiratory distress. clear bilaterally
����������������������Abdomen:�normal bowel sounds. not tender. no CVAT
��������������������������Neuro:��alert and oriented. no focal neurological deficits
������������������������������Skin: ��no rash
�����������������������Psychiatric:�well kept. interactive and cooperative
�����������������������Extremities:��no edema. no calf tenderness. negative homans. good distal pulses
Assessment:
Presentation with tachycardia
Afib with RVR
Acute HFpEF
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
Post op PAF
RLE DVT
R 3rd toe ulcer s/p debridement 08/2024
RA on chronic methotrexate
HTN
HLD
Hypothyroidism
Anxiety/depression
Anemia
Hypoalbuminemia
Moderate hiatal hernia
DDD of neck
Thyroid goiter
TTE at [facility] 08/24/24: EF 55%, large echogenic mass on posterior mitral valve leaflet 1.6 x 1.3 cm with mild to moderate MR, concern for endocarditis
ADITI 08/28 with preserved EF, large partially mobile vegetation measuring 2.0 cm in length on primarily the posterior leaflet of mitral valve, also with smaller, highly mobile echodense structure/vegetation on posterior leaflet of mitral valve that
transverses the mitral valve with each cardiac cycle with high risk of embolization, mild to moderate MR
ECHO 09/07/24: Limited study status post mitral valve replacement, paradoxical septal motion consistent with postop status, EF 55 to 60% with number 27 mm Pritchett Resilia bioprosthetic mitral valve well-seated with mean gradient 8 mmHg, no MR, mild
TR, PAP 32 mmHg, no significant pericardial effusion
Echo 09/17/2024: EF 50 to 55%, mitral valve replacement with peak/mean gradient 16/7 mmHg with no MR seen, trace AR, aortic sclerosis, PAP 20 to 25 mmHg
Plan:
-Presented from [facility] due to elevated heart rate and A-fib with RVR.
-Spontaneously converted to SR and remains in SR this AM
-Continue Coreg 25 mg twice daily and amiodarone 200 mg TID while admitted. Please decrease amiodarone to 200 mg twice daily at discharge to rehab and she can change to 200 mg daily in 3 weeks.
-Continue Eliquis 5 mg twice daily for h/o A-fib and LE DVT.
- Changing to oral Lasix
-Creat stable at 0.8. Still w/ some LE edema, but reports she is feeling better. Could consider giving additional dose of IV lasix this afternoon.
-Check BMP in 1 week
-K 3.2. Will replete.
-Echo 09/17 with EF 50 to 55% and mitral valve without residual MR as noted above.
-Continue ABX per ID for endocarditis.
-Okay for discharge back to [facility] from a cardiovascular standpoint.
-Cardiology follow-up arranged
���
�����������
��
�
��
�
Original Note:
Today's Communication / Plan
-
Will continue amiodarone 200mg TID while admitted. Transition to 200mg BID at discharge
Continue coreg and Eliquis, remains in SR.
Will transition to PO lasix 40mg daily in AM. Could consider giving additional dose of IV lasix this afternoon.
Cardiology follow up arranged.
Impression / Plan
-
Primary Hearing Aid Repair Technician: Dr. Ingram of [facility]
Primary CT surgeon: Dr. Pena
Assessment:
Presentation with tachycardia
Afib with RVR
Acute HFpEF
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
Post op PAF
RLE DVT
R 3rd toe ulcer s/p debridement 08/2024
RA on chronic methotrexate
HTN
HLD
Hypothyroidism
Anxiety/depression
Anemia
Hypoalbuminemia
Moderate hiatal hernia
DDD of neck
Thyroid goiter
TTE at [facility] 08/24/24: EF 55%, large echogenic mass on posterior mitral valve leaflet 1.6 x 1.3 cm with mild to moderate MR, concern for endocarditis
[facility]I 08/28 with preserved EF, large partially mobile vegetation measuring 2.0 cm in length on primarily the posterior leaflet of mitral valve, also with smaller, highly mobile echodense structure/vegetation on posterior leaflet of mitral valve that
transverses the mitral valve with each cardiac cycle with high risk of embolization, mild to moderate MR
ECHO 09/07/24: Limited study status post mitral valve replacement, paradoxical septal motion consistent with postop status, EF 55 to 60% with number 27 mm Pritchett Resilia bioprosthetic mitral valve well-seated with mean gradient 8 mmHg, no MR, mild
TR, PAP 32 mmHg, no significant pericardial effusion
Echo 09/17/2024: EF 50 to 55%, mitral valve replacement with peak/mean gradient 16/7 mmHg with no MR seen, trace AR, aortic sclerosis, PAP 20 to 25 mmHg
Plan:
-Presented from [facility] due to elevated heart rate and A-fib with RVR.
-Spontaneously converted to SR and remains in SR this AM
-Continue Coreg 25 mg twice daily and amiodarone 200 mg TID while admitted. Will decrease amiodarone to 200mg BID at discharge.
-Continue Eliquis 5 mg twice daily for h/o A-fib and LE DVT.
-Also in heart failure this admission. Diuresing with IV Lasix. Weight down 5 pounds overnight to 150 pounds on 09/19.
-Creat stable at 0.8. Still w/ some LE edema, but reports she is feeling better. Could consider giving additional dose of IV lasix this afternoon.
-Will transition to p.o. Lasix 40 mg daily in AM. Was not on diuretic prior to admission.
-Check BMP in 1 week
-K 3.2. Will replete.
-Echo 09/17 with EF 50 to 55% and mitral valve without residual MR as noted above.
-Continue ABX per ID for endocarditis.
-Okay for discharge back to [facility].
-Cardiology follow-up arranged
Progress Note - Hearing Aid Repair Technician
Subjective
Date of Service: September 19, 2024
Feeling improved. Still w/ some LE edema
Objective
Labs:
09/19/24 02:54
09/19/24 02:54
Labs
Hgb 8.1 g/dL (12.0-16.0) L 09/19/24 02:54
Hct 24.8 % (37.0-47.0) L 09/19/24 02:54
Plt Count 253 10^3/uL (130-400) 09/19/24 02:54
PT 21.1 Sec (11.4-14.6) H 09/16/24 10:40
INR 1.77 09/16/24 10:40
APTT 37.1 Sec (23.4-35.0) H 09/16/24 10:40
Sodium 137 mmol/L (135-145) 09/19/24 02:54
Potassium 3.2 mmol/L (3.5-5.1) L 09/19/24 02:54
BUN 11 mg/dl (7-17) 09/19/24 02:54
Creatinine 0.8 mg/dL (0.6-1.0) 09/19/24 02:54
Glucose 114 mg/dl (70-99) H 09/19/24 02:54
Vital Signs and I&O:
Vital Signs
Temp Pulse Resp BP Pulse Ox
97.6 F 70 16 107/59 96
09/19/24 07:25 09/19/24 08:24 09/19/24 07:25 09/19/24 08:24 09/19/24 07:25
Vital Signs
Temp Pulse Resp BP Pulse Ox
97.6 F 70 16 107/59 96
09/19/24 07:25 09/19/24 08:24 09/19/24 07:25 09/19/24 08:24 09/19/24 07:25
Intake & Output
09/17/24 09/18/24 09/19/24 09/20/24
06:59 06:59 06:59 06:59
Intake Total 500 / 500 580 / 580 120 / 120
Output Total 550 / 550 2450 / 2450 1500 / 1500
Balance -50 / -50 -1870 / -1870 -1380 / -1380
Physical Exam
Physical Exam
GEN: No distress, awake, alert, oriented x3
HEENT: supple, anicteric, mmm
LUNGS: CTA B/L, no wheezes
CV: reg, S1/S2, no murmur
EXT: No cyanosis, clubbing. 2+ edema of B/L LE
NEURO: Gross non-focal
SKIN: Warm, pink, dry. No rash. Sternotomy incision c/d/i
[2024-09-19] MEDS: KCL 40 MEQ PO (09:28)
[2024-09-19 09:32] VITALS: BP 123/92
[2024-09-19] MEDS: LASIX IV (09:39)
[2024-09-19] MEDS: LASIX 40 MG IV (10:49)
[2024-09-19 11:09] VITALS: BP 127/77
--- NOTE | 2024-09-19 11:17 | TRANSFER ---
Report given to MAITE Clark at [facility]. Discussed transfer plans for 1240 w/ pt. Pt to be transferred to room 14 at [facility].
--- NOTE | 2024-09-19 12:51 | W.PN.HOSP.TC ---
Today's Communication/Plan
-
dc
Assessment / Plan
Assessment / Plan
Physical Exam
-
General: chronically ill looking, No Apparent Distress and Comfortable; Negative Respiratory Distress
HEENT: Normocephalic
Respiratory: limited with rales.
Cardiac: Regular Rhythm and S1/S2
GI: Soft, Nontender, Nondistended and Normal Bowel Sounds
Genito-urinary: No Costovertebral Tender
Musculoskeletal: No Clubbing, No Cyanosis, less Edema, Right Lower Extrem and less Edema, Left Lower Extrem
Skin: Warm
Neuro: Awake, Alert, Oriented and AO x 3
Psych: Calm
84 y/o female with pmhx of htn, hlp,RA, Sjogren's recently admitted with mitral valve endocarditis and MSSA bacteremia s/p sternotomy, left atrial appendage exclusion, and chordal sparing mitral valve replacement brought to the ED from [facility]
due to Afib with RVR. Feeling better today. No new complaints.
# Afib with RVR
- Patient was going to start therapy today when staff noticed Afib, patient denies any symptoms at that time. Has had no other episodes of Afib since discharge rehab
- Patient was on amiodarone 200mg bid and coreg 6.25mg bid at [facility]
- EKG: Afib with RVR and PVCs
- s/p sternotomy, left atrial appendage exclusion, and chordal sparing mitral valve replacement -- continue sternal precautions
- CHADS-Vasc score >3 -- continue Eliquis
- Cardiology and cardiovascular surgery on board, given IV amiodarone 150mg bolus
- Pharmacologic management first. If not successful, consider cardioversion
- Cardiology on board, increased coreg to 25 mg bid
- Converted to sinus yesterday, continue with current regimen (amio 200mg tid and coreg 25 mg bid)
- Echo no valvular vegetation. No significant change from prior echo.
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
- s/p mitral valve replacement (bioprosthetic)
- Nafcillin 2g IV q4h discontinued --> switched to cefazolin
- Monitor Cr and LFTs - WNL
# Leukocytosis
- wbc downtrending, 15.9 today
- CXR no signs of pneumonia, small left pleural effusion likely 2/2 sternotomy
- No murmurs noted on exam
- UA negative
- Blood cultures no growth in 24 hours
- Echo no valvular vegetation.
- ID following - switched antibiotic to cefazolin
# History of DVT
- Continue Eliquis 5mg bid
# Bilateral lower extremity edema
- Patient appears volume overloaded
- pro-BNP elevated at 5680
- Continue 40mg IV lasix
# Hypokalemia
- Continue po KCl 20 bid
- Replete as needed
# Hypertension
- Stable
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
# Hyperlipidemia
- Continue statin
# RA
- Continue to hold methotrexate
# Anemia, chronic
- Hgb stable
- Continue to monitor
# Anxiety/depression
- on duloxetine, xanax
Code status: Full code
on Eliquis
Total discharge time spent to see the patient, examine the patient, review data and lab result, discuss discharge plan with patient, cardiology, nursing staff around 65 minutes
Anticipated Discharge: Today
Subjective/Interval History
-
Date of Service: September 19, 2024
No chest pain
No sob
Objective Data
-
Labs:
Laboratory Results
09/19/24
02:54
WBC 15.3 H
Hgb 8.1 L
Hct 24.8 L
Plt Count 253
Sodium 137
Potassium 3.2 L
Chloride 100
Carbon Dioxide 34 H
BUN 11
Creatinine 0.8
Glucose 114 H
Calcium 8.7
Vital Signs:
Vital Signs
Temp Pulse Resp BP Pulse Ox
98.1 F 65 18 123/92 98
09/19/24 11:16 09/19/24 10:49 09/19/24 11:16 09/19/24 10:49 09/19/24 11:16
I&O
09/18/24 09/19/24 09/20/24
06:59 06:59 06:59
Intake Total 580 / 580 120 / 120
Output Total 2450 / 2450 1500 / 1500
Balance -1870 / -1870 -1380 / -1380
--- NOTE | 2024-09-19 13:49 | TRANSFER ---
Pt transferred to [facility], via wheelchair and PCT escort.
== END 2024-09-19 14:08 | DRG 291 ==
LOC: IVU 15:59
PROVIDERS: Physician Assistant Medical; ADMITTING PHYSICIAN Family Medicine; ATTENDING PHYSICIAN Internal Medicine; EMERGENCY PHYSICIAN Emergency Medicine; FAMILY PHYSICIAN Student in an Organized Health Care Education/Training Program; OTHER PHYSICIAN Internal Medicine Cardiovascular Disease
DX: I11.0 Hypertensive heart disease with heart failure (principal); I33.0 Acute and subacute infective endocarditis; I50.33 Acute on chronic diastolic (congestive) heart failure; I82.401 Acute embolism and thrombosis of unspecified deep veins of right lower extremity; I48.0 Paroxysmal atrial fibrillation; Z79.01 Long term (current) use of anticoagulants; E87.6 Hypokalemia; M06.9 Rheumatoid arthritis, unspecified; Z79.631 Long term (current) use of antimetabolite agent; D64.9 Anemia, unspecified; F32.A Depression, unspecified; F41.9 Anxiety disorder, unspecified; M35.00 Sjogren syndrome, unspecified; E78.00 Pure hypercholesterolemia, unspecified; E03.9 Hypothyroidism, unspecified; Z60.2 Problems related to living alone; I70.0 Atherosclerosis of aorta; Z79.82 Long term (current) use of aspirin; Z79.899 Other long term (current) drug therapy
CPT/HCPCS: 93308; 71045; 80048; 80053; 81003; 83735; 83880; 85025; 85027; 85610; 85730; 87040; 93005; 93321; 93325; 96374; 96375; 97116; 97163; 97166; 97530; 99285

== ENCOUNTER → 2025-04-17 10:57 | Outpatient (REF) | payer OTHER, SELFPAY | LOC: RCS 10:57 | PROVIDERS: ATTENDING PHYSICIAN Nurse Practitioner Acute Care; FAMILY PHYSICIAN Physician Assistant | DX: Z95.2 Presence of prosthetic heart valve (principal) | CPT/HCPCS: 93306 ==